=== PATIENT | female | born 1945 | race Caucasian/White ===

== ENCOUNTER 2018-01-28 01:12 | Inpatient (IN) | payer MEDICARE, OTHER, SELFPAY ==
[2018-01-28] VITALS (18 sets, daily range): BP systolic 113–158; BP diastolic 44–79; PULSE 14–91; RESP 18–95; TEMP 37.3–39.3; O2SAT 34–99; BMI 54.6; BMI 54.9
--- NOTE | 2018-01-28 02:18 | ED.VISSUMM ---
- ER Visit Summary Date of Service: 01/28/18 Chief Complaint: Fever and chills History of Present Illness: The patient is a 72 F 3 of ctw-dzjwqyd-jedbdikja diabetes. Patient states this afternoon meaning on Sunday afternoon she started having fever and chills. However she denies any cough or shortness of breath. She denies any chest or abdominal pain. She denies any dysuria. She denies any rashes. She denies any nausea, vomiting or diarrhea. Denies any headache. Physical Examination: Older female no acute distress. She does have a fever of 102.8. Pulse ox 95% on room air no signs of hypoxia. She is a good blood pressure 134/76. Clinically she does not look septic or toxic. HEENT exam unremarkable. Neck nontender no lymphadenopathy. Lungs clear to auscultation bilaterally. Heart regular rate and rhythm no murmur. Abdomen is obese but soft and nontender. No peritoneal signs. Normal bowel sounds. He is moving all 4 extremities. They are neurovascularly intact. They are both warm to the touch but no specific cellulitis. Neurologically she is awake and alert. Without focal motor deficits. Back exam nontender. Test Results: A count of 17,700. H&H 1135. No bands. Electrolytes unremarkable and a potassium of 3.1. Creatinine 1.2. Normal gap. UA normal. Chest x-ray shows no acute abnormality. Cardiomegaly. Read both by myself the radiologist. Urinalysis is normal without signs of infection. Lactic acid is elevated 3.4. Emergency Department Course and Treatment: Older female with a fever. Labs, chest x-ray and urinalysis will be obtained along with blood cultures and she will receive IV fluids and Tylenol. I will start the patient on broad-spectrum antibiotics and still be started on Zosyn in the ER. Treatment Plan: We will repeat exams patient is doing well. Blood pressures remained stable. Her fevers improved with the Tylenol. In light of her age, her diabetes a white count and the fever I do have concerns as an underlying bacterial infection. I did not have a specific source. She does have mild redness to her right lower landin it is not painful but she has neuropathy. Could this be an early developing cellulitis is a possibility. I do think she warrants admission for further evaluation workup. I very spoken to the hospitalist about this. Disposition: Admission Impression: Fever uncertain etiology Leukocytosis History of zhc-ajumhdv-qmlxzqyvq diabetes This note was generated with [employer] dictation software. It may contain incorrect words, spelling, and punctuation that were not noted in review of the chart prior to signing ED Disposition - Plan for ED Patient: Chief Complaint: Fever Referrals: Lalitha Baez MD [Primary Care Provider] -
--- NOTE | 2018-01-28 02:21 | ED.DCSUM_ITS ---
- ER Visit Summary Date of Service: 01/28/18 Chief Complaint: Fever and chills History of Present Illness: The patient is a 72 F 3 of vlg-slwwxgg-eaamkvplv diabetes. Patient states this afternoon meaning on Sunday afternoon she started having fever and chills. However she denies any cough or shortness of breath. She denies any chest or abdominal pain. She denies any dysuria. She denies any rashes. She denies any nausea, vomiting or diarrhea. Denies any headache. Physical Examination: Older female no acute distress. She does have a fever of 102.8. Pulse ox 95% on room air no signs of hypoxia. She is a good blood pressure 134/76. Clinically she does not look septic or toxic. HEENT exam unremarkable. Neck nontender no lymphadenopathy. Lungs clear to auscultation bilaterally. Heart regular rate and rhythm no murmur. Abdomen is obese but soft and nontender. No peritoneal signs. Normal bowel sounds. He is moving all 4 extremities. They are neurovascularly intact. They are both warm to the touch but no specific cellulitis. Neurologically she is awake and alert. Without focal motor deficits. Back exam nontender. Test Results: A count of 17,700. H&H 1135. No bands. Electrolytes unremarkable and a potassium of 3.1. Creatinine 1.2. Normal gap. UA normal. Chest x-ray shows no acute abnormality. Cardiomegaly. Read both by myself the radiologist. Urinalysis is normal without signs of infection. Lactic acid is elevated 3.4. Emergency Department Course and Treatment: Older female with a fever. Labs, chest x-ray and urinalysis will be obtained along with blood cultures and she will receive IV fluids and Tylenol. I will start the patient on broad-spectrum antibiotics and still be started on Zosyn in the ER. Treatment Plan: We will repeat exams patient is doing well. Blood pressures remained stable. Her fevers improved with the Tylenol. In light of her age, her diabetes a white count and the fever I do have concerns as an underlying bacterial infection. I did not have a specific source. She does have mild redness to her right lower landin it is not painful but she has neuropathy. Could this be an early developing cellulitis is a possibility. I do think she warrants admission for further evaluation workup. I very spoken to the hospitalist about this. Disposition: Admission Impression: Fever uncertain etiology Leukocytosis History of dny-dlwpozw-kibmauujt diabetes This note was generated with [employer] dictation software. It may contain incorrect words, spelling, and punctuation that were not noted in review of the chart prior to signing ED Disposition - Plan for ED Patient: Chief Complaint: Fever Referrals: Lalitha Baez MD [Primary Care Provider] -
[2018-01-28] MEDS: 0.9% Normal Saline 1,000 ML 1000 ML IV (02:29)
[2018-01-28] MEDS: Acetaminophen 500 MG Tablet 1000 MG PO (02:29)
--- NOTE | 2018-01-28 03:00 | RAD_ITS ---
STUDY: X-RAY CHEST REASON FOR EXAM: Female, 72 years old. Fever. TECHNIQUE: PA and lateral chest. COMPARISON: None. FINDINGS: The lungs are clear and expanded. There is no demonstrated pleural abnormality. Mild to moderate cardiomegaly. Normal mediastinum and harmony. Normal visualized pulmonary arteries. Normal visualized aortic arch and descending thoracic aorta. Mild degenerative changes of the thoracic spine. Normal visualized ribs, clavicles, and shoulders. There is no demonstrated abnormality of the visualized soft tissue structures of the upper abdomen. RAD/Chest PA and Lateral IMPRESSION: Cardiomegaly. Electronically Signed: Chevy Hernandez MD at 3:39 EDT , Service support ,
[2018-01-28 03:03] LABS: Absolute Neutrophil Count 15.8 X10^3/uL (2.0-7.7); Basophil# 0.03 X10^3/uL; Basophil% 0.2 % (0-1); Eosinophil# 0.01 X10^3/uL; Eosinophils% 0.1 % (0-5); Hematocrit 35.1 % (37-47); Hemoglobin 11.4 g/dl (12.0-15.0); Lymphocyte % 4.5 % (19-41); Mean Corp Hgb Conc 32.5 g/gl (32-36); Mean Corpuscular Volume 80.1 fL (81-99); Mean Platelet Vol. 10.5 fl (6.2-12.0); Monocyte# 0.94 X10^3/uL; Monocyte% 5.3 % (0-10); Neutrophil # 15.79 X10^3/uL (2.7-7.7); Neutrophil % 89.4 % (47-70); Platelet Count 230 K/mm3 (150-450); RBC Distribution Width CV 17.5 % (11.6-14.6); RBC Distribution Width SD 48.6 fl (35.1-43.9); Red Blood Count 4.38 M/mm3 (4.2-5.4); White Blood Count 17.7 K/mm3 (4.4-11.0)
[2018-01-28 03:04] LABS: POSITIVE COUNT NO; POSITIVE DIFFERENTIAL NO; POSITIVE MORPHOLOGY NO
[2018-01-28 03:09] LABS: Anion Gap 11 (5-15); BUN 25 mg/dL (7-18); Calcium,Total 8.4 mg/dL (8.5-10.1); Chloride 101 mmol/L (98-107); Creatinine, Serum 1.25 mg/dL (0.55-1.02); EST Glomerular Filtration Rate 45 mL/min (>60); Est Glom Filt Rate - Afr Amer 54 mL/min (>60); Estimated Creatinine Clearance 36.16 ml/min; Glucose 176 mg/dL (74-106); Potassium 3.1 mmol/L (3.5-5.1); Sodium Level 138 mmol/L (136-145)
[2018-01-28 03:23] LABS: Lactic Acid 3.4 mmol/L (0.4-2.0)
[2018-01-28 03:34] LABS: Bacteria 0 SEEN /hpf (None Seen); Mucous, Urine 0 SEEN /hpf (<or=2+); Squamous Epithelial Cells - UA 0 SEEN /hpf (5-10); White Blood Cells 0 SEEN /hpf (0-5)
[2018-01-28 03:38] LABS: Color, Urine Yellow (Yellow); Glucose, Dipstick Normal (Normal); Ketone-Dipstick Negative (Negative); Leukocyte Esterase-Dipstick Negative /ul (Negative); Nitrite-Dipstick Negative (Negative); Occult Blood-Urine 50 /ul (Negative); Protein-Dipstick 100 mg/dl (Negative); Urine Bilirubin Dipstick Negative (Negative); Urine Clarity Sl. Cloudy (Clear); Urine Urobilinogen Normal (Normal)
[2018-01-28 03:49] LABS: Amorphous Sediment 3+; Red Blood Cells-Urine 0-5 SEEN /hpf (0-5)
--- NOTE | 2018-01-28 03:52 | ED.RN ---
lab called with critical lab results. lactic acid 3.4. Dr. Comer made aware. no new orders at this time
--- NOTE | 2018-01-28 04:53 | PCM.HP.STD ---
Problem List (1) HTN (hypertension) Status: Chronic Qualifiers: Hypertension type: essential hypertension Qualified Code(s): I10 - Essential (primary) hypertension (2) HLD (hyperlipidemia) Status: Chronic Qualifiers: Hyperlipidemia type: unspecified Qualified Code(s): E78.5 - Hyperlipidemia, unspecified (3) Morbid obesity with BMI of 50.0-59.9, adult Status: Chronic (4) Diabetes mellitus, type II Status: Chronic Qualifiers: Diabetes mellitus superintendent terminal insulin use: without senior care use Diabetes mellitus complication status: with unspecified complications Qualified Code(s): E11.8 - Type 2 diabetes mellitus with unspecified complications (5) GERD (gastroesophageal reflux disease) Status: Chronic Qualifiers: Esophagitis presence: esophagitis presence not specified Qualified Code(s): K21.9 - Gastro-esophageal reflux disease without esophagitis (6) Anxiety and depression Status: Chronic (7) Severe sepsis Status: Acute History of Present Illness Date of Admission: 01/28/18 Chief Complaint: Malaise, Fatigue The patient is a 72 y/o F w/ PMHx: HTN, HLD, Morbid Obesity, Diabetes mellitus type II w/ Neuropathy, GERD, Anxiety and Depression who presents to the [facility] ED on 01/28/18 with history of fever, chills, mild loose stools, generalized fatigue x 24 hours although she noted ongoing malaise for the last several days. In the ED work-up included T 102.8, HR 89, BP 134/76, RR 24, 95% on RA, CBC w/ WBC 17.7, Hgb 11.4, Plts 230 with L shift, BMP w/ K 3.1, BUN/Cr 25/1.25, glucose 176, LA 3.4, UA not marked appearing, CXR no marked appearing. In the ED patient administered zosyn given unclear source. Requested respiratory viral panel be obtained in the ED. Past Medical History Past Medical History (Chronic Problems): Chronic Problems HTN (hypertension) (Chronic) HLD (hyperlipidemia) (Chronic) Morbid obesity with BMI of 50.0-59.9, adult (Chronic) Diabetes mellitus, type II (Chronic) GERD (gastroesophageal reflux disease) (Chronic) Anxiety and depression (Chronic) Allergies No Known Allergies Allergy (Verified 01/28/18 01:18) Home Medications: Ambulatory Orders Medication Instructions Recorded Amlodipine [Norvasc] 10 mg PO DAILY 01/28/18 Fluoxetine [Prozac] 40 mg PO DAILY 01/28/18 Furosemide [Lasix] 60 mg PO DAILY 01/28/18 Glyburide/Metformin HCl 1 tab PO BID 01/28/18 [Glucovance 5-500 mg Tablet] Hydrochlorothiazide [Hctz] 25 mg PO DAILY 01/28/18 Metoprolol Tartrate 50 mg PO BID 01/28/18 Omeprazole 20 mg PO BID 01/28/18 Potassium Chloride 10 meq PO BID 01/28/18 Simvastatin [Zocor] 10 mg PO QHS 01/28/18 Surgical History: - - Hemorrhoidectomy, hysterectomy, bilateral carpal tunnel release, abdominal surgery following possible liposuction/plastic surgery. Psychiatric History: Anxiety, Depression [employer] History: No pertinent [employer] history Lives: Spouse/ Significant Other Smoking Status: Never smoker Tobacco Use: Non-smoker Alcohol: None Drugs: None - *Family History Maternal History Items: - - Mother with a history of hypertension, heart disease, stroke at age 87. Paternal History Items: - - There with a history of chronic lung disease with heavy tobacco use history. Review of Systems Constitutional: Reports: Anorexia, Chills, Fever, Malaise, Weakness, Fatigue. Denies: Weight Change HEENT: Reports: Sore Throat. Denies: Head Aches, Sinus Congestion, Sinus Drainage Cardiovascular: Denies: Chest Pain, Palpitations Respiratory: Reports: Cough. Denies: Shortness of breath at rest, Sputum production Gastrointestinal: Reports: Nausea, Vomiting. Denies: Abdominal Pain Genitourinary: Denies: Dysuria Musculoskeletal: Denies: Joint Pain, Joint Tenderness Skin: Denies: Rash, Wounds Neurological: Denies: Numbness, Tingling, Focal weakness Psychiatric: Reports: Anxiety, Depression. Denies: Homicidal Ideations, Suicidal Ideations Hematologic/ Lymphatic: Denies: Easy Bruising, Easy Bleeding VTE Information - Inpt Only VTE Present on Admission: No VTE Mechan Device Prophylaxis: SCD's VTE Pharm Prophylaxis ordered?: Yes Patient Problems: Active and Suspected Problems Severe sepsis (Acute) Subjective: Seated upright in the ED bed, fatigued appearance. Objective: Physical Examination: General: awake, alert, oriented x 3 and cooperative, seated upright in the ED bed in no apparent distress, fatigued, ill appearing. Skin: normal color, turgor, no icterus, cyanosis. HEENT: AT/NC, EOMI, PERRLA, dry MM, no carotid bruits or JVD noted, no marked OP erythema/exudate. Lungs: Diminished BS BL bases, moderate effort, no rales, ronchi or wheezing. Heart: Regular rate and rhythm; no gallop, rub audible. Abdomen: soft, morbidly obese, NTTP, ND, normal BS, no HSM; however, habitus makes examination difficult. Extremities: no cyanosis, clubbing, BL LE ankle non-pitting. Neurological: patient awake, alert, oriented x 3; cognitive function intact; pupils equally reactive to light and accomodation; cranial nerves II-XII grossly normal, moving all 4 extremities, no focal deficits, strength severely globally decreased secondary to acute presentation. Psychiatric: affect appears fatigued, mildly irritable, no acute evidence of depressive or anxiety feelings. - Physical Exam Vital Signs Temp Pulse Resp BP Pulse Ox 102.8 F H 81 20 H 121/78 H 94 01/28/18 01:16 01/28/18 03:34 01/28/18 03:34 01/28/18 03:34 01/28/18 03:34 Oxygen Delivery Method Room Air Weight: 318 lb 2.032 oz Body Mass Index (BMI) 54.6 Laboratory Tests Past 24 Hrs 01/28/18 01/28/18 01/28/18 02:40 02:40 02:40 WBC 17.7 H RBC 4.38 Hgb 11.4 L Hct 35.1 L MCV 80.1 L MCH 26.0 L MCHC 32.5 RDW 17.5 H RDW Differential 48.6 H Plt Count 230 MPV 10.5 Immature Gran % (Auto) 0.500 Neut % (Auto) 89.4 H Lymph % (Auto) 4.5 L Alfalfa % (Auto) 5.3 Eos % (Auto) 0.1 Baso % (Auto) 0.2 Absolute Neuts (auto) 15.8 H Absolute Lymphs (auto) 0.80 L Total Counted Not Reportable Sodium 138 Potassium 3.1 L Chloride 101 Carbon Dioxide 26.0 Anion Gap 11 BUN 25 H Creatinine 1.25 H Estim Creat Clear Calc 36.16 Est GFR (MDRD) Af Amer 54 L Est GFR (MDRD) Non-Af 45 L BUN/Creatinine Ratio 20.0 Glucose 176 H Lactic Acid 3.4 H Calcium 8.4 L Urine Color Urine Clarity Urine pH Ur Specific [place] Urine Protein Urine Glucose (UA) Urine Ketones Urine Occult Blood Urine Nitrite Urine Bilirubin Urine Urobilinogen Ur Leukocyte Esterase Urine RBC Urine WBC Ur Squamous Epith Cells Amorphous Sediment Urine Bacteria Urine Mucus 01/28/18 03:30 WBC RBC Hgb Hct MCV MCH MCHC RDW RDW Differential Plt Count MPV Immature Gran % (Auto) Neut % (Auto) Lymph % (Auto) Alfalfa % (Auto) Eos % (Auto) Baso % (Auto) Absolute Neuts (auto) Absolute Lymphs (auto) Total Counted Sodium Potassium Chloride Carbon Dioxide Anion Gap BUN Creatinine Estim Creat Clear Calc Est GFR (MDRD) Af Amer Est GFR (MDRD) Non-Af BUN/Creatinine Ratio Glucose Lactic Acid Calcium Urine Color Yellow Urine Clarity Sl. Cloudy Urine pH 6.0 Ur Specific [place] 1.010 Urine Protein 100 H Urine Glucose (UA) Normal Urine Ketones Negative Urine Occult Blood 50 H Urine Nitrite Negative Urine Bilirubin Negative Urine Urobilinogen Normal Ur Leukocyte Esterase Negative Urine RBC 0-5 SEEN Urine WBC 0 SEEN Ur Squamous Epith Cells 0 SEEN Amorphous Sediment 3+ Urine Bacteria 0 SEEN Urine Mucus 0 SEEN Assessment/Plan Active and Suspected Problems Severe sepsis (Acute) The patient is a 72 y/o F w/ PMHx: HTN, HLD, Morbid Obesity, Diabetes mellitus type II w/ Neuropathy, GERD, Anxiety and Depression who presents to the [facility] ED on 01/28/18 with history of fever, chills, mild loose stools, generalized fatigue x 24 hours although she noted ongoing malaise for the last several days. (1) Acute Severe Sepsis, Unclear Source, ? Influenza with evidence of sepsis-induced organ dysfunction/tissue hypoperfusion as evidenced by leukocytosis, febrile, renal insufficiency, lactic acidosis. Will admit patient to the PCU, maintain on cardiac monitoring, continue IVF bolus per protocol, repeat LA level per facility protocol, maintain on BSA zosyn pending Cx, pending Bld Cx, obtain UCx, obtain sputum Cx, obtain urine antigents, obtain respiratory viral panel, obtain throat culture and repid strep. Given notable admission presentation and unclear source, will obtain ID evaluation. (2) Diabetes mellitus type II: Hold oral home regimen, ADA diet, accu checks w/ ISS. (3) Hypertension: Maintain on home Norvasc, Metoprolol regimen, hold diuretics given ongoing hydration needs, add back when appropriate PRN hydralazine. (4) Hyperlipidemia: Maintain on home statin regimen. (5) Morbid Obesity: Weight loss and lifestyle changes encouraged, nutrition consulted. (6) Anxiety and Depression: Maintain on home prozac regimen. (7) GERD: Famotidine. (8) ? CKD, Unclear stage: Admission BUN/Cr 25/1.25, likely component acute w/ dehydration, CrCl 36, as noted #1, hydrate, repeat BMP in AM. (9) DVT Prophylaxis: SCDs, heparin. Code Visit Inpatient E&M: 50959 Init Hosp L3
--- NOTE | 2018-01-28 04:59 | HP.PCM_ITS ---
Problem List (1) HTN (hypertension) Status: Chronic Qualifiers: Hypertension type: essential hypertension Qualified Code(s): I10 - Essential (primary) hypertension (2) HLD (hyperlipidemia) Status: Chronic Qualifiers: Hyperlipidemia type: unspecified Qualified Code(s): E78.5 - Hyperlipidemia , unspecified (3) Morbid obesity with BMI of 50.0-59.9, adult Status: Chronic (4) Diabetes mellitus, type II Status: Chronic Qualifiers: Diabetes mellitus exterminator helper insulin use: without exterminator helper use Diabetes mellitus complication status: with unspecified complications Qualified Code(s) : E11.8 - Type 2 diabetes mellitus with unspecified complications (5) GERD (gastroesophageal reflux disease) Status: Chronic Qualifiers: Esophagitis presence: esophagitis presence not specified Qualified Code(s) : K21.9 - Gastro-esophageal reflux disease without esophagitis (6) Anxiety and depression Status: Chronic (7) Severe sepsis Status: Acute History of Present Illness Date of Admission: 01/28/18 Chief Complaint: Malaise, Fatigue The patient is a 72 y/o F w/ PMHx: HTN, HLD, Morbid Obesity, Diabetes mellitus type II w/ Neuropathy, GERD, Anxiety and Depression who presents to the [facility] ED on 01/28/18 with history of fever, chills, mild loose stools, generalized fatigue x 24 hours although she noted ongoing malaise for the last several days. In the ED work-up included T 102.8, HR 89, BP 134/76, RR 24, 95% on RA, CBC w/ WBC 17.7, Hgb 11.4, Plts 230 with L shift, BMP w/ K 3.1, BUN/Cr 25/1.25, glucose 176, LA 3.4, UA not marked appearing, CXR no marked appearing. In the ED patient administered zosyn given unclear source. Requested respiratory viral panel be obtained in the ED. Past Medical History Past Medical History (Chronic Problems): Chronic Problems HTN (hypertension) (Chronic) HLD (hyperlipidemia) (Chronic) Morbid obesity with BMI of 50.0-59.9, adult (Chronic) Diabetes mellitus, type II (Chronic) GERD (gastroesophageal reflux disease) (Chronic) Anxiety and depression (Chronic) Allergies No Known Allergies Allergy (Verified 01/28/18 01:18) Home Medications: Ambulatory Orders Medication Instructions Recorded Amlodipine [Norvasc] 10 mg PO DAILY 01/28/18 Fluoxetine [Prozac] 40 mg PO DAILY 01/28/18 Furosemide [Lasix] 60 mg PO DAILY 01/28/18 Glyburide/Metformin HCl 1 tab PO BID 01/28/18 [Glucovance 5-500 mg Tablet] Hydrochlorothiazide [Hctz] 25 mg PO DAILY 01/28/18 Metoprolol Tartrate 50 mg PO BID 01/28/18 Omeprazole 20 mg PO BID 01/28/18 Potassium Chloride 10 meq PO BID 01/28/18 Simvastatin [Zocor] 10 mg PO QHS 01/28/18 Surgical History: - - Hemorrhoidectomy, hysterectomy, bilateral carpal tunnel release, abdominal surgery following possible liposuction/plastic surgery. 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 Paternal History Items: - - There with a history of chronic lung disease with heavy tobacco use history. Review of Systems Constitutional: Reports: Anorexia, Chills, Fever, Malaise, Weakness, Fatigue. Denies: Weight Change HEENT: Reports: Sore Throat. Denies: Head Aches, Sinus Congestion, Sinus Drainage Cardiovascular: Denies: Chest Pain, Palpitations Respiratory: Reports: Cough. Denies: Shortness of breath at rest, Sputum production Gastrointestinal: Reports: Nausea, Vomiting. Denies: Abdominal Pain Genitourinary: Denies: Dysuria Musculoskeletal: Denies: Joint Pain, Joint Tenderness Skin: Denies: Rash, Wounds Neurological: Denies: Numbness, Tingling, Focal weakness Psychiatric: Reports: Anxiety, Depression. Denies: Homicidal Ideations, Suicidal Ideations Hematologic/ Lymphatic: Denies: Easy Bruising, Easy Bleeding VTE Information - Inpt Only VTE Present on Admission: No VTE Mechan Device Prophylaxis: SCD's VTE Pharm Prophylaxis ordered?: Yes Patient Problems: Active and Suspected Problems Severe sepsis (Acute) Subjective: Seated upright in the ED bed, fatigued appearance. Objective: Physical Examination: General: awake, alert, oriented x 3 and cooperative, seated upright in the ED bed in no apparent distress, fatigued, ill appearing. Skin: normal color, turgor, no icterus, cyanosis. HEENT: AT/NC, EOMI, PERRLA, dry MM, no carotid bruits or JVD noted, no marked OP erythema/exudate. Lungs: Diminished BS BL bases, moderate effort, no rales, ronchi or wheezing. Heart: Regular rate and rhythm; no gallop, rub audible. Abdomen: soft, morbidly obese, NTTP, ND, normal BS, no HSM; however, habitus makes examination difficult. Extremities: no cyanosis, clubbing, BL LE ankle non-pitting. Neurological: patient awake, alert, oriented x 3; cognitive function intact; pupils equally reactive to light and accomodation; cranial nerves II-XII grossly normal, moving all 4 extremities, no focal deficits, strength severely globally decreased secondary to acute presentation. Psychiatric: affect appears fatigued, mildly irritable, no acute evidence of depressive or anxiety feelings. - Physical Exam Vital Signs Temp Pulse Resp BP Pulse Ox 102.8 F H 81 20 H 121/78 H 94 01/28/18 01:16 01/28/18 03:34 01/28/18 03:34 01/28/18 03:34 01/28/18 03:34 Oxygen Delivery Method Room Air Weight: 318 lb 2.032 oz Body Mass Index (BMI) 54.6 Laboratory Tests Past 24 Hrs 01/28/18 01/28/18 01/28/18 02:40 02:40 02:40 WBC 17.7 H RBC 4.38 Hgb 11.4 L Hct 35.1 L MCV 80.1 L MCH 26.0 L MCHC 32.5 RDW 17.5 H RDW Differential 48.6 H Plt Count 230 MPV 10.5 Immature Gran % (Auto) 0.500 Neut % (Auto) 89.4 H Lymph % (Auto) 4.5 L Snyder % (Auto) 5.3 Eos % (Auto) 0.1 Baso % (Auto) 0.2 Absolute Neuts (auto) 15.8 H Absolute Lymphs (auto) 0.80 L Total Counted Not Reportable Sodium 138 Potassium 3.1 L Chloride 101 Carbon Dioxide 26.0 Anion Gap 11 BUN 25 H Creatinine 1.25 H Estim Creat Clear Calc 36.16 Est GFR (MDRD) Af Amer 54 L Est GFR (MDRD) Non-Af 45 L BUN/Creatinine Ratio 20.0 Glucose 176 H Lactic Acid 3.4 H Calcium 8.4 L Urine Color Urine Clarity Urine pH Ur Specific [place] Urine Protein Urine Glucose (UA) Urine Ketones Urine Occult Blood Urine Nitrite Urine Bilirubin Urine Urobilinogen Ur Leukocyte Esterase Urine RBC Urine WBC Ur Squamous Epith Cells Amorphous Sediment Urine Bacteria Urine Mucus 01/28/18 03:30 WBC RBC Hgb Hct MCV MCH MCHC RDW RDW Differential Plt Count MPV Immature Gran % (Auto) Neut % (Auto) Lymph % (Auto) Snyder % (Auto) Eos % (Auto) Baso % (Auto) Absolute Neuts (auto) Absolute Lymphs (auto) Total Counted Sodium Potassium Chloride Carbon Dioxide Anion Gap BUN Creatinine Estim Creat Clear Calc Est GFR (MDRD) Af Amer Est GFR (MDRD) Non-Af BUN/Creatinine Ratio Glucose Lactic Acid Calcium Urine Color Yellow Urine Clarity Sl. Cloudy Urine pH 6.0 Ur Specific [place] 1.010 Urine Protein 100 H Urine Glucose (UA) Normal Urine Ketones Negative Urine Occult Blood 50 H Urine Nitrite Negative Urine Bilirubin Negative Urine Urobilinogen Normal Ur Leukocyte Esterase Negative Urine RBC 0-5 SEEN Urine WBC 0 SEEN Ur Squamous Epith Cells 0 SEEN Amorphous Sediment 3+ Urine Bacteria 0 SEEN Urine Mucus 0 SEEN Assessment/Plan Active and Suspected Problems Severe sepsis (Acute) The patient is a 72 y/o F w/ PMHx: HTN, HLD, Morbid Obesity, Diabetes mellitus type II w/ Neuropathy, GERD, Anxiety and Depression who presents to the [facility] ED on 01/28/18 with history of fever, chills, mild loose stools, generalized fatigue x 24 hours although she noted ongoing malaise for the last several days. (1) Acute Severe Sepsis, Unclear Source, ? Influenza with evidence of sepsis- induced organ dysfunction/tissue hypoperfusion as evidenced by leukocytosis, febrile, renal insufficiency, lactic acidosis. Will admit patient to the PCU, maintain on cardiac monitoring, continue IVF bolus per protocol, repeat LA level per facility protocol, maintain on BSA zosyn pending Cx, pending Bld Cx, obtain UCx, obtain sputum Cx, obtain urine antigents, obtain respiratory viral panel, obtain throat culture and repid strep. Given notable admission presentation and unclear source, will obtain ID evaluation. (2) Diabetes mellitus type II: Hold oral home regimen, ADA diet, accu checks w/ ISS. (3) Hypertension: Maintain on home Norvasc, Metoprolol regimen, hold diuretics given ongoing hydration needs, add back when appropriate PRN hydralazine. (4) Hyperlipidemia: Maintain on home statin regimen. (5) Morbid Obesity: Weight loss and lifestyle changes encouraged, nutrition consulted. (6) Anxiety and Depression: Maintain on home prozac regimen. (7) GERD: Famotidine. (8) ? CKD, Unclear stage: Admission BUN/Cr 25/1.25, likely component acute w/ dehydration, CrCl 36, as noted #1, hydrate, repeat BMP in AM. (9) DVT Prophylaxis: SCDs, heparin. Code Visit Inpatient E&M: 10160 Init Hosp L3
[2018-01-28 06:46] LABS: Reflex Lactate? Y
[2018-01-28] MEDS: 0.9% Normal Saline 1,000 ML 999 ML IV (09:13)
[2018-01-28 09:26] LABS: Magnesium 1.8 mg/dL (1.6-2.6)
[2018-01-28] MEDS: 0.9% Normal Saline 1,000 ML 150 ML IV ×2 (09:38→19:36)
[2018-01-28 10:30] LABS: Bedside Glucose 125 mg/dL (70-110)
--- NOTE | 2018-01-28 10:37 | PCM.HP.ID ---
Problem List (1) Severe sepsis Status: Acute Reason for Consult: severe sepsis Consulted by: Dr. Srivastava History of Present Illness: The patient is a 72 year old F with h/o T2DM, obesity who presented overnight with sudden onset fever, chills, generalized weakness. C/o intermittent sore throat for past few weeks. No recent abx. Some small amount of green sputum. No cough. SOB stable at baseline. Has chronic headaches and back pain. No congestion, myalgias, n/v/d, dysuria, abd pain. Recently visited by 13yo grandson who had an ear infection. Fell down next to bed and could not get up. EMS called, taken to ED, cxs drawn, started on zosyn. Still feels cold. Full ROS performed and neg except as noted above. - Medical History Past Medical History (Chronic Problems): Chronic Problems HTN (hypertension) (Chronic) HLD (hyperlipidemia) (Chronic) Morbid obesity with BMI of 50.0-59.9, adult (Chronic) Diabetes mellitus, type II (Chronic) GERD (gastroesophageal reflux disease) (Chronic) Anxiety and depression (Chronic) Allergies/Adverse Reactions: Allergies No Known Allergies Allergy (Verified 01/28/18 01:18) Home Medications: Ambulatory Orders Medication Instructions Recorded Amlodipine [Norvasc] 10 mg PO DAILY 01/28/18 Fluoxetine [Prozac] 40 mg PO DAILY 01/28/18 Furosemide [Lasix] 60 mg PO DAILY 01/28/18 Glyburide/Metformin HCl 1 tab PO BID 01/28/18 [Glucovance 5-500 mg Tablet] Hydrochlorothiazide [Hctz] 25 mg PO DAILY 01/28/18 Metoprolol Tartrate 50 mg PO BID 01/28/18 Omeprazole 20 mg PO BID 01/28/18 Potassium Chloride 10 meq PO BID 01/28/18 Simvastatin [Zocor] 10 mg PO QHS 01/28/18 - Social History Tobacco Use: non-smoker Vital Signs Temp Pulse Resp BP Pulse Ox 99.8 F H 74 28 H 115/45 L 34 01/28/18 05:16 01/28/18 07:27 01/28/18 07:27 01/28/18 07:27 01/28/18 07:27 Weight: 145.15 kg Body Mass Index (BMI) 54.9 Microbiology Past 72 Hours 01/28/18 09:00 Legionella Antigen - Final Urine, Clean Catch 01/28/18 09:00 Streptococcus pneumoniae Antigen (M - Final Urine, Clean Catch - Other Studies Radiology: [] reviewed Other Studies: [] Route of nutrition/ use of supplements: [] Nutritional Intake: [] IV Site: [] Bolden Catheter: [] - Physical Exam General: Alert, Oriented x3, No apparent distress HEENT: Atraumatic, PERRLA, EOMI Neck: Supple, No Nodes Lungs: Normal air movement, Wheezes - faint wheeze Cardiovascular: Irregular Rate Abdomen: Bowel Sounds Present, Soft, Non Tender, Non-Distended, Obese Extremities: No edema IV Site: Peripheral, without redness Musculoskeletal: No Tenderness to Palpation of Joints or Extremities Neurological: Cranial nerves II-XII grossly intact - Assessment/Plan Antibiotics: [] Assessment/Plan: [] Active and Suspected Problems Severe sepsis (Acute) - unclear source. Only focal complaint is several weeks of sore throat and some green sputum. Will order throat and sputum cx. Resp viral panel pending. Lungs and cxr relatively clear. No myalgias, no urinary symptoms, and belly is benign. Will start empiric tamiflu while pcr is pending. Narrow zosyn to ceftriaxone. Thank you, will follow.
[2018-01-28] MEDS: Metoprolol Tartrate 50 MG Tablet PO ×2 (11:03→21:33)
[2018-01-28] MEDS: Famotidine 20 MG Tablet PO (11:03)
[2018-01-28] MEDS: Heparin Injection 5,000 UNITS/ML Syringe 5000 UNITS SC ×2 (11:03→21:32)
[2018-01-28] MEDS: FLUoxetine 20 MG Capsule 40 MG PO (11:04)
[2018-01-28] MEDS: amLODIPine 10 MG Tablet PO (11:04)
[2018-01-28] MEDS: Oseltamivir Phosphate 30 MG Capsule PO ×2 (13:33→21:33)
--- NOTE | 2018-01-28 13:52 | CASEMGMT ---
See RN CM Assessment Link. Pt plans to return home. Discussed Home Health, she is not sure she will need. is home to assist and is able to help with ADL's and transportation. Vernell LOUIS RN ACM
[2018-01-28 17:20] LABS: Bedside Glucose 154 mg/dL (70-110)
--- NOTE | 2018-01-28 17:31 | PCM.HOSP.N ---
Hospitalist Note Patient was briefly seen and examined today, she has a reddened area over the lateral and frontal aspect of her right lower leg starting from just above the ankle and extending to just below the knee on that side. Patient has 2 eschars noted on that area of the leg which do not appear to have any drainage is associated with them, patient was vague on how long the eschars have been present. The right lower leg definitely feels more warm than the left lower leg. I gave a call to infectious diseases to discuss this with him and they will look at the area tomorrow, patient will remain on Rocephin for now and labs will be rechecked tomorrow.
[2018-01-28] MEDS: Acetaminophen 325 MG Tablet 650 MG PO (18:41)
[2018-01-28] MEDS: Atorvastatin Calcium 10 MG Tablet 5 MG PO (21:32)
[2018-01-28] MEDS: Temazepam 15 MG Capsule PO (21:44)
[2018-01-28 21:45] LABS: Bedside Glucose 139 mg/dL (70-110)
[2018-01-29] VITALS (26 sets, daily range): BP systolic 140–160; BP diastolic 56–110; PULSE 58–89; RESP 15–38; TEMP 36.9–38.4; O2SAT 91–99
[2018-01-29] MEDS: Acetaminophen 325 MG Tablet 650 MG PO ×2 (01:29→20:15)
[2018-01-29] MEDS: 0.9% NaCl Peripheral Flush Adult/Peds IV ×3 (01:44→20:15)
[2018-01-29] MEDS: 0.9% Normal Saline 1,000 ML 150 ML IV ×2 (03:39→10:05)
[2018-01-29 04:17] LABS: Anion Gap 9 (5-15); BUN 14 mg/dL (7-18); BUN/Creat Ratio 15.3 RATIO (10-20); Calcium,Total 7.7 mg/dL (8.5-10.1); Chloride 105 mmol/L (98-107); Creatinine, Serum 0.92 mg/dL (0.55-1.02); EST Glomerular Filtration Rate 64 mL/min (>60); Est Glom Filt Rate - Afr Amer 78 mL/min (>60); Estimated Creatinine Clearance 49.13 ml/min; Glucose 154 mg/dL (74-106); Potassium 2.8 mmol/L (3.5-5.1); Sodium Level 139 mmol/L (136-145)
[2018-01-29 04:30] LABS: Hematocrit 31.1 % (37-47); Mean Corp Hgb Conc 32.2 g/gl (32-36); Mean Corpuscular Hgb 25.8 pg (27.0-32.0); Mean Corpuscular Volume 80.2 fL (81-99); Mean Platelet Vol. 10.3 fl (6.2-12.0); Platelet Count 190 K/mm3 (150-450); RBC Distribution Width SD 51.3 fl (35.1-43.9); Red Blood Count 3.88 M/mm3 (4.2-5.4); White Blood Count 11.8 K/mm3 (4.4-11.0)
[2018-01-29 04:38] LABS: Scan Indicated on CBC? Y/N NO
[2018-01-29 06:51] LABS: Bedside Glucose 126 mg/dL (70-110)
--- NOTE | 2018-01-29 10:03 | PCM.PN.ID ---
Patient Problems: Active and Suspected Problems Severe sepsis (Acute) Subjective: Fever better, but more cough/wheezing. No n/v/d. RLE with mild soreness. - Physical Exam General: Alert, Cooperative Lungs: Diminished Cardiovascular: Regular rate, Regular Rhythm Abdomen: Soft, Non Tender, Non-Distended Extremities: Edema Skin: Rash Present - Mild erythema on R landin Vital Signs Temp Pulse Resp BP Pulse Ox 100.6 F H 86 22 H 154/110 H 93 01/29/18 08:14 01/29/18 08:14 01/29/18 08:14 01/29/18 08:14 01/29/18 08:14 Oxygen Delivery Method Room Air Weight: 145.15 kg Body Mass Index (BMI) 54.9 Intake and Output for Last 24 Hours 01/27/18 01/28/18 01/29/18 23:59 23:59 23:59 Intake Total 4607 / 4607 958.9 / 958.9 Balance 4607 / 4607 958.9 / 958.9 Microbiology Past 72 Hours 01/28/18 11:30 Group A Streptococcus Rapid Screen - Final Mucosa - Throat 01/28/18 10:54 Respiratory Panel (PCR) - Final Mucosa - Nasopharyngeal 01/28/18 09:00 Legionella Antigen - Final Urine, Clean Catch 01/28/18 09:00 Streptococcus pneumoniae Antigen (M - Final Urine, Clean Catch Laboratory Tests Past 24 Hrs 01/29/18 01/29/18 03:45 03:45 WBC 11.8 H RBC 3.88 L Hgb 10.0 L Hct 31.1 L MCV 80.2 L MCH 25.8 L MCHC 32.2 RDW 18.0 H RDW Differential 51.3 H Plt Count 190 MPV 10.3 Sodium 139 Potassium 2.8 L Chloride 105 Carbon Dioxide 25.0 Anion Gap 9 BUN 14 Creatinine 0.92 Estim Creat Clear Calc 49.13 Est GFR (MDRD) Af Amer 78 Est GFR (MDRD) Non-Af 64 BUN/Creatinine Ratio 15.3 Glucose 154 H Calcium 7.7 L POC Glucose 01/29/18 01/28/18 01/28/18 06:45 21:30 17:13 POC Glucose 126 H 139 H 154 H 01/28/18 10:26 POC Glucose 125 H Medical Necessity - Tobacco Use Smoking Status: Never smoker Tobacco Use: Non-smoker Route of nutrition/ use of supplements: [] Nutritional Intake: [] IV Site: [] Bolden Catheter: [] - Assessment/Plan Antibiotics: [] Assessment/Plan: [] Active and Suspected Problems Severe sepsis (Acute) - Respiratory system and RLE cellulitis likely contributing. Cxs neg so far. Resp viral panel neg so will stop tamiflu. Fever and wbc improving on ceftriaxone, will continue. will follow.
[2018-01-29] MEDS: Heparin Injection 5,000 UNITS/ML Syringe 5000 UNITS SC ×2 (10:07→21:53)
[2018-01-29] MEDS: Metoprolol Tartrate 50 MG Tablet PO ×2 (10:07→21:53)
[2018-01-29] MEDS: Famotidine 20 MG Tablet PO (10:07)
[2018-01-29] MEDS: amLODIPine 10 MG Tablet PO (10:07)
[2018-01-29] MEDS: FLUoxetine 20 MG Capsule 40 MG PO (10:08)
[2018-01-29 11:36] LABS: Bedside Glucose 147 mg/dL (70-110)
--- NOTE | 2018-01-29 11:45 | NURSING ---
resuming care of patient at 1145 received report from lisha hernandez
[2018-01-29] MEDS: Furosemide 40 MG/4 ML Vial IV (15:50)
[2018-01-29] MEDS: Albuterol 2.5 MG/3 ML VIAL.NEB. INHALATION ×3 (16:24→23:15)
[2018-01-29 16:45] LABS: Bedside Glucose 178 mg/dL (70-110)
--- NOTE | 2018-01-29 16:53 | NURSING ---
report called to Arcelia PASCUAL RN
--- NOTE | 2018-01-29 17:32 | PN_ITS ---
Patient Problems: Active and Suspected Problems Severe sepsis (Acute) Subjective: Patient was seen and examined today, she has had some episodes of wheezing today , her IV fluids have been running at a rate of 150 and she had not been maintained on her Lasix since admission, I feel the patient may have some slight fluid overload and I have reinstituted her Lasix today and stopped her IV fluids. Patient's urinary output will be tracked with a Bolden catheter in until her breathing is more stable. Patient's white blood cell count is decreased from yesterday, infectious diseases has maintained the patient on Rocephin. - Physical Exam General: Alert, Oriented x3, Cooperative, No apparent distress, Well developed, Well nourished HEENT: Atraumatic, PERRLA, EOMI, Normocephalic Oral: Moist Mucosa Neck: Supple, No JVD, No Nuchal Rigidity, Trachea Midline, Thyroid Normal Size and Texture Lungs: Clear to auscultation, Normal air movement, No rhonchi, No wheeze, No rales Cardiovascular: Regular rate, Regular Rhythm, Normal S1, Normal S2, No murmurs, No Ectopic Activity, PMI Normal, No rub noted, No Gallop Abdomen: Bowel Sounds Present, Soft, Non Tender, Non-Distended, Obese, No hernias noted Extremities: No clubbing, No cyanosis, Capillary Refill Less than 3 Seconds, Edema - Generalized edema is noted over the lower legs bilaterally worse on the right Skin: No breakdown, Rash Present - There is redness noted over the patient's right lower leg, - - increased warmth noted over the patient's right lower leg Musculoskeletal: No Tenderness to Palpation of Joints or Extremities Neurological: Cranial nerves II-XII grossly intact, Neuro grossly intact, Sensory exam intact to light touch and pain, Coordination normal Psych/Mental Status: Normal Affect, Appropriate, Alert and oriented to time, place, person, mood and affect Vital Signs Temp Pulse Resp BP Pulse Ox 98.5 F 78 34 H 151/56 H 95 01/29/18 14:00 01/29/18 16:25 01/29/18 16:25 01/29/18 14:00 01/29/18 14:00 Oxygen Delivery Method Room Air Weight: 145.15 kg Body Mass Index (BMI) 54.9 Intake and Output for Last 24 Hours 01/27/18 01/28/18 01/29/18 23:59 23:59 23:59 Intake Total 4607 / 4607 2865.9 / 2865.9 Output Total 1300 / 1300 Balance 4607 / 4607 1565.9 / 1565.9 Microbiology Past 72 Hours 01/29/18 10:05 Gram Stain - Final Sputum, Expectorated/Coughed 01/28/18 11:30 Group A Streptococcus Rapid Screen - Final Mucosa - Throat 01/28/18 10:54 Respiratory Panel (PCR) - Final Mucosa - Nasopharyngeal 01/28/18 09:00 Legionella Antigen - Final Urine, Clean Catch 01/28/18 09:00 Streptococcus pneumoniae Antigen (M - Final Urine, Clean Catch Laboratory Tests Past 24 Hrs 01/29/18 01/29/18 03:45 03:45 WBC 11.8 H RBC 3.88 L Hgb 10.0 L Hct 31.1 L MCV 80.2 L MCH 25.8 L MCHC 32.2 RDW 18.0 H RDW Differential 51.3 H Plt Count 190 MPV 10.3 Sodium 139 Potassium 2.8 L Chloride 105 Carbon Dioxide 25.0 Anion Gap 9 BUN 14 Creatinine 0.92 Estim Creat Clear Calc 49.13 Est GFR (MDRD) Af Amer 78 Est GFR (MDRD) Non-Af 64 BUN/Creatinine Ratio 15.3 Glucose 154 H Calcium 7.7 L POC Glucose 01/29/18 01/29/18 01/29/18 16:43 11:30 06:45 POC Glucose 178 H 147 H 126 H 01/28/18 21:30 POC Glucose 139 H Medical Necessity - Tobacco Use Smoking Status: Never smoker Tobacco Use: Non-smoker Assessment/Plan Active and Suspected Problems Severe sepsis (Acute) #1 severe sepsis-etiology unclear at this time, possibly secondary to cellulitis of the right lower leg, continue current antibiotic coverage per infectious diseases #2 fluid overload-patient will be placed back on her Lasix, I will give her dose of IV Lasix, urine output will be monitored by Bolden #3 hypertension-continue present medication #4 hyperlipidemia #5 obstructive sleep apnea-continue CPAP #6 morbid obesity #7 hypokalemia-patient was given potassium supplementation today, BMP will be rechecked tomorrow Code Visit Inpatient E&M: 02768 Subs Hosp L2
[2018-01-29] MEDS: Furosemide 40 MG Tablet PO (18:08)
[2018-01-29] MEDS: Atorvastatin Calcium 10 MG Tablet 5 MG PO (21:53)
[2018-01-29 22:00] LABS: Bedside Glucose 184 mg/dL (70-110)
[2018-01-29] MEDS: Temazepam 15 MG Capsule PO (22:01)
[2018-01-30] VITALS (22 sets, daily range): BP systolic 119–141; BP diastolic 60–67; PULSE 60–86; RESP 14–42; TEMP 36.7–37.2; O2SAT 90–100
[2018-01-30] MEDS: Acetaminophen 325 MG Tablet 650 MG PO (05:15)
[2018-01-30 06:30] LABS: Absolute Lymphocyte Count 1.47 X10^3/ul (0.83-4.51); Absolute Neutrophil Count 8.8 X10^3/uL (2.0-7.7); Basophil# 0.01 X10^3/uL; Basophil% 0.1 % (0-1); Eosinophil# 0.07 X10^3/uL; Eosinophils% 0.7 % (0-5); Hematocrit 28.9 % (37-47); Lymphocyte # 1.47 X10^3/ul (4.0); Lymphocyte % 13.7 % (19-41); Mean Corp Hgb Conc 31.1 g/gl (32-36); Mean Corpuscular Hgb 25.2 pg (27.0-32.0); Mean Platelet Vol. 10.5 fl (6.2-12.0); Monocyte# 0.41 X10^3/uL; Monocyte% 3.8 % (0-10); Neutrophil # 8.77 X10^3/uL (2.7-7.7); Neutrophil % 81.5 % (47-70); Platelet Count 182 K/mm3 (150-450); RBC Distribution Width CV 18.1 % (11.6-14.6); RBC Distribution Width SD 51.4 fl (35.1-43.9); Red Blood Count 3.57 M/mm3 (4.2-5.4); White Blood Count 10.8 K/mm3 (4.4-11.0)
[2018-01-30 06:38] LABS: POSITIVE COUNT NO; POSITIVE DIFFERENTIAL NO; POSITIVE MORPHOLOGY NO
[2018-01-30 06:55] LABS: Anion Gap 8 (5-15); BUN 12 mg/dL (7-18); BUN/Creat Ratio 14.7 RATIO (10-20); Calcium,Total 7.9 mg/dL (8.5-10.1); Chloride 105 mmol/L (98-107); Creatinine, Serum 0.81 mg/dL (0.55-1.02); EST Glomerular Filtration Rate 74 mL/min (>60); Est Glom Filt Rate - Afr Amer 89 mL/min (>60); Estimated Creatinine Clearance 55.81 ml/min; Glucose 138 mg/dL (74-106); Potassium 3.4 mmol/L (3.5-5.1); Sodium Level 138 mmol/L (136-145)
[2018-01-30 07:05] LABS: Bedside Glucose 148 mg/dL (70-110)
[2018-01-30] MEDS: Heparin Injection 5,000 UNITS/ML Syringe 5000 UNITS SC (09:26)
[2018-01-30] MEDS: Famotidine 20 MG Tablet PO (09:27)
[2018-01-30] MEDS: amLODIPine 10 MG Tablet PO (09:27)
[2018-01-30] MEDS: Metoprolol Tartrate 50 MG Tablet PO ×2 (09:27→21:52)
[2018-01-30] MEDS: Furosemide 40 MG Tablet PO (09:27)
[2018-01-30] MEDS: FLUoxetine 20 MG Capsule 40 MG PO (09:28)
--- NOTE | 2018-01-30 10:39 | PN.ID_ITS ---
Patient Problems: Active and Suspected Problems Severe sepsis (Acute) Subjective: Feeling a little better. Leg pain in gone. Had spread up to thigh yesterday. Breathing better, no fever. - Physical Exam General: Alert, Cooperative Lungs: Diminished Cardiovascular: Regular rate, Regular Rhythm Abdomen: Soft, Non Tender, Non-Distended Extremities: Edema Skin: Rash Present - RLE redness, fading. Present up to medial thigh. Vital Signs Temp Pulse Resp BP Pulse Ox 98.3 F 73 18 130/61 H 93 01/30/18 09:21 01/30/18 09:27 01/30/18 09:21 01/30/18 09:21 01/30/18 09:21 Oxygen Delivery Method Bi-pap Weight: 145.15 kg Body Mass Index (BMI) 54.9 Intake and Output for Last 24 Hours 01/28/18 01/29/18 01/30/18 23:59 23:59 23:59 Intake Total 4607 / 4607 3105.9 / 3105.9 120 / 120 Output Total 2150 / 2150 250 / 250 Balance 4607 / 4607 955.9 / 955.9 -130 / -130 Microbiology Past 72 Hours 01/29/18 10:05 Gram Stain - Final Sputum, Expectorated/Coughed Respiratory Culture - Preliminary Appears to be normal respiratory kirill. Further studies to follow. 01/28/18 09:00 Urine Culture - Final Urine, Clean Catch Mixed Gram Positive Organisms 01/28/18 11:30 Group A Streptococcus Rapid Screen - Final Mucosa - Throat 01/28/18 10:54 Respiratory Panel (PCR) - Final Mucosa - Nasopharyngeal 01/28/18 09:00 Legionella Antigen - Final Urine, Clean Catch 01/28/18 09:00 Streptococcus pneumoniae Antigen (M - Final Urine, Clean Catch Laboratory Tests Past 24 Hrs 01/30/18 01/30/18 05:45 05:45 WBC 10.8 RBC 3.57 L Hgb 9.0 L Hct 28.9 L MCV 81.0 MCH 25.2 L MCHC 31.1 L RDW 18.1 H RDW Differential 51.4 H Plt Count 182 MPV 10.5 Immature Gran % (Auto) 0.200 Neut % (Auto) 81.5 H Lymph % (Auto) 13.7 L [place] % (Auto) 3.8 Eos % (Auto) 0.7 Baso % (Auto) 0.1 Absolute Neuts (auto) 8.8 H Absolute Lymphs (auto) 1.47 Total Counted Not Reportable Sodium 138 Potassium 3.4 L Chloride 105 Carbon Dioxide 25.0 Anion Gap 8 BUN 12 Creatinine 0.81 Estim Creat Clear Calc 55.81 Est GFR (MDRD) Af Amer 89 Est GFR (MDRD) Non-Af 74 BUN/Creatinine Ratio 14.7 Glucose 138 H Calcium 7.9 L POC Glucose 01/30/18 01/29/18 01/29/18 06:57 21:47 16:43 POC Glucose 148 H 184 H 178 H 01/29/18 11:30 POC Glucose 147 H Medical Necessity - Tobacco Use Smoking Status: Never smoker Tobacco Use: Non-smoker Route of nutrition/ use of supplements: [] Nutritional Intake: [] IV Site: [] Bolden Catheter: [] - Assessment/Plan Antibiotics: [] Assessment/Plan: [] Active and Suspected Problems Severe sepsis (Acute) - Likely due to RLE cellulitis. Cxs neg so far. Resp viral panel neg. Fever and leukocytosis resolved on ceftriaxone, will continue. Redness in larger area, but overall fading. Plan for discharge will be po abx, likely keflex or omnicef. will follow. D/w Dr. Browning.
[2018-01-30 11:56] LABS: Bedside Glucose 155 mg/dL (70-110)
--- NOTE | 2018-01-30 12:25 | RAD_ITS ---
STUDY: X-RAY CHEST REASON FOR EXAM: Female, 72 years old. Shortness of breath. Severe sepsis. TECHNIQUE: Single AP portable view of the chest. COMPARISON: Comparison is made with prior study dated January 28, 2018. FINDINGS: EKG electrodes are seen. There now is evidence of gastric congestion and airspace disease in the right perihilar region suggestive of a CHF. Follow-up is recommended. There is no demonstrated pleural abnormality. There is moderate cardiac enlargement. Normal mediastinum and harmony. Normal visualized pulmonary arteries. There is atherosclerotic calcification of the aortic arch with tortuosity. There are degenerative changes of the visualized thoracic spine. Normal visualized ribs, clavicles, and shoulders. There is no demonstrated abnormality of the visualized soft tissue structures of the upper abdomen. RAD/Chest 1 View (Portable) IMPRESSION: Findings suggestive of a CHF with possible right perihilar infiltrate. Follow-up is recommended. Electronically Signed: Weston Alicea MD at 13:51 EDT Tel [phone], Service support ,
[2018-01-30] MEDS: Albuterol 2.5 MG/3 ML VIAL.NEB. INHALATION (12:52)
[2018-01-30 12:55] LABS: BNP,B-Type NATRIURETIC PEPTIDE 304.6 pg/mL (0-100)
--- NOTE | 2018-01-30 13:07 | NURSING ---
Pt sitting up for CXR and became very SOB, Respiratory at bedside switched over to BIPAP @ 50% per respiratory. sats mid 90's currently, pt stabilized, resting, Xray at bedside. Dr. Rose notified by Maryuri charge nurse.
--- NOTE | 2018-01-30 13:31 | ECHOCS_ITS ---
Reason For Study: CHF Procedure This was a 2D Doppler, Color Flow transthoracic echocardiogram. The exam was of poor technical quality due to body habitus. Contrast injection was performed. Exam performed portable in patient room. Left Ventricle Normal size and thickness. The estimated ejection fraction is 65 %. Stage 2 diastolic dysfunction. No regional wall motion abnormalities noted. Right Ventricle Normal size and thickness. Normal systolic function. Atria Normal left atrium. Normal right atrium. Normal atrial septum. Mitral Valve The mitral valve is structurally normal. No prolapse or stenosis seen. Trivial mitral valve insufficiency. Tricuspid Valve Normal tricuspid valve. Unable to estimate RV systolic pressure/pulmonary artery pressure due to technically difficult study. Aortic Valve Normal aortic valve. Trisinus/trileaflet aortic valve. Pulmonic Valve Normal pulmonic valve. Great Vessels Normal aortic root. Normal arch. Normal inferior vena cava. No collapse of the inferior vena cava. Pericardium/Pleural Epicardial fat. Medication Diluted definity 5ml given slow IV push to enhance endocardial definition. MMode/2D Measurements & Calculations RVDd: 4.6 cm Ao root diam: 3.8 cm LAV(MOD-bp): 84.1 ml LA dimension: 3.5 cm LAV(MOD-bp) Indexed: 35.2 ml/m2 LAV(MOD-sp2): 93.6 ml LAV(MOD-sp4): 79.6 ml LVAd ap4: 33.3 cm2 SV(MOD-sp4): 78.8 ml SV(sp4-el): 82.4 ml EDV(MOD-sp4): 113.9 ml EDV(sp4-el): 118.9 ml LVAs ap4: 16.3 cm2 ESV(MOD-sp4): 35.1 ml ESV(sp4-el): 36.5 ml EF(MOD-sp4): 69.2 % EF(sp4-el): 69.3 % LA A4 area: 25.3 cm2 RA A4 area: 22.5 cm2 Doppler Measurements & Calculations MV E max domenic: 127.7 cm/sec Ao V2 max: 158.9 cm/sec LV V1 max: 126.4 cm/sec MV A max domenic: 62.0 cm/sec Ao max P.1 mmHg LV V1 max P.4 mmHg MV E/A: 2.1 Interpretation Summary The estimated ejection fraction is 65 %. Stage 2 diastolic dysfunction. Trivial mitral valve insufficiency. Unable to estimate RV systolic pressure/pulmonary artery pressure due to technically difficult study. There is no comparison study available. Ordering Physician: Gonzalo Browning Referring Physician: RAGINI SOLANO Performed By: Jen Mckeon, OMID, RVT
[2018-01-30] MEDS: Furosemide 40 MG/4 ML Vial IV ×2 (14:04→21:53)
--- NOTE | 2018-01-30 15:51 | PCM.PROGNOTE ---
Patient Problems: Active and Suspected Problems Severe sepsis (Acute) Subjective: Patient was seen and examined today, this afternoon she had an episode of severe wheezing and respiratory distress. Patient had been placed on BiPAP, at that time I get a chest x-ray which showed evidence of CHF, I ordered an echocardiogram and placed the patient on IV Lasix. Patient was then evaluated approximately 2 hours later, she appeared more comfortable. Patient's chest x-ray will be repeated tomorrow, I talked briefly with infectious diseases about her care and they recommended that when she is discharged he will need to be placed on Omnicef. - Physical Exam General: Alert, Oriented x3, Cooperative, No apparent distress, Well developed, Well nourished HEENT: Atraumatic, PERRLA, EOMI, Normocephalic Oral: Moist Mucosa Neck: Supple, No JVD, No Nuchal Rigidity, Trachea Midline, Thyroid Normal Size and Texture Lungs: Clear to auscultation, No rhonchi, No wheeze, No rales, Diminished Cardiovascular: Regular rate, Regular Rhythm, Normal S1, Normal S2, No murmurs, No Ectopic Activity, PMI Normal, No rub noted, No Gallop Abdomen: Bowel Sounds Present, Soft, Non Tender, Non-Distended, No hernias noted Extremities: No clubbing, No cyanosis, Capillary Refill Less than 3 Seconds, Edema - Generalized edema is noted of both lower legs more so on the right Skin: No breakdown, Rash Present - There is a reddened area over the patient's right lower leg that is warm to the touch Neurological: Cranial nerves II-XII grossly intact, Neuro grossly intact, Sensory exam intact to light touch and pain, Coordination normal Psych/Mental Status: Normal Affect, Appropriate, Alert and oriented to time, place, person, mood and affect Vital Signs Temp Pulse Resp BP Pulse Ox 98.3 F 77 35 H 130/61 H 90 01/30/18 09:21 01/30/18 15:04 01/30/18 10:33 01/30/18 09:21 01/30/18 10:33 Oxygen Delivery Method Bi-pap Weight: 145.15 kg Body Mass Index (BMI) 54.9 Intake and Output for Last 24 Hours 01/28/18 01/29/18 01/30/18 23:59 23:59 23:59 Intake Total 4607 / 4607 3105.9 / 3105.9 400 / 400 Output Total 2150 / 2150 550 / 550 Balance 4607 / 4607 955.9 / 955.9 -150 / -150 Microbiology Past 72 Hours 01/28/18 11:30 Throat Culture - Final Mucosa - Throat 01/29/18 10:05 Gram Stain - Final Sputum, Expectorated/Coughed Respiratory Culture - Preliminary Appears to be normal respiratory kirill. Further studies to follow. 01/28/18 09:00 Urine Culture - Final Urine, Clean Catch Mixed Gram Positive Organisms 01/28/18 11:30 Group A Streptococcus Rapid Screen - Final Mucosa - Throat 01/28/18 10:54 Respiratory Panel (PCR) - Final Mucosa - Nasopharyngeal 01/28/18 09:00 Legionella Antigen - Final Urine, Clean Catch 01/28/18 09:00 Streptococcus pneumoniae Antigen (M - Final Urine, Clean Catch Laboratory Tests Past 24 Hrs 01/30/18 01/30/18 01/30/18 05:45 05:45 05:45 WBC 10.8 RBC 3.57 L Hgb 9.0 L Hct 28.9 L MCV 81.0 MCH 25.2 L MCHC 31.1 L RDW 18.1 H RDW Differential 51.4 H Plt Count 182 MPV 10.5 Immature Gran % (Auto) 0.200 Neut % (Auto) 81.5 H Lymph % (Auto) 13.7 L [place] % (Auto) 3.8 Eos % (Auto) 0.7 Baso % (Auto) 0.1 Absolute Neuts (auto) 8.8 H Absolute Lymphs (auto) 1.47 Total Counted Not Reportable Sodium 138 Potassium 3.4 L Chloride 105 Carbon Dioxide 25.0 Anion Gap 8 BUN 12 Creatinine 0.81 Estim Creat Clear Calc 55.81 Est GFR (MDRD) Af Amer 89 Est GFR (MDRD) Non-Af 74 BUN/Creatinine Ratio 14.7 Glucose 138 H Calcium 7.9 L B-Natriuretic Peptide 304.6 H POC Glucose 01/30/18 01/30/18 01/29/18 11:48 06:57 21:47 POC Glucose 155 H 148 H 184 H 01/29/18 16:43 POC Glucose 178 H Medical Necessity - Tobacco Use Smoking Status: Never smoker Tobacco Use: Non-smoker Assessment/Plan Active and Suspected Problems Severe sepsis (Acute) #1 severe sepsis-etiology unclear at this time, possibly secondary to cellulitis of the right lower leg, continue current antibiotic coverage per infectious diseases #2 Congestive heart failure-type unknown, await echocardiogram report, maintain patient on IV Lasix, recheck chest x-ray tomorrow #3 acute hypoxic respiratory failure-secondary to acute congestive heart failure, oxygen will be weaned if possible #4 hypertension-continue present medication #5 hyperlipidemia #6 obstructive sleep apnea-continue CPAP #7 morbid obesity #8 hypokalemia-patient was given potassium supplementation today, BMP will be rechecked tomorrow Code Visit Inpatient E&M: [id number] [facility] Hosp L3
[2018-01-30 17:26] LABS: Bedside Glucose 160 mg/dL (70-110)
[2018-01-30] MEDS: HYDROcodone Bitartrate/Apap 5/325 Tablet PO (20:27)
[2018-01-30] MEDS: Atorvastatin Calcium 10 MG Tablet 5 MG PO (21:52)
[2018-01-30] MEDS: Temazepam 15 MG Capsule PO (21:53)
[2018-01-30] MEDS: 0.9% NaCl Peripheral Flush Adult/Peds IV (21:57)
[2018-01-30 23:51] LABS: Bedside Glucose 181 mg/dL (70-110)
[2018-01-31] VITALS (17 sets, daily range): BP systolic 133–155; BP diastolic 65–82; PULSE 56–83; RESP 16–25; TEMP 36.2–36.9; O2SAT 40–97
[2018-01-31] MEDS: Furosemide 40 MG/4 ML Vial IV ×3 (05:27→21:34)
[2018-01-31] MEDS: 0.9% NaCl Peripheral Flush Adult/Peds IV ×3 (05:27→21:34)
[2018-01-31 06:51] LABS: Bedside Glucose 134 mg/dL (70-110)
--- NOTE | 2018-01-31 07:59 | NURSING ---
Addendum entered by Amira Jones 01/31/18 09:51: pt blood glucose 134 Original Note: pt blood glucose 107
[2018-01-31] MEDS: Metoprolol Tartrate 50 MG Tablet PO ×2 (09:45→21:33)
[2018-01-31] MEDS: amLODIPine 10 MG Tablet PO (09:46)
[2018-01-31] MEDS: Famotidine 20 MG Tablet PO (09:46)
[2018-01-31] MEDS: FLUoxetine 20 MG Capsule 40 MG PO (09:46)
--- NOTE | 2018-01-31 10:13 | CASEMGMT ---
Physician told SW patient is going to need placement. SW met with patient and she was in agreement that she needs to go somewhere at d/c. She did not know where as she is not familiar with this area. SW told her about [facility]. She was open to going there. SW told her SW will call and see if they would have a bed for patient. NIKOLSA spoke with Ira and she would be able to take patient. SW will let patient know this information. Plan: [facility] when ready. Radha MITCHELL MSW
--- NOTE | 2018-01-31 10:43 | RAD_ITS ---
STUDY: X-RAY CHEST REASON FOR EXAM: Female, 72 years old. Dyspnea. TECHNIQUE: Single AP portable upright view of the chest. COMPARISON: Portable AP upright chest x-ray January 30, 2018. FINDINGS: Ill-defined left base density is mildly improved, while the patchy right perihilar right lung infiltrates are unchanged. Again, differential includes CHF with asymmetric pulmonary edema versus infection. There is no demonstrated pleural abnormality. There is mild cardiac enlargement. Normal mediastinum. Normal visualized aortic arch and descending thoracic aorta. There are stable degenerative changes of the visualized thoracic spine. Normal visualized ribs, clavicles, and shoulders. There is no demonstrated abnormality of the visualized soft tissue structures of the upper abdomen. RAD/Chest 1 View (Portable) IMPRESSION: 1. Mild improvement left base infiltrates, while right perihilar patchy infiltrates unchanged. Differential includes asymmetric pulmonary edema or infection. 2. Stable mild cardiac enlargement. Electronically Signed: Alex Álvarez MD at 13:09 EDT , Service support ,
--- NOTE | 2018-01-31 10:54 | PCM.PN.ID ---
Patient Problems: Active and Suspected Problems Severe sepsis (Acute) Subjective: Feeling much better. No fever, breathing easier, leg pain is gone. - Physical Exam General: Alert, Cooperative Lungs: Normal air movement, Diminished Cardiovascular: Regular rate, Regular Rhythm Abdomen: Soft, Non Tender, Non-Distended Skin: Rash Present - fading on RLE Vital Signs Temp Pulse Resp BP Pulse Ox 97.1 F L 72 21 H 133/71 H 93 01/31/18 03:31 01/31/18 09:45 01/31/18 07:55 01/31/18 03:31 01/31/18 07:55 Oxygen Flow Rate (L/min) 6 Oxygen Delivery Method Bi-pap Weight: 145.15 kg Body Mass Index (BMI) 54.9 Intake and Output for Last 24 Hours 01/29/18 01/30/18 01/31/18 23:59 23:59 23:59 Intake Total 3105.9 / 3105.9 960 / 960 Output Total 2150 / 2150 2350 / 2350 450 / 450 Balance 955.9 / 955.9 -1390 / -1390 -450 / -450 Microbiology Past 72 Hours 01/29/18 10:05 Gram Stain - Final Sputum, Expectorated/Coughed Respiratory Culture - Final 01/28/18 11:30 Throat Culture - Final Mucosa - Throat 01/28/18 09:00 Urine Culture - Final Urine, Clean Catch Mixed Gram Positive Organisms 01/28/18 11:30 Group A Streptococcus Rapid Screen - Final Mucosa - Throat 01/28/18 10:54 Respiratory Panel (PCR) - Final Mucosa - Nasopharyngeal 01/28/18 09:00 Legionella Antigen - Final Urine, Clean Catch 01/28/18 09:00 Streptococcus pneumoniae Antigen (M - Final Urine, Clean Catch Laboratory Tests Past 24 Hrs 01/30/18 05:45 B-Natriuretic Peptide 304.6 H POC Glucose 01/31/18 01/30/18 01/30/18 06:37 21:44 17:04 POC Glucose 134 H 181 H 160 H 01/30/18 11:48 POC Glucose 155 H Medical Necessity - Tobacco Use Smoking Status: Never smoker Tobacco Use: Non-smoker Route of nutrition/ use of supplements: [] Nutritional Intake: [] IV Site: [] Bolden Catheter: [] - Assessment/Plan Antibiotics: [] Assessment/Plan: [] Active and Suspected Problems Severe sepsis (Acute) - Likely due to RLE cellulitis. Cxs neg so far. Resp viral panel neg. Fever and leukocytosis resolved on ceftriaxone, will continue. Redness overall fading. Plan for discharge will be po abx, likely omnicef to cover leg and also possible CAP. will follow.
[2018-01-31 11:26] LABS: Bedside Glucose 126 mg/dL (70-110)
[2018-01-31 17:06] LABS: Bedside Glucose 144 mg/dL (70-110)
--- NOTE | 2018-01-31 18:00 | PCM.PROGNOTE ---
Patient Problems: Active and Suspected Problems Severe sepsis (Acute) Acute respiratory failure with hypoxia (Acute) Subjective: Vision seen and examined today, she is breathing better, echocardiogram showed a normal EF without any valvular problems. Pulmonary artery pressure was not able to be estimated. Chest x-ray today continues to show pulmonary congestion. - Physical Exam General: Alert, Oriented x3, Cooperative, No apparent distress, Well developed, Well nourished HEENT: Atraumatic, PERRLA, EOMI, Normocephalic Oral: Moist Mucosa Neck: Supple, No JVD, Trachea Midline, Thyroid Normal Size and Texture Lungs: No rhonchi, Diminished, Wheezes - Expiratory wheezes are noted bilaterally Cardiovascular: Regular rate, Regular Rhythm, Normal S1, Normal S2, No murmurs, No Ectopic Activity, PMI Normal, No rub noted, No Gallop Abdomen: Bowel Sounds Present, Soft, Non Tender, Non-Distended, No hernias noted Extremities: No clubbing, No cyanosis, Capillary Refill Less than 3 Seconds, Edema - Generalized edema is noted over both lower legs worse on the right Skin: No breakdown, Rash Present - There is a reddened area that continues to be present over the right lower leg Neurological: Cranial nerves II-XII grossly intact, Neuro grossly intact, Sensory exam intact to light touch and pain, Coordination normal Psych/Mental Status: Normal Affect, Appropriate, Alert and oriented to time, place, person, mood and affect Vital Signs Temp Pulse Resp BP Pulse Ox 98.3 F 76 16 133/82 H 96 01/31/18 15:30 01/31/18 15:30 01/31/18 15:30 01/31/18 15:30 01/31/18 15:30 Oxygen Flow Rate (L/min) 5 Oxygen Delivery Method Nasal Cannula Weight: 145.15 kg Body Mass Index (BMI) 54.9 Intake and Output for Last 24 Hours 01/29/18 01/30/18 01/31/18 23:59 23:59 23:59 Intake Total 3105.9 / 3105.9 960 / 960 660 / 660 Output Total 2150 / 2150 2350 / 2350 1800 / 1800 Balance 955.9 / 955.9 -1390 / -1390 -1140 / -1140 Microbiology Past 72 Hours 01/29/18 10:05 Gram Stain - Final Sputum, Expectorated/Coughed Respiratory Culture - Final 01/28/18 11:30 Throat Culture - Final Mucosa - Throat 01/28/18 09:00 Urine Culture - Final Urine, Clean Catch Mixed Gram Positive Organisms 01/28/18 11:30 Group A Streptococcus Rapid Screen - Final Mucosa - Throat 01/28/18 10:54 Respiratory Panel (PCR) - Final Mucosa - Nasopharyngeal POC Glucose 01/31/18 01/31/18 01/31/18 16:57 11:15 06:37 POC Glucose 144 H 126 H 134 H 01/30/18 21:44 POC Glucose 181 H Medical Necessity - Tobacco Use Smoking Status: Never smoker Tobacco Use: Non-smoker Assessment/Plan Active and Suspected Problems Severe sepsis (Acute) Acute respiratory failure with hypoxia (Acute) #1 severe sepsis-etiology unclear at this time, possibly secondary to cellulitis of the right lower leg, continue current antibiotic coverage per infectious diseases #2 Congestive heart failure-diastolic in nature, continue IV Lasix, repeat chest x-ray in the a.m. #3 acute hypoxic respiratory failure-secondary to acute congestive heart failure, oxygen will be weaned if possible #4 hypertension-continue present medication #5 hyperlipidemia #6 obstructive sleep apnea-continue CPAP #7 morbid obesity #8 hypokalemia-patient was given potassium supplementation today, BMP will be rechecked tomorrow Code Visit Inpatient E&M: [id number] [facility] Hosp L2
[2018-01-31] MEDS: HYDROcodone Bitartrate/Apap 5/325 Tablet PO (21:33)
[2018-01-31] MEDS: Temazepam 15 MG Capsule PO (21:34)
[2018-01-31] MEDS: Atorvastatin Calcium 10 MG Tablet 5 MG PO (21:34)
[2018-01-31 22:45] LABS: Bedside Glucose 168 mg/dL (70-110)
[2018-02-01] VITALS (17 sets, daily range): BP systolic 119–136; BP diastolic 61–69; PULSE 54–94; RESP 16–24; TEMP 36.4–37.1; O2SAT 91–98
--- NOTE | 2018-02-01 05:55 | RAD_ITS ---
STUDY: X-RAY CHEST REASON FOR EXAM: Female, 72 years old. Dyspnea TECHNIQUE: Single AP portable view of the chest. COMPARISON: January 31, 2018 FINDINGS: Ill-defined airspace opacities are again noted in the right upper lobe, right lower lobe and left lower lobe are stable. There is no demonstrated pleural abnormality. Normal size heart. Normal mediastinum and harmony. Normal visualized pulmonary arteries. Normal visualized aortic arch and descending thoracic aorta. There are diffuse degenerative changes of the visualized thoracic spine. There is degenerative osteoarthritis of the bilateral shoulders. There is no demonstrated abnormality of the visualized soft tissue structures of the upper abdomen. RAD/Chest 1 View (Portable) IMPRESSION: Bilateral pneumonia has been no significant change since the previous study. Electronically Signed: Urbano Broderick MD at 9:04 EDT Tel , Service support ,
[2018-02-01 06:30] LABS: Anion Gap 6 (5-15); BUN 14 mg/dL (7-18); BUN/Creat Ratio 17.4 RATIO (10-20); Calcium,Total 8.1 mg/dL (8.5-10.1); Chloride 103 mmol/L (98-107); EST Glomerular Filtration Rate 75 mL/min (>60); Est Glom Filt Rate - Afr Amer 90 mL/min (>60); Glucose 121 mg/dL (74-106); Potassium 3.6 mmol/L (3.5-5.1); Sodium Level 140 mmol/L (136-145)
[2018-02-01 06:32] LABS: Absolute Lymphocyte Count 2.42 X10^3/ul (0.83-4.51); Absolute Neutrophil Count 4.9 X10^3/uL (2.0-7.7); Basophil# 0.03 X10^3/uL; Basophil% 0.4 % (0-1); Eosinophil# 0.28 X10^3/uL; Eosinophils% 3.3 % (0-5); Hematocrit 30.9 % (37-47); Hemoglobin 9.6 g/dl (12.0-15.0); Lymphocyte # 2.42 X10^3/ul (4.0); Lymphocyte % 28.9 % (19-41); Mean Corp Hgb Conc 31.1 g/gl (32-36); Mean Corpuscular Hgb 25.3 pg (27.0-32.0); Mean Corpuscular Volume 81.5 fL (81-99); Mean Platelet Vol. 10.2 fl (6.2-12.0); Monocyte# 0.51 X10^3/uL; Monocyte% 6.1 % (0-10); Neutrophil # 4.92 X10^3/uL (2.7-7.7); Neutrophil % 58.7 % (47-70); Platelet Count 250 K/mm3 (150-450); RBC Distribution Width SD 51.9 fl (35.1-43.9); Red Blood Count 3.79 M/mm3 (4.2-5.4); White Blood Count 8.4 K/mm3 (4.4-11.0)
[2018-02-01 06:35] LABS: POSITIVE COUNT YES; POSITIVE DIFFERENTIAL NO; POSITIVE MORPHOLOGY YES
[2018-02-01] MEDS: 0.9% NaCl Peripheral Flush Adult/Peds IV ×4 (07:00→21:06)
[2018-02-01] MEDS: Furosemide 40 MG/4 ML Vial IV ×3 (07:00→21:07)
[2018-02-01 07:10] LABS: Bedside Glucose 130 mg/dL (70-110)
--- NOTE | 2018-02-01 08:38 | CON.PCM_ITS ---
Problem List (1) Acute respiratory failure with hypoxia Status: Acute (2) HTN (hypertension) Status: Chronic Qualifiers: Hypertension type: essential hypertension Qualified Code(s): I10 - Essential (primary) hypertension (3) HLD (hyperlipidemia) Status: Chronic Qualifiers: Hyperlipidemia type: unspecified Qualified Code(s): E78.5 - Hyperlipidemia , unspecified (4) Morbid obesity with BMI of 50.0-59.9, adult Status: Chronic (5) Diabetes mellitus, type II Status: Chronic Qualifiers: Diabetes mellitus alf insulin use: without intermediate frame tender use Diabetes mellitus complication status: with unspecified complications Qualified Code(s) : E11.8 - Type 2 diabetes mellitus with unspecified complications (6) GERD (gastroesophageal reflux disease) Status: Chronic Qualifiers: Esophagitis presence: esophagitis presence not specified Qualified Code(s) : K21.9 - Gastro-esophageal reflux disease without esophagitis (7) Anxiety and depression Status: Chronic (8) Severe sepsis Status: Acute Reason for Consult Date of Consultation: 02/01/18 Reason for Consultation: respiratory failure History of Present Illness: The patient is a 72 year old F with a past medical history as below, presented to the ED on 01/28/18 with complaints of sudden onset of fever and chills on Sunday, general malaise, and loose stools. Patient reportedly attempted to get out of bed and slid to the floor without injury, was unable to get up. She complained of mild redness to her right lower extremity, no pain or increased warmth. Patient also reported sore throat for the past couple of weeks. She was exposed to her grandson who has an ear infection, otherwise no other sick contacts. No recent antibiotics or steroids. Patient had leukocytosis, fever 102.8?F, tachycardia and diagnosed with severe sepsis with unclear source and admitted to the progressive care unit for further evaluation and management. Denied any cough, shortness of breath, chest tightness, hemoptysis, or urinary symptoms. She has required BiPAP throughout most of her stay, has been alternating with 5-6 L/NC of oxygen supplementation. Initial chest x-ray demonstrated cardiomegaly, no acute findings. The patient was started on broad-spectrum antibiotics and IV fluids. Patient developed significant wheezing and respiratory distress on 01/30, chest x-ray was obtained that showed probable CHF. Patient was started on IV Lasix. And echocardiogram was obtained and demonstrated an estimated EF of 65%, stage II diastolic dysfunction, trivial MVI, RVSP not estimated. Infectious disease is following, antibiotics changed from Zosyn to ceftriaxone with noted improvement in overall condition. A repeat chest x-ray was obtained on 01/31 and showed mild improvement in the left base infiltrates, unchanged right perihilar patchy infiltrates, and stable mild cardiac enlargement. At the time of consultation, patient complains of dyspnea on exertion with minimal exertion. She denies any cough or sputum production. She is currently saturating 93% on 6 L of oxygen supplementation. She is tolerating BiPAP with an FiO2 of 45%. Patient reports no previous oxygen requirements prior to this hospitalization. She does have a history of obstructive sleep apnea and has been compliant with her CPAP at home. She was following with Dr. Austin in [place] and her last sleep study was approximately 4 years ago. She denies any significant daytime sleepiness, nocturia, or insomnia. Patient was diagnosed with asthma over 20 years ago and followed with Dr. Cr in [place] but has not seen in several years. She denies any issues with her asthma over the past several years and has not used her inhaler in a long time. Patient has PRN albuterol MDI at home. 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 She lives at home with her spouse, they are both non-smokers. Patient reports significant smoking exposure growing up, her father smoked 3 PPD, also in their home. She denies a history of asbestos or TB exposure. Past Medical History Past Medical History (Chronic Problems): Chronic Problems HTN (hypertension) (Chronic) HLD (hyperlipidemia) (Chronic) Morbid obesity with BMI of 50.0-59.9, adult (Chronic) Diabetes mellitus, type II (Chronic) GERD (gastroesophageal reflux disease) (Chronic) Anxiety and depression (Chronic) Allergies No Known Allergies Allergy (Verified 01/28/18 01:18) Home Medications: Ambulatory Orders Medication Instructions Recorded Amlodipine [Norvasc] 10 mg PO DAILY 01/28/18 Fish Oil/Dha/Epa [Fish Oil 1,200 1 each PO 01/28/18 mg Fish Oil] Fluoxetine [Prozac] 40 mg PO DAILY 01/28/18 Furosemide [Lasix] 60 mg PO DAILY 01/28/18 Glyburide/Metformin HCl 1 tab PO BID 01/28/18 [Glucovance 5-500 mg Tablet] Hydrochlorothiazide [Hctz] 25 mg PO DAILY 01/28/18 Metoprolol Tartrate 50 mg PO BID 01/28/18 Omeprazole 20 mg PO BID 01/28/18 Potassium Chloride 10 meq PO BID 01/28/18 Simvastatin [Zocor] 10 mg PO QHS 01/28/18 Surgical History: - - Hemorrhoidectomy, hysterectomy, bilateral carpal tunnel release, abdominal surgery following possible liposuction/plastic surgery. 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 Paternal History Items: - - There with a history of chronic lung disease with heavy tobacco use history. Review of Systems Constitutional: Reports: Chills - Resolved, Fever - resolved, Malaise, Fatigue. Denies: Anorexia, Night Sweats, Weakness, Weight Change Eyes: Denies: Vision Change HEENT: Reports: Sore Throat. Denies: Difficulty Hearing, Difficulty Swallowing , Dysphasia, Nasal bleeding, Nasal Congestion, Post Nasal Drip, Sinus Congestion , Sinus Drainage Cardiovascular: Reports: Edema, Orthopnea. Denies: Chest Pain, Chest Tightness , Light Headedness, Palpitations, Paroxysmal Noc. Dyspnea, Syncope Respiratory: Reports: Shortness of breath upon exertion, Wheezing. Denies: Cough, Hemoptysis, Sputum production Gastrointestinal: Denies: Abdominal Pain, Constipation, Dyspepsia, Hematemesis, Hematochezia, Nausea, Melena, Vomiting Genitourinary: Reports: - - current flowers catheter. Denies: Dysuria, Frequency , Hematuria, Hesitancy, Incontinence, Nocturia, Retention Musculoskeletal: Reports: Back Pain - chronic, Leg Pain - RLE, improved Skin: Reports: - - erythema RLE Neurological: Reports: Numbness - chronic LE neuropathy. Denies: Balance problems, Change in Speech, Confusion, Focal weakness, Tremor, Seizures Psychiatric: Reports: Anxiety, Depression. Denies: Suicidal Ideations Endocrine: Denies: Change in Body Habitus, Polydipsia, Polyuria Hematologic/ Lymphatic: Denies: Adenopathy, Anemia, Easy Bruising, Easy Bleeding , Hx of blood clot Patient Problems: Active and Suspected Problems Severe sepsis (Acute) Acute respiratory failure with hypoxia (Acute) Subjective: The patient was seen and examined. She is an obese woman lying in bed, in no acute distress. She is currently saturating 93-94% on 6 L of oxygen. No conversational dyspnea. Assisted her in sitting up at the bedside and she became very short of breath with minimal audible wheezing. Objective: Clinical Impression(s) from Imaging Studies Chest X-Ray 01/28/18 03:00 IMPRESSION: Cardiomegaly. Electronically Signed: Chevy Hernandez MD at 3:39 EDT , Service support , Chest X-Ray 01/30/18 12:25 IMPRESSION: Findings suggestive of a CHF with possible right perihilar infiltrate. Follow-up is recommended. Electronically Signed: Weston Alicea MD at 13:51 EDT Tel [phone], Service support , Chest X-Ray 01/31/18 10:43 IMPRESSION: 1. Mild improvement left base infiltrates, while right perihilar patchy infiltrates unchanged. Differential includes asymmetric pulmonary edema or infection. 2. Stable mild cardiac enlargement. Electronically Signed: Alex Álvarez MD at 13:09 EDT , Service support , Chest X-Ray 02/01/18 05:55 IMPRESSION: Bilateral pneumonia has been no significant change since the previous study. Electronically Signed: Urbano Broderick MD at 9:04 EDT Tel , Service support , - Physical Exam General: Alert, Oriented x3, Cooperative, No apparent distress, Well developed, Well nourished, - - obese HEENT: Atraumatic, Normocephalic Oral: Moist Mucosa, No Gingival or Mucosal Lesions/ Ulcerations Neck: Supple, No Nodes, Trachea Midline Cardiovascular: Regular rate, Regular Rhythm, Normal S1, Normal S2, No murmurs, No rub noted, No Gallop Abdomen: Bowel Sounds Present, Soft, Non Tender, Non-Distended, Passing Flatus, Obese Extremities: No clubbing, No cyanosis, No Calf Tenderness, Edema Skin: - - RLE erythema, warm to touch. Musculoskeletal: Tenderness - RLE to touch Lymphatic: No Cervical, Supraclavicular, or Inguinal Adenopathy Neurological: Cranial nerves II-XII grossly intact, Neuro grossly intact, Motor Exam 5/5 strength throughout Psych/Mental Status: Alert and oriented to time, place, person, mood and affect Vital Signs Temp Pulse Resp BP Pulse Ox 97.5 F L 94 16 123/69 H 93 02/01/18 03:09 02/01/18 07:15 02/01/18 07:15 02/01/18 03:09 02/01/18 07:18 Oxygen Flow Rate (L/min) 6 Oxygen Delivery Method Nasal Cannula Weight: 320 lb Body Mass Index (BMI) 54.9 Intake and Output for Last 24 Hours 01/30/18 01/31/18 02/01/18 23:59 23:59 23:59 Intake Total 960 / 960 660 / 660 500 / 500 Output Total 2350 / 2350 1800 / 1800 2500 / 2500 Balance -1390 / -1390 -1140 / -1140 -2000 / -1999 Microbiology Past 72 Hours 01/29/18 10:05 Gram Stain - Final Sputum, Expectorated/Coughed Respiratory Culture - Final 01/28/18 11:30 Throat Culture - Final Mucosa - Throat 01/28/18 09:00 Urine Culture - Final Urine, Clean Catch Mixed Gram Positive Organisms 01/28/18 11:30 Group A Streptococcus Rapid Screen - Final Mucosa - Throat Laboratory Tests Past 24 Hrs 02/01/18 02/01/18 05:25 05:25 WBC 8.4 RBC 3.79 L Hgb 9.6 L Hct 30.9 L MCV 81.5 MCH 25.3 L MCHC 31.1 L RDW 18.0 H RDW Differential 51.9 H Plt Count 250 MPV 10.2 Immature Gran % (Auto) 2.600 H Neut % (Auto) 58.7 Lymph % (Auto) 28.9 [place] % (Auto) 6.1 Eos % (Auto) 3.3 Baso % (Auto) 0.4 Absolute Neuts (auto) 4.9 Absolute Lymphs (auto) 2.42 Total Counted Not Reportable Diff Path Review May foll Sodium 140 Potassium 3.6 Chloride 103 Carbon Dioxide 31.0 Anion Gap 6 BUN 14 Creatinine 0.80 Estim Creat Clear Calc 56.50 Est GFR (MDRD) Af Amer 90 Est GFR (MDRD) Non-Af 75 BUN/Creatinine Ratio 17.4 Glucose 121 H Calcium 8.1 L POC Glucose 02/01/18 01/31/18 01/31/18 07:04 21:27 16:57 POC Glucose 130 H 168 H 144 H 01/31/18 11:15 POC Glucose 126 H Assessment/Plan Active and Suspected Problems Severe sepsis (Acute) Acute respiratory failure with hypoxia (Acute) RECOMMENDATIONS 1. Wean oxygen supplementation to keep saturations greater than 89% 2. Encourage incentive spirometer 3. Increase activity as tolerated, continue PT/OT 4. Continue aerosols 5. Continue BiPAP at night and with naps, also use as rescue 6. Continue antibiotics per ID recommendations 7. Continue diuresis with IV Lasix 8. Ambulatory pulse ox prior to discharge 9. Please schedule appointment in the pulmonary clinic in 2 weeks after discharge with [employer], at which time testing can be ordered IMPRESSIONS 1. Acute hypoxic respiratory failure secondary to acute diastolic CHF Likely multifactorial but suspect related to acute congestive heart failure. Her activity tolerance has been poor lately. Still requiring 5-6L of oxygen. Using incentive spirometer. Likely also has hypoventilation syndrome secondary to morbid obesity. Echocardiogram with stage II diastolic dysfunction with preserved EF of 65%, RVSP not estimated. Chest x-ray showing infiltrates, CHF versus infectious process. Infectious workup has been negative including blood cultures, urine strep/Legionella, respiratory and throat cultures, and respiratory panel. Leukocytosis and fevers have resolved. Patient initially + 5.5 L, currently +1 L after diuresis. Would continue aggressive diuresis and monitor kidney function. Encourage incentive spirometer and mobilize patient. Wean oxygen supplementation to keep saturations greater than 89%. BiPAP rescue PRN throughout the day. 2. Severe sepsis Etiology unclear, suspect secondary to cellulitis of the right lower leg. Patient has been seen by ID and is improving after transition from Zosyn to ceftriaxone. She has been afebrile for over 24 hours. Plans for Omnicef at discharge. 3. History of reported asthma/KUMAR Patient reports she has had pulmonary function tests, however this is been greater than 15 years ago in [place]. She has not followed up with her final expense agent in several years secondary to no breathing issues. She has not used her inhaler in several years. Has albuterol inhaler for as needed use. Patient does have history of significant secondhand smoke exposure. Patient also with self-reported KUMAR, uses CPAP and reports compliance. No issues with her machine. Would benefit from repeat pulmonary function testing for clarification and quantification of her lung disease. 4. GERD/anxiety and depression/type 2 diabetes/morbid obesity/hypertension/ hyperlipidemia Complicates care, management, recovery, and prognosis. Likely okay to continue home medications. Reports her GERD is under control. Plans for TCU upon discharge. Thank you for the opportunity to participate in this patient's care, please do not hesitate to contact us with any further questions or concerns. This note was generated with [email or web address] dictation software. It may contain incorrect words, spelling, and punctuation that were not noted in checking the note before signing.
[2018-02-01] MEDS: Famotidine 20 MG Tablet PO (09:27)
[2018-02-01] MEDS: FLUoxetine 20 MG Capsule 40 MG PO (09:27)
[2018-02-01] MEDS: Metoprolol Tartrate 50 MG Tablet PO ×2 (09:27→21:06)
[2018-02-01] MEDS: amLODIPine 10 MG Tablet PO (09:28)
[2018-02-01 11:41] LABS: Bedside Glucose 172 mg/dL (70-110)
--- NOTE | 2018-02-01 14:22 | CASEMGMT ---
Patient is not going to be d/c to TCU today. SW let Yumiko in TCU know this information. Green sheet on chart. Plan: [facility] TCU when ready Radha MALAVE
[2018-02-01] MEDS: HYDROcodone Bitartrate/Apap 5/325 Tablet PO (15:12)
[2018-02-01 17:25] LABS: Bedside Glucose 130 mg/dL (70-110)
--- NOTE | 2018-02-01 17:56 | PN_ITS ---
Patient Problems: Active and Suspected Problems Severe sepsis (Acute) Acute respiratory failure with hypoxia (Acute) Subjective: Patient seen and examined today, she is still requiring 6 L of O2 via nasal cannula. Patient's chest x-ray continues to show bilateral infiltrates, I had pulmonary medicine see the patient today and they feel that the patient still has diastolic CHF. They recommended continuing the IV diuresis. Patient has a bad ready in TCU but she is not stable to be transferred over there today. - Physical Exam General: Alert, Oriented x3, Cooperative, No apparent distress, Well developed, Well nourished HEENT: Atraumatic, PERRLA, EOMI, Normocephalic Oral: Moist Mucosa Neck: Supple, No JVD, Negative Carotid Bruits, No Nuchal Rigidity, Trachea Midline, Thyroid Normal Size and Texture Lungs: No rhonchi, Diminished, Wheezes - Scattered expiratory wheezes bilaterally Cardiovascular: Regular rate, Regular Rhythm, Normal S1, Normal S2, No murmurs, No Ectopic Activity, PMI Normal, No rub noted, No Gallop Abdomen: Bowel Sounds Present, Soft, Non Tender, Non-Distended, No hernias noted Extremities: No clubbing, No cyanosis, Capillary Refill Less than 3 Seconds, Edema - Generalized edema is noted over both lower legs worse on the right Skin: No breakdown, Rash Present - Redness persists over the patient's right lower leg Musculoskeletal: No Tenderness to Palpation of Joints or Extremities Neurological: Cranial nerves II-XII grossly intact, Neuro grossly intact, Sensory exam intact to light touch and pain, Coordination normal Psych/Mental Status: Normal Affect, Appropriate, Alert and oriented to time, place, person, mood and affect Vital Signs Temp Pulse Resp BP Pulse Ox 98.7 F 65 16 119/65 94 02/01/18 15:05 02/01/18 15:05 02/01/18 15:05 02/01/18 15:05 02/01/18 15:05 Oxygen Flow Rate (L/min) 6 Oxygen Delivery Method Nasal Cannula Weight: 145.15 kg Body Mass Index (BMI) 54.9 Intake and Output for Last 24 Hours 01/30/18 01/31/18 02/01/18 23:59 23:59 23:59 Intake Total 960 / 960 660 / 660 1160 / 1160 Output Total 2350 / 2350 1800 / 1800 4725 / 4725 Balance -1390 / -1390 -1140 / -1140 -3565 / -3565 Microbiology Past 72 Hours 01/29/18 10:05 Gram Stain - Final Sputum, Expectorated/Coughed Respiratory Culture - Final 01/28/18 11:30 Throat Culture - Final Mucosa - Throat 01/28/18 09:00 Urine Culture - Final Urine, Clean Catch Mixed Gram Positive Organisms Laboratory Tests Past 24 Hrs 02/01/18 02/01/18 05:25 05:25 WBC 8.4 RBC 3.79 L Hgb 9.6 L Hct 30.9 L MCV 81.5 MCH 25.3 L MCHC 31.1 L RDW 18.0 H RDW Differential 51.9 H Plt Count 250 MPV 10.2 Immature Gran % (Auto) 2.600 H Neut % (Auto) 58.7 Lymph % (Auto) 28.9 [place] % (Auto) 6.1 Eos % (Auto) 3.3 Baso % (Auto) 0.4 Absolute Neuts (auto) 4.9 Absolute Lymphs (auto) 2.42 Total Counted Not Reportable Diff Path Review May foll Sodium 140 Potassium 3.6 Chloride 103 Carbon Dioxide 31.0 Anion Gap 6 BUN 14 Creatinine 0.80 Estim Creat Clear Calc 56.50 Est GFR (MDRD) Af Amer 90 Est GFR (MDRD) Non-Af 75 BUN/Creatinine Ratio 17.4 Glucose 121 H Calcium 8.1 L POC Glucose 02/01/18 02/01/18 02/01/18 17:18 11:27 07:04 POC Glucose 130 H 172 H 130 H 01/31/18 21:27 POC Glucose 168 H Medical Necessity - Tobacco Use Smoking Status: Never smoker Tobacco Use: Non-smoker Assessment/Plan Active and Suspected Problems Severe sepsis (Acute) Acute respiratory failure with hypoxia (Acute) #1 severe sepsis-etiology unclear at this time, possibly secondary to cellulitis of the right lower leg, continue current antibiotic coverage per infectious diseases #2 Congestive heart failure-diastolic in nature, continue IV Lasix, repeat chest x-ray in the a.m., patient is not stable to go to TCU at this time #3 acute hypoxic respiratory failure-secondary to acute congestive heart failure , oxygen will be weaned if possible, pulmonary medicine is participating in her care #4 hypertension-continue present medication #5 hyperlipidemia #6 obstructive sleep apnea-continue CPAP #7 morbid obesity Repeat BMP in the morning Code Visit Inpatient E&M: [id number] Subs Hosp L2
[2018-02-01] MEDS: Atorvastatin Calcium 10 MG Tablet 5 MG PO (21:07)
[2018-02-01 21:30] LABS: Bedside Glucose 189 mg/dL (70-110)
[2018-02-01] MEDS: Temazepam 15 MG Capsule PO (22:09)
[2018-02-02] VITALS (17 sets, daily range): BP systolic 126–148; BP diastolic 59–72; PULSE 52–74; RESP 16–26; TEMP 36.4–37.4; O2SAT 94–100
--- NOTE | 2018-02-02 05:55 | RAD_ITS ---
STUDY: X-RAY CHEST REASON FOR EXAM: Female, 72 years old. Shortness of breath TECHNIQUE: Single AP portable view of the chest. COMPARISON: February 01, 2017 chest x-ray FINDINGS: There is a patchy right upper lobe and right middle lobe infiltrate. There is minimal linear density left lung base. There is no demonstrated pleural abnormality. There is moderate cardiac enlargement. Normal mediastinum and harmony. Normal visualized pulmonary arteries. Normal visualized aortic arch and descending thoracic aorta. There are diffuse degenerative changes of the visualized thoracic spine. Normal visualized ribs, clavicles, and shoulders. There is no demonstrated abnormality of the visualized soft tissue structures of the upper abdomen. RAD/Chest 1 View (Portable) IMPRESSION: Multifocal pneumonia relatively stable. Underexpansion of the lungs. Moderate cardiomegaly. Electronically Signed: Beatris Colon MD at 8:50 EDT Tel , Service support ,
[2018-02-02] MEDS: 0.9% NaCl Peripheral Flush Adult/Peds IV ×2 (06:15→21:44)
[2018-02-02] MEDS: Furosemide 40 MG/4 ML Vial IV ×3 (06:15→21:35)
[2018-02-02 06:57] LABS: Anion Gap 7 (5-15); BUN 14 mg/dL (7-18); BUN/Creat Ratio 18.3 RATIO (10-20); Calcium,Total 8.1 mg/dL (8.5-10.1); Chloride 103 mmol/L (98-107); Creatinine, Serum 0.76 mg/dL (0.55-1.02); EST Glomerular Filtration Rate 79 mL/min (>60); Est Glom Filt Rate - Afr Amer 96 mL/min (>60); Glucose 130 mg/dL (74-106); Potassium 4.1 mmol/L (3.5-5.1); Sodium Level 140 mmol/L (136-145)
[2018-02-02 07:00] LABS: Bedside Glucose 141 mg/dL (70-110)
--- NOTE | 2018-02-02 08:25 | PCM.PROGNOTE ---
Patient Problems: Active and Suspected Problems Severe sepsis (Acute) Acute respiratory failure with hypoxia (Acute) Subjective: Patient did well overnight. Patient did tolerate BiPAP therapy without complications. Patient is unable to report any subjective change in overall condition. Patient denies any leg pain. Nursing and respiratory therapy have no concerns. Objective: Chest x-ray was personally reviewed and shows improvement in bilateral infiltrates - Physical Exam General: Alert, Oriented x3, Cooperative, No apparent distress, - - Morbidly obese. Speaking in full sentences. HEENT: Atraumatic, PERRLA, EOMI, Normocephalic, - - No scleral icterus or injection noted. Oral: Moist Mucosa, No Gingival or Mucosal Lesions/ Ulcerations, - - No sores noted over BiPAP interface site Neck: Supple, No Nodes, Trachea Midline, JVD, Right Lungs: No rhonchi, No wheeze, Diminished, Rales, - - Symmetric expansion Cardiovascular: Normal S1, Normal S2, Bradycardic, Murmur - 6 systolic ejection murmur at the right sternal border, No rub noted, No Gallop Abdomen: Bowel Sounds Present, Soft, Non Tender, Non-Distended, Obese Extremities: No clubbing, No cyanosis, Capillary Refill Less than 3 Seconds, Edema Skin: Rash Present - Right lower extremity erythema and warmth continue to improve Musculoskeletal: No Tenderness to Palpation of Joints or Extremities Lymphatic: No Cervical, Supraclavicular, or Inguinal Adenopathy Neurological: Cranial nerves II-XII grossly intact, Neuro grossly intact, - - Decreased fine touch sensation of the lower extremities Psych/Mental Status: Alert and oriented to time, place, person, mood and affect Vital Signs Temp Pulse Resp BP Pulse Ox 36.4 C L 52 L 19 H 128/65 H 100 02/02/18 03:03 02/02/18 07:17 02/02/18 06:30 02/02/18 03:03 02/02/18 06:30 Oxygen Flow Rate (L/min) 6 Oxygen Delivery Method CPAP Weight: 145.15 kg Body Mass Index (BMI) 54.9 Intake and Output for Last 24 Hours 01/31/18 02/01/18 02/02/18 23:59 23:59 23:59 Intake Total 660 / 660 1160 / 1160 240 / 240 Output Total 1800 / 1800 4725 / 4725 1300 / 1300 Balance -1140 / -1140 -3565 / -3565 -1060 / -1060 Microbiology Past 72 Hours 01/29/18 10:05 Gram Stain - Final Sputum, Expectorated/Coughed Respiratory Culture - Final 01/28/18 11:30 Throat Culture - Final Mucosa - Throat 01/28/18 09:00 Urine Culture - Final Urine, Clean Catch Mixed Gram Positive Organisms Laboratory Tests Past 24 Hrs 02/02/18 05:15 Sodium 140 Potassium 4.1 Chloride 103 Carbon Dioxide 30.0 Anion Gap 7 BUN 14 Creatinine 0.76 Estim Creat Clear Calc 45.20 Est GFR (MDRD) Af Amer 96 Est GFR (MDRD) Non-Af 79 BUN/Creatinine Ratio 18.3 Glucose 130 H Calcium 8.1 L POC Glucose 02/02/18 02/01/18 02/01/18 06:45 21:05 17:18 POC Glucose 141 H 189 H 130 H 02/01/18 11:27 POC Glucose 172 H Clinical Impression(s) from Imaging Studies Chest X-Ray 02/01/18 05:55 IMPRESSION: Bilateral pneumonia has been no significant change since the previous study. Electronically Signed: Urbano Broderick MD at 9:04 EDT Tel , Service support , Medical Necessity - Tobacco Use Smoking Status: Never smoker Tobacco Use: Non-smoker Assessment/Plan Active and Suspected Problems Severe sepsis (Acute) Acute respiratory failure with hypoxia (Acute) RECOMMENDATIONS 1. Wean oxygen supplementation to keep saturations greater than 89% 2. Encourage incentive spirometer, activity as tolerated, PT/OT 3. Continue BiPAP at night and with naps, also use as rescue 4. Continue antibiotics per ID recommendations 5. Continue diuresis with IV Lasix at current dosing 6. Ambulatory pulse ox prior to discharge 7. Please schedule appointment in the pulmonary clinic in 2 weeks after discharge with FISH HATCHERY MANAGER, at which time testing can be ordered IMPRESSIONS 1. Acute hypoxic respiratory failure secondary to acute diastolic CHF Chest x-ray appears to be significantly improved compared to previous and patient is diuresing very well. No change in creatinine to suggest decreased perfusion. Would continue with aggressive diuresis as patient tolerates. Clinical suspicion for 10-20 L of excessive fluid leading to hypoxemia and infiltrates. Wean oxygen as tolerated. Increase activity. No antibiotics are likely indicated from a pulmonary perspective. Low clinical suspicion for pneumonia 2. Severe sepsis Right lower extremity is much improved compared to presentation. Patient is being followed by infectious disease. No fevers been noted overnight. Patient did receive substantial volume resuscitation initially secondary to severe sepsis 3. History of reported asthma/KUMAR Patient with a 40 pound plus weight gain since last titration study. Patient likely would benefit from a repeat titration study for optimization of obstructive sleep apnea. Patient also requires outpatient pulmonary function test for quantification and clarification of lung function. 4. GERD/anxiety and depression/type 2 diabetes/morbid obesity/hypertension/hyperlipidemia Complicates care, management, recovery, and prognosis. Likely okay to continue home medications. Reports her GERD is under control. Plans for TCU upon discharge. Thank you for the opportunity to participate in this patient's care, please do not hesitate to contact us with any further questions or concerns. This note was generated with [employer] dictation software. It may contain incorrect words, spelling, and punctuation that were not noted in checking the note before signing. Code Visit Inpatient E&M: 41389 Subs Hosp L3
--- NOTE | 2018-02-02 08:36 | PN_ITS ---
Patient Problems: Active and Suspected Problems Severe sepsis (Acute) Acute respiratory failure with hypoxia (Acute) Subjective: Patient did well overnight. Patient did tolerate BiPAP therapy without complications. Patient is unable to report any subjective change in overall condition. Patient denies any leg pain. Nursing and respiratory therapy have no concerns. Objective: Chest x-ray was personally reviewed and shows improvement in bilateral infiltrates - Physical Exam General: Alert, Oriented x3, Cooperative, No apparent distress, - - Morbidly obese. Speaking in full sentences. HEENT: Atraumatic, PERRLA, EOMI, Normocephalic, - - No scleral icterus or injection noted. Oral: Moist Mucosa, No Gingival or Mucosal Lesions/ Ulcerations, - - No sores noted over BiPAP interface site Neck: Supple, No Nodes, Trachea Midline, JVD, Right Lungs: No rhonchi, No wheeze, Diminished, Rales, - - Symmetric expansion Cardiovascular: Normal S1, Normal S2, Bradycardic, Murmur - 6 systolic ejection murmur at the right sternal border, No rub noted, No Gallop Abdomen: Bowel Sounds Present, Soft, Non Tender, Non-Distended, Obese Extremities: No clubbing, No cyanosis, Capillary Refill Less than 3 Seconds, Edema Skin: Rash Present - Right lower extremity erythema and warmth continue to improve Musculoskeletal: No Tenderness to Palpation of Joints or Extremities Lymphatic: No Cervical, Supraclavicular, or Inguinal Adenopathy Neurological: Cranial nerves II-XII grossly intact, Neuro grossly intact, - - Decreased fine touch sensation of the lower extremities Psych/Mental Status: Alert and oriented to time, place, person, mood and affect Vital Signs Temp Pulse Resp BP Pulse Ox 36.4 C L 52 L 19 H 128/65 H 100 02/02/18 03:03 02/02/18 07:17 02/02/18 06:30 02/02/18 03:03 02/02/18 06:30 Oxygen Flow Rate (L/min) 6 Oxygen Delivery Method CPAP Weight: 145.15 kg Body Mass Index (BMI) 54.9 Intake and Output for Last 24 Hours 01/31/18 02/01/18 02/02/18 23:59 23:59 23:59 Intake Total 660 / 660 1160 / 1160 240 / 240 Output Total 1800 / 1800 4725 / 4725 1300 / 1300 Balance -1140 / -1140 -3565 / -3565 -1060 / -1060 Microbiology Past 72 Hours 01/29/18 10:05 Gram Stain - Final Sputum, Expectorated/Coughed Respiratory Culture - Final 01/28/18 11:30 Throat Culture - Final Mucosa - Throat 01/28/18 09:00 Urine Culture - Final Urine, Clean Catch Mixed Gram Positive Organisms Laboratory Tests Past 24 Hrs 02/02/18 05:15 Sodium 140 Potassium 4.1 Chloride 103 Carbon Dioxide 30.0 Anion Gap 7 BUN 14 Creatinine 0.76 Estim Creat Clear Calc 45.20 Est GFR (MDRD) Af Amer 96 Est GFR (MDRD) Non-Af 79 BUN/Creatinine Ratio 18.3 Glucose 130 H Calcium 8.1 L POC Glucose 02/02/18 02/01/18 02/01/18 06:45 21:05 17:18 POC Glucose 141 H 189 H 130 H 02/01/18 11:27 POC Glucose 172 H Clinical Impression(s) from Imaging Studies Chest X-Ray 02/01/18 05:55 IMPRESSION: Bilateral pneumonia has been no significant change since the previous study. Electronically Signed: Urbano Broderick MD at 9:04 EDT Tel , Service support , Medical Necessity - Tobacco Use Smoking Status: Never smoker Tobacco Use: Non-smoker Assessment/Plan Active and Suspected Problems Severe sepsis (Acute) Acute respiratory failure with hypoxia (Acute) RECOMMENDATIONS 1. Wean oxygen supplementation to keep saturations greater than 89% 2. Encourage incentive spirometer, activity as tolerated, PT/OT 3. Continue BiPAP at night and with naps, also use as rescue 4. Continue antibiotics per ID recommendations 5. Continue diuresis with IV Lasix at current dosing 6. Ambulatory pulse ox prior to discharge 7. Please schedule appointment in the pulmonary clinic in 2 weeks after discharge with HYDROELECTRIC MECHANIC, at which time testing can be ordered IMPRESSIONS 1. Acute hypoxic respiratory failure secondary to acute diastolic CHF Chest x-ray appears to be significantly improved compared to previous and patient is diuresing very well. No change in creatinine to suggest decreased perfusion. Would continue with aggressive diuresis as patient tolerates. Clinical suspicion for 10-20 L of excessive fluid leading to hypoxemia and infiltrates. Wean oxygen as tolerated. Increase activity. No antibiotics are likely indicated from a pulmonary perspective. Low clinical suspicion for pneumonia 2. Severe sepsis Right lower extremity is much improved compared to presentation. Patient is being followed by infectious disease. No fevers been noted overnight. Patient did receive substantial volume resuscitation initially secondary to severe sepsis 3. History of reported asthma/KUMAR Patient with a 40 pound plus weight gain since last titration study. Patient likely would benefit from a repeat titration study for optimization of obstructive sleep apnea. Patient also requires outpatient pulmonary function test for quantification and clarification of lung function. 4. GERD/anxiety and depression/type 2 diabetes/morbid obesity/hypertension/ hyperlipidemia Complicates care, management, recovery, and prognosis. Likely okay to continue home medications. Reports her GERD is under control. Plans for TCU upon discharge. Thank you for the opportunity to participate in this patient's care, please do not hesitate to contact us with any further questions or concerns. This note was generated with [employer] dictation software. It may contain incorrect words, spelling, and punctuation that were not noted in checking the note before signing. Code Visit Inpatient E&M: 91868 Subs Hosp L3
[2018-02-02] MEDS: Metoprolol Tartrate 50 MG Tablet PO ×2 (10:34→21:36)
[2018-02-02] MEDS: FLUoxetine 20 MG Capsule 40 MG PO (10:35)
[2018-02-02] MEDS: amLODIPine 10 MG Tablet PO (10:35)
[2018-02-02] MEDS: Famotidine 20 MG Tablet PO (10:35)
[2018-02-02 11:41] LABS: Bedside Glucose 177 mg/dL (70-110)
--- NOTE | 2018-02-02 12:56 | PN_ITS ---
<Rudolph Reynolds - Last Filed: 02/02/18 12:42> Patient Problems: Active and Suspected Problems Severe sepsis (Acute) Acute respiratory failure with hypoxia (Acute) Subjective: Pt is resting comfortably in bed NAD. She is tolerating flowers cath, but does not use this chronically. She reports prior to admission she was emptying her bladder well without difficulty, urgency, hesitancy, or dysuria. She feels her breathing has improved. She does not use O2 at home. Her erythema of her right leg has also significantly improved retracting away from the demarcations. No fever or chils. No cough. - Physical Exam General: Alert, Oriented x3, Cooperative HEENT: Atraumatic, PERRLA, EOMI, Normocephalic Neck: Supple, No JVD, Negative Carotid Bruits Lungs: Clear to auscultation, Normal air movement Cardiovascular: Regular rate, No murmurs Abdomen: Bowel Sounds Present, Soft, Non Tender, Obese Extremities: Capillary Refill Less than 3 Seconds, Edema - BL LE edema 2+ Skin: Excoriated, - - erythema receding well away from demarcations Musculoskeletal: No Tenderness to Palpation of Joints or Extremities Neurological: Cranial nerves II-XII grossly intact Psych/Mental Status: Normal Affect, Appropriate, Alert and oriented to time, place, person, mood and affect Vital Signs Temp Pulse Resp BP Pulse Ox 98.4 F 65 18 126/59 H 98 02/02/18 08:32 02/02/18 11:41 02/02/18 08:32 02/02/18 10:34 02/02/18 08:32 Oxygen Flow Rate (L/min) 6 Oxygen Delivery Method Bi-pap Weight: 145.15 kg Body Mass Index (BMI) 54.9 Intake and Output for Last 24 Hours 01/31/18 02/01/18 02/02/18 23:59 23:59 23:59 Intake Total 660 / 660 1160 / 1160 510 / 510 Output Total 1800 / 1800 4725 / 4725 2200 / 2200 Balance -1140 / -1140 -3565 / -3565 -1690 / -1690 Microbiology Past 72 Hours 01/29/18 10:05 Gram Stain - Final Sputum, Expectorated/Coughed Respiratory Culture - Final 01/28/18 11:30 Throat Culture - Final Mucosa - Throat Laboratory Tests Past 24 Hrs 02/02/18 05:15 Sodium 140 Potassium 4.1 Chloride 103 Carbon Dioxide 30.0 Anion Gap 7 BUN 14 Creatinine 0.76 Estim Creat Clear Calc 45.20 Est GFR (MDRD) Af Amer 96 Est GFR (MDRD) Non-Af 79 BUN/Creatinine Ratio 18.3 Glucose 130 H Calcium 8.1 L POC Glucose 02/02/18 02/02/18 02/01/18 11:34 06:45 21:05 POC Glucose 177 H 141 H 189 H 02/01/18 17:18 POC Glucose 130 H Medical Necessity - Tobacco Use Smoking Status: Never smoker Tobacco Use: Non-smoker Assessment/Plan Active and Suspected Problems Severe sepsis (Acute) Acute respiratory failure with hypoxia (Acute) 1. Severe sepsis suspected 2/2 cellulitis RLE. improving well. Continue Rocephin per ID. Transition to Cefdinir at DC. 2. Acute diastolic CHF - continue lasix. Out about 6 L so far. Renal function stable. Continue cath for good I/O's for now. Fluid restrict, VICKY wrap, sodium restrict. Pull prior to DC. Repeat CXR shows multifocal pna and under expansion of lungs with cardiomegaly - suspect CHF. Pulm does not feel this is Pna. Can start low dose VICKY inhibitor at DC. -Echo with EF of 65%, Stage 2 diastolic dysfxn, could not estimate RVSP/PASP. 3. Acute hypoxic respiratory failure 2/2 above. Pulm following. Continue IS, wean o2 as tolerated, albuterol, lasix. 4. HTN - stable 5. HLD - statin 6. KUMAR/OHS - Bipap here, has CPAP at home. Also complicated by opiate and benzo use. 7. T2DM with Morbid obesity - sliding scale insulin, orals held, diet control 8. Anx/Dep - home meds. DVT ppx: heparin DC planning : TCU when stable - continue IV diuresis and attempt to Wean O2. This patient was seen by Rudolph Reynolds PA-C under the supervision of Doctor Hoffmann. <Siobhan Hoffmann - Last Filed: 02/02/18 13:01> - Physical Exam Vital Signs Temp Pulse Resp BP Pulse Ox 98.4 F 65 18 126/59 H 98 02/02/18 08:32 02/02/18 11:41 02/02/18 08:32 02/02/18 10:34 02/02/18 08:32 Oxygen Flow Rate (L/min) 6 Oxygen Delivery Method Bi-pap Weight: 145.15 kg Body Mass Index (BMI) 54.9 Intake and Output for Last 24 Hours 01/31/18 02/01/18 02/02/18 23:59 23:59 23:59 Intake Total 660 / 660 1160 / 1160 510 / 510 Output Total 1800 / 1800 4725 / 4725 2200 / 2200 Balance -1140 / -1140 -3565 / -3565 -1690 / -1690 Microbiology Past 72 Hours 01/29/18 10:05 Gram Stain - Final Sputum, Expectorated/Coughed Respiratory Culture - Final 01/28/18 11:30 Throat Culture - Final Mucosa - Throat Laboratory Tests Past 24 Hrs 02/02/18 05:15 Sodium 140 Potassium 4.1 Chloride 103 Carbon Dioxide 30.0 Anion Gap 7 BUN 14 Creatinine 0.76 Estim Creat Clear Calc 45.20 Est GFR (MDRD) Af Amer 96 Est GFR (MDRD) Non-Af 79 BUN/Creatinine Ratio 18.3 Glucose 130 H Calcium 8.1 L POC Glucose 02/02/18 02/02/18 02/01/18 11:34 06:45 21:05 POC Glucose 177 H 141 H 189 H 02/01/18 17:18 POC Glucose 130 H Assessment/Plan Patient was seen and examined independently in assistant property manager, Rudolph. She is on 6 L of oxygen. Admits to feeling much better than when she did but denies any fever or chills. Had questions with regards to fluid restriction. Denies any chest pain or dizziness or palpitations. Pain and erythema of the right lower extremity/cellulitis is improved. I agree with a interval history and physical exam as above as well as the assessment and plan, medication reviewed, will continue with ceftriaxone for cellulitis, this for acute diastolic CHF, strict I's and O's, fluid restrictions , reevaluate in the a.m. Code Visit Inpatient E&M: 98637 Subs Hosp L2
[2018-02-02 17:45] LABS: Bedside Glucose 128 mg/dL (70-110)
[2018-02-02] MEDS: Atorvastatin Calcium 10 MG Tablet 5 MG PO (21:35)
[2018-02-02] MEDS: Acetaminophen 325 MG Tablet 650 MG PO (21:55)
[2018-02-02] MEDS: Temazepam 15 MG Capsule PO (21:56)
[2018-02-02 22:41] LABS: Bedside Glucose 154 mg/dL (70-110)
[2018-02-03] VITALS (19 sets, daily range): BP systolic 123–146; BP diastolic 65–75; PULSE 50–78; RESP 16–24; TEMP 36.2–37.3; O2SAT 94–100
[2018-02-03] MEDS: Furosemide 40 MG/4 ML Vial IV ×3 (05:54→21:57)
[2018-02-03] MEDS: 0.9% NaCl Peripheral Flush Adult/Peds IV ×2 (05:55→22:09)
[2018-02-03 06:56] LABS: Anion Gap 7 (5-15); BUN 16 mg/dL (7-18); BUN/Creat Ratio 18.2 RATIO (10-20); Calcium,Total 8.4 mg/dL (8.5-10.1); Chloride 102 mmol/L (98-107); Creatinine, Serum 0.88 mg/dL (0.55-1.02); EST Glomerular Filtration Rate 67 mL/min (>60); Est Glom Filt Rate - Afr Amer 81 mL/min (>60); Estimated Creatinine Clearance 51.37 ml/min; Glucose 126 mg/dL (74-106); Potassium 3.5 mmol/L (3.5-5.1); Sodium Level 141 mmol/L (136-145)
[2018-02-03 07:11] LABS: Bedside Glucose 133 mg/dL (70-110)
--- NOTE | 2018-02-03 08:02 | PCM.PROGNOTE ---
Patient Problems: Active and Suspected Problems Severe sepsis (Acute) Acute respiratory failure with hypoxia (Acute) Subjective: Patient did well overnight. No acute issues were reported. Patient reports mild subjective improvement in overall condition. Patient denies any leg pain at this time. Patient denies any nausea or vomiting. Patient was compliant with overnight positive pressure and was able to lie flat. - Physical Exam General: Alert, Oriented x3, Cooperative, No apparent distress, - - Morbidly obese HEENT: Atraumatic, PERRLA, EOMI, Normocephalic, - - No scleral icterus or injection noted. Oral: Moist Mucosa, No Gingival or Mucosal Lesions/ Ulcerations Neck: Supple, No Nodes, Trachea Midline Lungs: No rhonchi, No wheeze, Diminished, Rales, - - Symmetric expansion. Percussion difficult secondary to body habitus Cardiovascular: Normal S1, Normal S2, No murmurs, Bradycardic, No rub noted, No Gallop Abdomen: Bowel Sounds Present, Soft, Non Tender, Non-Distended, Obese Extremities: No clubbing, No cyanosis, Capillary Refill Less than 3 Seconds, Edema Skin: Rash Present - Continues to improve. Musculoskeletal: No Tenderness to Palpation of Joints or Extremities Lymphatic: No Cervical, Supraclavicular, or Inguinal Adenopathy Neurological: Cranial nerves II-XII grossly intact, Neuro grossly intact, - - Fine touch sensation is decreased in the lower extremities Psych/Mental Status: Alert and oriented to time, place, person, mood and affect Vital Signs Temp Pulse Resp BP Pulse Ox 36.8 C 58 L 21 H 123/67 H 97 02/03/18 06:55 02/03/18 06:55 02/03/18 06:55 02/03/18 06:55 02/03/18 06:55 Oxygen Flow Rate (L/min) 3 Oxygen Delivery Method Bi-pap Weight: 145.15 kg Body Mass Index (BMI) 54.9 Intake and Output for Last 24 Hours 02/01/18 02/02/18 02/03/18 23:59 23:59 23:59 Intake Total 1160 / 1160 1350 / 1350 0 / 0 Output Total 4725 / 4725 4550 / 4550 250 / 250 Balance -3565 / -3565 -3200 / -3200 -250 / -250 Microbiology Past 72 Hours 03/20/18 10:05 Gram Stain - Final Sputum, Expectorated/Coughed Respiratory Culture - Final Laboratory Tests Past 24 Hrs 02/03/18 05:10 Sodium 141 Potassium 3.5 Chloride 102 Carbon Dioxide 32.0 Anion Gap 7 BUN 16 Creatinine 0.88 Estim Creat Clear Calc 51.37 Est GFR (MDRD) Af Amer 81 Est GFR (MDRD) Non-Af 67 BUN/Creatinine Ratio 18.2 Glucose 126 H Calcium 8.4 L POC Glucose 02/03/18 02/02/18 02/02/18 06:59 21:40 17:09 POC Glucose 133 H 154 H 128 H 02/02/18 11:34 POC Glucose 177 H Clinical Impression(s) from Imaging Studies Chest X-Ray 02/02/18 05:55 IMPRESSION: Multifocal pneumonia relatively stable. Underexpansion of the lungs. Moderate cardiomegaly. Electronically Signed: Beatris Colon MD at 8:50 EDT Tel , Service support , Medical Necessity - Tobacco Use Smoking Status: Never smoker Tobacco Use: Non-smoker Assessment/Plan Active and Suspected Problems Severe sepsis (Acute) Acute respiratory failure with hypoxia (Acute) RECOMMENDATIONS 1. Wean oxygen supplementation to keep saturations greater than 89% 2. Encourage incentive spirometer, activity as tolerated, PT/OT 3. Continue BiPAP at night and with naps, also use as rescue 4. Continue antibiotics per ID recommendations 5. Continue diuresis with IV Lasix at current dosing 6. Ambulatory pulse ox prior to discharge 7. Please schedule appointment in the pulmonary clinic in 2 weeks after discharge with PERFORMANCE IMPROVEMENT SPECIALIST, at which time testing can be ordered IMPRESSIONS 1. Acute hypoxic respiratory failure secondary to acute diastolic CHF Chest x-ray appears to be significantly improved compared to previous and patient is diuresing very well. No change in creatinine to suggest decreased perfusion. Would continue with aggressive diuresis as patient tolerates. Clinical suspicion for additional 10-20 L of excessive fluid leading to hypoxemia and infiltrates. Wean oxygen as tolerated. Increase activity. No antibiotics are likely indicated from a pulmonary perspective, but are indicated by cellulitis and ID is following. Low clinical suspicion for pneumonia 2. Severe sepsis Right lower extremity is much improved compared to presentation. Patient is being followed by infectious disease. No fevers been noted overnight. Patient did receive substantial volume resuscitation initially secondary to severe sepsis 3. History of reported asthma/KUMAR Patient with a 40 pound plus weight gain since last titration study. Patient likely would benefit from a repeat titration study for optimization of obstructive sleep apnea. Patient also requires outpatient pulmonary function test for quantification and clarification of lung function. 4. GERD/anxiety and depression/type 2 diabetes/morbid obesity/hypertension/hyperlipidemia Complicates care, management, recovery, and prognosis. Likely okay to continue home medications. Reports her GERD is under control. Plans for TCU upon discharge. Thank you for the opportunity to participate in this patient's care, please do not hesitate to contact us with any further questions or concerns. This note was generated with [employer] dictation software. It may contain incorrect words, spelling, and punctuation that were not noted in checking the note before signing. Code Visit Inpatient E&M: 09716 Subs Hosp L3
--- NOTE | 2018-02-03 08:11 | PN_ITS ---
Patient Problems: Active and Suspected Problems Severe sepsis (Acute) Acute respiratory failure with hypoxia (Acute) Subjective: Patient did well overnight. No acute issues were reported. Patient reports mild subjective improvement in overall condition. Patient denies any leg pain at this time. Patient denies any nausea or vomiting. Patient was compliant with overnight positive pressure and was able to lie flat. - Physical Exam General: Alert, Oriented x3, Cooperative, No apparent distress, - - Morbidly obese HEENT: Atraumatic, PERRLA, EOMI, Normocephalic, - - No scleral icterus or injection noted. Oral: Moist Mucosa, No Gingival or Mucosal Lesions/ Ulcerations Neck: Supple, No Nodes, Trachea Midline Lungs: No rhonchi, No wheeze, Diminished, Rales, - - Symmetric expansion. Percussion difficult secondary to body habitus Cardiovascular: Normal S1, Normal S2, No murmurs, Bradycardic, No rub noted, No Gallop Abdomen: Bowel Sounds Present, Soft, Non Tender, Non-Distended, Obese Extremities: No clubbing, No cyanosis, Capillary Refill Less than 3 Seconds, Edema Skin: Rash Present - Continues to improve. Musculoskeletal: No Tenderness to Palpation of Joints or Extremities Lymphatic: No Cervical, Supraclavicular, or Inguinal Adenopathy Neurological: Cranial nerves II-XII grossly intact, Neuro grossly intact, - - Fine touch sensation is decreased in the lower extremities Psych/Mental Status: Alert and oriented to time, place, person, mood and affect Vital Signs Temp Pulse Resp BP Pulse Ox 36.8 C 58 L 21 H 123/67 H 97 02/03/18 06:55 02/03/18 06:55 02/03/18 06:55 02/03/18 06:55 02/03/18 06:55 Oxygen Flow Rate (L/min) 3 Oxygen Delivery Method Bi-pap Weight: 145.15 kg Body Mass Index (BMI) 54.9 Intake and Output for Last 24 Hours 02/01/18 02/02/18 02/03/18 23:59 23:59 23:59 Intake Total 1160 / 1160 1350 / 1350 0 / 0 Output Total 4725 / 4725 4550 / 4550 250 / 250 Balance -3565 / -3565 -3200 / -3200 -250 / -250 Microbiology Past 72 Hours 03/20/18 10:05 Gram Stain - Final Sputum, Expectorated/Coughed Respiratory Culture - Final Laboratory Tests Past 24 Hrs 02/03/18 05:10 Sodium 141 Potassium 3.5 Chloride 102 Carbon Dioxide 32.0 Anion Gap 7 BUN 16 Creatinine 0.88 Estim Creat Clear Calc 51.37 Est GFR (MDRD) Af Amer 81 Est GFR (MDRD) Non-Af 67 BUN/Creatinine Ratio 18.2 Glucose 126 H Calcium 8.4 L POC Glucose 02/03/18 02/02/18 02/02/18 06:59 21:40 17:09 POC Glucose 133 H 154 H 128 H 02/02/18 11:34 POC Glucose 177 H Clinical Impression(s) from Imaging Studies Chest X-Ray 02/02/18 05:55 IMPRESSION: Multifocal pneumonia relatively stable. Underexpansion of the lungs. Moderate cardiomegaly. Electronically Signed: Beatris Colon MD at 8:50 EDT Tel , Service support , Medical Necessity - Tobacco Use Smoking Status: Never smoker Tobacco Use: Non-smoker Assessment/Plan Active and Suspected Problems Severe sepsis (Acute) Acute respiratory failure with hypoxia (Acute) RECOMMENDATIONS 1. Wean oxygen supplementation to keep saturations greater than 89% 2. Encourage incentive spirometer, activity as tolerated, PT/OT 3. Continue BiPAP at night and with naps, also use as rescue 4. Continue antibiotics per ID recommendations 5. Continue diuresis with IV Lasix at current dosing 6. Ambulatory pulse ox prior to discharge 7. Please schedule appointment in the pulmonary clinic in 2 weeks after discharge with GLOVE WRAPPER, at which time testing can be ordered IMPRESSIONS 1. Acute hypoxic respiratory failure secondary to acute diastolic CHF Chest x-ray appears to be significantly improved compared to previous and patient is diuresing very well. No change in creatinine to suggest decreased perfusion. Would continue with aggressive diuresis as patient tolerates. Clinical suspicion for additional 10-20 L of excessive fluid leading to hypoxemia and infiltrates. Wean oxygen as tolerated. Increase activity. No antibiotics are likely indicated from a pulmonary perspective, but are indicated by cellulitis and ID is following. Low clinical suspicion for pneumonia 2. Severe sepsis Right lower extremity is much improved compared to presentation. Patient is being followed by infectious disease. No fevers been noted overnight. Patient did receive substantial volume resuscitation initially secondary to severe sepsis 3. History of reported asthma/KUMAR Patient with a 40 pound plus weight gain since last titration study. Patient likely would benefit from a repeat titration study for optimization of obstructive sleep apnea. Patient also requires outpatient pulmonary function test for quantification and clarification of lung function. 4. GERD/anxiety and depression/type 2 diabetes/morbid obesity/hypertension/ hyperlipidemia Complicates care, management, recovery, and prognosis. Likely okay to continue home medications. Reports her GERD is under control. Plans for TCU upon discharge. Thank you for the opportunity to participate in this patient's care, please do not hesitate to contact us with any further questions or concerns. This note was generated with [employer] dictation software. It may contain incorrect words, spelling, and punctuation that were not noted in checking the note before signing. Code Visit Inpatient E&M: 07694 Subs Hosp L3
[2018-02-03] MEDS: Famotidine 20 MG Tablet PO (10:16)
[2018-02-03] MEDS: amLODIPine 10 MG Tablet PO (10:16)
[2018-02-03] MEDS: Metoprolol Tartrate 50 MG Tablet PO ×2 (10:16→21:57)
[2018-02-03] MEDS: FLUoxetine 20 MG Capsule 40 MG PO (10:16)
[2018-02-03 11:56] LABS: Bedside Glucose 225 mg/dL (70-110)
--- NOTE | 2018-02-03 13:52 | PN_ITS ---
<Rudolph Reynolds - Last Filed: 02/03/18 13:48> Patient Problems: Active and Suspected Problems Severe sepsis (Acute) Acute respiratory failure with hypoxia (Acute) Subjective: Breathing improved and O2 weaned to 3 liters. Swelling improving. Pt continues to diurese and empty bladder well. She states she thinks she had some hemoptysis yesterday, however no production at all today so far. No fevers or chills. - Physical Exam General: Alert, Oriented x3, Cooperative HEENT: Atraumatic, PERRLA, EOMI, Normocephalic Neck: Supple, No JVD, Negative Carotid Bruits Lungs: Clear to auscultation, Diminished Cardiovascular: Regular rate, No murmurs Abdomen: Bowel Sounds Present, Soft, Non Tender Extremities: No edema, Capillary Refill Less than 3 Seconds, Edema - edema now non pitting. Skin: No rashes, No breakdown Musculoskeletal: No Tenderness to Palpation of Joints or Extremities Neurological: Cranial nerves II-XII grossly intact Psych/Mental Status: Normal Affect, Appropriate, Alert and oriented to time, place, person, mood and affect Vital Signs Temp Pulse Resp BP Pulse Ox 98.7 F 72 16 137/65 H 99 02/03/18 10:24 02/03/18 10:59 02/03/18 10:24 02/03/18 10:24 02/03/18 13:00 Oxygen Flow Rate (L/min) 2 Oxygen Delivery Method Nasal Cannula Weight: 145.15 kg Body Mass Index (BMI) 54.9 Intake and Output for Last 24 Hours 02/01/18 02/02/18 02/03/18 23:59 23:59 23:59 Intake Total 1160 / 1160 1350 / 1350 370 / 370 Output Total 4725 / 4725 4550 / 4550 1750 / 1750 Balance -3565 / -3565 -3200 / -3200 -1380 / -1380 Microbiology Past 72 Hours 01/29/18 10:05 Gram Stain - Final Sputum, Expectorated/Coughed Respiratory Culture - Final Laboratory Tests Past 24 Hrs 02/03/18 05:10 Sodium 141 Potassium 3.5 Chloride 102 Carbon Dioxide 32.0 Anion Gap 7 BUN 16 Creatinine 0.88 Estim Creat Clear Calc 51.37 Est GFR (MDRD) Af Amer 81 Est GFR (MDRD) Non-Af 67 BUN/Creatinine Ratio 18.2 Glucose 126 H Calcium 8.4 L POC Glucose 02/03/18 02/03/18 02/02/18 11:38 06:59 21:40 POC Glucose 225 H 133 H 154 H 02/02/18 17:09 POC Glucose 128 H Medical Necessity - Tobacco Use Smoking Status: Never smoker Tobacco Use: Non-smoker Assessment/Plan Active and Suspected Problems Severe sepsis (Acute) Acute respiratory failure with hypoxia (Acute) 1. Severe sepsis suspected 2/2 cellulitis RLE. improving well. Continue Rocephin per ID. Transition to Cefdinir at DC. 2. Acute diastolic CHF - continue lasix. heavy diuresis so far and renal function stable. Continue cath for good I/O's for now. Fluid restrict, VICKY wrap , sodium restrict. Pull flowers prior to DC. Repeat CXR shows multifocal pna and under expansion of lungs with cardiomegaly - suspect CHF. Pulm does not feel this is Pna. Can start low dose VICKY inhibitor at DC. -Echo with EF of 65%, Stage 2 diastolic dysfxn, could not estimate RVSP/PASP. -continue IV diuresis per pulm 3. Acute hypoxic respiratory failure 2/2 above. Pulm following. Continue IS, wean o2 as tolerated, albuterol, lasix. 4. HTN - stable 5. HLD - statin 6. KUMAR/OHS - Bipap here, has CPAP at home. Also complicated by opiate and benzo use. 7. T2DM with Morbid obesity - sliding scale insulin, orals held, diet control 8. Anx/Dep - home meds. DVT ppx: heparin DC planning : TCU when stable - possibly tomorrow. continue IV diuresis and attempt to Wean O2 further. This patient was seen by Rudolph Reynolds PA-C under the supervision of Doctor Shun. <Siobhan Hoffmann - Last Filed: 02/03/18 16:13> - Physical Exam Vital Signs Temp Pulse Resp BP Pulse Ox 98.7 F 67 16 137/65 H 99 02/03/18 10:24 02/03/18 14:56 02/03/18 10:24 02/03/18 10:24 02/03/18 13:00 Oxygen Flow Rate (L/min) 2 Oxygen Delivery Method Nasal Cannula Weight: 145.15 kg Body Mass Index (BMI) 54.9 Intake and Output for Last 24 Hours 02/01/18 02/02/18 02/03/18 23:59 23:59 23:59 Intake Total 1160 / 1160 1350 / 1350 370 / 370 Output Total 4725 / 4725 4550 / 4550 1750 / 1750 Balance -3565 / -3565 -3200 / -3200 -1380 / -1380 Laboratory Tests Past 24 Hrs 02/03/18 05:10 Sodium 141 Potassium 3.5 Chloride 102 Carbon Dioxide 32.0 Anion Gap 7 BUN 16 Creatinine 0.88 Estim Creat Clear Calc 51.37 Est GFR (MDRD) Af Amer 81 Est GFR (MDRD) Non-Af 67 BUN/Creatinine Ratio 18.2 Glucose 126 H Calcium 8.4 L POC Glucose 02/03/18 02/03/18 02/02/18 11:38 06:59 21:40 POC Glucose 225 H 133 H 154 H 02/02/18 17:09 POC Glucose 128 H Assessment/Plan Assessment/Plan Patient was seen and examined independently of physician architectural administrative assistant, Rudolph Reynolds. I agree with his interval history and physical exam as above as well as the assessment and plan, medication reviewed, She is improved and now on 3 L of oxygen. Admits to feeling much better. Denies any chest pain or dizziness or palpitations. Pain and erythema of the right lower extremity/cellulitis is improved. Been diuresing a lot, -8 L over the last 3 days. Remains is on Lasix 40 mg IV q. 8 and ceftriaxone. We will continue on strict I's and O's, possible discharge tomorrow. Code Visit Inpatient E&M: 92451 Subs Hosp L2
[2018-02-03 16:35] LABS: Bedside Glucose 137 mg/dL (70-110)
[2018-02-03] MEDS: Atorvastatin Calcium 10 MG Tablet 5 MG PO (22:01)
[2018-02-03] MEDS: Temazepam 15 MG Capsule PO (22:09)
--- NOTE | 2018-02-03 22:22 | SLEEP ---
pt's brought in home CPAP unit. It was set up with 2 lpm O2 Bleed in.
[2018-02-03 22:30] LABS: Bedside Glucose 153 mg/dL (70-110)
[2018-02-04] VITALS (9 sets, daily range): BP systolic 128–141; BP diastolic 57–78; PULSE 57–84; RESP 16–24; TEMP 36.7–36.9; O2SAT 94–97
[2018-02-04 05:55] LABS: Anion Gap 8 (5-15); BUN 18 mg/dL (7-18); BUN/Creat Ratio 21.3 RATIO (10-20); Calcium,Total 8.5 mg/dL (8.5-10.1); Chloride 101 mmol/L (98-107); Creatinine, Serum 0.85 mg/dL (0.55-1.02); EST Glomerular Filtration Rate 70 mL/min (>60); Est Glom Filt Rate - Afr Amer 85 mL/min (>60); Estimated Creatinine Clearance 53.18 ml/min; Glucose 141 mg/dL (74-106); Potassium 3.3 mmol/L (3.5-5.1); Sodium Level 140 mmol/L (136-145)
[2018-02-04] MEDS: Furosemide 40 MG/4 ML Vial IV ×2 (06:00→14:00)
[2018-02-04] MEDS: 0.9% NaCl Peripheral Flush Adult/Peds IV ×2 (06:02→09:16)
[2018-02-04 07:00] LABS: Bedside Glucose 145 mg/dL (70-110)
[2018-02-04] MEDS: Metoprolol Tartrate 50 MG Tablet PO (09:18)
[2018-02-04] MEDS: amLODIPine 10 MG Tablet PO (09:21)
[2018-02-04] MEDS: Famotidine 20 MG Tablet PO (09:22)
[2018-02-04] MEDS: FLUoxetine 20 MG Capsule 40 MG PO (09:22)
--- NOTE | 2018-02-04 11:16 | PCM.TXEXTCAR ---
- Diet 01/28/18 09:11 Diet: Cardiac: Calorie-Controlled Food consistency:: Regular Liquid Consistency:: Regular/Thin Is pt able to select menu?: Yes Diet Comments: sodium restriction to 2 grams per day and fluid restrict to 1500 cc per day How many daily calories?: 1800 calorie - Routine Orders/Code Status Suppository Type: Dulcolax 10mg Suppository Frequency: Daily PRN O2 Frequency: PRN Keep PO Greater than or Equal to (%): 90 Routine Lab Work: CBC, BMP Code Status: Full Code - Wound(s) Rt leg Wound Type: Scab Right Ankle Wound Type: Blister - Therapies Physical Therapy: Eval and Treat Occupational Therapy: Eval and Treat - Problem/Diagnosis (1) Acute respiratory failure with hypoxia Status: Acute Current Visit: Yes (2) Severe sepsis Status: Acute Current Visit: Yes (3) Cellulitis Status: Acute Current Visit: Yes (4) CHF (congestive heart failure) Status: Acute Current Visit: Yes (5) KUMAR (obstructive sleep apnea) Status: Chronic Current Visit: Yes (6) HTN (hypertension) Status: Chronic Current Visit: Yes (7) HLD (hyperlipidemia) Status: Chronic Current Visit: Yes (8) Morbid obesity with BMI of 50.0-59.9, adult Status: Chronic Current Visit: Yes (9) Diabetes mellitus, type II Status: Chronic Current Visit: Yes (10) GERD (gastroesophageal reflux disease) Status: Chronic Current Visit: Yes (11) Anxiety and depression Status: Chronic Current Visit: Yes - Allergies/Procedures Done in Hospital Allergies/Adverse Reactions: Allergies No Known Allergies Allergy (Verified 01/28/18 01:18) Procedures: 2-D Echocardiogram - Type of Care/Length of Stay Estimated LOS: Convalescent Care Less Than 30 days Type of Care Needed: Skilled Rehab Potential: Fair Prognosis: Fair - Additional Orders/Day of Discharge Additional Orders: daily weights Day of Discharge: 02/04/18 - Dietary and Speech Recommendations Dietitian Recommendations/Changes: Suggest continue Cardiac, 1800 Calorie Controlled - Follow Up Care Primary Care Physician: Lalitha Baez MD [Primary Care Provider] - Please follow up with your Primary Care Physician in: 2 weeks Please Follow Up With: Santy Solorio MD When: 2 weeks
--- NOTE | 2018-02-04 11:27 | PCM.PROGNOTE ---
Patient Problems: Active and Suspected Problems Severe sepsis (Acute) Acute respiratory failure with hypoxia (Acute) CHF (congestive heart failure) (Acute) Cellulitis (Acute) Subjective: Patient was seen and examined. She is sitting up in the chair in no acute distress. Maintaining appropriate saturations on room air. Wearing her Pap therapy at night. Participating in physical therapy, using a walker and ambulating in halls. Minimal shortness of breath on exertion. Denies any cough. Cumulative fluid balance -5512. Daily weights not recorded. Potassium slightly low today, replaced orally. - Physical Exam General: Alert, Oriented x3, Cooperative, No apparent distress, Well developed, Well nourished, - - No conversational dyspnea HEENT: Atraumatic, Normocephalic Oral: Moist Mucosa, No Gingival or Mucosal Lesions/ Ulcerations Neck: Supple, No Nodes, Trachea Midline Lungs: Diminished, - - End expiratory wheeze, otherwise clear Cardiovascular: Regular rate, Regular Rhythm, Normal S1, Normal S2, No murmurs, No rub noted, No Gallop Abdomen: Bowel Sounds Present, Soft, Non Tender, Non-Distended, Obese Extremities: No clubbing, No cyanosis, Capillary Refill Less than 3 Seconds, Edema - improved Skin: Rash Present - RLE, improved-outlined Musculoskeletal: - Lymphatic: No Cervical, Supraclavicular, or Inguinal Adenopathy Neurological: Neuro grossly intact, - - peripheral neuropathy Psych/Mental Status: Alert and oriented to time, place, person, mood and affect Vital Signs Temp Pulse Resp BP Pulse Ox 98.4 F 65 16 141/66 H 94 02/04/18 09:40 02/04/18 11:19 02/04/18 09:40 02/04/18 09:40 02/04/18 09:40 Oxygen Flow Rate (L/min) 2 Oxygen Delivery Method Room Air Weight: 320 lb Body Mass Index (BMI) 54.9 Intake and Output for Last 24 Hours 02/02/18 02/03/18 02/04/18 23:59 23:59 23:59 Intake Total 1350 / 1350 1999 Output Total 4550 / 4550 3525 / 3525 275 / 275 Balance -3200 / -3200 -1525 / -1525 -255 / -255 Laboratory Tests Past 24 Hrs 02/04/18 05:22 Sodium 140 Potassium 3.3 L Chloride 101 Carbon Dioxide 31.0 Anion Gap 8 BUN 18 Creatinine 0.85 Estim Creat Clear Calc 53.18 Est GFR (MDRD) Af Amer 85 Est GFR (MDRD) Non-Af 70 BUN/Creatinine Ratio 21.3 H Glucose 141 H Calcium 8.5 POC Glucose 02/04/18 02/03/18 02/03/18 06:47 21:55 16:27 POC Glucose 145 H 153 H 137 H 02/03/18 11:38 POC Glucose 225 H Medical Necessity - Tobacco Use Smoking Status: Never smoker Tobacco Use: Non-smoker Assessment/Plan Active and Suspected Problems Severe sepsis (Acute) Acute respiratory failure with hypoxia (Acute) CHF (congestive heart failure) (Acute) Cellulitis (Acute) RECOMMENDATIONS 1. Wean oxygen supplementation to keep saturations greater than 89% 2. Encourage incentive spirometer, activity as tolerated, PT/OT 3. Continue BiPAP at night and with naps, also use as rescue 4. Continue antibiotics per ID recommendations 5. De-escalate Lasix to oral today 6. Ambulatory pulse ox prior to discharge 7. Please schedule appointment in the pulmonary clinic in 2 weeks after discharge with EVENT MARKETING ASSISTANT, at which time testing can be ordered 8. Okay to discharge from pulmonary perspective IMPRESSIONS 1. Acute hypoxic respiratory failure secondary to acute diastolic CHF Chest x-ray appears to be significantly improved compared to previous and patient is diuresing very well. No change in creatinine to suggest decreased perfusion. Would continue with aggressive diuresis as patient tolerates. Clinical suspicion for additional 10-20 L of excessive fluid leading to hypoxemia and infiltrates. Wean oxygen as tolerated. Increase activity. No antibiotics are likely indicated from a pulmonary perspective, but are indicated by cellulitis and ID is following. Low clinical suspicion for pneumonia. Patient should have a walking oximetry prior to discharge. She can follow-up in the pulmonary clinic in 2 weeks. 2. Severe sepsis Right lower extremity is much improved compared to presentation. Patient is being followed by infectious disease. No fevers been noted overnight. Patient did receive substantial volume resuscitation initially secondary to severe sepsis. 3. History of reported asthma/KUMAR Patient with a 40 pound plus weight gain since last titration study. Patient likely would benefit from a repeat titration study for optimization of obstructive sleep apnea. Patient also requires outpatient pulmonary function test for quantification and clarification of lung function. 4. GERD/anxiety and depression/type 2 diabetes/morbid obesity/hypertension/hyperlipidemia Complicates care, management, recovery, and prognosis. Likely okay to continue home medications. Reports her GERD is under control. Plans for TCU today. Thank you for the opportunity to participate in this patient's care, please do not hesitate to contact us with any further questions or concerns. This note was generated with [employer] dictation software. It may contain incorrect words, spelling, and punctuation that were not noted in checking the note before signing.
[2018-02-04 11:56] LABS: Bedside Glucose 193 mg/dL (70-110)
[2018-02-04 13:41] LABS: Pathologist Review Reviewed
--- NOTE | 2018-02-04 14:00 | CASEMGMT ---
Patient is ready for d/c to [facility] TCU today. SW spoke with Yesenia who is covering TCU today and they are ready for patient. Plan: [facility] TCU under skilled level of care. Radha MALAVE
--- NOTE | 2018-02-04 14:07 | PCM.DC.SUM ---
Discharge Date and Diagnosis - Problem List Patient Problems: Active and Suspected Problems Severe sepsis (Acute) Acute respiratory failure with hypoxia (Acute) CHF (congestive heart failure) (Acute) Cellulitis (Acute) Date of Admission: 01/28/18 Date of Discharge: 02/04/18 - Primary Discharge Diagnosis Active and Suspected Problems Severe sepsis (Acute) 2/2 Acute RLE cellulitis Acute respiratory failure with hypoxia (Acute) 2/2 Acute diastolic CHF exacerbation KUMAR/OHS HTN HLD T2DM Morbid obesity Anxiety/Depression - Secondary Discharge Diagnosis Chronic Problems HTN (hypertension) (Chronic) HLD (hyperlipidemia) (Chronic) Morbid obesity with BMI of 50.0-59.9, adult (Chronic) Diabetes mellitus, type II (Chronic) GERD (gastroesophageal reflux disease) (Chronic) Anxiety and depression (Chronic) KUMAR (obstructive sleep apnea) (Chronic) Hospital Course and Treatment Imaging Results: RAD/Chest PA and Lateral IMPRESSION: Cardiomegaly. RAD/Chest 1 View (Portable) IMPRESSION: Findings suggestive of a CHF with possible right perihilar infiltrate. Follow-up is recommended. Echo: Interpretation Summary The estimated ejection fraction is 65 %. Stage 2 diastolic dysfunction. Trivial mitral valve insufficiency. Unable to estimate RV systolic pressure/pulmonary artery pressure due to technically difficult study. There is no comparison study available. RAD/Chest 1 View (Portable) IMPRESSION: 1. Mild improvement left base infiltrates, while right perihilar patchy infiltrates unchanged. Differential includes asymmetric pulmonary edema or infection. 2. Stable mild cardiac enlargement. RAD/Chest 1 View (Portable) IMPRESSION: Bilateral pneumonia has been no significant change since the previous study. RAD/Chest 1 View (Portable) IMPRESSION: Multifocal pneumonia relatively stable. Underexpansion of the lungs. Moderate cardiomegaly. Consults: MOLINA Keller, Pulgarcia Operations: None Procedures: 2-D Echocardiogram Summary of Care Provided: Physical exam on day of discharge: General: Resting comfortably NAD Psych: A/Ox3 normal affect HEENT: PEARRLA AT NC Neck: Supple NT CV: RRR no m/t/r/g/h Resp: CTA Abd: [id number] Soft NT no guarding or rigidity Ext: DP2+= no edema, RLE cellulitis receding well from demarcations. Skin: W/D normal turgor Lymph/Heme: No active bleeding or adenopathy Neuro: CN2-12 intact Hospital course: The patient is a 72 year old F with a hx of morbid obesity, KUMAR, HTN, HLD, DMt2, GERD, Anxiety and depression who presented to the ER with increased fatigue and was found to have renal insufficiency, elevated lactate, increased WBC, and a fever. Initially CXR had only cardiomegaly She was admitted to the PCU for acute severe sepsis of unclear source and given zosyn and blood cultures obtained. ID was consulted. She was given about 5.5 liters of fluids. She was found to have RLE cellulitis felt to be the source of infection which was treated successfully with rocephin. She developed respiratory failure and was felt to have acute CHF. Pulmonology was consuled. Repeat CXRs showed infiltrates felt to be from CHF. Echo showed preserved EF at 65% with stage 2 diastolic dysfunction. She was treated with aggressive IV lasix. She diuresed heavily and was able to be weaned off O2. She was compliant with overnight bipap. She was very weak and debilitaed and required further skilled therapy. She was approved for SNF at [facility]. She will need her BMP closely monitored for renal function and potassium with higher dose lasix therapy. She will need to continue CPAP. She has 2 more days of omnicef to complete ten total days of abx therapy. She will need to follow up with pulmonology and her PCP. She is discharged to SNF in stable condition. This patient was seen by Rudolph Reynolds PA-C under the supervision of Doctor Browning. [] Discharge Diet: Low fat/ Low Cholesterol, 1800 Calorie Control Diet, 2000 mg Sodium Diet Discharge Activity: Return to Normal Activity Home Medications: Medications to take at Discharge Amlodipine [Norvasc] 10 mg PO DAILY 01/28/18 Fish Oil/Dha/Epa [Fish Oil 1,200 mg Fish Oil] 1 each PO 01/28/18 Fluoxetine [Prozac] 40 mg PO DAILY 01/28/18 Glyburide/Metformin HCl [Glucovance 5-500 mg Tablet] 1 tab PO BID 01/28/18 Metoprolol Tartrate 50 mg PO BID 01/28/18 Simvastatin [Zocor] 10 mg PO QHS 01/28/18 Acetaminophen [Tylenol Tablet] 650 mg PO Q6H PRN PRN tablet 02/04/18 Atorvastatin Calcium [Lipitor] 5 mg PO QHS tablet 02/04/18 Cefdinir [Omnicef [equiv]] 300 mg PO Q12H #4 capsule 02/04/18 Famotidine [Pepcid] 20 mg PO DAILY tablet 02/04/18 Furosemide [Lasix] 40 mg PO Q8H #90 tablet 02/04/18 Lisinopril [Zestril] 2.5 mg PO DAILY #30 tablet 02/04/18 Potassium Chloride [K-Dur] 20 meq PO BID tablet 02/04/18 Following Prescrptions Were Given to Patient: Cefdinir [Omnicef [equiv]] 300 mg PO Q12H #4 capsule Furosemide [Lasix] 40 mg PO Q8H #90 tablet Lisinopril [Zestril] 2.5 mg PO DAILY #30 tablet Primary Care Physician: Lalitha Baez MD [Primary Care Provider] - Please follow up with your Primary Care Physician in: 2 weeks Please Follow Up With: Santy Solorio MD When: 2 weeks Disposition: [facility] facility Minutes spent on discharge:: 40 Patient Condition:: Stable Medical Necessity - Tobacco Use Smoking Status: Never smoker Tobacco Use: Non-smoker Meaningful Use Info Meaningful Use Diagnoses (Choose all that apply): CHF - CHF VICKY/ARB ordered at discharge?: Yes Documented LVEF (%): 65
--- NOTE | 2018-02-04 14:17 | DS.PCM_ITS ---
Discharge Date and Diagnosis - Problem List Patient Problems: Active and Suspected Problems Severe sepsis (Acute) Acute respiratory failure with hypoxia (Acute) CHF (congestive heart failure) (Acute) Cellulitis (Acute) Date of Admission: 01/28/18 Date of Discharge: 02/04/18 - Primary Discharge Diagnosis Active and Suspected Problems Severe sepsis (Acute) 2/2 Acute RLE cellulitis Acute respiratory failure with hypoxia (Acute) 2/2 Acute diastolic CHF exacerbation KUMAR/OHS HTN HLD T2DM Morbid obesity Anxiety/Depression - Secondary Discharge Diagnosis Chronic Problems HTN (hypertension) (Chronic) HLD (hyperlipidemia) (Chronic) Morbid obesity with BMI of 50.0-59.9, adult (Chronic) Diabetes mellitus, type II (Chronic) GERD (gastroesophageal reflux disease) (Chronic) Anxiety and depression (Chronic) KUMAR (obstructive sleep apnea) (Chronic) Hospital Course and Treatment Imaging Results: RAD/Chest PA and Lateral IMPRESSION: Cardiomegaly. RAD/Chest 1 View (Portable) IMPRESSION: Findings suggestive of a CHF with possible right perihilar infiltrate. Follow-up is recommended. Echo: Interpretation Summary The estimated ejection fraction is 65 %. Stage 2 diastolic dysfunction. Trivial mitral valve insufficiency. Unable to estimate RV systolic pressure/pulmonary artery pressure due to technically difficult study. There is no comparison study available. RAD/Chest 1 View (Portable) IMPRESSION: 1. Mild improvement left base infiltrates, while right perihilar patchy infiltrates unchanged. Differential includes asymmetric pulmonary edema or infection. 2. Stable mild cardiac enlargement. RAD/Chest 1 View (Portable) IMPRESSION: Bilateral pneumonia has been no significant change since the previous study. RAD/Chest 1 View (Portable) IMPRESSION: Multifocal pneumonia relatively stable. Underexpansion of the lungs. Moderate cardiomegaly. Consults: MOLINA Keller, Pulgarcia Operations: None Procedures: 2-D Echocardiogram Summary of Care Provided: Physical exam on day of discharge: General: Resting comfortably NAD Psych: A/Ox3 normal affect HEENT: PEARRLA AT NC Neck: Supple NT CV: RRR no m/t/r/g/h Resp: CTA Abd: [id number] Soft NT no guarding or rigidity Ext: DP2+= no edema, RLE cellulitis receding well from demarcations. Skin: W/D normal turgor Lymph/Heme: No active bleeding or adenopathy Neuro: CN2-12 intact Hospital course: The patient is a 72 year old F with a hx of morbid obesity, KUMAR, HTN, HLD, DMt2 , GERD, Anxiety and depression who presented to the ER with increased fatigue and was found to have renal insufficiency, elevated lactate, increased WBC, and a fever. Initially CXR had only cardiomegaly She was admitted to the PCU for acute severe sepsis of unclear source and given zosyn and blood cultures obtained. ID was consulted. She was given about 5.5 liters of fluids. She was found to have RLE cellulitis felt to be the source of infection which was treated successfully with rocephin. She developed respiratory failure and was felt to have acute CHF. Pulmonology was consuled. Repeat CXRs showed infiltrates felt to be from CHF. Echo showed preserved EF at 65% with stage 2 diastolic dysfunction. She was treated with aggressive IV lasix. She diuresed heavily and was able to be weaned off O2. She was compliant with overnight bipap. She was very weak and debilitaed and required further skilled therapy. She was approved for SNF at [facility]. She will need her BMP closely monitored for renal function and potassium with higher dose lasix therapy. She will need to continue CPAP. She has 2 more days of omnicef to complete ten total days of abx therapy. She will need to follow up with pulmonology and her PCP. She is discharged to SNF in stable condition. This patient was seen by Rudolph Reynolds PA-C under the supervision of Doctor Browning. [] Discharge Diet: Low fat/ Low Cholesterol, 1800 Calorie Control Diet, 2000 mg Sodium Diet Discharge Activity: Return to Normal Activity Home Medications: Medications to take at Discharge Amlodipine [Norvasc] 10 mg PO DAILY 01/28/18 Fish Oil/Dha/Epa [Fish Oil 1,200 mg Fish Oil] 1 each PO 01/28/18 Fluoxetine [Prozac] 40 mg PO DAILY 01/28/18 Glyburide/Metformin HCl [Glucovance 5-500 mg Tablet] 1 tab PO BID 01/28/18 Metoprolol Tartrate 50 mg PO BID 01/28/18 Simvastatin [Zocor] 10 mg PO QHS 01/28/18 Acetaminophen [Tylenol Tablet] 650 mg PO Q6H PRN PRN tablet 02/04/18 Atorvastatin Calcium [Lipitor] 5 mg PO QHS tablet 02/04/18 Cefdinir [Omnicef [equiv]] 300 mg PO Q12H #4 capsule 02/04/18 Famotidine [Pepcid] 20 mg PO DAILY tablet 02/04/18 Furosemide [Lasix] 40 mg PO Q8H #90 tablet 02/04/18 Lisinopril [Zestril] 2.5 mg PO DAILY #30 tablet 02/04/18 Potassium Chloride [K-Dur] 20 meq PO BID tablet 02/04/18 Following Prescrptions Were Given to Patient: Cefdinir [Omnicef [equiv]] 300 mg PO Q12H #4 capsule Furosemide [Lasix] 40 mg PO Q8H #90 tablet Lisinopril [Zestril] 2.5 mg PO DAILY #30 tablet Primary Care Physician: Lalitha Baez MD [Primary Care Provider] - Please follow up with your Primary Care Physician in: 2 weeks Please Follow Up With: Santy Solorio MD When: 2 weeks Disposition: [facility] facility Minutes spent on discharge:: 40 Patient Condition:: Stable Medical Necessity - Tobacco Use Smoking Status: Never smoker Tobacco Use: Non-smoker Meaningful Use Info Meaningful Use Diagnoses (Choose all that apply): CHF - CHF VICKY/ARB ordered at discharge?: Yes Documented LVEF (%): 65
--- NOTE | 2018-02-04 15:33 | PCM.PN.ID ---
Patient Problems: Active and Suspected Problems Severe sepsis (Acute) Acute respiratory failure with hypoxia (Acute) CHF (congestive heart failure) (Acute) Cellulitis (Acute) Subjective: Feeling better, leg less red, breathing well, able to get up and walk. - Physical Exam General: Alert, Cooperative Lungs: Clear to auscultation, Normal air movement Cardiovascular: Regular rate, Regular Rhythm Abdomen: Soft, Non Tender, Non-Distended Extremities: Edema Skin: Rash Present - fading on R landin Vital Signs Temp Pulse Resp BP Pulse Ox 98.4 F 66 16 141/66 H 97 02/04/18 09:40 02/04/18 15:05 02/04/18 09:40 02/04/18 09:40 02/04/18 11:50 Oxygen Flow Rate (L/min) 2 Oxygen Delivery Method Room Air Weight: 145.15 kg Body Mass Index (BMI) 54.9 Intake and Output for Last 24 Hours 02/02/18 02/03/18 02/04/18 23:59 23:59 23:59 Intake Total 1350 / 1350 1999 / 1999 820 / 820 Output Total 4550 / 4550 3525 / 3525 1275 / 1275 Balance -3200 / -3200 -1525 / -1525 -455 / -455 Laboratory Tests Past 24 Hrs 02/01/18 02/04/18 05:25 05:22 Diff Path Review Reviewed Sodium 140 Potassium 3.3 L Chloride 101 Carbon Dioxide 31.0 Anion Gap 8 BUN 18 Creatinine 0.85 Estim Creat Clear Calc 53.18 Est GFR (MDRD) Af Amer 85 Est GFR (MDRD) Non-Af 70 BUN/Creatinine Ratio 21.3 H Glucose 141 H Calcium 8.5 POC Glucose 02/04/18 02/04/18 02/03/18 11:13 06:47 21:55 POC Glucose 193 H 145 H 153 H 02/03/18 16:27 POC Glucose 137 H Medical Necessity - Tobacco Use Smoking Status: Never smoker Tobacco Use: Non-smoker Route of nutrition/ use of supplements: [] Nutritional Intake: [] IV Site: [] Bolden Catheter: [] - Assessment/Plan Antibiotics: [] Assessment/Plan: [] Active and Suspected Problems Severe sepsis (Acute) - Likely due to RLE cellulitis. Cxs neg so far. Resp viral panel neg. Fever and leukocytosis resolved. Leg much less red. Plan on two more days of cefdinir. will sign off, d/w primary team.
--- NOTE | 2018-02-04 15:43 | NURSING ---
report given to nurse Salazar in TCU
== END 2018-02-04 15:49 | disposition skilled nursing facility (03) | DRG 871 ==
LOC: ED 02:53 → ICU 05:48 → PCU 01-30 08:50
PROVIDERS: Internal Medicine; Internal Medicine Critical Care Medicine; Physician Assistant; Admitting Provider Family Medicine; Emergency Provider Emergency Medicine; Family Provider Internal Medicine; PCP Internal Medicine; Visit Provider Internal Medicine
DX: A41.9 Sepsis, unspecified organism (principal); J96.01 Acute respiratory failure with hypoxia; I50.33 Acute on chronic diastolic (congestive) heart failure; L03.115 Cellulitis of right lower limb; E66.2 Morbid (severe) obesity with alveolar hypoventilation; Z68.43 Body mass index [BMI] 50.0-59.9, adult; E11.9 Type 2 diabetes mellitus without complications; R65.20 Severe sepsis without septic shock; I11.0 Hypertensive heart disease with heart failure; E78.5 Hyperlipidemia, unspecified; K21.9 Gastro-esophageal reflux disease without esophagitis; F41.9 Anxiety disorder, unspecified; F32.9 Major depressive disorder, single episode, unspecified; Z79.84 Long term (current) use of oral hypoglycemic drugs; Z79.899 Other long term (current) drug therapy; E87.6 Hypokalemia; Z77.22 Contact with and (suspected) exposure to environmental tobacco smoke (acute) (chronic)
CPT/HCPCS: 36415; 71045; 71046; 80048; 81001; 82962; 83605; 83735; 83880; 85025; 85027; 87040; 87070; 87086; 87088; 87205; 87449; 87633; 87880; 93306; 94640; 94660; 94762; 97110; 97116; 97162; 97165; 97530; 97535; 97802; 99285; J7030; J7040; P9612; Q9957; A4216; C8929; J0696; J1940

== ENCOUNTER 2018-02-04 15:55 | Inpatient (IN) | payer MEDICARE, OTHER, SELFPAY ==
[2018-02-04 15:59] VITALS: BP 165/75; PULSE 67; RESP 18; TEMP 36.7; O2SAT 96
--- NOTE | 2018-02-04 16:00 | NURSING ---
pt arrived via bed at 1552 from [facility]
[2018-02-04 16:32] VITALS: BMI 52.4
[2018-02-04 16:35] VITALS: BMI 52.4
[2018-02-04 16:56] LABS: Bedside Glucose 149 mg/dL (70-110)
[2018-02-04 17:54] VITALS: PULSE 67
[2018-02-04] MEDS: Metoprolol Tartrate 50 MG Tablet PO (17:54)
[2018-02-04] MEDS: Cefdinir 300 MG Capsule PO (17:54)
[2018-02-04] MEDS: Acetaminophen 325 MG Tablet 650 MG PO (17:58)
--- NOTE | 2018-02-04 20:04 | PCM.HP.STD ---
Problem List (1) Sepsis Status: Acute (2) Cellulitis of right lower extremity Status: Acute (3) Heart failure with preserved ejection fraction Status: Acute (4) Diabetes mellitus Status: Chronic (5) Morbid obesity Status: Chronic (6) Depression Status: Chronic (7) Anxiety Status: Chronic (8) Hypokalemia Status: Chronic (9) HTN (hypertension) Status: Chronic Qualifiers: (10) HLD (hyperlipidemia) Status: Chronic Qualifiers: (11) GERD (gastroesophageal reflux disease) Status: Chronic Qualifiers: History of Present Illness Date of Admission: 02/04/18 Chief Complaint: Here for rehabilitation, strengthening, prior to discharge home with spouse. The patient is a 72 year old Female with below past medical history presented to [facility] Emergency Department 01/28/2018 with fever, chills. Fever, chills x 1 day. Fever 102.8. WBC 17.7, Hemoglobin 11, Hematocrit 35, K 3.1, Creatinine 1.2, UA normal, Chest X-ray negative, Lactic acid 3.4. Blood cultures sent. IV Fluids, IV Zosyn given. 01/28/2018 Admit to Hospital. IV fluids for sepsis. IV Zosyn for sepsis. Pancultured, respiratory panel. 01/28/2018 Dr. Keller recommended Tamiflu, narrow Zosyn to Ceftriaxone. 01/29/2018 ? Right lower extremity cellulitis. Lasix IV for fluid overload. 01/30/2018 Chest X-ray showed congestive heart failure possible right perihilar infiltrate. 01/30/2018 Echo EF 65% Stage 2 diastolic dysfunction. 01/31/2018 Chest X-ray mild improvement left base infiltrate, right perihilar infiltrate unchanged. 01/31/2018 Right lower extremity cellulitis, Ceftriaxone to Omnicef. Will need rehab. 02/01/2018 Chest X-ray bilateral pneumonia. 02/01/2018 Pulmonary consulted recommended weaning oxygen, incentive spirometry, BiPAP at night, IV Lasix diuresis. 02/02/2018 Chest X-ray multifocal pneumonia, stable moderate cardiomegaly. Infiltrates thought to be from heart failure. IV Lasix diuresis with improvement. 02/04/2018 Admit to TCU for rehabilitation, strengthening, prior to discharge home with spouse. Past Medical History Past Medical History (Chronic Problems): Chronic Problems HTN (hypertension) (Chronic) HLD (hyperlipidemia) (Chronic) Morbid obesity with BMI of 50.0-59.9, adult (Chronic) Diabetes mellitus, type II (Chronic) GERD (gastroesophageal reflux disease) (Chronic) Anxiety and depression (Chronic) KUMAR (obstructive sleep apnea) (Chronic) Diabetes mellitus (Chronic) Morbid obesity (Chronic) Depression (Chronic) Anxiety (Chronic) Hypokalemia (Chronic) Allergies No Known Allergies Allergy (Verified 01/28/18 01:18) Home Medications: Ambulatory Orders Medication Instructions Recorded Amlodipine [Norvasc] 10 mg PO DAILY 01/28/18 Fish Oil/Dha/Epa [Fish Oil 1,200 1 each PO DAILY 01/28/18 mg Fish Oil] Fluoxetine [Prozac] 40 mg PO DAILY 01/28/18 Glyburide/Metformin HCl 1 tab PO BID 01/28/18 [Glucovance 5-500 mg Tablet] Metoprolol Tartrate 50 mg PO BID 01/28/18 Simvastatin [Zocor] 10 mg PO QHS 01/28/18 Acetaminophen [Tylenol Tablet] 650 mg PO Q6H PRN PRN tablet 02/04/18 Cefdinir [Omnicef [equiv]] 300 mg PO Q12H 02/04/18 Famotidine [Pepcid] 20 mg PO DAILY 02/04/18 Furosemide [Lasix] 40 mg PO Q8H 02/04/18 Lisinopril [Zestril] 2.5 mg PO DAILY 02/04/18 Potassium Chloride [K-Dur] 20 meq PO BID 02/04/18 Surgical History: hysterectomy, - - Hemorrhoidectomy, bilateral carpal tunnel release, abdominal surgery following possible liposuction/plastic surgery. Psychiatric History: Anxiety, Depression RN TRANSITIONAL CARE History: No pertinent RN TRANSITIONAL CARE history Lives: Spouse/ Significant Other Smoking Status: Never smoker Tobacco Use: Non-smoker Alcohol: None Drugs: None - *Family History Maternal History Items: - - Mother with a history of hypertension, heart disease, stroke at age 87. Paternal History Items: - - There with a history of chronic lung disease with heavy tobacco use history. Review of Systems Constitutional: Reports: Weakness, Fatigue. Denies: Chills, Fever, Weight Change HEENT: Denies: Head Aches, Sinus Congestion, Sinus Drainage Cardiovascular: Denies: Chest Pain, Palpitations Respiratory: Denies: Cough, Shortness of breath at rest, Sputum production Gastrointestinal: Denies: Abdominal Pain, Nausea, Vomiting Genitourinary: Denies: Dysuria Musculoskeletal: Denies: Joint Pain, Joint Tenderness Skin: Denies: Rash, Wounds Neurological: Denies: Numbness, Tingling, Focal weakness Psychiatric: Denies: Anxiety, Depression, Homicidal Ideations, Suicidal Ideations Hematologic/ Lymphatic: Denies: Easy Bruising, Easy Bleeding VTE Information - Inpt Only VTE Present on Admission: No VTE Mechan Device Prophylaxis: Knee High RAHAT Hose VTE Pharm Prophylaxis ordered?: Yes Patient Problems: Active and Suspected Problems Sepsis (Acute) Cellulitis of right lower extremity (Acute) Heart failure with preserved ejection fraction (Acute) - Physical Exam General: Alert, Oriented x3, Cooperative HEENT: Atraumatic, PERRLA, EOMI, Normocephalic Neck: Supple, No JVD, Negative Carotid Bruits Lungs: Clear to auscultation, Normal air movement Cardiovascular: Regular rate, No murmurs Abdomen: Bowel Sounds Present, Soft, Non Tender Extremities: Capillary Refill Less than 3 Seconds, Edema - 2+ pitting edema right lower extremity, - - erythema right lower extremity. Skin: Ulcer/ Wound - Superficial right lateral lower extremity wound from venous stasis. Musculoskeletal: No Tenderness to Palpation of Joints or Extremities Neurological: Cranial nerves II-XII grossly intact Psych/Mental Status: Normal Affect, Appropriate Vital Signs Temp Pulse Resp BP Pulse Ox 98.1 F 67 18 165/75 H 96 02/04/18 15:59 02/04/18 17:54 02/04/18 15:59 02/04/18 15:59 02/04/18 15:59 Oxygen Delivery Method Room Air Weight: 138.55 kg Body Mass Index (BMI) 52.4 Intake and Output for Last 24 Hours 02/02/18 02/03/18 02/04/18 23:59 23:59 23:59 Intake Total 120 / 120 Balance 120 / 120 POC Glucose 02/04/18 16:44 POC Glucose 149 H Assessment/Plan Active and Suspected Problems Sepsis (Acute) Cellulitis of right lower extremity (Acute) Heart failure with preserved ejection fraction (Acute) 72 year old female with below past medical history hospitalized for sepsis secondary to right lower extremity cellulitis complicated by heart failure with preserved ejection fraction requiring aggressive diuresis, admitted to TCU for rehabilitation, strengthening, prior to discharge home with spouse. Debility - PT/OT. Pain - Tylenol 1000MG Q8H PRN mild pain. Bowel - Miralax 17GM daily, Senna/colace 1 tablet BID, Dulcolax 10MG NE daily PRN. Pneumonia vaccination - Administer Prevnar 13 and/or Pneumovax 23 as necessary. DVT prophylaxis - Lovenox 40MG SC daily. Hypertension - Metoprolol 50MG BID, Lisinopril 2.5MG daily, Amlodipine 10MG daily. Hyperlipidemia - Atorvastatin 5MG QHS, Consider high intensity statin if tolerable. Right lower extremity cellulitis - Cefdinir 300MG BID thru 02/06/2018. Dr. Keller. GERD - Famotidine 20MG daily. Depression - Fluoxetine 40MG daily. Heart Failure with preserved ejection - Metoprolol 50MG BID, Lisinopril 2.5MG daily, Lasix 40MG BID. Diabetes Mellitus II - Metformin 500MG BID, Glyburide 5MG BID, Lisinopril 2.5MG daily, follow blood sugars. Hypokalemia - K-Dur 20MEQ BID.
--- NOTE | 2018-02-04 20:14 | HP.PCM_ITS ---
Problem List (1) Sepsis Status: Acute (2) Cellulitis of right lower extremity Status: Acute (3) Heart failure with preserved ejection fraction Status: Acute (4) Diabetes mellitus Status: Chronic (5) Morbid obesity Status: Chronic (6) Depression Status: Chronic (7) Anxiety Status: Chronic (8) Hypokalemia Status: Chronic (9) HTN (hypertension) Status: Chronic Qualifiers: (10) HLD (hyperlipidemia) Status: Chronic Qualifiers: (11) GERD (gastroesophageal reflux disease) Status: Chronic Qualifiers: History of Present Illness Date of Admission: 02/04/18 Chief Complaint: Here for rehabilitation, strengthening, prior to discharge home with spouse. The patient is a 72 year old Female with below past medical history presented to [facility] Emergency Department 01/28/2018 with fever, chills. Fever, chills x 1 day. Fever 102.8. WBC 17.7, Hemoglobin 11, Hematocrit 35, K 3.1, Creatinine 1.2, UA normal, Chest X-ray negative, Lactic acid 3.4. Blood cultures sent. IV Fluids, IV Zosyn given. 01/28/2018 Admit to Hospital. IV fluids for sepsis. IV Zosyn for sepsis. Pancultured, respiratory panel. 01/28/2018 Dr. Keller recommended Tamiflu, narrow Zosyn to Ceftriaxone. 01/29/2018 ? Right lower extremity cellulitis. Lasix IV for fluid overload. 01/30/2018 Chest X-ray showed congestive heart failure possible right perihilar infiltrate. 01/30/2018 Echo EF 65% Stage 2 diastolic dysfunction. 01/31/2018 Chest X-ray mild improvement left base infiltrate, right perihilar infiltrate unchanged. 01/31/2018 Right lower extremity cellulitis, Ceftriaxone to Omnicef. Will need rehab. 02/01/2018 Chest X-ray bilateral pneumonia. 02/01/2018 Pulmonary consulted recommended weaning oxygen, incentive spirometry, BiPAP at night, IV Lasix diuresis. 02/02/2018 Chest X-ray multifocal pneumonia, stable moderate cardiomegaly. Infiltrates thought to be from heart failure. IV Lasix diuresis with improvement. 02/04/2018 Admit to TCU for rehabilitation, strengthening, prior to discharge home with spouse. Past Medical History Past Medical History (Chronic Problems): Chronic Problems HTN (hypertension) (Chronic) HLD (hyperlipidemia) (Chronic) Morbid obesity with BMI of 50.0-59.9, adult (Chronic) Diabetes mellitus, type II (Chronic) GERD (gastroesophageal reflux disease) (Chronic) Anxiety and depression (Chronic) KUMAR (obstructive sleep apnea) (Chronic) Diabetes mellitus (Chronic) Morbid obesity (Chronic) Depression (Chronic) Anxiety (Chronic) Hypokalemia (Chronic) Allergies No Known Allergies Allergy (Verified 01/28/18 01:18) Home Medications: Ambulatory Orders Medication Instructions Recorded Amlodipine [Norvasc] 10 mg PO DAILY 01/28/18 Fish Oil/Dha/Epa [Fish Oil 1,200 1 each PO DAILY 01/28/18 mg Fish Oil] Fluoxetine [Prozac] 40 mg PO DAILY 01/28/18 Glyburide/Metformin HCl 1 tab PO BID 01/28/18 [Glucovance 5-500 mg Tablet] Metoprolol Tartrate 50 mg PO BID 01/28/18 Simvastatin [Zocor] 10 mg PO QHS 01/28/18 Acetaminophen [Tylenol Tablet] 650 mg PO Q6H PRN PRN tablet 02/04/18 Cefdinir [Omnicef [equiv]] 300 mg PO Q12H 02/04/18 Famotidine [Pepcid] 20 mg PO DAILY 02/04/18 Furosemide [Lasix] 40 mg PO Q8H 02/04/18 Lisinopril [Zestril] 2.5 mg PO DAILY 02/04/18 Potassium Chloride [K-Dur] 20 meq PO BID 02/04/18 Surgical History: hysterectomy, - - Hemorrhoidectomy, bilateral carpal tunnel release, abdominal surgery following possible liposuction/plastic surgery. 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 Paternal History Items: - - There with a history of chronic lung disease with heavy tobacco use history. Review of Systems Constitutional: Reports: Weakness, Fatigue. Denies: Chills, Fever, Weight Change HEENT: Denies: Head Aches, Sinus Congestion, Sinus Drainage Cardiovascular: Denies: Chest Pain, Palpitations Respiratory: Denies: Cough, Shortness of breath at rest, Sputum production Gastrointestinal: Denies: Abdominal Pain, Nausea, Vomiting Genitourinary: Denies: Dysuria Musculoskeletal: Denies: Joint Pain, Joint Tenderness Skin: Denies: Rash, Wounds Neurological: Denies: Numbness, Tingling, Focal weakness Psychiatric: Denies: Anxiety, Depression, Homicidal Ideations, Suicidal Ideations Hematologic/ Lymphatic: Denies: Easy Bruising, Easy Bleeding VTE Information - Inpt Only VTE Present on Admission: No VTE Mechan Device Prophylaxis: Knee High RAHAT Hose VTE Pharm Prophylaxis ordered?: Yes Patient Problems: Active and Suspected Problems Sepsis (Acute) Cellulitis of right lower extremity (Acute) Heart failure with preserved ejection fraction (Acute) - Physical Exam General: Alert, Oriented x3, Cooperative HEENT: Atraumatic, PERRLA, EOMI, Normocephalic Neck: Supple, No JVD, Negative Carotid Bruits Lungs: Clear to auscultation, Normal air movement Cardiovascular: Regular rate, No murmurs Abdomen: Bowel Sounds Present, Soft, Non Tender Extremities: Capillary Refill Less than 3 Seconds, Edema - 2+ pitting edema right lower extremity, - - erythema right lower extremity. Skin: Ulcer/ Wound - Superficial right lateral lower extremity wound from venous stasis. Musculoskeletal: No Tenderness to Palpation of Joints or Extremities Neurological: Cranial nerves II-XII grossly intact Psych/Mental Status: Normal Affect, Appropriate Vital Signs Temp Pulse Resp BP Pulse Ox 98.1 F 67 18 165/75 H 96 02/04/18 15:59 02/04/18 17:54 02/04/18 15:59 02/04/18 15:59 02/04/18 15:59 Oxygen Delivery Method Room Air Weight: 138.55 kg Body Mass Index (BMI) 52.4 Intake and Output for Last 24 Hours 02/02/18 02/03/18 02/04/18 23:59 23:59 23:59 Intake Total 120 / 120 Balance 120 / 120 POC Glucose 02/04/18 16:44 POC Glucose 149 H Assessment/Plan Active and Suspected Problems Sepsis (Acute) Cellulitis of right lower extremity (Acute) Heart failure with preserved ejection fraction (Acute) 72 year old female with below past medical history hospitalized for sepsis secondary to right lower extremity cellulitis complicated by heart failure with preserved ejection fraction requiring aggressive diuresis, admitted to TCU for rehabilitation, strengthening, prior to discharge home with spouse. * Debility - PT/OT. * Pain - Tylenol 1000MG Q8H PRN mild pain. * Bowel - Miralax 17GM daily, Senna/colace 1 tablet BID, Dulcolax 10MG KS daily PRN. * Pneumonia vaccination - Administer Prevnar 13 and/or Pneumovax 23 as necessary. * DVT prophylaxis - Lovenox 40MG SC daily. * Hypertension - Metoprolol 50MG BID, Lisinopril 2.5MG daily, Amlodipine 10MG daily. * Hyperlipidemia - Atorvastatin 5MG QHS, Consider high intensity statin if tolerable. * Right lower extremity cellulitis - Cefdinir 300MG BID thru 02/06/2018. Dr. Keller. * GERD - Famotidine 20MG daily. * Depression - Fluoxetine 40MG daily. * Heart Failure with preserved ejection - Metoprolol 50MG BID, Lisinopril 2.5MG daily, Lasix 40MG BID. * Diabetes Mellitus II - Metformin 500MG BID, Glyburide 5MG BID, Lisinopril 2.5MG daily, follow blood sugars. * Hypokalemia - K-Dur 20MEQ BID.
[2018-02-04] MEDS: Atorvastatin Calcium 10 MG Tablet 5 MG PO (20:20)
[2018-02-04] MEDS: Furosemide 40 MG Tablet PO (20:20)
[2018-02-04 21:01] LABS: Bedside Glucose 148 mg/dL (70-110)
[2018-02-04] MEDS: Temazepam 15 MG Capsule PO (21:56)
[2018-02-05 06:02] VITALS: BP 127/60; PULSE 62
[2018-02-05] MEDS: Metoprolol Tartrate 50 MG Tablet PO ×2 (06:02→17:31)
[2018-02-05] MEDS: Cefdinir 300 MG Capsule PO ×2 (06:03→17:30)
[2018-02-05] MEDS: FLUoxetine 20 MG Capsule 40 MG PO (06:03)
[2018-02-05] MEDS: amLODIPine 10 MG Tablet PO (06:03)
[2018-02-05] MEDS: Enoxaparin 40 MG/0.4 ML Syringe SC (06:03)
[2018-02-05] MEDS: Senna/Docusate Sodium 1 Tablet PO (06:03)
[2018-02-05] MEDS: Famotidine 20 MG Tablet PO (06:03)
[2018-02-05] MEDS: Lisinopril 2.5 MG Tablet PO (06:03)
[2018-02-05] MEDS: Furosemide 40 MG Tablet PO ×2 (06:03→13:33)
--- NOTE | 2018-02-05 06:11 | NURSING ---
Pt SPO2 at 94% during the night on bipap without O2 bleed.
[2018-02-05 06:15] LABS: Anion Gap 7 (5-15); BUN 20 mg/dL (7-18); BUN/Creat Ratio 22.1 RATIO (10-20); Calcium,Total 8.5 mg/dL (8.5-10.1); Chloride 103 mmol/L (98-107); EST Glomerular Filtration Rate 65 mL/min (>60); Est Glom Filt Rate - Afr Amer 79 mL/min (>60); Estimated Creatinine Clearance 50.23 ml/min; Glucose 111 mg/dL (74-106); Potassium 4.2 mmol/L (3.5-5.1); Sodium Level 142 mmol/L (136-145)
[2018-02-05 06:31] LABS: Hematocrit 31.9 % (37-47); Mean Corp Hgb Conc 31.3 g/gl (32-36); Mean Corpuscular Hgb 25.6 pg (27.0-32.0); Mean Corpuscular Volume 81.6 fL (81-99); Platelet Count 277 K/mm3 (150-450); RBC Distribution Width CV 17.7 % (11.6-14.6); RBC Distribution Width SD 51.4 fl (35.1-43.9); Red Blood Count 3.91 M/mm3 (4.2-5.4); White Blood Count 7.7 K/mm3 (4.4-11.0)
[2018-02-05 06:33] LABS: Differential Indicated MANUAL DIFF; POSITIVE COUNT YES; POSITIVE DIFFERENTIAL NO; POSITIVE MORPHOLOGY YES
[2018-02-05 06:46] LABS: Bedside Glucose 123 mg/dL (70-110)
[2018-02-05 06:49] LABS: Eosinophil 4 % (0-5); Lymphocyte 22 % (19-41); Metamyelocyte 2 % (0-1); Monocyte 6 % (0-10); Neutrophil-Band 4 % (0-5); Neutrophil-Segmented 62 % (47-70); Total Cells Counted 100 (MANUAL DIFF)
[2018-02-05 06:50] LABS: Anisocytosis 1+; Hypochromasia 1+; Microcytosis 1+; Platelet Estimate ADEQUATE (ADEQ); Polychromasia 1+
[2018-02-05 06:52] LABS: Absolute Lymphocyte Count 1.69 X10^3/ul (0.83-4.51); Absolute Neutrophil Count 5.2 X10^3/uL (2.0-7.7)
[2018-02-05 08:08] VITALS: O2SAT 95
[2018-02-05] MEDS: Tuberculin,Purif.prot.deriv. 50 TU/ML Vial 5 ML ID (10:56)
[2018-02-05 11:21] LABS: Bedside Glucose 143 mg/dL (70-110)
--- NOTE | 2018-02-05 12:57 | PCM.PN.RX ---
<Tyrone De Luna D - Last Filed: 02/05/18 12:57> Progress Note - Pharmacy Subjective: TCU Admission Objective: Allergies No Known Allergies Allergy (Verified 01/28/18 01:18) Home Medications Medication Instructions Recorded Amlodipine [Norvasc] 10 mg PO DAILY 01/28/18 Fish Oil/Dha/Epa [Fish Oil 1,200 1 each PO DAILY 01/28/18 mg Fish Oil] Fluoxetine [Prozac] 40 mg PO DAILY 01/28/18 Glyburide/Metformin HCl 1 tab PO BID 01/28/18 [Glucovance 5-500 mg Tablet] Metoprolol Tartrate 50 mg PO BID 01/28/18 Simvastatin [Zocor] 10 mg PO QHS 01/28/18 Acetaminophen [Tylenol Tablet] 650 mg PO Q6H PRN PRN tablet 02/04/18 Cefdinir [Omnicef [equiv]] 300 mg PO Q12H 02/04/18 Famotidine [Pepcid] 20 mg PO DAILY 02/04/18 Furosemide [Lasix] 40 mg PO Q8H 02/04/18 Lisinopril [Zestril] 2.5 mg PO DAILY 02/04/18 Potassium Chloride [K-Dur] 20 meq PO BID 02/04/18 Current Medications Generic Name Dose Route Start Last Admin Trade Name Freq PRN Reason Stop Dose Admin Acetaminophen 1,000 mg 02/04/18 20:25 Tylenol PO Q8H PRN MILD PAIN (1-3/10) Amlodipine Besylate 10 mg 02/05/18 06:00 02/05/18 06:03 Norvasc PO 10 mg DAILY THA Administration Atorvastatin Calcium 5 mg 02/04/18 22:00 02/04/18 20:20 Lipitor PO 5 mg QHS THA Administration Bisacodyl 10 mg 02/04/18 16:15 Dulcolax RECTAL DAILY PRN Constipation Cefdinir 300 mg 02/04/18 18:00 02/05/18 06:03 Omnicef [Equiv] PO 02/06/18 06:01 300 mg BID THA Administration Emollient Ointment 1 applic 02/05/18 22:00 Eucerin Intensive Repair TOPICAL 0600,2200 [facility] Protocol Enoxaparin Sodium 40 mg 02/05/18 06:00 02/05/18 06:03 Lovenox SC 40 mg DAILY@0600 THA Administration Famotidine 20 mg 02/05/18 06:00 02/05/18 06:03 Pepcid PO 20 mg DAILY THA Administration Fluoxetine HCl 40 mg 02/05/18 06:00 02/05/18 06:03 Prozac PO 40 mg DAILY THA Administration Furosemide 40 mg 02/04/18 22:00 02/05/18 06:03 Lasix PO 40 mg 0600,1400,2200 THA Administration Glyburide 5 mg 02/04/18 17:30 02/05/18 07:50 Micronase PO 5 mg BIDCM THA Administration Lisinopril 2.5 mg 02/05/18 06:00 02/05/18 06:03 Zestril PO 2.5 mg DAILY THA Administration Metformin HCl 500 mg 02/04/18 17:30 02/05/18 07:50 Glucophage PO 500 mg BIDCM [facility] Administration Metoprolol Tartrate 50 mg 02/04/18 18:00 02/05/18 06:02 Lopressor (Beta Paige) PO 50 mg BID [facility] Administration Nystatin 1 applic 02/05/18 22:00 Mycostatin Powder TOPICAL 0600,2200 [facility] Protocol Polyethylene Glycol 17 gm 02/05/18 06:00 02/05/18 06:03 Miralax PO Not Given DAILY [facility] Potassium Chloride 20 meq 02/04/18 18:00 02/05/18 06:03 K-Dur PO 20 meq BID [facility] Administration Senna/Docusate Sodium 1 tablet 02/05/18 06:00 02/05/18 06:03 Senokot-S, Jillian-Colace PO 1 tablet BID [facility] Administration Temazepam 15 mg 02/04/18 21:32 02/04/18 21:56 Restoril PO 15 mg QHS PRN Administration SLEEP Tuberculin PPD 5 tu 02/12/18 10:00 Tubersol, Aplisol, Ppd ID 02/12/18 10:01 X1 ONE Problem List Sepsis (Acute) Cellulitis of right lower extremity (Acute) Heart failure with preserved ejection fraction (Acute) Diabetes mellitus (Chronic) Morbid obesity (Chronic) Depression (Chronic) Anxiety (Chronic) Hypokalemia (Chronic) Vital Signs Temp Pulse Resp BP Pulse Ox 98.1 F 62 18 127/60 H 95 02/04/18 15:59 02/05/18 06:02 02/04/18 15:59 02/05/18 06:02 02/05/18 08:08 Oxygen Delivery Method Room Air Weight: 138.7 kg Body Mass Index (BMI) 52.4 Sodium 142 mmol/L (136-145) 02/05/18 05:15 Potassium 4.2 mmol/L (3.5-5.1) 02/05/18 05:15 Chloride 103 mmol/L (98-107) 02/05/18 05:15 Carbon Dioxide 32.0 mmol/L (21.0-32.0) 02/05/18 05:15 Anion Gap 7 (5-15) 02/05/18 05:15 BUN 20 mg/dL (7-18) H 02/05/18 05:15 Creatinine 0.90 mg/dL (0.55-1.02) 02/05/18 05:15 Est GFR (MDRD) Af Amer 79 mL/min (>60) 02/05/18 05:15 Est GFR (MDRD) Non-Af 65 mL/min (>60) 02/05/18 05:15 BUN/Creatinine Ratio 22.1 RATIO (10-20) H 02/05/18 05:15 Glucose 111 mg/dL (74-106) H 02/05/18 05:15 Assessment/Plan: 1) Pain APAP for mild pain. Continue to monitor prn medication use, daily pain scores. 2) HTN/CHF Amlodipine, lisinopril, metoprolol, furosemide/KCl. Avg BP/HR wnl, K wnl, BUN/SCr at baseline. Continue to monitor BP/HR, renal function, electrolytes. 3) DM2 Glyburide, metformin. Avg BGT < 180 mg/dL. Continue to monitor BGT, s/s hyper/hypoglycemia. 4) HLD Atorvastatin at HS. No lipids in EMR, no hepatic enzymes. Continue to monitor lipids, enzymes. 5) ID Cefdinir for cellulitis until 02/06. WBC wnl, afebrile. Continue to monitor s/s infection. 6) Insomnia Temazepam at HS as needed. Continue to monitor prn medication use, for insomnia. 7) Derm Nystatin, emollient topically. Continue to monitor clinically. 8) GI Famotidine daily. Continue to monitor s/s GI distress. 9) DVT PPx Enoxaparin daily. Continue to monitor s/s bleeding/clot. Psychotropic Medications: 10) Depression Fluoxetine daily. Continue to monitor s/s depression. Unnecessary Medications: None Bowel Regimen: 11) Senna/s, PEG, prn bisacodyl. Continue to monitor prn medication use, for constipation/diarrhea. Date of Note:: 02/05/18 - Provider Comments Provider responsibility: Provider responsible to enter orders to implement recommendations <Jim Hester Chi - Last Filed: 02/05/18 17:30> Progress Note - Pharmacy Subjective: [] Objective: Allergies No Known Allergies Allergy (Verified 01/28/18 01:18) Home Medications Medication Instructions Recorded Amlodipine [Norvasc] 10 mg PO DAILY 01/28/18 Fish Oil/Dha/Epa [Fish Oil 1,200 1 each PO DAILY 01/28/18 mg Fish Oil] Fluoxetine [Prozac] 40 mg PO DAILY 01/28/18 Glyburide/Metformin HCl 1 tab PO BID 01/28/18 [Glucovance 5-500 mg Tablet] Metoprolol Tartrate 50 mg PO BID 01/28/18 Simvastatin [Zocor] 10 mg PO QHS 01/28/18 Acetaminophen [Tylenol Tablet] 650 mg PO Q6H PRN PRN tablet 02/04/18 Cefdinir [Omnicef [equiv]] 300 mg PO Q12H 02/04/18 Famotidine [Pepcid] 20 mg PO DAILY 02/04/18 Furosemide [Lasix] 40 mg PO Q8H 02/04/18 Lisinopril [Zestril] 2.5 mg PO DAILY 02/04/18 Potassium Chloride [K-Dur] 20 meq PO BID 02/04/18 Current Medications Generic Name Dose Route Start Last Admin Trade Name Freq PRN Reason Stop Dose Admin Acetaminophen 1,000 mg 02/04/18 20:25 Tylenol PO Q8H PRN MILD PAIN (1-3/10) Amlodipine Besylate 10 mg 02/05/18 06:00 02/05/18 06:03 Norvasc PO 10 mg DAILY THA Administration Atorvastatin Calcium 5 mg 02/04/18 22:00 02/04/18 20:20 Lipitor PO 5 mg QHS THA Administration Bisacodyl 10 mg 02/04/18 16:15 Dulcolax RECTAL DAILY PRN Constipation Cefdinir 300 mg 02/04/18 18:00 02/05/18 06:03 Omnicef [Equiv] PO 02/06/18 06:01 300 mg BID THA Administration Emollient Ointment 1 applic 02/05/18 22:00 Eucerin Intensive Repair TOPICAL 0600,2200 [facility] Protocol Enoxaparin Sodium 40 mg 02/05/18 06:00 02/05/18 06:03 Lovenox SC 40 mg DAILY@0600 THA Administration Famotidine 20 mg 02/05/18 06:00 02/05/18 06:03 Pepcid PO 20 mg DAILY THA Administration Fluoxetine HCl 40 mg 02/05/18 06:00 02/05/18 06:03 Prozac PO 40 mg DAILY THA Administration Furosemide 40 mg 02/04/18 22:00 02/05/18 13:33 Lasix PO 40 mg 0600,1400,2200 THA Administration Glyburide 5 mg 02/04/18 17:30 02/05/18 07:50 Micronase PO 5 mg BIDCM [facility] Administration Lisinopril 2.5 mg 02/05/18 06:00 02/05/18 06:03 Zestril PO 2.5 mg DAILY [facility] Administration Metformin HCl 500 mg 02/04/18 17:30 02/05/18 07:50 Glucophage PO 500 mg BIDCM [facility] Administration Metoprolol Tartrate 50 mg 02/04/18 18:00 02/05/18 06:02 Lopressor (Beta Paige) PO 50 mg BID THA Administration Nystatin 1 applic 02/05/18 22:00 Mycostatin Powder TOPICAL 0600,2200 [facility] Protocol Polyethylene Glycol 17 gm 02/05/18 13:20 Miralax PO DAILY PRN Constipation Potassium Chloride 20 meq 02/04/18 18:00 02/05/18 06:03 K-Dur PO 20 meq BID [facility] Administration Senna/Docusate Sodium 1 tablet 02/05/18 18:00 Senokot-S, Jillian-Colace PO BID PRN Constipation Temazepam 15 mg 02/04/18 21:32 02/04/18 21:56 Restoril PO 15 mg QHS PRN Administration SLEEP Tuberculin PPD 5 tu 02/12/18 10:00 Tubersol, Aplisol, Ppd ID 02/12/18 10:01 X1 ONE Problem List Sepsis (Acute) Cellulitis of right lower extremity (Acute) Heart failure with preserved ejection fraction (Acute) Diabetes mellitus (Chronic) Morbid obesity (Chronic) Depression (Chronic) Anxiety (Chronic) Hypokalemia (Chronic) Vital Signs Temp Pulse Resp BP Pulse Ox 97.6 F L 69 20 H 123/88 H 96 02/05/18 15:49 02/05/18 15:49 02/05/18 15:49 02/05/18 15:49 02/05/18 15:49 Oxygen Delivery Method Room Air Weight: 138.7 kg Body Mass Index (BMI) 52.4 Sodium 142 mmol/L (136-145) 02/05/18 05:15 Potassium 4.2 mmol/L (3.5-5.1) 02/05/18 05:15 Chloride 103 mmol/L (98-107) 02/05/18 05:15 Carbon Dioxide 32.0 mmol/L (21.0-32.0) 02/05/18 05:15 Anion Gap 7 (5-15) 02/05/18 05:15 BUN 20 mg/dL (7-18) H 02/05/18 05:15 Creatinine 0.90 mg/dL (0.55-1.02) 02/05/18 05:15 Est GFR (MDRD) Af Amer 79 mL/min (>60) 02/05/18 05:15 Est GFR (MDRD) Non-Af 65 mL/min (>60) 02/05/18 05:15 BUN/Creatinine Ratio 22.1 RATIO (10-20) H 02/05/18 05:15 Glucose 111 mg/dL (74-106) H 02/05/18 05:15 Assessment/Plan: Psychotropic Medications: Unnecessary Medications: Bowel Regimen: - Provider Comments Provider responsibility: Provider responsible to enter orders to implement recommendations Provider Comments to Recommendations by Pharmacy: Agree
--- NOTE | 2018-02-05 13:07 | PHA.CONS_ITS ---
<Tyrone De Luna D - Last Filed: 02/05/18 12:57> Progress Note - Pharmacy Subjective: TCU Admission Objective: Allergies No Known Allergies Allergy (Verified 01/28/18 01:18) Home Medications Medication Instructions Recorded Amlodipine [Norvasc] 10 mg PO DAILY 01/28/18 Fish Oil/Dha/Epa [Fish Oil 1,200 1 each PO DAILY 01/28/18 mg Fish Oil] Fluoxetine [Prozac] 40 mg PO DAILY 01/28/18 Glyburide/Metformin HCl 1 tab PO BID 01/28/18 [Glucovance 5-500 mg Tablet] Metoprolol Tartrate 50 mg PO BID 01/28/18 Simvastatin [Zocor] 10 mg PO QHS 01/28/18 Acetaminophen [Tylenol Tablet] 650 mg PO Q6H PRN PRN tablet 02/04/18 Cefdinir [Omnicef [equiv]] 300 mg PO Q12H 02/04/18 Famotidine [Pepcid] 20 mg PO DAILY 02/04/18 Furosemide [Lasix] 40 mg PO Q8H 02/04/18 Lisinopril [Zestril] 2.5 mg PO DAILY 02/04/18 Potassium Chloride [K-Dur] 20 meq PO BID 02/04/18 Current Medications Generic Name Dose Route Start Last Admin Trade Name Freq PRN Reason Stop Dose Admin Acetaminophen 1,000 mg 02/04/18 20:25 Tylenol PO Q8H PRN MILD PAIN (1-3/10) Amlodipine Besylate 10 mg 02/05/18 06:00 02/05/18 06:03 Norvasc PO 10 mg DAILY THA Administration Atorvastatin Calcium 5 mg 02/04/18 22:00 02/04/18 20:20 Lipitor PO 5 mg QHS THA Administration Bisacodyl 10 mg 02/04/18 16:15 Dulcolax RECTAL DAILY PRN Constipation Cefdinir 300 mg 02/04/18 18:00 02/05/18 06:03 Omnicef [Equiv] PO 02/06/18 06:01 300 mg BID THA Administration Emollient Ointment 1 applic 02/05/18 22:00 Eucerin Intensive Repair TOPICAL 0600,2200 [facility] Protocol Enoxaparin Sodium 40 mg 02/05/18 06:00 02/05/18 06:03 Lovenox SC 40 mg DAILY@0600 THA Administration Famotidine 20 mg 02/05/18 06:00 02/05/18 06:03 Pepcid PO 20 mg DAILY THA Administration Fluoxetine HCl 40 mg 02/05/18 06:00 02/05/18 06:03 Prozac PO 40 mg DAILY THA Administration Furosemide 40 mg 02/04/18 22:00 02/05/18 06:03 Lasix PO 40 mg 0600,1400,2200 THA Administration Glyburide 5 mg 02/04/18 17:30 02/05/18 07:50 Micronase PO 5 mg BIDCM THA Administration Lisinopril 2.5 mg 02/05/18 06:00 02/05/18 06:03 Zestril PO 2.5 mg DAILY THA Administration Metformin HCl 500 mg 02/04/18 17:30 02/05/18 07:50 Glucophage PO 500 mg BIDCM [facility] Administration Metoprolol Tartrate 50 mg 02/04/18 18:00 02/05/18 06:02 Lopressor (Beta Paige) PO 50 mg BID [facility] Administration Nystatin 1 applic 02/05/18 22:00 Mycostatin Powder TOPICAL 0600,2200 [facility] Protocol Polyethylene Glycol 17 gm 02/05/18 06:00 02/05/18 06:03 Miralax PO Not Given DAILY [facility] Potassium Chloride 20 meq 02/04/18 18:00 02/05/18 06:03 K-Dur PO 20 meq BID [facility] Administration Senna/Docusate Sodium 1 tablet 02/05/18 06:00 02/05/18 06:03 Senokot-S, Jillian-Colace PO 1 tablet BID [facility] Administration Temazepam 15 mg 02/04/18 21:32 02/04/18 21:56 Restoril PO 15 mg QHS PRN Administration SLEEP Tuberculin PPD 5 tu 02/12/18 10:00 Tubersol, Aplisol, Ppd ID 02/12/18 10:01 X1 ONE Problem List Sepsis (Acute) Cellulitis of right lower extremity (Acute) Heart failure with preserved ejection fraction (Acute) Diabetes mellitus (Chronic) Morbid obesity (Chronic) Depression (Chronic) Anxiety (Chronic) Hypokalemia (Chronic) Vital Signs Temp Pulse Resp BP Pulse Ox 98.1 F 62 18 127/60 H 95 02/04/18 15:59 02/05/18 06:02 02/04/18 15:59 02/05/18 06:02 02/05/18 08:08 Oxygen Delivery Method Room Air Weight: 138.7 kg Body Mass Index (BMI) 52.4 Sodium 142 mmol/L (136-145) 02/05/18 05:15 Potassium 4.2 mmol/L (3.5-5.1) 02/05/18 05:15 Chloride 103 mmol/L (98-107) 02/05/18 05:15 Carbon Dioxide 32.0 mmol/L (21.0-32.0) 02/05/18 05:15 Anion Gap 7 (5-15) 02/05/18 05:15 BUN 20 mg/dL (7-18) H 02/05/18 05:15 Creatinine 0.90 mg/dL (0.55-1.02) 02/05/18 05:15 Est GFR (MDRD) Af Amer 79 mL/min (>60) 02/05/18 05:15 Est GFR (MDRD) Non-Af 65 mL/min (>60) 02/05/18 05:15 BUN/Creatinine Ratio 22.1 RATIO (10-20) H 02/05/18 05:15 Glucose 111 mg/dL (74-106) H 02/05/18 05:15 Assessment/Plan: 1) Pain APAP for mild pain. Continue to monitor prn medication use, daily pain scores. 2) HTN/CHF Amlodipine, lisinopril, metoprolol, furosemide/KCl. Avg BP/HR wnl, K wnl, BUN /SCr at baseline. Continue to monitor BP/HR, renal function, electrolytes. 3) DM2 Glyburide, metformin. Avg BGT < 180 mg/dL. Continue to monitor BGT, s/s hyper /hypoglycemia. 4) HLD Atorvastatin at HS. No lipids in EMR, no hepatic enzymes. Continue to monitor lipids, enzymes. 5) ID Cefdinir for cellulitis until 02/06. WBC wnl, afebrile. Continue to monitor s/ s infection. 6) Insomnia Temazepam at HS as needed. Continue to monitor prn medication use, for insomnia. 7) Derm Nystatin, emollient topically. Continue to monitor clinically. 8) GI Famotidine daily. Continue to monitor s/s GI distress. 9) DVT PPx Enoxaparin daily. Continue to monitor s/s bleeding/clot. Psychotropic Medications: 10) Depression Fluoxetine daily. Continue to monitor s/s depression. Unnecessary Medications: None Bowel Regimen: 11) Senna/s, PEG, prn bisacodyl. Continue to monitor prn medication use, for constipation/diarrhea. Date of Note:: 02/05/18 - Provider Comments Provider responsibility: Provider responsible to enter orders to implement recommendations <Jim Hester Chi - Last Filed: 02/05/18 17:30> Progress Note - Pharmacy Subjective: [] Objective: Allergies No Known Allergies Allergy (Verified 01/28/18 01:18) Home Medications Medication Instructions Recorded Amlodipine [Norvasc] 10 mg PO DAILY 01/28/18 Fish Oil/Dha/Epa [Fish Oil 1,200 1 each PO DAILY 01/28/18 mg Fish Oil] Fluoxetine [Prozac] 40 mg PO DAILY 01/28/18 Glyburide/Metformin HCl 1 tab PO BID 01/28/18 [Glucovance 5-500 mg Tablet] Metoprolol Tartrate 50 mg PO BID 01/28/18 Simvastatin [Zocor] 10 mg PO QHS 01/28/18 Acetaminophen [Tylenol Tablet] 650 mg PO Q6H PRN PRN tablet 02/04/18 Cefdinir [Omnicef [equiv]] 300 mg PO Q12H 02/04/18 Famotidine [Pepcid] 20 mg PO DAILY 02/04/18 Furosemide [Lasix] 40 mg PO Q8H 02/04/18 Lisinopril [Zestril] 2.5 mg PO DAILY 02/04/18 Potassium Chloride [K-Dur] 20 meq PO BID 02/04/18 Current Medications Generic Name Dose Route Start Last Admin Trade Name Freq PRN Reason Stop Dose Admin Acetaminophen 1,000 mg 02/04/18 20:25 Tylenol PO Q8H PRN MILD PAIN (1-3/10) Amlodipine Besylate 10 mg 02/05/18 06:00 02/05/18 06:03 Norvasc PO 10 mg DAILY THA Administration Atorvastatin Calcium 5 mg 02/04/18 22:00 02/04/18 20:20 Lipitor PO 5 mg QHS THA Administration Bisacodyl 10 mg 02/04/18 16:15 Dulcolax RECTAL DAILY PRN Constipation Cefdinir 300 mg 02/04/18 18:00 02/05/18 06:03 Omnicef [Equiv] PO 02/06/18 06:01 300 mg BID THA Administration Emollient Ointment 1 applic 02/05/18 22:00 Eucerin Intensive Repair TOPICAL 0600,2200 [facility] Protocol Enoxaparin Sodium 40 mg 02/05/18 06:00 02/05/18 06:03 Lovenox SC 40 mg DAILY@0600 THA Administration Famotidine 20 mg 02/05/18 06:00 02/05/18 06:03 Pepcid PO 20 mg DAILY THA Administration Fluoxetine HCl 40 mg 02/05/18 06:00 02/05/18 06:03 Prozac PO 40 mg DAILY THA Administration Furosemide 40 mg 02/04/18 22:00 02/05/18 13:33 Lasix PO 40 mg 0600,1400,2200 THA Administration Glyburide 5 mg 02/04/18 17:30 02/05/18 07:50 Micronase PO 5 mg BIDCM [facility] Administration Lisinopril 2.5 mg 02/05/18 06:00 02/05/18 06:03 Zestril PO 2.5 mg DAILY [facility] Administration Metformin HCl 500 mg 02/04/18 17:30 02/05/18 07:50 Glucophage PO 500 mg BIDCM [facility] Administration Metoprolol Tartrate 50 mg 02/04/18 18:00 02/05/18 06:02 Lopressor (Beta Paige) PO 50 mg BID THA Administration Nystatin 1 applic 02/05/18 22:00 Mycostatin Powder TOPICAL 0600,2200 [facility] Protocol Polyethylene Glycol 17 gm 02/05/18 13:20 Miralax PO DAILY PRN Constipation Potassium Chloride 20 meq 02/04/18 18:00 02/05/18 06:03 K-Dur PO 20 meq BID [facility] Administration Senna/Docusate Sodium 1 tablet 02/05/18 18:00 Senokot-S, Jillian-Colace PO BID PRN Constipation Temazepam 15 mg 02/04/18 21:32 02/04/18 21:56 Restoril PO 15 mg QHS PRN Administration SLEEP Tuberculin PPD 5 tu 02/12/18 10:00 Tubersol, Aplisol, Ppd ID 02/12/18 10:01 X1 ONE Problem List Sepsis (Acute) Cellulitis of right lower extremity (Acute) Heart failure with preserved ejection fraction (Acute) Diabetes mellitus (Chronic) Morbid obesity (Chronic) Depression (Chronic) Anxiety (Chronic) Hypokalemia (Chronic) Vital Signs Temp Pulse Resp BP Pulse Ox 97.6 F L 69 20 H 123/88 H 96 02/05/18 15:49 02/05/18 15:49 02/05/18 15:49 02/05/18 15:49 02/05/18 15:49 Oxygen Delivery Method Room Air Weight: 138.7 kg Body Mass Index (BMI) 52.4 Sodium 142 mmol/L (136-145) 02/05/18 05:15 Potassium 4.2 mmol/L (3.5-5.1) 02/05/18 05:15 Chloride 103 mmol/L (98-107) 02/05/18 05:15 Carbon Dioxide 32.0 mmol/L (21.0-32.0) 02/05/18 05:15 Anion Gap 7 (5-15) 02/05/18 05:15 BUN 20 mg/dL (7-18) H 02/05/18 05:15 Creatinine 0.90 mg/dL (0.55-1.02) 02/05/18 05:15 Est GFR (MDRD) Af Amer 79 mL/min (>60) 02/05/18 05:15 Est GFR (MDRD) Non-Af 65 mL/min (>60) 02/05/18 05:15 BUN/Creatinine Ratio 22.1 RATIO (10-20) H 02/05/18 05:15 Glucose 111 mg/dL (74-106) H 02/05/18 05:15 Assessment/Plan: Psychotropic Medications: Unnecessary Medications: Bowel Regimen: - Provider Comments Provider responsibility: Provider responsible to enter orders to implement recommendations Provider Comments to Recommendations by Pharmacy: Agree
--- NOTE | 2018-02-05 14:02 | NURSING ---
PT C/O LOOSE STOOLS, UPSET THAT STOOL SOFTENERS WERE GIVEN EARLY AM. CHANGED THEM TO PRN FROM SCHEDULED. PT ALSO REQUESTING THAT LASIX TIMES BE CHANGED, WILL UPDATE DR NEAL.
[2018-02-05 14:25] LABS: Pathologist Review Reviewed
[2018-02-05 15:49] VITALS: BP 123/88; PULSE 69; RESP 20; TEMP 36.4; O2SAT 96
[2018-02-05 17:00] LABS: Bedside Glucose 113 mg/dL (70-110)
--- NOTE | 2018-02-05 17:30 | NURSING ---
PT C/O LASIX TIMES, CHANGED TO BID. PT UPDATED.
[2018-02-05 17:31] VITALS: BP 123/88; PULSE 69
--- NOTE | 2018-02-05 18:58 | PCA ---
Nurse infomred me that pt requested a shower tonight instead of in AM with Therapy for ADLS. went into ask pt if she was interested in her shower at 18:45 pt stated I am not taking a shower tonight i'm to tired. I will take one with therapy in the morning but i would like it to be around 7:30-8am. or i will just take it in the evening after dinner. told pt i would inform nurse, RN was informed of change of plans with pt care.
[2018-02-05] MEDS: Nystatin Powder 15gm Bottle 1 APPLIC TOPICAL (20:10)
[2018-02-05] MEDS: Atorvastatin Calcium 10 MG Tablet 5 MG PO (20:10)
[2018-02-05 21:21] LABS: Bedside Glucose 161 mg/dL (70-110)
[2018-02-05] MEDS: Temazepam 15 MG Capsule PO (21:29)
[2018-02-06] MEDS: Cefdinir 300 MG Capsule PO (05:09)
[2018-02-06] MEDS: Furosemide 20 MG Tablet 60 MG PO ×2 (05:09→14:11)
[2018-02-06] MEDS: FLUoxetine 20 MG Capsule 40 MG PO (05:09)
[2018-02-06] MEDS: Nystatin Powder 15gm Bottle 1 APPLIC TOPICAL ×2 (05:10→21:32)
[2018-02-06] MEDS: Lisinopril 2.5 MG Tablet PO (05:10)
[2018-02-06] MEDS: amLODIPine 10 MG Tablet PO (05:10)
[2018-02-06] MEDS: Famotidine 20 MG Tablet PO (05:10)
[2018-02-06 05:11] VITALS: BP 149/65; PULSE 66
[2018-02-06] MEDS: Enoxaparin 40 MG/0.4 ML Syringe SC (05:11)
[2018-02-06] MEDS: Metoprolol Tartrate 50 MG Tablet PO ×2 (05:11→17:22)
[2018-02-06 06:50] VITALS: O2SAT 97
[2018-02-06 06:51] LABS: Bedside Glucose 125 mg/dL (70-110)
[2018-02-06 09:04] VITALS: RESP 16
[2018-02-06 11:51] LABS: Bedside Glucose 145 mg/dL (70-110)
[2018-02-06 15:18] VITALS: BP 119/58; PULSE 66; RESP 18; TEMP 36.3; O2SAT 96
[2018-02-06 17:06] LABS: Bedside Glucose 91 mg/dL (70-110)
--- NOTE | 2018-02-06 17:11 | CHAPLAIN ---
Type of Pastoral Visit _x__ Initial Visit ___ Follow-up Visit ___ On-call Visit ___ General Patient Visit ___ Spiritual Assessment ___ Family Conference ___ Bereavement ___ Rapid Response ___ Code Blue ___ Other (describe below) Pastoral Care Referral From _x__ Patient ___ Family ___ Nurse ___ Physician ___ Apprentice Architect ___ Nursing Clinical Director ___ Other (describe below) Sacrament/Intervention _x__ Active listening ___ Anointing ___ Jainism ___ Bereavement ___ Communion __x_ Maureen exploration ___ _x__ Life review _x__ Prayer ___ Reconciliation ___ Sacrament of Sick _x__ Supportive presence ___ Wedding ___ Other (describe below) Pastoral Comments patient talked almost non stop during visit; pt spoke of many trials and difficulties in life; pt had a way of answering any question with a very long explanation; pt spoke often of the great stress she is under due to these life circumstances; pt was very open for prayer and having someone to talk to about her concerns
[2018-02-06 17:22] VITALS: BP 119/58; PULSE 66
[2018-02-06] MEDS: Hydrocortisone 2.5% Crm 1 APPLIC TOPICAL (17:25)
[2018-02-06] MEDS: Acetaminophen 500 MG Tablet 1000 MG PO (17:27)
[2018-02-06 20:51] LABS: Bedside Glucose 130 mg/dL (70-110)
[2018-02-06] MEDS: Atorvastatin Calcium 10 MG Tablet 5 MG PO (21:32)
[2018-02-06] MEDS: Menthol/Lanolin/Calamine/Znox 113 GM Tube 1 APPLIC TOPICAL (21:32)
[2018-02-06] MEDS: Temazepam 15 MG Capsule PO (21:32)
[2018-02-07] MEDS: Hydrocortisone 2.5% Crm 1 APPLIC TOPICAL ×2 (06:27→17:28)
[2018-02-07 06:29] VITALS: BP 123/69; PULSE 61
[2018-02-07] MEDS: Enoxaparin 40 MG/0.4 ML Syringe SC (06:29)
[2018-02-07] MEDS: Famotidine 20 MG Tablet PO (06:29)
[2018-02-07] MEDS: amLODIPine 10 MG Tablet PO (06:29)
[2018-02-07] MEDS: Metoprolol Tartrate 50 MG Tablet PO ×2 (06:29→17:27)
[2018-02-07] MEDS: Furosemide 20 MG Tablet 60 MG PO ×2 (06:29→14:21)
[2018-02-07] MEDS: FLUoxetine 20 MG Capsule 40 MG PO (06:29)
[2018-02-07] MEDS: Nystatin Powder 15gm Bottle 1 APPLIC TOPICAL ×2 (06:29→20:28)
[2018-02-07] MEDS: Lisinopril 2.5 MG Tablet PO (06:29)
[2018-02-07] MEDS: Menthol/Lanolin/Calamine/Znox 113 GM Tube 1 APPLIC TOPICAL ×2 (06:30→20:32)
[2018-02-07 07:01] LABS: Bedside Glucose 114 mg/dL (70-110)
[2018-02-07 11:31] LABS: Bedside Glucose 115 mg/dL (70-110)
[2018-02-07] MEDS: Acetaminophen 500 MG Tablet 1000 MG PO (14:24)
[2018-02-07 16:00] VITALS: BP 143/66; PULSE 72; RESP 20; TEMP 36.3; O2SAT 98
--- NOTE | 2018-02-07 16:17 | CASEMGMT ---
Brief interview for mental status (BIMS) and resident mood interview (PHQ-9) completed on this day. BIMS score 1515. PHQ-9 score 02/05
[2018-02-07 17:01] LABS: Bedside Glucose 173 mg/dL (70-110)
[2018-02-07 17:27] VITALS: BP 143/66; PULSE 72
[2018-02-07] MEDS: Atorvastatin Calcium 10 MG Tablet 5 MG PO (20:26)
[2018-02-07 21:01] LABS: Bedside Glucose 125 mg/dL (70-110)
[2018-02-07] MEDS: Temazepam 15 MG Capsule PO (22:34)
[2018-02-08] MEDS: Lisinopril 2.5 MG Tablet PO (06:36)
[2018-02-08] MEDS: FLUoxetine 20 MG Capsule 40 MG PO (06:36)
[2018-02-08 06:37] VITALS: BP 133/63; PULSE 62
[2018-02-08] MEDS: Furosemide 20 MG Tablet 60 MG PO ×2 (06:37→14:28)
[2018-02-08] MEDS: Enoxaparin 40 MG/0.4 ML Syringe SC (06:37)
[2018-02-08] MEDS: Metoprolol Tartrate 50 MG Tablet PO ×2 (06:37→17:39)
[2018-02-08] MEDS: amLODIPine 10 MG Tablet PO (06:37)
[2018-02-08] MEDS: Famotidine 20 MG Tablet PO (06:37)
[2018-02-08] MEDS: Hydrocortisone 2.5% Crm 1 APPLIC TOPICAL ×2 (06:42→18:05)
[2018-02-08] MEDS: Menthol/Lanolin/Calamine/Znox 113 GM Tube 1 APPLIC TOPICAL ×2 (06:43→20:03)
[2018-02-08] MEDS: Nystatin Powder 15gm Bottle 1 APPLIC TOPICAL ×2 (06:43→20:03)
[2018-02-08 06:51] LABS: Bedside Glucose 101 mg/dL (70-110)
--- NOTE | 2018-02-08 08:46 | NURSING ---
Addendum entered by Tina Shepard 02/08/18 14:07: Dr Hester aware of KUB results. N.O. mag citrate. Original Note: Pt c/o diarrhea, requesting Imodium. Dr Hester aware. KUB ordered
--- NOTE | 2018-02-08 09:00 | RAD_ITS ---
STUDY: X-RAY - ABDOMEN/PELVIS REASON FOR EXAM: Female, 72 years old. Diarrhea x1 week. TECHNIQUE: 3 total views obtained, 2 AP supine views of the abdomen pelvis plus AP upright view abdomen and upper pelvis were obtained. COMPARISON: No prior abdominal images available. Correlation chest 02/02/2018. FINDINGS: Air and fecal material outlines visualized portions of the colon. Right upper quadrant mildly dilated small bowel loop is seen with air-fluid level measuring approximately 4.65 cm transverse inferior medial to the cholecystectomy clips. Relative paucity of intestinal bowel gas noted throughout all 4 quadrants of the abdomen visualized. No abnormal abdomen calcification seen, abdomen is partially obscured by bowel contents. There is no definite finding of a large free intraperitoneal air collection identified although the diaphragm is not completely visualized. Normal visualized soft tissue structures. Moderate degenerative lower thoracic and lower lumbosacral spine with L4-L5 posterior fixation with intrapedicle screws and rods bilaterally plus likely titanium cage right of midline noted. No osseous lytic/blastic lesion identified. Left lower pelvis shows rounded smooth margin likely phleboliths. RAD/Abd Inc Decub and/or Erect IMPRESSION: Mildly dilated small bowel loop, likely duodenum noted wale hepatis near cholecystectomy clips with air-fluid level, may represent mild ileus or enteritis. Clinical correlation recommended. If clinically indicated, left lateral decubitus view may be more helpful. Electronically Signed: Femi Cai, at 10:02 EDT Tel , Service support ,
[2018-02-08 11:31] LABS: Bedside Glucose 132 mg/dL (70-110)
[2018-02-08 12:06] VITALS: BP 154/75; PULSE 70; RESP 16; TEMP 36.9; O2SAT 95
[2018-02-08] MEDS: Magnesium Citrate 300 ML PO (14:32)
[2018-02-08 15:06] VITALS: BP 158/68; PULSE 68; RESP 24; TEMP 36; O2SAT 97
[2018-02-08 16:51] LABS: Bedside Glucose 140 mg/dL (70-110)
[2018-02-08 17:39] VITALS: PULSE 68
[2018-02-08] MEDS: Atorvastatin Calcium 10 MG Tablet 5 MG PO (20:01)
[2018-02-08 21:06] LABS: Bedside Glucose 187 mg/dL (70-110)
[2018-02-09 06:41] LABS: Bedside Glucose 125 mg/dL (70-110)
[2018-02-09 06:42] VITALS: BP 127/67; PULSE 68
[2018-02-09] MEDS: FLUoxetine 20 MG Capsule 40 MG PO (06:42)
[2018-02-09] MEDS: amLODIPine 10 MG Tablet PO (06:42)
[2018-02-09] MEDS: Famotidine 20 MG Tablet PO (06:42)
[2018-02-09] MEDS: Lisinopril 2.5 MG Tablet PO (06:42)
[2018-02-09] MEDS: Metoprolol Tartrate 50 MG Tablet PO ×2 (06:42→17:40)
[2018-02-09] MEDS: Enoxaparin 40 MG/0.4 ML Syringe SC (06:43)
[2018-02-09] MEDS: Furosemide 20 MG Tablet 60 MG PO ×2 (06:43→12:54)
[2018-02-09] MEDS: Nystatin Powder 15gm Bottle 1 APPLIC TOPICAL ×2 (06:46→20:01)
[2018-02-09] MEDS: Hydrocortisone 2.5% Crm 1 APPLIC TOPICAL ×2 (06:46→12:53)
[2018-02-09] MEDS: Menthol/Lanolin/Calamine/Znox 113 GM Tube 1 APPLIC TOPICAL ×2 (06:47→20:02)
[2018-02-09 06:48] VITALS: O2SAT 97
[2018-02-09 10:00] VITALS: PULSE 68; RESP 16; O2SAT 95
[2018-02-09 11:20] LABS: Bedside Glucose 95 mg/dL (70-110)
[2018-02-09 14:59] VITALS: BP 137/65; PULSE 67; RESP 18; TEMP 36.9; O2SAT 97
[2018-02-09 16:51] LABS: Bedside Glucose 125 mg/dL (70-110)
[2018-02-09 17:40] VITALS: BP 137/65; PULSE 67
[2018-02-09] MEDS: Atorvastatin Calcium 10 MG Tablet 5 MG PO (20:00)
[2018-02-09 21:06] LABS: Bedside Glucose 90 mg/dL (70-110)
[2018-02-09] MEDS: Temazepam 15 MG Capsule PO (21:10)
[2018-02-10 06:45] VITALS: O2SAT 94
[2018-02-10 07:05] LABS: Bedside Glucose 116 mg/dL (70-110)
[2018-02-10] MEDS: FLUoxetine 20 MG Capsule 40 MG PO (08:11)
[2018-02-10] MEDS: Lisinopril 2.5 MG Tablet PO (08:11)
[2018-02-10 08:12] VITALS: PULSE 78
[2018-02-10] MEDS: Famotidine 20 MG Tablet PO (08:12)
[2018-02-10] MEDS: amLODIPine 10 MG Tablet PO (08:12)
[2018-02-10] MEDS: Metoprolol Tartrate 50 MG Tablet PO ×2 (08:12→17:09)
[2018-02-10] MEDS: Enoxaparin 40 MG/0.4 ML Syringe SC (08:12)
[2018-02-10] MEDS: Furosemide 20 MG Tablet 60 MG PO ×2 (08:13→13:30)
[2018-02-10] MEDS: Menthol/Lanolin/Calamine/Znox 113 GM Tube 1 APPLIC TOPICAL ×2 (09:17→20:07)
[2018-02-10] MEDS: Hydrocortisone 2.5% Crm 1 APPLIC TOPICAL (09:26)
[2018-02-10 09:34] VITALS: PULSE 78; RESP 18
[2018-02-10 11:16] LABS: Bedside Glucose 127 mg/dL (70-110)
[2018-02-10 15:24] VITALS: BP 140/74; PULSE 66; RESP 18; TEMP 36.4; O2SAT 96
[2018-02-10 17:01] LABS: Bedside Glucose 126 mg/dL (70-110)
[2018-02-10 17:09] VITALS: PULSE 66
--- NOTE | 2018-02-10 17:14 | NURSING ---
pt requesting not to be awoken for meds so early. Changed meds to administer at 0800.
[2018-02-10] MEDS: Atorvastatin Calcium 10 MG Tablet 5 MG PO (20:07)
[2018-02-10] MEDS: Temazepam 15 MG Capsule PO (20:10)
[2018-02-10 20:55] LABS: Bedside Glucose 147 mg/dL (70-110)
[2018-02-11 06:40] LABS: Bedside Glucose 115 mg/dL (70-110)
[2018-02-11] MEDS: Furosemide 20 MG Tablet 60 MG PO ×2 (08:03→13:50)
[2018-02-11 08:04] VITALS: PULSE 72
[2018-02-11] MEDS: Enoxaparin 40 MG/0.4 ML Syringe SC (08:04)
[2018-02-11] MEDS: Metoprolol Tartrate 50 MG Tablet PO ×2 (08:04→16:29)
[2018-02-11] MEDS: amLODIPine 10 MG Tablet PO (08:05)
[2018-02-11] MEDS: FLUoxetine 20 MG Capsule 40 MG PO (08:05)
[2018-02-11] MEDS: Famotidine 20 MG Tablet PO (08:05)
[2018-02-11] MEDS: Lisinopril 2.5 MG Tablet PO (08:05)
[2018-02-11] MEDS: Menthol/Lanolin/Calamine/Znox 113 GM Tube 1 APPLIC TOPICAL ×2 (08:07→21:22)
[2018-02-11] MEDS: Hydrocortisone 2.5% Crm 1 APPLIC TOPICAL ×2 (08:08→21:23)
[2018-02-11 11:11] LABS: Bedside Glucose 115 mg/dL (70-110)
[2018-02-11 15:28] VITALS: BP 142/72; PULSE 79; RESP 18; TEMP 36.7; O2SAT 96
[2018-02-11 16:29] VITALS: BP 142/72; PULSE 79
[2018-02-11 16:51] LABS: Bedside Glucose 124 mg/dL (70-110)
[2018-02-11 21:00] LABS: Bedside Glucose 158 mg/dL (70-110)
[2018-02-11] MEDS: Atorvastatin Calcium 10 MG Tablet 5 MG PO (21:23)
[2018-02-11] MEDS: Acetaminophen 500 MG Tablet 1000 MG PO (21:29)
[2018-02-11] MEDS: Temazepam 15 MG Capsule PO (21:30)
[2018-02-12 05:56] LABS: Absolute Lymphocyte Count 2.63 X10^3/ul (0.83-4.51); Absolute Neutrophil Count 2.7 X10^3/uL (2.0-7.7); Basophil# 0.03 X10^3/uL; Basophil% 0.5 % (0-1); Eosinophil# 0.24 X10^3/uL; Eosinophils% 3.8 % (0-5); Hematocrit 34.6 % (37-47); Lymphocyte # 2.63 X10^3/ul (4.0); Mean Corp Hgb Conc 31.8 g/gl (32-36); Mean Corpuscular Volume 81.8 fL (81-99); Mean Platelet Vol. 9.7 fl (6.2-12.0); Monocyte# 0.68 X10^3/uL; Monocyte% 10.9 % (0-10); Neutrophil # 2.66 X10^3/uL (2.7-7.7); Neutrophil % 42.5 % (47-70); Platelet Count 266 K/mm3 (150-450); RBC Distribution Width CV 18.4 % (11.6-14.6); Red Blood Count 4.23 M/mm3 (4.2-5.4); White Blood Count 6.3 K/mm3 (4.4-11.0)
[2018-02-12 06:00] LABS: BUN 22 mg/dL (7-18); Creatinine, Serum 1.08 mg/dL (0.55-1.02); Estimated Creatinine Clearance 41.26 ml/min; Glucose 118 mg/dL (74-106)
[2018-02-12 06:01] LABS: Anion Gap 8 (5-15); BUN/Creat Ratio 20.4 RATIO (10-20); Calcium,Total 8.9 mg/dL (8.5-10.1); Chloride 101 mmol/L (98-107); EST Glomerular Filtration Rate 53 mL/min (>60); Est Glom Filt Rate - Afr Amer 64 mL/min (>60); Potassium 4.2 mmol/L (3.5-5.1); Sodium Level 138 mmol/L (136-145)
[2018-02-12 06:09] LABS: POSITIVE COUNT NO; POSITIVE DIFFERENTIAL NO; POSITIVE MORPHOLOGY NO
[2018-02-12 06:35] LABS: Bedside Glucose 127 mg/dL (70-110)
[2018-02-12] MEDS: Furosemide 20 MG Tablet 60 MG PO ×2 (08:37→13:49)
[2018-02-12] MEDS: Lisinopril 2.5 MG Tablet PO (08:41)
[2018-02-12 08:42] VITALS: BP 120/63; PULSE 72
[2018-02-12] MEDS: FLUoxetine 20 MG Capsule 40 MG PO (08:42)
[2018-02-12] MEDS: amLODIPine 10 MG Tablet PO (08:42)
[2018-02-12] MEDS: Metoprolol Tartrate 50 MG Tablet PO ×2 (08:42→16:54)
[2018-02-12] MEDS: Famotidine 20 MG Tablet PO (08:42)
[2018-02-12] MEDS: Enoxaparin 40 MG/0.4 ML Syringe SC (08:44)
[2018-02-12] MEDS: Menthol/Lanolin/Calamine/Znox 113 GM Tube 1 APPLIC TOPICAL ×2 (08:48→22:30)
[2018-02-12] MEDS: Tuberculin,Purif.prot.deriv. 50 TU/ML Vial 5 ML ID (10:46)
[2018-02-12 11:21] LABS: Bedside Glucose 127 mg/dL (70-110)
--- NOTE | 2018-02-12 11:22 | CASEMGMT ---
Social Work Spoke with resident in room. This outreach and education social worker communicating to resident that discharge date has been set for 02/15/18. Resident is agreeable to discharge date and plans to discharge home with spouse. No further therapy recommendation at this time. Resident reporting to have all needed durable medical equipment already set up within the home. Resident spouse to provide transportation home for resident. Support given. Proposed discharge date: 02/15/18 PLAN: Discharge home with spouse. Teresa SHELLEY, PHYSICIAN GYNECOLOGIST
[2018-02-12 15:52] VITALS: BP 121/58; PULSE 71; RESP 18; TEMP 36.9; O2SAT 97
[2018-02-12 16:45] LABS: Bedside Glucose 149 mg/dL (70-110)
[2018-02-12 16:54] VITALS: PULSE 71
[2018-02-12 21:00] LABS: Bedside Glucose 158 mg/dL (70-110)
--- NOTE | 2018-02-12 21:18 | DCINST_ITS ---
- Discharge Diagnoses Current Active Problems: Current Active and Chronic Problems Sepsis (Acute) Cellulitis of right lower extremity (Acute) Heart failure with preserved ejection fraction (Acute) Diabetes mellitus (Chronic) Morbid obesity (Chronic) Depression (Chronic) Anxiety (Chronic) Hypokalemia (Chronic) You will use the following diet at home:: No restrictions, Regular Your food should be the consistency of: Regular Your liquids should be the consistency of: Regular/Thin Discharge Activity: Return to Normal Activity, May Shower, Use Walker May resume sexual activity in: No Restrictions Weight Bearing Status: Weight bearing as tolerated Call your doctor if you observe: Fever of 101 or Higher, Inability to urinate, Inability to have a bowel movement, Shortness of breath, Chest pain, Uncontrolled pain Allergies/Adverse Reactions: Allergies No Known Allergies Allergy (Verified 01/28/18 01:18) Medications to take at Discharge Amlodipine [Norvasc] 10 mg PO DAILY 01/28/18 Fluoxetine [Prozac] 40 mg PO DAILY 01/28/18 Glyburide/Metformin HCl [Glucovance 5-500 mg Tablet] 1 tab PO BID 01/28/18 Metoprolol Tartrate 50 mg PO BID 01/28/18 Simvastatin [Zocor] 10 mg PO QHS 01/28/18 Potassium Chloride [K-Dur] 20 meq PO BID 02/04/18 Acetaminophen [Tylenol] 1,000 mg PO Q8H PRN tablet 02/12/18 Famotidine [Pepcid] 20 mg PO DAILY #30 tab 02/12/18 Furosemide [Lasix] 60 mg PO BID@0730,1400 #90 tab 02/12/18 Hydrocortisone 2.5% Crm [Hytone] 1 applic TOPICAL 0800,2200 #1 tube 02/12/18 Lisinopril [Zestril] 2.5 mg PO DAILY #30 tab 02/12/18 Menthol/Lanolin/Calamine/Znox [Calmoseptine Ointment] 1 applic TOPICAL BID@0800, 2200 tube 02/12/18 Temazepam [Restoril] 15 mg PO QHS PRN #30 capsule 02/12/18 The following prescriptions were given: Famotidine [Pepcid] 20 mg PO DAILY #30 tab Furosemide [Lasix] 60 mg PO BID@0730,1400 #90 tab Hydrocortisone 2.5% Crm [Hytone] 1 applic TOPICAL 0800,2200 #1 tube Lisinopril [Zestril] 2.5 mg PO DAILY #30 tab Temazepam [Restoril] 15 mg PO QHS PRN #30 capsule PRN Reason: SLEEP Primary Care Physician: Lalitha Baez MD [Primary Care Provider] - Please follow up with your Primary Care Physician in: 1 week. Proposed Discharge Date: 02/15/18
--- NOTE | 2018-02-12 21:21 | DS.PCM_ITS ---
Discharge Date and Diagnosis - Problem List Patient Problems: Active and Suspected Problems Sepsis (Acute) Cellulitis of right lower extremity (Acute) Heart failure with preserved ejection fraction (Acute) Date of Admission: 02/04/18 Date of Discharge: 02/15/18 - Primary Discharge Diagnosis Active and Suspected Problems Sepsis (Acute) Cellulitis of right lower extremity (Acute) Heart failure with preserved ejection fraction (Acute) - Secondary Discharge Diagnosis Chronic Problems HTN (hypertension) (Chronic) HLD (hyperlipidemia) (Chronic) Morbid obesity with BMI of 50.0-59.9, adult (Chronic) Diabetes mellitus, type II (Chronic) GERD (gastroesophageal reflux disease) (Chronic) Anxiety and depression (Chronic) KUMAR (obstructive sleep apnea) (Chronic) Diabetes mellitus (Chronic) Morbid obesity (Chronic) Depression (Chronic) Anxiety (Chronic) Hypokalemia (Chronic) Hospital Course and Treatment Imaging Results: 02/04/18 16:12 Diet: Cardiac: Calorie-Controlled Food consistency:: Regular Liquid Consistency:: Regular/Thin Dietary Modifications:: Fluid Restricted Diet Is pt able to select menu?: Yes Diet Comments: 2 gm sodium per day, fluid restrition 1500cc day How many daily calories?: 1800 calorie Clinical Impression(s) from Imaging Studies Abdomen X-Ray 02/08/18 09:00 IMPRESSION: Mildly dilated small bowel loop, likely duodenum noted wale hepatis near cholecystectomy clips with air-fluid level, may represent mild ileus or enteritis. Clinical correlation recommended. If clinically indicated, left lateral decubitus view may be more helpful. Electronically Signed: Femi Trell, at 10:02 EDT Tel , Service support , Labs (Last 48 Hours) 02/11/18 02/11/18 02/11/18 06:18 11:04 16:44 WBC RBC Hgb Hct MCV MCH MCHC RDW RDW Differential Plt Count MPV Immature Gran % (Auto) Neut % (Auto) Lymph % (Auto) Mineral % (Auto) Eos % (Auto) Baso % (Auto) Absolute Neuts (auto) Absolute Lymphs (auto) Total Counted Sodium Potassium Chloride Carbon Dioxide Anion Gap BUN Creatinine Estim Creat Clear Calc Est GFR (MDRD) Af Amer Est GFR (MDRD) Non-Af BUN/Creatinine Ratio Glucose Calcium POC Glucose 115 H 115 H 124 H 02/11/18 02/12/18 02/12/18 20:58 05:25 05:25 WBC 6.3 RBC 4.23 Hgb 11.0 L Hct 34.6 L MCV 81.8 MCH 26.0 L MCHC 31.8 L RDW 18.4 H RDW Differential 53.0 H Plt Count 266 MPV 9.7 Immature Gran % (Auto) 0.300 Neut % (Auto) 42.5 L Lymph % (Auto) 42.0 H Mineral % (Auto) 10.9 H Eos % (Auto) 3.8 Baso % (Auto) 0.5 Absolute Neuts (auto) 2.7 Absolute Lymphs (auto) 2.63 Total Counted Not Reportable Sodium 138 Potassium 4.2 Chloride 101 Carbon Dioxide 29.0 Anion Gap 8 BUN 22 H Creatinine 1.08 H Estim Creat Clear Calc 41.26 Est GFR (MDRD) Af Amer 64 Est GFR (MDRD) Non-Af 53 L BUN/Creatinine Ratio 20.4 H Glucose 118 H Calcium 8.9 POC Glucose 158 H 02/12/18 02/12/18 02/12/18 06:28 11:09 16:40 WBC RBC Hgb Hct MCV MCH MCHC RDW RDW Differential Plt Count MPV Immature Gran % (Auto) Neut % (Auto) Lymph % (Auto) Mineral % (Auto) Eos % (Auto) Baso % (Auto) Absolute Neuts (auto) Absolute Lymphs (auto) Total Counted Sodium Potassium Chloride Carbon Dioxide Anion Gap BUN Creatinine Estim Creat Clear Calc Est GFR (MDRD) Af Amer Est GFR (MDRD) Non-Af BUN/Creatinine Ratio Glucose Calcium POC Glucose 127 H 127 H 149 H 02/12/18 20:46 WBC RBC Hgb Hct MCV MCH MCHC RDW RDW Differential Plt Count MPV Immature Gran % (Auto) Neut % (Auto) Lymph % (Auto) Mineral % (Auto) Eos % (Auto) Baso % (Auto) Absolute Neuts (auto) Absolute Lymphs (auto) Total Counted Sodium Potassium Chloride Carbon Dioxide Anion Gap BUN Creatinine Estim Creat Clear Calc Est GFR (MDRD) Af Amer Est GFR (MDRD) Non-Af BUN/Creatinine Ratio Glucose Calcium POC Glucose 158 H Operations: None Procedures: None Summary of Care Provided: The patient is a 73 year old Female with below past medical history hospitalized for sepsis secondary to right lower extremity cellulitis complicated by heart failure with preserved ejection fraction requiring aggressive diuresis, admitted to TCU for rehabilitation, strengthening, prior to discharge home with spouse. [] Discharge home with spouse. Discharge Diet: No Restrictions Discharge Activity: Return to Normal Activity, May Shower, Use Walker May resume sexual activity in: No Restrictions Weight Bearing Status: Weight bearing as tolerated Call your doctor if you observe: Fever of 101 or Higher, Inability to urinate, Inability to have a bowel movement, Shortness of breath, Chest pain, Uncontrolled pain Home Medications: Medications to take at Discharge Amlodipine [Norvasc] 10 mg PO DAILY 01/28/18 Fluoxetine [Prozac] 40 mg PO DAILY 01/28/18 Glyburide/Metformin HCl [Glucovance 5-500 mg Tablet] 1 tab PO BID 01/28/18 Metoprolol Tartrate 50 mg PO BID 01/28/18 Simvastatin [Zocor] 10 mg PO QHS 01/28/18 Potassium Chloride [K-Dur] 20 meq PO BID 02/04/18 Acetaminophen [Tylenol] 1,000 mg PO Q8H PRN tablet 02/12/18 Famotidine [Pepcid] 20 mg PO DAILY #30 tab 02/12/18 Furosemide [Lasix] 60 mg PO BID@0730,1400 #90 tab 02/12/18 Hydrocortisone 2.5% Crm [Hytone] 1 applic TOPICAL 0800,2200 #1 tube 02/12/18 Lisinopril [Zestril] 2.5 mg PO DAILY #30 tab 02/12/18 Menthol/Lanolin/Calamine/Znox [Calmoseptine Ointment] 1 applic TOPICAL BID@0800, 2200 tube 02/12/18 Temazepam [Restoril] 15 mg PO QHS PRN #30 capsule 02/12/18 Following Prescrptions Were Given to Patient: Famotidine [Pepcid] 20 mg PO DAILY #30 tab Furosemide [Lasix] 60 mg PO BID@0730,1400 #90 tab Hydrocortisone 2.5% Crm [Hytone] 1 applic TOPICAL 0800,2200 #1 tube Lisinopril [Zestril] 2.5 mg PO DAILY #30 tab Temazepam [Restoril] 15 mg PO QHS PRN #30 capsule PRN Reason: SLEEP Primary Care Physician: Lalitha Baez MD [Primary Care Provider] - Please follow up with your Primary Care Physician in: 1 week. Disposition: Home Minutes spent on discharge:: 30 Patient Condition:: Stable Medical Necessity - Tobacco Use Smoking Status: Never smoker Tobacco Use: Non-smoker Meaningful Use Info Meaningful Use Diagnoses (Choose all that apply): CHF - CHF VICKY/ARB ordered at discharge?: Yes Documented LVEF (%): 65
[2018-02-12] MEDS: Temazepam 15 MG Capsule PO (22:33)
[2018-02-12] MEDS: Atorvastatin Calcium 10 MG Tablet 5 MG PO (22:33)
[2018-02-13 06:46] LABS: Bedside Glucose 137 mg/dL (70-110)
[2018-02-13] MEDS: Lisinopril 2.5 MG Tablet PO (08:26)
[2018-02-13] MEDS: FLUoxetine 20 MG Capsule 40 MG PO (08:26)
[2018-02-13 08:27] VITALS: PULSE 78
[2018-02-13] MEDS: Famotidine 20 MG Tablet PO (08:27)
[2018-02-13] MEDS: amLODIPine 10 MG Tablet PO (08:27)
[2018-02-13] MEDS: Metoprolol Tartrate 50 MG Tablet PO ×2 (08:27→17:51)
[2018-02-13] MEDS: Enoxaparin 40 MG/0.4 ML Syringe SC (08:27)
[2018-02-13] MEDS: Furosemide 20 MG Tablet 60 MG PO ×2 (08:27→14:29)
[2018-02-13] MEDS: Menthol/Lanolin/Calamine/Znox 113 GM Tube 1 APPLIC TOPICAL ×2 (08:28→21:11)
[2018-02-13 11:46] LABS: Bedside Glucose 132 mg/dL (70-110)
--- NOTE | 2018-02-13 13:43 | CASEMGMT ---
Plan of care meeting held. Resident present as well as resident spouse. Resident with a discharge date of 02/15/18 and plans to discharge home with spouse. No further therapy is being recommended at this time. Resident spouse plans to provide transportation home for resident at time of discharge. Resident plans to continue with further care and treatment on the Transitional Care Unit until time of discharge. Support given. Proposed discharge date: 02/15/18 PLAN: Discharge home with spouse. Teresa SHELLEY, MEDICAL ASSISTANT PRN
--- NOTE | 2018-02-13 14:26 | PCM.PN.ID ---
Patient Problems: Active and Suspected Problems Sepsis (Acute) Cellulitis of right lower extremity (Acute) Heart failure with preserved ejection fraction (Acute) Subjective: RLE overall feeling better with less redness, swelling, and pain compared to recent hospital admission. No fever, no n/v/d. Concern for new blister formation over lateral R foot. No drainage. - Physical Exam General: Alert, Cooperative, No apparent distress Lungs: Clear to auscultation, Normal air movement Cardiovascular: Regular rate, Regular Rhythm Abdomen: Soft, Non Tender, Non-Distended, Obese Extremities: Edema - BLE Skin: Ulcer/ Wound - dry scabbed wounds on lower R leg, no drainage, some surrounding redness, non-tender Vital Signs Temp Pulse Resp BP Pulse Ox 98.5 F 78 18 121/58 H 97 02/12/18 15:52 02/13/18 08:27 02/12/18 15:52 02/12/18 15:52 02/12/18 15:52 Oxygen Flow Rate (L/min) 3 Oxygen Delivery Method CPAP Weight: 136.305 kg Body Mass Index (BMI) 52.4 Intake and Output for Last 24 Hours 02/11/18 02/12/18 02/13/18 23:59 23:59 23:59 Intake Total 730 / 730 840 / 840 720 / 720 Output Total 300 / 300 900 / 900 Balance 730 / 730 540 / 540 -180 / -180 POC Glucose 02/13/18 02/13/18 02/12/18 11:37 06:37 20:46 POC Glucose 132 H 137 H 158 H 02/12/18 16:40 POC Glucose 149 H Medical Necessity - Tobacco Use Smoking Status: Never smoker Tobacco Use: Non-smoker Route of nutrition/ use of supplements: [] Nutritional Intake: [] IV Site: [] Bolden Catheter: [] - Assessment/Plan Antibiotics: [] Assessment/Plan: [] Active and Suspected Problems Sepsis (Acute) Cellulitis of right lower extremity (Acute) Heart failure with preserved ejection fraction (Acute) Recent RLE cellulitis - overall much improved. Some new dry blister formation, but no signs of active infection. Recommend ongoing wound care at discharge with home going instructions and supplies for dressing changes. No need for abx at this time. Thank you, will follow as needed.
[2018-02-13] MEDS: Hydrocortisone 2.5% Crm 1 APPLIC TOPICAL ×2 (14:30→21:12)
--- NOTE | 2018-02-13 15:07 | NURSING ---
Drsg change with at pt side. Nurse educated spouse and pt on how to complete changes. Spouse informed this nurse he feels comfortable with drsg change. Spouse applied norah wraps with nurse supervision. Will continue to educate pt and spouse.
[2018-02-13 16:00] VITALS: BP 133/61; PULSE 66; RESP 20; TEMP 36.2; O2SAT 95
[2018-02-13 16:50] LABS: Bedside Glucose 105 mg/dL (70-110)
[2018-02-13 17:51] VITALS: PULSE 66
[2018-02-13 21:06] LABS: Bedside Glucose 139 mg/dL (70-110)
[2018-02-13] MEDS: Atorvastatin Calcium 10 MG Tablet 5 MG PO (21:12)
[2018-02-13] MEDS: Temazepam 15 MG Capsule PO (21:13)
[2018-02-14 06:46] LABS: Bedside Glucose 124 mg/dL (70-110)
[2018-02-14 08:19] VITALS: PULSE 82
[2018-02-14] MEDS: Metoprolol Tartrate 50 MG Tablet PO ×2 (08:19→17:20)
[2018-02-14] MEDS: Enoxaparin 40 MG/0.4 ML Syringe SC (08:19)
[2018-02-14] MEDS: Lisinopril 2.5 MG Tablet PO (08:19)
[2018-02-14] MEDS: FLUoxetine 20 MG Capsule 40 MG PO (08:19)
[2018-02-14] MEDS: amLODIPine 10 MG Tablet PO (08:20)
[2018-02-14] MEDS: Famotidine 20 MG Tablet PO (08:20)
[2018-02-14] MEDS: Furosemide 20 MG Tablet 60 MG PO ×2 (08:20→13:11)
[2018-02-14] MEDS: Hydrocortisone 2.5% Crm 1 APPLIC TOPICAL (10:01)
[2018-02-14] MEDS: Menthol/Lanolin/Calamine/Znox 113 GM Tube 1 APPLIC TOPICAL ×2 (10:02→22:09)
--- NOTE | 2018-02-14 11:18 | MDS.RN ---
Information for the mds was obtained from review of the clinical record, interview of resident, staff, and direct observation of resident's care.
[2018-02-14 11:30] LABS: Bedside Glucose 108 mg/dL (70-110)
[2018-02-14 13:58] VITALS: BP 133/56; PULSE 70; RESP 20; TEMP 36; O2SAT 97
[2018-02-14 17:06] LABS: Bedside Glucose 118 mg/dL (70-110)
[2018-02-14 17:20] VITALS: PULSE 68
[2018-02-14 21:00] LABS: Bedside Glucose 155 mg/dL (70-110)
[2018-02-14] MEDS: Atorvastatin Calcium 10 MG Tablet 5 MG PO (22:10)
[2018-02-14] MEDS: Temazepam 15 MG Capsule PO (22:16)
[2018-02-15 06:45] LABS: Bedside Glucose 142 mg/dL (70-110)
[2018-02-15] MEDS: Furosemide 20 MG Tablet 60 MG PO (08:35)
[2018-02-15 08:36] VITALS: PULSE 80
[2018-02-15] MEDS: Metoprolol Tartrate 50 MG Tablet PO (08:36)
[2018-02-15] MEDS: Enoxaparin 40 MG/0.4 ML Syringe SC (08:37)
[2018-02-15] MEDS: amLODIPine 10 MG Tablet PO (08:37)
[2018-02-15] MEDS: Famotidine 20 MG Tablet PO (08:37)
[2018-02-15] MEDS: FLUoxetine 20 MG Capsule 40 MG PO (08:38)
[2018-02-15] MEDS: Lisinopril 2.5 MG Tablet PO (08:38)
[2018-02-15] MEDS: Hydrocortisone 2.5% Crm 1 APPLIC TOPICAL (08:38)
[2018-02-15] MEDS: Menthol/Lanolin/Calamine/Znox 113 GM Tube 1 APPLIC TOPICAL (08:39)
[2018-02-15 10:51] VITALS: BP 118/56; PULSE 66; RESP 16; TEMP 36.7; O2SAT 96
[2018-02-15 11:46] LABS: Bedside Glucose 86 mg/dL (70-110)
--- NOTE | 2018-02-15 12:27 | PCA ---
pt refused lunch because she is being discharged and said that her was taking her out to eat after discharge
== END 2018-02-15 13:28 | disposition home or self-care (01) | DRG 947 ==
PROVIDERS: Admitting Provider Family Medicine Geriatric Medicine; Family Provider Internal Medicine; PCP Internal Medicine; Visit Provider Family Medicine Geriatric Medicine
DX: R53.81 Other malaise (principal); I50.31 Acute diastolic (congestive) heart failure; L03.115 Cellulitis of right lower limb; E66.01 Morbid (severe) obesity due to excess calories; Z68.43 Body mass index [BMI] 50.0-59.9, adult; E11.9 Type 2 diabetes mellitus without complications; G47.33 Obstructive sleep apnea (adult) (pediatric); I11.0 Hypertensive heart disease with heart failure; E87.6 Hypokalemia; E78.5 Hyperlipidemia, unspecified; F32.9 Major depressive disorder, single episode, unspecified; F41.9 Anxiety disorder, unspecified; K21.9 Gastro-esophageal reflux disease without esophagitis; Z71.3 Dietary counseling and surveillance; Z79.899 Other long term (current) drug therapy; Z79.84 Long term (current) use of oral hypoglycemic drugs; Z23 Encounter for immunization; G47.00 Insomnia, unspecified
CPT/HCPCS: 36415; 74019; 80048; 82962; 85025; 90732; 97110; 97116; 97162; 97166; 97530; 97535; 97802

== ENCOUNTER → 2018-03-13 14:56 | Outpatient (CLI) | payer MEDICARE, OTHER, SELFPAY ==
[2018-03-13 15:47] LABS: Absolute Lymphocyte Count 2.81 X10^3/ul (0.83-4.51); Absolute Neutrophil Count 5.4 X10^3/uL (2.0-7.7); Basophil# 0.02 X10^3/uL; Basophil% 0.2 % (0-1); Eosinophils% 2.2 % (0-5); Hematocrit 38.4 % (37-47); Lymphocyte # 2.81 X10^3/ul (4.0); Lymphocyte % 31.2 % (19-41); Mean Corp Hgb Conc 31.3 g/gl (32-36); Mean Corpuscular Hgb 25.6 pg (27.0-32.0); Mean Corpuscular Volume 81.9 fL (81-99); Mean Platelet Vol. 9.5 fl (6.2-12.0); Monocyte# 0.55 X10^3/uL; Monocyte% 6.1 % (0-10); Neutrophil # 5.42 X10^3/uL (2.7-7.7); Neutrophil % 60.1 % (47-70); Platelet Count 289 K/mm3 (150-450); RBC Distribution Width CV 18.5 % (11.6-14.6); RBC Distribution Width SD 55.2 fl (35.1-43.9); Red Blood Count 4.69 M/mm3 (4.2-5.4)
[2018-03-13 15:50] LABS: POSITIVE COUNT NO; POSITIVE DIFFERENTIAL NO; POSITIVE MORPHOLOGY NO
[2018-03-13 16:30] LABS: ALB/GLOB Ratio 0.7 RATIO (0.9-2.4); AST(SGOT) 32 U/L (15-37); Alanine Aminotransfer ALT/SGPT 33 U/L (13-56); Albumin, Serum 3.6 g/dL (3.2-5.0); Alkaline Phosphatase 78 U/L (45-117); Anion Gap 9 (5-15); BUN 21 mg/dL (7-18); BUN/Creat Ratio 18.3 RATIO (10-20); Calcium,Total 9.4 mg/dL (8.5-10.1); Chloride 103 mmol/L (98-107); Creatinine, Serum 1.15 mg/dL (0.55-1.02); EST Glomerular Filtration Rate 49 mL/min (>60); Est Glom Filt Rate - Afr Amer 60 mL/min (>60); Globulin 4.9 g/dL (2.2-4.2); Glucose 80 mg/dL (74-106); Potassium 4.1 mmol/L (3.5-5.1); Protein, Total 8.5 g/dL (6.4-8.2); Sodium Level 139 mmol/L (136-145); Thyroid Stim Hormone (TSH) 1.28 uIU/mL (0.358-3.74)
[2018-03-13 17:44] LABS: Vitamin D,25 Hydroxy 41.3 ng/mL (29.95-100.01)
[2018-03-15 12:05] LABS: Hep C Antibodies <0.1 s/co ratio (0.0-0.9)
== END ==
PROVIDERS: Visit Provider Family Medicine Geriatric Medicine
DX: E55.9 Vitamin D deficiency, unspecified (principal); I10 Essential (primary) hypertension; Z13.89 Encounter for screening for other disorder
CPT/HCPCS: 36415; 80053; 82306; 84443; 85025; 86803

== ENCOUNTER → 2018-03-19 10:59 | Outpatient (CLI) | payer MEDICARE, OTHER, SELFPAY ==
[2018-03-19 11:00] VITALS: PULSE 75; PULSE 76; PULSE 77; PULSE 78; O2SAT 94; O2SAT 96; O2SAT 98
--- NOTE | 2018-03-21 08:23 | WT_ITS ---
PSN 6 Minute Walk Test - 6 Minute Walk Test 6 Minute Walk Test: 6 Minute Walk Test PSN:6-Minute Walk Test Start: 03/19/18 11: 24 Freq: Status: Active Protocol: [id number] Document 03/19/18 11:00 HG (Rec: 03/19/18 11:26 HG [id number]) 6 Minute Walk Test Date Performed 03/19/18 Time Performed 11:00 Height 5 ft 4 in Weight: 304 lb Weight in Pounds 304.[address]: Teodora Gloria Assistive device used: Walker Pre-test Oxygen Delivery Method Room Air Pulse Ox (%) 98 Pulse Rate (60-100 beats/min) 75 Number of Rests Taken 1 Reported Symptoms Increased Work of Breathing 1st minute Oxygen Delivery Method Room Air Pulse Ox (%) 98 Pulse Rate (60-100 beats/min) 75 Number of Rests Taken 1 Reported Symptoms Increased Work of Breathing 2nd minute Oxygen Delivery Method Room Air Pulse Ox (%) 98 Pulse Rate (60-100 beats/min) 76 Number of Rests Taken 1 Reported Symptoms Increased Work of Breathing 3rd minute Oxygen Delivery Method Room Air Pulse Ox (%) 96 Pulse Rate (60-100 beats/min) 76 Number of Rests Taken 1 Reported Symptoms Increased Work of Breathing 4th minute Oxygen Delivery Method Room Air Pulse Ox (%) 94 Pulse Rate (60-100 beats/min) 77 Number of Rests Taken 1 Reported Symptoms Increased Work of Breathing 5th minute Oxygen Delivery Method Room Air Pulse Ox (%) 96 Pulse Rate (60-100 beats/min) 78 6th minute Oxygen Delivery Method Room Air Pulse Ox (%) 98 Pulse Rate (60-100 beats/min) 78 Post-test Oxygen Delivery Method Room Air Pulse Ox (%) 96 Pulse Rate (60-100 beats/min) 76 Dyspnea Dominique Scale (0-10) 4 Exertion Dominique Scale (6-20) 14 Full Laps Walked 7 Partial Lap, Number of Tiles Walked 0 Total Distance Walked (ft) 413 - Interpretation Interpretation: The patient ambulated 413 feet over the course of 6 minutes beginning on room air with use of a walker. Pretesting oxygen saturation was noted to be 98% on room air. With ambulation, the cynthia oxygen saturation was 94%. There was evidence of both impaired walk distance and significant exertional oxygen desaturation. - Recommendations Recommendations: There is no indication for the use of supplemental oxygen at this time. However , close interval follow-up is recommended, given the degree of oxygen desaturation noted on exertion with this study.
== END ==
PROVIDERS: Family Provider Internal Medicine; PCP Internal Medicine; Visit Provider Nurse Practitioner Acute Care
DX: R06.09 Other forms of dyspnea (principal)
CPT/HCPCS: 94618

== ENCOUNTER → 2018-04-01 23:41 | Outpatient (CLI) | payer MEDICARE, OTHER, SELFPAY | PROVIDERS: Family Provider Family Medicine Geriatric Medicine; PCP Family Medicine Geriatric Medicine; Visit Provider Nurse Practitioner Acute Care | DX: G47.33 Obstructive sleep apnea (adult) (pediatric) (principal) | CPT/HCPCS: 95811 ==

== ENCOUNTER → 2018-04-04 09:55 | Outpatient (CLI) | payer MEDICARE, OTHER, SELFPAY ==
--- NOTE | 2018-04-04 11:11 | BD_ITS ---
STUDY: DUAL ENERGY X-RAY ABSORPTIOMETRY / DXA REASON FOR EXAM: Female, 73 years old. The patient is postmenopausal. Loss of height. TECHNIQUE: Bone Mineral Density (BMD) measurements of lumbar spine and bilateral hips were obtained. COMPARISON: None. FINDINGS: Lumbar Spine (L1-L4): g/cm2 (1.288) / T-score (1.0) / Z-score (2.7) Findings are suggestive of normal bone density with a low fracture risk. Left Femur Total: g/cm2 (1.003) / T-score (0.0) / Z-score (1.5) Left Femoral Neck: g/cm2 (0.888) / T-score (-1.1) / Z-score (0.7) Right Femur Total: g/cm2 (0.988) / T-score (-0.2) / Z-score (1.4) Right Femoral Neck: g/cm2 (1.037) / T-score (0.0) / Z-score (1.7) BD/Dexa Bone Density Study IMPRESSION: The patient is considered osteopenic as outlined below according to World Jhon[employer] Organization (WHO) criteria with a low fracture risk. Reference Information: The T-score is the number of standard deviations above or below the standard which is normal for young adults at their peak bone mineral density. The World Health Organization (WHO) interprets the T-scores as follows: Above -1 Normal bone density Between -1 and -2.5 Osteopenia Equal to / or below -2.5 Osteoporosis As a practical clinical guideline, osteopenia may be graded as follows: Mild -1 through -1.5 Moderate -1.6 through -2.0 Severe -2.1 through -2.4 The Z-score is the number of standard deviations above or below age-matched controls. A Z-score of less than -1.5 would be considered abnormal. References: 1. NIH Osteoporosis and Related Bone Diseases http://www.osteo.org 2. International Society for Clinical Densitometry http://www.iscd.org 3. National Osteoporosis Foundation http://www.nof.org Electronically Signed: Weston Alicea MD at 12:38 EDT Tel [phone], Service support ,
--- NOTE | 2018-04-04 12:22 | PFT ---
INTRODUCTION: The patient is a 73-year-old female who presents for pulmonary function testing secondary to a diagnosis of dyspnea on exertion. Respiratory therapy reports good patient effort. Bronchodilators were used during testing. INTERPRETATION: Forced expiration spirometry demonstrates no evidence of a large airways obstructive ventilatory defect. There was no significant response to aerosolized bronchodilators, based upon strict ATS criteria. Spirograms are of good quality and plateau normally. Body plethysmography was performed and reveals lung volumes to be within normal limits. Diffusing capacity by single breath CO is moderately reduced at 60% of predicted. IMPRESSION: These pulmonary function studies demonstrate the presence of an isolated moderate reduction in diffusing capacity, which could be related to an underlying pulmonary vascular disorder such as pulmonary hypertension. Clinical correlation is recommended. There are no previous pulmonary function studies available for comparison.
== END ==
PROVIDERS: Family Provider Family Medicine Geriatric Medicine; PCP Family Medicine Geriatric Medicine; Visit Provider Nurse Practitioner Acute Care
DX: R06.09 Other forms of dyspnea (principal); Z78.0 Asymptomatic menopausal state
CPT/HCPCS: 77080; 94060; 94726; 94729

== ENCOUNTER → 2018-05-08 12:33 | Outpatient (CLI) | payer MEDICARE, OTHER, SELFPAY ==
--- NOTE | 2018-05-08 12:34 | CDU_ITS ---
Reason For Study: DIZZINESS Rt. Velocities/BP Lt. Velocities/BP Prox CCA 72.1/12.9 cm/sec. Prox CCA 76.2/17.6 cm/sec. Mid CCA 56.3/11.7 cm/sec. Mid CCA 89.7/19.9 cm/sec. Dist CCA 66.3/13.5 cm/sec. Dist CCA 72.1/18.8 cm/sec. Prox ICA 44.0/13.0 cm/sec. Prox ICA 73.3/15.8 cm/sec. Mid ICA 81.6/23.7 cm/sec. Mid ICA 62.1/18.6 cm/sec. Dist ICA 104.0/32.4 cm/sec. Dist ICA 58.8/19.0 cm/sec. Rt. ICA/CCA = 1.9. Lt. ICA/CCA = .82. Prox ECA 48.1/5.5 cm/sec. Prox ECA 64.5/11.1 cm/sec. Rt. Vert. 39.9/14.1 cm/sec. Lt. Vert. 35.4/7.1 cm/sec. Right Extracranial There is intimal thickening but no significant atherosclerotic plaque noted in the right common carotid artery. There is heterogeneous, irregular atherosclerotic plaque noted in the right internal carotid artery. The right internal carotid artery is very tortuous. There is heterogeneous, irregular atherosclerotic plaque noted in the right external carotid artery. Antegrade flow is noted in the right vertebral artery. Left Extracranial There is intimal thickening but no significant atherosclerotic plaque noted in the left common carotid artery. There is heterogeneous, irregular atherosclerotic plaque noted in the left internal carotid artery. The left internal carotid artery is very tortuous. There is heterogeneous, irregular atherosclerotic plaque noted in the left external carotid artery. Antegrade flow is noted in the left vertebral artery. Procedure Carotid Duplex [id number]. Technically difficult due to depth of vessels. Exam performed in department. Interpretation Summary Minimal irregular plague at the proximal right internal carotid with <50% stenosis Minimal irregular plague at the proximal left internal carotid with <50% stenosis. Normal flow bilateral external carotids Patent and antegrade vertebrals bilaterally. Ordering Physician: Barak Gonzales Referring Physician: Jim Hester Chi Performed By: Fanny Goode RVT
--- NOTE | 2018-05-08 12:34 | STEWCON_ITS ---
Reason For Study: CHF, Dyspnea Stress Results Protocol: Dobutamine Stress Echo Maximum Predicted HR: 149 bpm Target HR: 127 bpm% Maximum Pre dicted HR: 50 % Heart Stage Duration Rate BPCom ment (mm:ss) (bpm) Baseline 47 154/7 7No Chest Pain; Definity 6 ML Diluted Given DSE 10 MCG 4:10 44 171/64No Chest Pain DSE 20 MCG 3:00 45 181/70No Chest Pain DSE 30 MCG 3:00 61 212/88No Chest Pain; Atropine 0.5 MG IVP DSE 40 MCG 7:39 75 150/56No Chest Pain; Atropine 0.5 MG IVP No Chest Pain; Unable to Obtain Target Heart Rate-Will Order Recovery 68 112/5 1Nuclear Chemical Stress Test Stress Duration: 17:49 mm:ss Maximum Stress HR: 75 bpmMET S: 1 Baseline Echocardiogram Findings The estimated ejection fraction is 65 %. Stress Echo Wall motion Data Resting WMIntermediate WMStress WM Resting Wall Motion Wall Motion Stress No regional wall motion No regional wall motion abnormalities noted. abnormalities noted. EKG Data Normal intervals are noted. The patient was titrated from 10 mcg to a maximum of 40 mcg of dobutamine during the stress. The maximum heart rate attained was 90 beats per minute. This was 60% of maximum predicted heart rate. During dobutamine infusion, there were no ST or T wave changes noted to suggest ischemia. No clinical angina was noted. Interpretation Summary The estimated ejection fraction is 65 %. Normal, submaximal dobutamine echocardiogram. Negative for ischemia by EKG and echocardiographic criteria. No anginal symptoms noted. PVCs noted in the bigeminal ventricular pattern during infusion. Hypertensive blood pressure response to dobutamine. Decreased sensitivity due to failure to reach target heart rate despite maximal dose of dobutamine, and maximal dose of atropine. Final LVEF is 70%. No complications. Recommend clinical correlation or alternative mode of testing if coronary ischemia is suspected. Ordering Physician: Barak Gonzales Referring Physician: Barak Gonzales Performed By: Alex Aguilar RCS
== END ==
PROVIDERS: Family Provider Family Medicine Geriatric Medicine; PCP Family Medicine Geriatric Medicine; Visit Provider Internal Medicine Cardiovascular Disease
DX: I50.32 Chronic diastolic (congestive) heart failure (principal); E78.5 Hyperlipidemia, unspecified; R06.09 Other forms of dyspnea; R42 Dizziness and giddiness
CPT/HCPCS: 93017; 93350; 93880; J7030; Q9957; A4216; C8928; J2785

== ENCOUNTER → 2018-05-20 06:06 | Outpatient (CLI) | payer MEDICARE, OTHER, SELFPAY ==
--- NOTE | 2018-05-20 10:42 | STRESSREP ---
Stress Test Report Pharmacologic myocardial perfusion stress test. 73-year-old lady with a history of shortness of breath. Medications: Prozac metoprolol Zestril Multivite atorvastatin furosemide. Stress protocol: Resting EKG demonstrates sinus bradycardia with a rate of 53 beats minute normal intervals and noted resting blood pressure is 170/90 mmHg. 0.4 mg of regadenoson was infused per usual protocol followed by rapid intravenous saline flush injection. Continuous EKG monitoring was performed. The patient maintained sinus rhythm throughout the recording the maximum heart rate was 68 bpm which was 45% maximum predicted heart rate the maximum workload was 1 metabolic equivalent. At rest there were nonspecific ST-T wave changes noted at peak infusion nonspecific ST-T wave changes were noted. Myocardial perfusion protocol. 14.7 mCi of technetium 99m sestamibi was injected at rest. 0.4 mg regadenoson was infused per usual protocol peak infusion 44.9 mCi of technetium 99m sestamibi was injected stress images were obtained stress and rest images were reconstructed and compared in the short axis vertical long and horizontal long axis. Gated images were also obtained Perfusion SPECT analysis: Review of the stress images demonstrate mildly reduced perfusion in the anterior wall on the stress and rest images to a similar extent. The above is likely secondary to anterior breast wall attenuation. The rest of the ramírez appear to be well perfused. No areas of reversibility are noted suggest ischemia and no previous infarct is noted. Gated SPECT analysis: The gated ejection fraction is 60% with no wall motion abnormalities. Conclusion: Normal pharmacologic myocardial perfusion stress test. Preserved ejection fraction.
== END ==
PROVIDERS: Family Provider Family Medicine Geriatric Medicine; PCP Family Medicine Geriatric Medicine; Visit Provider Internal Medicine Cardiovascular Disease
DX: I11.0 Hypertensive heart disease with heart failure (principal); I50.32 Chronic diastolic (congestive) heart failure; E78.5 Hyperlipidemia, unspecified; E66.01 Morbid (severe) obesity due to excess calories; Z68.43 Body mass index [BMI] 50.0-59.9, adult; E11.9 Type 2 diabetes mellitus without complications; K21.9 Gastro-esophageal reflux disease without esophagitis; R06.09 Other forms of dyspnea
CPT/HCPCS: 78452; 93017; A9500; A4216; J2785

== ENCOUNTER → 2018-05-25 07:14 | Outpatient (CLI) | payer MEDICARE, OTHER, SELFPAY ==
--- NOTE | 2018-05-25 07:17 | CT_ITS ---
STUDY: CT LUMBAR SPINE WITHOUT CONTRAST REASON FOR EXAM: Female, 73 years old. Pain previous fusion RADIATION DOSAGE (If Supplied By Facility): CTDIvol = ( 58.78 ) mGy, DLP = ( 1800.30 ) mGycm TECHNIQUE: The patient was scanned in a multi detector CT scanner. High resolution transaxial imaging was performed. Images were obtained from T12 to sacrum. Sagittal and coronal images were reconstructed. Individualized dose optimization techniques were used for this CT. COMPARISON: None FINDINGS: Normal lumbar lordosis. There is no substantial scoliosis. There is a spinal fusion at L4-L5 with a disc spacer. There is slight loss of height at T12 which is not appear to be acute. There are large bridging osteophytes in the lower thoracic spine from the level of T10-T12. L1-2: There is a minimal broad disc bulge facet arthropathy with minimal neural foramina narrowing or significant central stenosis. L2-3: There is a broad disc bulge [id number] neural foramina narrowing facet arthropathy mild central stenosis. L3-4: There is a broad disc bulge with moderate to severe neural foramina narrowing without central stenosis. There is artifact at this level. L4-5: There is a visualized disc spacer to the right of the disc space. There is substantial artifact at this level. There is a suggestion of moderate right neural foraminal narrowing which may be related to a portion of the visualized disc material. L5-S1: Normal endplates. Normal disc height and morphology. Normal bilateral facet joints. Normal central canal and bilateral lateral recesses. Normal bilateral intervertebral neural foramina. There is visualized atherosclerotic disease of the aorta. CT/Spine Lumbar without Contrast IMPRESSION: Aortic disc disease as detailed above There is a disc spacer at the level of L4-L5 with questionable material extending into the right side neural foramen or canal. This is allowing for substantial artifact in this study. Electronically Signed: Beatris Colon MD at 12:56 EDT Tel , Service support ,
== END ==
PROVIDERS: Family Provider Family Medicine Geriatric Medicine; PCP Family Medicine Geriatric Medicine; Visit Provider Orthopaedic Surgery
DX: M48.062 Spinal stenosis, lumbar region with neurogenic claudication (principal)
CPT/HCPCS: 72131

== ENCOUNTER → 2018-06-19 15:55 | Outpatient (CLI) | payer MEDICARE, OTHER, SELFPAY ==
[2018-06-19 17:42] LABS: ALB/GLOB Ratio 0.8 RATIO (0.9-2.4); AST(SGOT) 28 U/L (15-37); Alanine Aminotransfer ALT/SGPT 35 U/L (13-56); Albumin, Serum 3.4 g/dL (3.2-5.0); Alkaline Phosphatase 79 U/L (45-117); Anion Gap 10 (5-15); BUN 17 mg/dL (7-18); Calcium,Total 8.9 mg/dL (8.5-10.1); Chloride 103 mmol/L (98-107); EST Glomerular Filtration Rate 58 mL/min (>60); Est Glom Filt Rate - Afr Amer 70 mL/min (>60); Globulin 4.3 g/dL (2.2-4.2); Glucose 125 mg/dL (74-106); Potassium 4.5 mmol/L (3.5-5.1); Protein, Total 7.7 g/dL (6.4-8.2); Sodium Level 140 mmol/L (136-145); Thyroid Stim Hormone (TSH) 1.13 uIU/mL (0.358-3.74); Vitamin D,25 Hydroxy 38.4 ng/mL (29.95-100.01)
[2018-06-19 17:44] LABS: Absolute Lymphocyte Count 2.19 X10^3/ul (0.83-4.51); Absolute Neutrophil Count 4.5 X10^3/uL (2.0-7.7); Basophil# 0.01 X10^3/uL; Basophil% 0.1 % (0-1); Eosinophil# 0.15 X10^3/uL; Hematocrit 39.2 % (37-47); Hemoglobin 12.5 g/dl (12.0-15.0); Lymphocyte # 2.19 X10^3/ul (4.0); Lymphocyte % 29.5 % (19-41); Mean Corp Hgb Conc 31.9 g/gl (32-36); Mean Corpuscular Hgb 26.3 pg (27.0-32.0); Mean Corpuscular Volume 82.4 fL (81-99); Mean Platelet Vol. 10.2 fl (6.2-12.0); Monocyte# 0.57 X10^3/uL; Monocyte% 7.7 % (0-10); Neutrophil # 4.47 X10^3/uL (2.7-7.7); Neutrophil % 60.3 % (47-70); Platelet Count 226 K/mm3 (150-450); RBC Distribution Width SD 50.3 fl (35.1-43.9); Red Blood Count 4.76 M/mm3 (4.2-5.4); White Blood Count 7.4 K/mm3 (4.4-11.0)
[2018-06-19 17:49] LABS: POSITIVE COUNT NO; POSITIVE DIFFERENTIAL NO; POSITIVE MORPHOLOGY NO
== END ==
PROVIDERS: Family Provider Family Medicine Geriatric Medicine; PCP Internal Medicine; Visit Provider Family Medicine Geriatric Medicine
DX: E11.9 Type 2 diabetes mellitus without complications (principal); E55.9 Vitamin D deficiency, unspecified; I10 Essential (primary) hypertension
CPT/HCPCS: 36415; 80053; 82306; 84443; 85025

== ENCOUNTER → 2018-07-16 16:28 | Outpatient (CLI) | payer MEDICARE, OTHER, SELFPAY | PROVIDERS: Family Provider Family Medicine Geriatric Medicine; PCP Family Medicine Geriatric Medicine; Visit Provider Nurse Practitioner Family | DX: M54.6 Pain in thoracic spine (principal) | CPT/HCPCS: 72070 ==

== ENCOUNTER 2018-07-29 12:08 | Day surgery (SDC) | payer MEDICARE, OTHER, SELFPAY ==
[2018-07-29] VITALS (7 sets, daily range): BP systolic 119–125; BP diastolic 57–87; PULSE 63–78; RESP 16–18; TEMP 36.6–36.8; O2SAT 92–98; BMI 51.5
[2018-07-29 12:31] LABS: Bedside Glucose 181 mg/dL (70-110)
--- NOTE | 2018-07-29 13:05 | RAD_ITS ---
PROCEDURE: Caudal block. DATE OF EXAMINATION: July 29, 2018. INDICATION: Female, 73 years old. Chronic low back pain. FLUOROSCOPY TIME (if supplied): (0:07) minutes/seconds. 2 coned down views were obtained intraoperatively. Intraoperative imaging provided for caudal block. The spinal needle is seen along the midportion of the sacrum. RAD/Fluor Guidance for Spine Inj IMPRESSION: Intraoperative imaging provided for caudal block. The spinal needle is seen along the midportion of the sacrum. Electronically Signed: Weston Alicea MD at 10:28 EDT Tel [phone], Service support ,
[2018-07-29] MEDS: MethylPREDNISolone Acetate 80 MG/ML Vial (13:09)
[2018-07-29] MEDS: Bupivacaine 0.5% PF 10 ML VIAL (13:09)
--- NOTE | 2018-07-29 15:12 | PCM.OPRPT ---
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 (2) Lumbosacral radiculopathy Status: Chronic Report of Operation Date of Procedure: 07/29/18 Pre-Operative Diagnosis: Lumbosacral radiculopathy, lumbosacral degenerative disc disease, lumbosacral spinal stenosis Post-Operative Diagnosis: Lumbosacral radiculopathy, lumbosacral degenerative disc disease, lumbosacral spinal stenosis Surgery/Procedure Performed:: Diagnostic/therapeutic caudal epidural steroid injection Description of Surgical Findings:: PROCEDURE: Diagnostic/therapeutic caudal epidural steroid injection PREOPERATIVE DIAGNOSIS: Lumbosacral radiculopathy, lumbosacral degenerative disc disease, lumbosacral spinal stenosis POSTOPERATIVE DIAGNOSIS: Lumbosacral radiculopathy, lumbosacral degenerative disc disease, lumbosacral spinal stenosis ANESTHESIA: MAC COMPLICATIONS: None BLOOD LOSS: Minimal PROCEDURE IN DETAIL: History and physical today was reviewed. Risks and benefits of the procedure were explained. The patient understood, agreed to our procedure, and informed consent was obtained. IV inserted per routine protocol. The patient was taken to the operating room, placed in a prone position with a pillow positioned underneath the abdomen. The lower back and tailbone area was prepped and draped in a sterile fashion using iodine ?3 under fluoroscopy guidance on the lateral view the caudal space was identified the skin and subcutaneous tissue and size approximately 3 cc of 1% lidocaine using a 25-gauge regular needle under direct visualization fluoroscopy using the lateral approach using a 22-gauge 3-1/2 inch spinal needle the needle was advanced via the skin through the sacral hiatus, tip of the needle passed through the sacrococcygeal ligament advanced approximately S4 area after negative aspiration for blood or CSF a total of 3 cc of contrast were injected to confirm correct placement of the needle as well as cephalad spread the spread was followed to approximately L5 area after confirmation AP as well as lateral view repeated negative aspiration a total of 15 cc of preservative-free 0.125% Marcaine with 80 mg of the portal was injected easily. The needles were then removed intact. The patient experienced no signs or symptoms intrathecal, intravascular injection. The patient experienced no paraesthesia. The procedure was completed without any apparent difficult, any complication. The patient appeared to tolerate well. ASSESSMENT AND PLAN: This is a 73-year-old female with lumbosacral radiculopathy, lumbosacral degenerative disc disease, lumbosacral spinal stenosis status post diagnostic/therapeutic caudal epidural steroid injection. The patient will continue her current medications. The patient will follow in approximately 2 weeks for possible repeat of the procedure if indicated.
--- NOTE | 2018-07-29 15:15 | OP.PCM_ITS ---
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 (2) Lumbosacral radiculopathy Status: Chronic Report of Operation Date of Procedure: 07/29/18 Pre-Operative Diagnosis: Lumbosacral radiculopathy, lumbosacral degenerative disc disease, lumbosacral spinal stenosis Post-Operative Diagnosis: Lumbosacral radiculopathy, lumbosacral degenerative disc disease, lumbosacral spinal stenosis Surgery/Procedure Performed:: Diagnostic/therapeutic caudal epidural steroid injection Description of Surgical Findings:: PROCEDURE: Diagnostic/therapeutic caudal epidural steroid injection PREOPERATIVE DIAGNOSIS: Lumbosacral radiculopathy, lumbosacral degenerative disc disease, lumbosacral spinal stenosis POSTOPERATIVE DIAGNOSIS: Lumbosacral radiculopathy, lumbosacral degenerative disc disease, lumbosacral spinal stenosis ANESTHESIA: MAC COMPLICATIONS: None BLOOD LOSS: Minimal PROCEDURE IN DETAIL: History and physical today was reviewed. Risks and benefits of the procedure were explained. The patient understood, agreed to our procedure, and informed consent was obtained. IV inserted per routine protocol. The patient was taken to the operating room, placed in a prone position with a pillow positioned underneath the abdomen. The lower back and tailbone area was prepped and draped in a sterile fashion using iodine ?3 under fluoroscopy guidance on the lateral view the caudal space was identified the skin and subcutaneous tissue and size approximately 3 cc of 1 % lidocaine using a 25-gauge regular needle under direct visualization fluoroscopy using the lateral approach using a 22-gauge 3-1/2 inch spinal needle the needle was advanced via the skin through the sacral hiatus, tip of the needle passed through the sacrococcygeal ligament advanced approximately S4 area after negative aspiration for blood or CSF a total of 3 cc of contrast were injected to confirm correct placement of the needle as well as cephalad spread the spread was followed to approximately L5 area after confirmation AP as well as lateral view repeated negative aspiration a total of 15 cc of preservative-free 0.125% Marcaine with 80 mg of the portal was injected easily. The needles were then removed intact. The patient experienced no signs or symptoms intrathecal, intravascular injection. The patient experienced no paraesthesia. The procedure was completed without any apparent difficult, any complication. The patient appeared to tolerate well. ASSESSMENT AND PLAN: This is a 73-year-old female with lumbosacral radiculopathy, lumbosacral degenerative disc disease, lumbosacral spinal stenosis status post diagnostic/ therapeutic caudal epidural steroid injection. The patient will continue her current medications. The patient will follow in approximately 2 weeks for possible repeat of the procedure if indicated.
== END 2018-07-29 14:27 | disposition home or self-care (01) ==
LOC: SDC 12:08 → AC 12:10
PROVIDERS: Family Provider Family Medicine Geriatric Medicine; PCP Family Medicine Geriatric Medicine; Visit Provider Anesthesiology Pain Medicine
PROC: 3E0S3BZ Introduction of Anesthetic Agent into Epidural Space, Percutaneous Approach (ICD-10-PCS; CPT 62282; principal; 2018-07-29 13:00)
DX: M47.27 Other spondylosis with radiculopathy, lumbosacral region (principal); M51.37 Other intervertebral disc degeneration, lumbosacral region; M48.07 Spinal stenosis, lumbosacral region; M46.96 Unspecified inflammatory spondylopathy, lumbar region; K21.9 Gastro-esophageal reflux disease without esophagitis; E11.9 Type 2 diabetes mellitus without complications; M19.90 Unspecified osteoarthritis, unspecified site; F32.9 Major depressive disorder, single episode, unspecified; I10 Essential (primary) hypertension; G47.33 Obstructive sleep apnea (adult) (pediatric); E78.00 Pure hypercholesterolemia, unspecified; K44.9 Diaphragmatic hernia without obstruction or gangrene; F41.9 Anxiety disorder, unspecified; F43.10 Post-traumatic stress disorder, unspecified; Z78.0 Asymptomatic menopausal state; Z90.49 Acquired absence of other specified parts of digestive tract; Z98.1 Arthrodesis status; Z79.82 Long term (current) use of aspirin; Z79.84 Long term (current) use of oral hypoglycemic drugs; Z79.891 Long term (current) use of opiate analgesic; Z79.899 Other long term (current) drug therapy
CPT/HCPCS: 01992; 62323; 64483; 77003; 82962; J7120; J3490

== ENCOUNTER → 2018-09-18 15:16 | Outpatient (CLI) | payer MEDICARE, OTHER, SELFPAY ==
[2018-09-18 16:16] LABS: Absolute Lymphocyte Count 2.11 X10^3/ul (0.83-4.51); Absolute Neutrophil Count 4.3 X10^3/uL (2.0-7.7); Basophil# 0.02 X10^3/uL; Basophil% 0.3 % (0-1); Eosinophil# 0.15 X10^3/uL; Eosinophils% 2.1 % (0-5); Hemoglobin 12.9 g/dl (12.0-15.0); Lymphocyte # 2.11 X10^3/ul (4.0); Lymphocyte % 29.3 % (19-41); Mean Corp Hgb Conc 32.3 g/gl (32-36); Mean Corpuscular Volume 83.7 fL (81-99); Mean Platelet Vol. 10.3 fl (6.2-12.0); Monocyte# 0.61 X10^3/uL; Monocyte% 8.5 % (0-10); Neutrophil # 4.27 X10^3/uL (2.7-7.7); Neutrophil % 59.4 % (47-70); Platelet Count 248 K/mm3 (150-450); RBC Distribution Width CV 16.7 % (11.6-14.6); RBC Distribution Width SD 50.8 fl (35.1-43.9); Red Blood Count 4.78 M/mm3 (4.2-5.4); White Blood Count 7.2 K/mm3 (4.4-11.0)
[2018-09-18 16:21] LABS: POSITIVE COUNT NO; POSITIVE DIFFERENTIAL NO; POSITIVE MORPHOLOGY NO
[2018-09-18 16:55] LABS: ALB/GLOB Ratio 0.8 RATIO (0.9-2.4); AST(SGOT) 22 U/L (15-37); Alanine Aminotransfer ALT/SGPT 41 U/L (13-56); Albumin, Serum 3.5 g/dL (3.2-5.0); Alkaline Phosphatase 87 U/L (45-117); Anion Gap 11 (5-15); BUN 22 mg/dL (7-18); BUN/Creat Ratio 21.8 RATIO (10-20); Calcium,Total 9.1 mg/dL (8.5-10.1); Chloride 103 mmol/L (98-107); Creatinine, Serum 1.01 mg/dL (0.55-1.02); EST Glomerular Filtration Rate 57 mL/min (>60); Est Glom Filt Rate - Afr Amer 69 mL/min (>60); Globulin 4.4 g/dL (2.2-4.2); Glucose 161 mg/dL (74-106); Potassium 4.4 mmol/L (3.5-5.1); Protein, Total 7.9 g/dL (6.4-8.2); Sodium Level 139 mmol/L (136-145); Thyroid Stim Hormone (TSH) 1.28 uIU/mL (0.358-3.74)
== END ==
PROVIDERS: Family Provider Family Medicine Geriatric Medicine; PCP Family Medicine Geriatric Medicine; Visit Provider Family Medicine Geriatric Medicine
DX: E11.9 Type 2 diabetes mellitus without complications (principal); E55.9 Vitamin D deficiency, unspecified; I10 Essential (primary) hypertension
CPT/HCPCS: 36415; 80053; 82306; 84443; 85025

== ENCOUNTER → 2018-12-16 12:52 | Outpatient (CLI) | payer MEDICARE, SELFPAY ==
[2018-12-05 13:34] VITALS: BMI 52.5
[2018-12-16 14:13] LABS: AST(SGOT) 40 U/L (15-37); Alanine Aminotransfer ALT/SGPT 44 U/L (13-56); Albumin, Serum 3.6 g/dL (3.2-5.0); Alkaline Phosphatase 85 U/L (45-117); Bilirubin, Direct 0.12 mg/dL (0.00-0.30); Cholesterol 130 mg/dL (200); Globulin 4.3 g/dL (2.2-4.2); High Density Lipoprotein 46 mg/dL; Protein, Total 7.9 g/dL (6.4-8.2); Triglycerides 201 mg/dL; Very Low Density Lipoprotein 40 mg/dL (5-40)
== END ==
PROVIDERS: Family Provider Family Medicine Geriatric Medicine; PCP Family Medicine Geriatric Medicine; Referring Provider Internal Medicine Cardiovascular Disease; Visit Provider Internal Medicine Cardiovascular Disease
DX: I50.32 Chronic diastolic (congestive) heart failure (principal); E78.5 Hyperlipidemia, unspecified
CPT/HCPCS: 36415; 80061; 80076

== ENCOUNTER → 2018-12-17 15:28 | Outpatient (CLI) | payer MEDICARE, SELFPAY ==
[2018-12-05 13:34] VITALS: BMI 52.5
[2018-12-17 15:55] LABS: Absolute Neutrophil Count 3.7 X10^3/uL (2.0-7.7); Basophil# 0.02 X10^3/uL; Basophil% 0.3 % (0-1); Eosinophil# 0.21 X10^3/uL; Eosinophils% 3.3 % (0-5); Hematocrit 39.9 % (37-47); Hemoglobin 12.4 g/dl (12.0-15.0); Lymphocyte % 31.1 % (19-41); Mean Corp Hgb Conc 31.1 g/gl (32-36); Mean Corpuscular Hgb 26.9 pg (27.0-32.0); Mean Corpuscular Volume 86.6 fL (81-99); Mean Platelet Vol. 10.1 fl (6.2-12.0); Monocyte# 0.45 X10^3/uL; Neutrophil # 3.74 X10^3/uL (2.7-7.7); Platelet Count 203 K/mm3 (150-450); RBC Distribution Width CV 15.4 % (11.6-14.6); RBC Distribution Width SD 48.2 fl (35.1-43.9); Red Blood Count 4.61 M/mm3 (4.2-5.4); White Blood Count 6.4 K/mm3 (4.4-11.0)
[2018-12-17 16:13] LABS: POSITIVE COUNT NO; POSITIVE DIFFERENTIAL NO; POSITIVE MORPHOLOGY NO
[2018-12-17 16:28] LABS: AST(SGOT) 38 U/L (15-37); Alanine Aminotransfer ALT/SGPT 44 U/L (13-56); Albumin, Serum 3.5 g/dL (3.2-5.0); Alkaline Phosphatase 78 U/L (45-117); Anion Gap 7 (5-15); BUN 17 mg/dL (7-18); Calcium,Total 8.6 mg/dL (8.5-10.1); Chloride 104 mmol/L (98-107); EST Glomerular Filtration Rate 66 mL/min (>60); Est Glom Filt Rate - Afr Amer 80 mL/min (>60); Globulin 3.5 g/dL (2.2-4.2); Glucose 174 mg/dL (74-106); Potassium 4.9 mmol/L (3.5-5.1); Sodium Level 139 mmol/L (136-145); Thyroid Stim Hormone (TSH) 1.07 uIU/mL (0.358-3.74)
== END ==
PROVIDERS: Family Provider Family Medicine Geriatric Medicine; PCP Family Medicine Geriatric Medicine; Visit Provider Family Medicine Geriatric Medicine
DX: E11.9 Type 2 diabetes mellitus without complications (principal); E55.9 Vitamin D deficiency, unspecified; I10 Essential (primary) hypertension
CPT/HCPCS: 36415; 80053; 82306; 84443; 85025

== ENCOUNTER → 2019-04-02 14:18 | Outpatient (CLI) | payer MEDICARE, OTHER, SELFPAY ==
[2018-12-05 13:34] VITALS: BMI 52.5
--- NOTE | 2019-04-02 15:25 | RAD_ITS ---
STUDY: X-RAY - RIGHT KNEE REASON FOR EXAM: Female, 74 years old. Pain TECHNIQUE: 5 view(s) of the knee. COMPARISON: None. FINDINGS: There are no fractures or dislocations and no knee joint effusion. The quadriceps and patellar tendons are normal. A small bony enthesophyte from the superior margin of the patella is noted. There is a mild narrowing of the medial compartment of the knee joint.. RAD/Knee 4 or More Views IMPRESSION: No fractures. Mild osteoarthritis of the knee. No knee joint Electronically Signed: Qasim Perdomo MD at 7:31 EDT Tel , Service support ,
[2019-04-02 15:51] LABS: Absolute Lymphocyte Count 1.55 X10^3/ul (0.83-4.51); Absolute Neutrophil Count 3.6 X10^3/uL (2.0-7.7); Basophil# 0.01 X10^3/uL; Basophil% 0.2 % (0-1); Eosinophil# 0.17 X10^3/uL; Hematocrit 38.3 % (37-47); Lymphocyte # 1.55 X10^3/ul (4.0); Lymphocyte % 27.5 % (19-41); Mean Corp Hgb Conc 31.3 g/gl (32-36); Mean Corpuscular Hgb 26.3 pg (27.0-32.0); Mean Corpuscular Volume 83.8 fL (81-99); Mean Platelet Vol. 10.1 fl (6.2-12.0); Monocyte# 0.32 X10^3/uL; Monocyte% 5.7 % (0-10); Neutrophil # 3.55 X10^3/uL (2.7-7.7); Neutrophil % 63.1 % (47-70); Platelet Count 220 K/mm3 (150-450); RBC Distribution Width CV 16.4 % (11.6-14.6); Red Blood Count 4.57 M/mm3 (4.2-5.4); White Blood Count 5.6 K/mm3 (4.4-11.0)
[2019-04-02 16:02] LABS: POSITIVE COUNT NO; POSITIVE DIFFERENTIAL NO; POSITIVE MORPHOLOGY NO
[2019-04-02 16:07] LABS: Vitamin D,25 Hydroxy 44.8 ng/mL (29.95-100.01)
[2019-04-02 16:21] LABS: ALB/GLOB Ratio 0.8 RATIO (0.9-2.4); AST(SGOT) 18 U/L (15-37); Alanine Aminotransfer ALT/SGPT 34 U/L (13-56); Albumin, Serum 3.3 g/dL (3.2-5.0); Alkaline Phosphatase 87 U/L (45-117); Anion Gap 9 (5-15); BUN 18 mg/dL (7-18); BUN/Creat Ratio 18.3 RATIO (10-20); Chloride 106 mmol/L (98-107); Creatinine, Serum 0.98 mg/dL (0.55-1.02); EST Glomerular Filtration Rate 59 mL/min (>60); Est Glom Filt Rate - Afr Amer 72 mL/min (>60); Globulin 4.3 g/dL (2.2-4.2); Glucose 188 mg/dL (74-106); Potassium 4.5 mmol/L (3.5-5.1); Protein, Total 7.6 g/dL (6.4-8.2); Sodium Level 139 mmol/L (136-145); Thyroid Stim Hormone (TSH) 1.09 uIU/mL (0.358-3.74)
== END ==
LOC: POLAB3 14:19 → RAD 15:21
PROVIDERS: Family Provider Family Medicine Geriatric Medicine; PCP Family Medicine Geriatric Medicine; Referring Provider Family Medicine Geriatric Medicine; Visit Provider Family Medicine Geriatric Medicine
DX: M25.561 Pain in right knee (principal); E11.9 Type 2 diabetes mellitus without complications; E55.9 Vitamin D deficiency, unspecified; I10 Essential (primary) hypertension
CPT/HCPCS: 36415; 73564; 80053; 82306; 84443; 85025

== ENCOUNTER → 2019-04-24 12:38 | Outpatient (CLI) | payer MEDICARE, OTHER, SELFPAY ==
[2019-04-14 13:12] VITALS: BMI 52.5
--- NOTE | 2019-04-24 12:40 | MRI_ITS ---
HISTORY:pt c/o knee pain and swelling area below knee area marked with bead. no known injury MRI EXAMINATION OF THERight KNEE COMPARISON: Radio graphs obtained of the right knee obtained April 02, 2019 TECHNIQUE: Coronal proton density, fat-suppressed T2 and thin coronal T2 images of the ACL, sagittal proton density and fat-suppressed T2 and axial fat-suppressed T2 # of images including paperwork:[id number] FINDINGS: Bones: There is no evidence of an acute fracture. There is medial greater than lateral joint space narrowing with marginal osteophytes. There is also patellofemoral joint space narrowing with small osteophytes Ligaments and tendons: The anterior and posterior cruciate ligaments are intact The medial collateral ligament, lateral collateral ligament, biceps femoris tendon, iliotibial band, and popliteus tendon are intact Extensor mechanism: The quadriceps tendon and the patellar tendon are intact. There is minimal abnormal signal within the distal patellar tendon which can be seen with tendinopathy. No surrounding edema. The medial and lateral retinaculum are intact. There is a suprapatellar plica noted Knee joint: Small joint effusion. No significant popliteal cyst Medial compartment: There is blunting of the free edge of the middle one third of the medial meniscus seen on coronal image 15 series 7. The articular cartilage is thinned at the weightbearing portion of the femur but no full-thickness losses noted Lateral compartment: No evidence of a meniscal tear. The articular cartilage is intact Patellofemoral articulation: The articular cartilage of the patella and the trochlear are intact. MRI/Lower Ext Joint Only (Routine) IMPRESSION: Mild osteo-arthritic changes as discussed Blunting of 3 of the middle one third of the medial meniscus Question minimal tendinopathy involving the distal patellar tendon Small joint effusion. No evidence of a popliteal cyst There is minimal subcutaneous edema overlying the patella in the region of the marker but no additional gross abnormalities are noted in the region at 1908 Reported and signed by: Beatris Meza DO Electronically Signed: Beatris Meza DO at 19:07 EDT Tel , Service support ,
== END ==
PROVIDERS: Family Provider Family Medicine Geriatric Medicine; PCP Family Medicine Geriatric Medicine; Referring Provider Orthopaedic Surgery; Visit Provider Orthopaedic Surgery
DX: M17.11 Unilateral primary osteoarthritis, right knee (principal); M70.51 Other bursitis of knee, right knee
CPT/HCPCS: 73721

== ENCOUNTER 2019-06-18 18:00 | Outpatient (RCR) | payer MEDICARE, OTHER, SELFPAY ==
[2019-05-02 13:23] VITALS: BMI 52.5
== END 2019-06-18 19:00 | disposition home or self-care (01) ==
LOC: PT 18:00
PROVIDERS: Family Provider Family Medicine Geriatric Medicine; PCP Family Medicine Geriatric Medicine; Referring Provider Physician Assistant; Visit Provider Physician Assistant
DX: M70.51 Other bursitis of knee, right knee (principal)

== ENCOUNTER 2019-07-02 07:03 | Day surgery (SDC) | payer MEDICARE, OTHER, SELFPAY ==
[2019-06-30 13:28] VITALS: BMI 55.7
--- NOTE | 2019-06-30 14:00 | RAD_ITS ---
STUDY: X-RAY CHEST REASON FOR EXAM: Female, 74 years old. Shortness of breath TECHNIQUE: PA and lateral views of the chest. COMPARISON: 02/02/2018 FINDINGS: The lungs are clear and expanded. There is no demonstrated pleural abnormality. There is mild cardiac enlargement. Normal mediastinum and harmony. Normal visualized pulmonary arteries. Normal visualized aortic arch and descending thoracic aorta. Normal visualized thoracic spine. Normal visualized ribs, clavicles, and shoulders. There is no demonstrated abnormality of the visualized soft tissue structures of the upper abdomen. RAD/Chest PA and Lateral IMPRESSION: Mild cardiomegaly. No evidence of acute intrathoracic process. No evidence of pneumonia or CHF. Electronically Signed: Iglesia Vasquez MD at 15:41 EDT Tel [phone], Service support ,
[2019-06-30 15:50] LABS: Absolute Lymphocyte Count 1.91 X10^3/uL (0.83-4.51); Absolute Neutrophil Count 5.1 X10^3/uL (2.0-7.7); Basophil# 0.04 X10^3/uL; Basophil% 0.5 % (0-1); Eosinophil# 0.24 X10^3/uL; Eosinophils% 3.1 % (0-5); Hematocrit 39.7 % (37-47); Hemoglobin 12.2 g/dL (12.0-15.0); Lymphocyte # 1.91 X10^3/ul (4.0); Lymphocyte % 24.4 % (19-41); Mean Corp Hgb Conc 30.7 g/dL (32-36); Mean Corpuscular Hgb 26.2 pg (27.0-32.0); Mean Corpuscular Volume 85.4 fL (81-99); Mean Platelet Vol. 9.8 fl (6.2-12.0); Monocyte# 0.47 X10^3/uL; NRBC Flagged by Analyzer 0 % (0-5); Neutrophil # 5.12 X10^3/uL (2.7-7.7); Neutrophil % 65.5 % (47-70); Platelet Count 245 K/mm3 (150-450); RBC Distribution Width CV 15.9 % (11.6-14.6); RBC Distribution Width SD 49.3 fl (35.1-43.9); Red Blood Count 4.65 M/mm3 (4.2-5.4); White Blood Count 7.8 K/mm3 (4.4-11.0)
[2019-06-30 16:13] LABS: Prothrombin Time (Protime)PT. 13.3 SECONDS (11.7-14.9)
[2019-06-30 16:25] LABS: Anion Gap 6 (5-15); BUN 18 mg/dL (7-18); Calcium,Total 8.8 mg/dL (8.5-10.1); Chloride 107 mmol/L (98-107); Creatinine, Serum 1.06 mg/dL (0.55-1.02); EST Glomerular Filtration Rate 54 mL/min (>60); Est Glom Filt Rate - Afr Amer 66 mL/min (>60); Glucose 166 mg/dL (74-106); Potassium 4.2 mmol/L (3.5-5.1); Sodium Level 141 mmol/L (136-145)
[2019-07-02] VITALS (20 sets, daily range): BP systolic 97–173; BP diastolic 51–110; PULSE 55–71; RESP 12–21; TEMP 36.9; O2SAT 95–98; BMI 53.9; BMI 55.5; BMI 53.8
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
[2019-07-02 09:31] LABS: ACT Activated Clotting Time 158 sec (74-137)
[2019-07-02] MEDS: 0.9% Normal Saline 1,000 ML 150 ML IV (09:45)
--- NOTE | 2019-07-02 09:53 | CL.I_ITS ---
Patient Name: VERONICA CRAIG Study Date: 07/02/2019 Performing: Barak Gonzales MD Ht: 64 inches 163 cm : 1945 Wt: 319.7 lbs 144.83 kg Age: 74 Gender: female BSA: 2.39 PROCEDURE(S) PERFORMED UE99-LWI/COR/LV GY98-DCO, CORONARY OR GRAFT, INITIAL VESSEL GB62-IMS, CORONARY OR GRAFT, EACH ADD'L VESSEL EX11-LZS W OR WO PTCA, SINGLE CORONARY ARTERY CLINICAL PROFILE AND CO-MORBIDITIES Indications: Suspected CAD, Other, New Onset Angina <= 2 months Heart Failure: None Stress/Imaging Date: 05/08/2018 CAD Presentations: Other: Dyspnea on exertion Comorbidities/Risk Factors: Hypertension Dyslipidemia Diabetes Mellitus: Diabetes Therapy: Oral CONCLUSIONS Perserved Left Ventricular systolic function with normal EDP Single vessel CAD of the PDA Non obstructive coronary arteries Successful PTCA/DAVID mid PDA with a 2.25 x 16 Promus Synergy, post dilated with a 2.25 x 12 NC balloon ; 75%-->0%, no dissection. Post FFR=0.96. RECOMMENDATIONS Staged for FFR Referred for immediate PCI Management as per referring Capacity Planning Manager Highly recommend quitting all tobacco products Follow up with primary vice president medical affairs Risk factor modification ASA Indefinitley Plavix for at least 12 months Routine post interventional care Refer for Outpatient Cardiac Rehab Manual sheath removal per protocol Follow up with Dr. Gonzales Successful Mynx Control of RFA. DESCRIPTION OF PROCEDURE The patient arrived to the procedure lab. The risks and benefits of the procedure as well as a full d escription of our services here and lack of surgical backup were fully explained to the patient and/o r their significant other prior to the catheterization. The Timeout was completed, verifying the christiane ect patient and procedure. The patient's procedural site was prepped and draped in the usual fashion. Local anesthetic was given subcutaneously to right groin region with Lidocaine 2%. Using a modified Seldinger technique, arterial access was obtained via the right femoral artery, a 4Fr sheath was inse rted. Left Coronary Artery selective angiography was performed in multiple views using a 4 Fr. JL5 c atheter. Right Coronary Artery selective angiography was then performed in multiple views using a 4 F r. 3DRC catheter. Left Ventriculography was performed in NEWELL projection using a 4 Fr. Pigtail cathete r. LV to AO pullback pressures were then recordedThe images were reviewed and options discussed. A decision was then made to proceed with an Intervention, IVUS or other adjunct procedure. Arterial sheath was exchanged for a 6 Fr Sheath. 3.75 Guide catheter was inserted and engaged int o the LCA. The FFR/iFR wire was inserted. Adenosine was then given per protocol. Angiogram performed. FFR Ratio Baseline: .97 Adenosine was then given per protocol. Pressures and FFR/iFR were then recor ded. FFR Ratio post Adenosine: 0.89 FFR Ratio Baseline: 1.0 Adenosine was then given per protocol. Pr essures and FFR/iFR were then recorded. FFR Ratio post Adenosine: 0.92 The FFR/iFR wire was then don felicia. HS 2 Guide catheter was inserted and engaged into the RCA. The FFR/iFR wire was inserted. FFR Ra tre Baseline: 1.04 Adenosine was then given per protocol. FFR Ratio post Adenosine: 0.86 The FFR/iFR wire was left in place as guide wire. 2 x 12 Emerge Balloon catheter was inserted. Balloon catheter w as advanced across lesion in the posterior descending, mid. Angiogram performed pre balloon dilatatio n. PTCA balloon inflated at 8 atms for 12 secs. PTCA balloon inflated at 8 atms for 10 secs. PTCA balloon inflated at 8 atms for 10 secs. Angiogram performed post balloon dilatation. 2.25 x 16 Synergy Drug Eluting stent was inserted. Drug Eluting stent was advanced across the lesion in th e posterior descending, mid. Angiogram performed pre stent deployment. Angiogram performed post stent deployment. 2.25 x 12 NC Emerge Balloon catheter was inserted post stent. Adenosine was then given p er protocol. Pressures and FFR/iFR were then recorded. FFR Ratio Baseline: 1.01 FFR Ratio post Adenos ine: 0.91 The FFR/iFR wire was then removed. Contrast was injected through the sheath and the Right I liac and Femoral artery were assessed for possible closure device. The arterial sheath was pulled an d a Mynx closure device was deployed for hemostasis CORONARY ANGIOGRAPHY DOMINANCE: Right Dominant LEFT HEART ASSESSMENT Left Ventricular Ejection Fraction: by LV Gram 75 % Normal Left Ventricular systolic function Normal LV wall motion LEFT MAIN: Non-obstructive LEFT ANTERIOR DESCENDING ARTERY: PROX LAD: 55 % Stenosis, Mild calcification CIRCUMFLEX ARTERY: Angiographically normal RIGHT CORONARY ARTERY: PROX RCA: Mild luminal irregularities less than 30% RT PDA: Ostial - 50. % Stenosis, Mid - 75 % Stenosis INTERVENTION INFORMATION LESION SITE: LAD (Proximal) Lesion Devices: IGT Devices ( Formerly Harvey) Coronary FFR Wire Medtronic 6 Fr HSII 100cm Guide Catheter LESION SITE: Rt PDA (Mid) Lesion Complexity: Non-High/Non-C, lesion at bifurcation: No, lesion length: 16 mm, culprit lesion: Y es Pre Stenosis: 75 % Pre intervention GERBER flow: 3 PROCEDURE: Drug Eluting Stent with pre and post dilatation Post Stenosis: 0 % Post intervention GERBER flow: 3 Lesion Devices: IGT Devices ( Formerly Harvey) Coronary FFR Wire Medtronic 6 Fr EBU3.75 100cm Guide Catheter Eron Sci EMERGE MR 2.00x12 BALLOON Eron Sci Synergy MR DAVID 2.25x16 Eron Sci NC EMERGE MR 2.25x12 BALLOON COMPLICATIONS No Complications PROCEDURE MEDICATIONS Versed 1 mg IV Oxygen: 2 L/min via nasal cannula Adenosine drip for FFR 32.8 ml IV 07/02/2019 08:45:18 Adenosine drip for FFR 32.8 ml IV 07/02/2019 08:45:18 Adenosine drip for FFR 32.8 ml IV 07/02/2019 08:51:10 Adenosine drip for FFR 32.8 ml IV @ 07/02/2019 09:03:46 Heparin 6000 unit(s) IV 07/02/2019 08:40:15 Nitro 200 mcg IC 07/02/2019 08:31:10 Nitro 200 mcg IC 07/02/2019 08:31:10 Nitro 200 mcg IC 07/02/2019 08:34:20 Nitro 300 mcg IC 07/02/2019 08:56:18 Nitro 200 mcg IC 07/02/2019 09:04:26 Nitro 200 mcg IC 07/02/2019 09:10:21 IV Bolus: .9 NaCl 500 ml total 07/02/2019 09:09:41 SUMMARY OF HEMODYNAMIC DATA Time AIR REST ECG 07:41:32 AO 126/66 (89) SA 08:27:28 LV 138/-19, 6 08:37:15 LV 136/-17, 6 08:37:21 LVp 137/-22, 3 08:37:26 AOp 127/61 (87) 08:37:31 RM AIR REST 09:39:10 Signed By Barak Gonzales MD On 07/22/2019 12:36:18 PM Barak Gonzales MD
[2019-07-02 11:30] LABS: Bedside Glucose 134 mg/dL (70-110)
[2019-07-02] MEDS: diazePAM 5 MG Tablet PO (13:33)
[2019-07-02] MEDS: Morphine 2 MG/ML Syringe IV (13:33)
--- NOTE | 2019-07-02 14:28 | CRPHASE1 ---
Patient Communication PHII Cardiac Rehab Discussed with Patient:: Yes Guide to Cardiac Rehab Given to Patient:: Yes Cardiac Rehab Facility Choice List Given to Patient:: Yes - chooses [facility] Choice Program [facility] CR PHII:: Communication Given to CR, Refer to [facility] Choice Program Other:: Communication Given to CR, With permission faxed order and referral information Credit Risk Analyst:: Barak Gonzales Refer Phase II Cardiac Rehab:: Yes Sessions:: 36 sessions - 3 days/wk, 12 weeks Risk Factors/Lifestyle Hx Hypertension: Yes Hx Diabetes Mellitus Type 2: Yes Hx Dyslipidemia: Yes Hx Obesity: Yes Height: 1.64 m Weight:: 144.696 kg BMI: 53.8 Family History: Family History (Last Reviewed 06/30/19 @ 08:35 by Andree Edmondson) Father Myocardial infarction Mother CVA (cerebral vascular accident) Hypertension Issues Affecting Care:: None Knowledge of Condition:: Yes Hospital Course Cardiac Cath Date:: 07/02/19 Medical/Surgical History Diabetes:: Yes Hypertension:: Yes Dyslipidemia:: Yes Cardiac Rehabilitation Info Cardiac Rehabilitation Program Information: Cardiac Rehabilitation is important for patients like you who are recovering from a heart problem. Cardiac rehabilitation programs are recognized as integral to the continued care of the patient with coronary heart disease. The cardiac rehabilitation program is designed to optimize a patient's physical, psychological, and social functioning. Health health care law specialist work in cardiac rehabilitation programs and assist you with getting the treatments you need to get stronger and healthier - like exercise, healthy eating habits, and medications. Cardiac rehabilitation has been show to help people with heart problems live longer and have better life enjoyment than people who do not go to cardiac rehabilitation. Please contact the Cardiac Rehabilitation Program at [facility] at in two weeks if you have not heard from them.
--- NOTE | 2019-07-02 14:30 | CRPH1.INSTRU ---
General Education CAD and cardiac anatomy and function:: Patient communicates acknowledgment Explanation of diagnoses and procedures:: Patient communicates acknowledgment Sign/Symptoms of [place]:: Patient communicates acknowledgment Antiplatelet therapy: Patient communicates acknowledgment Proper use of NTG-SL: Not instructed Emergency procedures and activation of EMS: Patient communicates acknowledgment Compliance of all prescribed medications: Patient communicates acknowledgment Smoking Nicotine/Smoking Response Code:: Patient communicates acknowledgment Dyslipidemia Recommendations Include:: Lipid profile provided, Lipid profile not available, Reviewed NCEP/ATP guidelines, Therapeutic Lifestyle Change dietary guidelines Dyslipidemia Response Code:: Patient communicates acknowledgment Overweight/Obesity Patient Overweight/Obesity Risk Factors Are:: Obesity - > or = 30 Recommendations Include:: Weight loss of 5-10%, Reduced calorie diet, Exercise 5-7 times/week Overweight/Obesity:: Patient communicates acknowledgment Hypertension Recommendations Include:: Maintain BP <130/85, BP <130/80 if diabetic, DASH dietary guidelines, Decrease/maintain normal body weight, Moderation of ETOH Hypertension:: Patient communicates acknowledgment Heart Disease Recommendations Include:: Educated family members of their risk, Educated family members of importance of prevention of heart disease Diabetes Recommendations Include:: Maintain fasting blood sugars 70-110 md/dL, Maintain HgbA1c of 6% or less, Monitor blood sugar as prescribed, Diabetic dietary guidelines, Decrease/maintain body weight Diabetes:: Patient communicates acknowledgment Metabolic Syndrome Metabolic Syndrome Response Code:: Patient communicates acknowledgment Sedentary Patient Sedentary Risk Factors Are:: Lack of regular exercise Recommendations Include:: Aerobic exercise 5-7 times/week for 20-30 minutes continuously, Benefits of regular exercise, Discussed home walking program, Monitored Outpatient Cardiac Rehab Sedentary Response Code:: Patient communicates acknowledgment Stress Stress Response Code:: Patient communicates acknowledgment
[2019-07-02] MEDS: Furosemide 40 MG Tablet PO ×2 (15:11→18:56)
[2019-07-02] MEDS: Metoprolol Tartrate 25 MG Tablet 12.5 MG PO ×2 (15:11→21:31)
--- NOTE | 2019-07-02 16:19 | PCM.DC.CCA ---
Discharge Diet: Low fat/ Low Cholesterol Discharge Activity: Return to Normal Activity May shower in (days): 1 Lifting Restrictions: 10 pounds and also avoid any pushing or pulling for 3 days after your test. Call your doctor if your incision/area has: Continuous Slow Oozing, Sudden Increased Bleeding, Increased Pain/ Swelling, Increased Redness, Foul Smelling Discharge, Swelling at the incision site Call your doctor if you observe: Fever of 101 or Higher, Shortness of breath, Chest pain Remove Dressing in (days):: 1 Cleanse incision/area with: Soap & Water Additional Dressing/Incision Instructions:: Keep the dressing (bandage) on until the next morning. You may then shower, but do not take a tub bath for 5 days after your test. It is normal to have some tenderness and discomfort at the puncture site. Sometimes bruising also occurs. However, if pain, numbness, or coldness occurs below the puncture site (in your leg, toes, arms or fingers) call your doctor at once. You may have a small, marble sized knot at the puncture site. This is normal. Do not rub it. It will go away in 4-6 weeks. Bleeding can occur from the area where the puncture was done. Blood may spurt or drip from the site. If blood spurts, apply pressure right away to stop bleeding and call 911. Although rare, bleeding into the tissue (hematoma) can also occur. If this happens, a large, firm area goose egg under the skin will appear. If any of these occur, lie down as flat as you can and have someone apply firm pressure to the cath site with a gauze pad or a clean washcloth for 10-15 minutes. Call 911 or go to the Emergency Department. Additional Instructions: You will need to stay on your Plavix for at least one year prior to stopping this. You were started on metoprolol this is a beta anurag. You will take one half pill (12.5 mg ) twice a day At your next OV we will talk about cardiac rehab. Allergies/Adverse Reactions: Allergies No Known Allergies Allergy (Verified 06/30/19 08:35) Medications to take at Discharge Fluoxetine [Prozac] 40 mg PO DAILY 01/28/18 Potassium Chloride [K-Dur] 20 meq PO BID 02/04/18 Acetaminophen [Tylenol] 1,000 mg PO Q8H PRN tab 02/12/18 Lisinopril [Zestril] 2.5 mg PO DAILY #30 tab 02/12/18 aspirin 81 mg tablet,delayed release 81 mg PO QDAY 03/08/18 calcium carbonate 600 mg (1,500 mg)-vitamin D3 400 unit tablet 1 tab PO BID 03/08/18 cholecalciferol (vitamin D3) 2,000 unit capsule 2,000 unit PO QDAY 03/08/18 cyanocobalamin (vit B-12) 1,000 mcg tablet 1,000 mcg PO QDAY 03/08/18 lorazepam 0.5 mg tablet 0.5 mg PO QD-BID PRN 03/08/18 metformin 500 mg tablet 500 mg PO BID 03/08/18 multivit with emjzziyt-hmtm-RG-lutein 8 mg iron-400 mcg-300 mcg tablet 1 tab PO QDAY tab 03/08/18 atorvastatin 40 mg tablet 40 mg PO QDAY 03/19/18 furosemide 20 mg tablet 40 mg PO BID tab 03/19/18 Melatonin 10 mg PO QHS 07/26/18 traZODone [Desyrel] 100 mg PO QHS 07/26/18 albuterol sulfate HFA 90 mcg/actuation aerosol inhaler 2 puff INHALATION Q6H PRN #18 g 11/14/18 nitroglycerin 0.4 mg sublingual tablet 0.4 mg SUBLINGUAL Q5-15M PRN #25 tab 12/05/18 omeprazole 40 mg capsule,delayed release 40 mg PO DAILY 12/05/18 clopidogrel 75 mg tablet 75 mg PO .COMPLEX #30 tab 06/30/19 Metoprolol Tartrate [Lopressor (beta anurag)] 12.5 mg PO BID #30 tablet 07/03/19 The following prescriptions were given: Metoprolol Tartrate [Lopressor (beta anurag)] 12.5 mg PO BID #30 tablet Primary Care Physician: Jim Hester Chi, MD [Primary Care Provider] - Test Results: Test results from this visit will be discussed in further detail at your follow-up appointment, if applicable. Please Follow Up With: Flor Baez PA When: 07/18 at 3 pm Cardiac Rehabilitation Info Cardiac Rehabilitation Program Information: Cardiac Rehabilitation is important for patients like you who are recovering from a heart problem. Cardiac rehabilitation programs are recognized as integral to the continued care of the patient with coronary heart disease. The cardiac rehabilitation program is designed to optimize a patient's physical, psychological, and social functioning. Health child care supervisor work in cardiac rehabilitation programs and assist you with getting the treatments you need to get stronger and healthier - like exercise, healthy eating habits, and medications. Cardiac rehabilitation has been show to help people with heart problems live longer and have better life enjoyment than people who do not go to cardiac rehabilitation. Please contact the Cardiac Rehabilitation Program at [facility] at in two weeks if you have not heard from them.
[2019-07-02] MEDS: Calcium Carb/Vitamin D 1 TABLET Tablet PO (18:56)
[2019-07-02] MEDS: LORazepam 0.5 MG Tablet PO (19:25)
--- NOTE | 2019-07-02 20:48 | NURSING ---
Respiratory is up here setting up the patients home CPAP unit.
[2019-07-02] MEDS: traZODone 100 MG Tablet PO (21:31)
[2019-07-02] MEDS: MELATONIN 10 MG TABLET PO (21:31)
[2019-07-02] MEDS: Atorvastatin Calcium 40 MG Tablet PO (21:31)
[2019-07-03] VITALS (14 sets, daily range): BP systolic 115–160; BP diastolic 44–78; PULSE 48–69; RESP 12–20; TEMP 36.6–36.7; O2SAT 95–96
[2019-07-03 03:54] LABS: Hematocrit 34.9 % (37-47); Mean Corp Hgb Conc 31.5 g/dL (32-36); Mean Corpuscular Hgb 26.9 pg (27.0-32.0); Mean Corpuscular Volume 85.3 fL (81-99); Mean Platelet Vol. 9.6 fl (6.2-12.0); Platelet Count 185 K/mm3 (150-450); RBC Distribution Width CV 15.6 % (11.6-14.6); RBC Distribution Width SD 48.6 fl (35.1-43.9); Red Blood Count 4.09 M/mm3 (4.2-5.4); White Blood Count 6.8 K/mm3 (4.4-11.0)
[2019-07-03 04:26] LABS: ALB/GLOB Ratio 0.7 RATIO (0.9-2.4); AST(SGOT) 17 U/L (15-37); Alanine Aminotransfer ALT/SGPT 25 U/L (13-56); Albumin, Serum 2.8 g/dL (3.2-5.0); Alkaline Phosphatase 74 U/L (45-117); Anion Gap 9 (5-15); BUN 18 mg/dL (7-18); Calcium,Total 8.5 mg/dL (8.5-10.1); Chloride 106 mmol/L (98-107); Cholesterol 103 mg/dL (200); Creatinine, Serum 1.06 mg/dL (0.55-1.02); EST Glomerular Filtration Rate 54 mL/min (>60); Est Glom Filt Rate - Afr Amer 66 mL/min (>60); Estimated Creatinine Clearance 41.43 ml/min; Globulin 3.8 g/dL (2.2-4.2); Glucose 158 mg/dL (74-106); High Density Lipoprotein 42 mg/dL; Protein, Total 6.6 g/dL (6.4-8.2); Sodium Level 142 mmol/L (136-145); Triglycerides 173 mg/dL; Very Low Density Lipoprotein 35 mg/dL (5-40)
[2019-07-03] MEDS: Multivitamins,Ther W-Minerals Tablet 1 TABLET PO (09:25)
[2019-07-03] MEDS: Aspirin E.C. 81 MG Tablet PO (09:25)
[2019-07-03] MEDS: Calcium Carb/Vitamin D 1 TABLET Tablet PO (09:26)
[2019-07-03] MEDS: Furosemide 40 MG Tablet PO (09:26)
[2019-07-03] MEDS: Cyanocobalamin 500 MCG Tablet 1000 MCG PO (09:26)
[2019-07-03] MEDS: Clopidogrel Bisulfate 75 MG Tablet PO (09:27)
[2019-07-03] MEDS: Pantoprazole Sodium 40 MG Tablet PO (09:27)
[2019-07-03] MEDS: Metoprolol Tartrate 25 MG Tablet 12.5 MG PO (09:27)
[2019-07-03] MEDS: FLUoxetine 20 MG Capsule 40 MG PO (09:28)
[2019-07-03] MEDS: Lisinopril 2.5 MG Tablet PO (09:28)
--- NOTE | 2019-07-03 09:28 | PN.CARD_ITS ---
Subjectve: Patient doing very well overnight, in fact feels much better. Her chest heaviness has completely resolved. Telemetry negative. Right groin is clean /dry/intact, no thrills, bruits or hematoma. Hemoglobin and creatinine are within nominal limits. Objective: Vital Signs Temp Pulse Resp BP Pulse Ox 98.0 F 59 L 16 141/64 H 96 07/03/19 08:00 07/03/19 08:00 07/03/19 08:00 07/03/19 08:00 07/03/19 08:00 Oxygen Delivery Method Room Air Weight: 320 lb 1.779 oz Body Mass Index (BMI) 55.5 Intake and Output for Last 24 Hours 07/01/19 07/02/19 07/03/19 23:59 23:59 23:59 Intake Total 1640 / 1640 150 / 150 Balance 1640 / 1640 150 / 150 General: Awake, Alert, Oriented x 3 HEENT: PERRL, EOMI, Sclera Non Icteric Neck: Supple, Good ROM, No Lymph Node Enlargement Lungs: Clear to auscultation Cardiovascular: Regular Rhythm, Normal S1, Normal S2, No Murmurs, No Rubs, No Gallops Vascular: No Carotid Bruits, Normal Femoral Pulses, Normal Radial Pulses, Normal Dorsalis Pedal Pulse, Normal Posterior Tibial Pulses Abdomen: Bowel Sounds Present, Soft, Non Tender, No HSM, No Organomegaly Extremities: No Cyanosis, No Clubbing, No edema Neurological: No Focal Motor or Sensory Deficit 07/03/19 03:50: WBC 6.8, RBC 4.09 L, Hgb 11.0 L, Hct 34.9 L, MCV 85.3, MCH 26.9 L, MCHC 31.5 L, Plt Count 185, MPV 9.6 07/03/19 03:50: Sodium 142, Potassium 4.0, Chloride 106, Carbon Dioxide 27.0, Anion Gap 9, BUN 18, Creatinine 1.06 H, Est GFR (MDRD) Af Amer 66, Est GFR (MDRD) Non-Af 54 L, BUN/Creatinine Ratio 17.0, Glucose 158 H, Calcium 8.5, Total Bilirubin 0.30, Triglycerides 173, Cholesterol 103, LDL Cholesterol 26, VLDL Cholesterol 35, HDL Cholesterol 42 Rhythm: EKG: ECHO: Stress Test: Cardiac Cath: PCI: CT Surgery: Holter monitor: EPS: PPM: CXR: Chest CT Scan: Medical Necessity - Tobacco Use Smoking Status: Never smoker Assessment/Plan 1. Coronary artery disease: The patient underwent 2 separate FFR runs of her LAD stenosis, both of which were negative. Her FFR of her PDA however was abnormal and she received a single drug-eluting stent with an excellent result. The patient feels much better today. She will continue baby aspirin, Plavix, and be discharged home today. She will follow-up with me going forward. She will be enrolled in cardiac rehab. If the patient has recurrent exertional symptoms while she is in cardiac rehab, and have a low threshold for elective repair of her LAD stenosis at the bifurcation of her diagonal branch. 2. Hyperlipidemia: Continue lipid-lowering therapy. 3. Patient may be discharged home. Code Visit Inpatient E&M: 87504 Subs Hosp L2
--- NOTE | 2019-07-03 09:40 | PCM.PN.BLA ---
Progress Note Metoprolol will be discontinued d/t her asthma
== END 2019-07-03 10:30 | disposition home or self-care (01) ==
LOC: CLSP 07:12 → ICU 09:47
PROVIDERS: Family Provider Family Medicine Geriatric Medicine; PCP Family Medicine Geriatric Medicine; Referring Provider Internal Medicine Cardiovascular Disease; Visit Provider Internal Medicine Cardiovascular Disease
DX: I25.10 Atherosclerotic heart disease of native coronary artery without angina pectoris (principal); E78.5 Hyperlipidemia, unspecified; G47.33 Obstructive sleep apnea (adult) (pediatric); R06.09 Other forms of dyspnea; I11.0 Hypertensive heart disease with heart failure; I50.32 Chronic diastolic (congestive) heart failure; E11.9 Type 2 diabetes mellitus without complications; K21.9 Gastro-esophageal reflux disease without esophagitis; J45.909 Unspecified asthma, uncomplicated; E66.01 Morbid (severe) obesity due to excess calories; Z68.43 Body mass index [BMI] 50.0-59.9, adult; Z79.82 Long term (current) use of aspirin; Z79.02 Long term (current) use of antithrombotics/antiplatelets; Z79.84 Long term (current) use of oral hypoglycemic drugs; Z79.899 Other long term (current) drug therapy
CPT/HCPCS: 36415; 71046; 80048; 80053; 80061; 82962; 85025; 85027; 85347; 85610; 92928; 93005; 93458; 93571; 99152; 99153; C1760; J0153; J7030; J7040; Q9967; C1725; C1769; C1874; C1887; C1894; C9600

== ENCOUNTER → 2019-07-15 11:59 | Outpatient (CLI) | payer MEDICARE, OTHER, SELFPAY ==
[2019-07-02 10:00] VITALS: BMI 55.5
[2019-07-02 14:29] VITALS: BMI 53.8
--- NOTE | 2019-07-15 12:07 | CR.HP_ITS ---
CR - History & Physical - General Arrival date:: 07/15/19 Arrival time:: 12:08 Date of Referral:: 07/03/19 Date of CR Evaluation:: 07/15/19 Referring Physician: DR. VALERIE ALVA Primary Diagnosis: PCI W/CORONARY STENT PLACEMENT - History of Present Cardiac Event Onset Date: Enter Onset Date of cardiac illnesses in Comment field below PTCA or coronary stenting:: Yes - 07/02/2019 Interventions with present event:: HEART CATH - Medications Home Medications: Ambulatory Orders Medication Instructions Recorded Fluoxetine [Prozac] 40 mg PO DAILY 01/28/18 Potassium Chloride [K-Dur] 20 meq PO BID 02/04/18 Acetaminophen [Tylenol] 1,000 mg PO Q8H PRN tab 02/12/18 Lisinopril [Zestril] 2.5 mg PO DAILY #30 tab 02/12/18 aspirin 81 mg tablet,delayed 81 mg PO QDAY 03/08/18 release calcium carbonate 600 mg (1,500 1 tab PO BID 03/08/18 mg)-vitamin D3 400 unit tablet cholecalciferol (vitamin D3) 2,000 2,000 unit PO QDAY 03/08/18 unit capsule cyanocobalamin (vit B-12) 1,000 1,000 mcg PO QDAY 03/08/18 mcg tablet lorazepam 0.5 mg tablet 0.5 mg PO QD-BID PRN 03/08/18 metformin 500 mg tablet 500 mg PO BID 03/08/18 multivit with 1 tab PO QDAY tab 03/08/18 jcwenyxj-bcbz-CL-lutein 8 mg iron-400 mcg-300 mcg tablet atorvastatin 40 mg tablet 40 mg PO QDAY 03/19/18 furosemide 20 mg tablet 40 mg PO BID tab 03/19/18 Melatonin 10 mg PO QHS 07/26/18 traZODone [Desyrel] 100 mg PO QHS 07/26/18 albuterol sulfate HFA 90 2 puff INHALATION Q6H PRN #18 g 11/14/18 mcg/actuation aerosol inhaler nitroglycerin 0.4 mg sublingual 0.4 mg SUBLINGUAL Q5-15M PRN #25 12/05/18 tablet tab omeprazole 40 mg capsule,delayed 40 mg PO DAILY 12/05/18 release clopidogrel 75 mg tablet 75 mg PO .COMPLEX #30 tab 06/30/19 - Allergies Allergies/Adverse Reactions: Allergies No Known Allergies Allergy (Verified 06/30/19 08:35) - Sleep Disorder Evaluation Hx of Sleep Apnea: Yes Do you snore loudly (louder than talking or can be heard through closed doors)?: Yes - KUMAR; HAS HOME BiPAP SYTEM Do you often feel tired/ fatigued/ sleepy during daytime?: Yes Has anyone observed you stop breathing during sleep?: Yes History of Hypertension (for STOP score): Yes STOP Results: Positive Advanced Directives - Advanced Directives Power of Director Digital Communications: Yes - IS POA FOR HEALTHCARE Living Will: Yes Advance Directives on File: Yes Past Medical History - Past Medical Illness Medical History: Past Medical History (Last Reviewed 06/30/19 @ 08:35 by Andree Edmondson) Arteriosclerotic heart disease (ASHD) (Chronic) I25.10 07/02/19:Successful PTCA/DAVID mid PDA with a 2.25 x 16 Promus Synergy, post dilated with a 2.25 x 12 NC balloon; 75%-->0%, no dissection. Chronic diastolic (congestive) heart failure (Chronic) I50.32 MARIANO (dyspnea on exertion) (Acute) R06.09 HTN (hypertension) (Chronic) I10 HLD (hyperlipidemia) (Chronic) E78.5 Morbid obesity with BMI of 50.0-59.9, adult (Chronic) E66.01, Z68.43 Diabetes mellitus, type II (Chronic) E11.9 GERD (gastroesophageal reflux disease) (Chronic) K21.9 Anxiety and depression (Chronic) F41.9, F32.9 KUMAR (obstructive sleep apnea) (Chronic) G47.33 currently on CPAP 17 cmH20 Cellulitis of right lower extremity L03.115 Traumatic brain injury S06.9X9A Cellulitis of right lower extremity (Resolved) L03.115 H/O one miscarriage Z87.59 1976 H/O: hysterectomy Z90.710 all but 1 ovary, 1977 - Past Surgical History Surgical History: Past Surgical History (Last Updated 07/03/19 @ 15:51 by Andree Edmondson) Stented coronary artery (Chronic) Onset Date: 07/02/19 Z95.5 07/02/19: Successful PTCA/DAVID mid PDA with a 2.25 x 16 Promus Synergy, post dilated with a 2.25 x 12 NC balloon; 75%-->0%, no dissection. Post FFR=0.96. Breast reduction with liposuction and ABD wrap 1989 Complete hemorrhoidectomy 1973 External hemorrhoids removed 1969 & 1970 H/O colonoscopy Z98.890 10/2017 H/O spinal fusion Z98.1 L4&5 Dr. Pena [facility] 04/2016 History of bilateral carpal tunnel release Z98.890 and left tennis elbow, 1984 Hx of cholecystectomy Z90.49 1989 S/P nerve repair Z98.890 Left hand Upper GI scope 10/2017 removal of bilateral toenails Dr. Humberto Quintanilla 12/2016 Surgical History: hysterectomy, - - Hemorrhoidectomy, bilateral carpal tunnel release, abdominal surgery following possible liposuction/plastic surgery. - Family History Summary Family History: Family History (Last Reviewed 06/30/19 @ 08:35 by Andree Edmondson) Father Myocardial infarction Mother CVA (cerebral vascular accident) Hypertension Social History - Smoking History Smoking Status: Never smoker Hx Tobacco Use: No Hx Smoking Exposure: No - Alcohol Use Alcohol Usage: No - Substance Abuse Hx Substance Use: No - Occupation Occupation (List type of work in comments):: Retired - Hobbies, Recreation, Social Activities Hobbies: Other - PREVIOUS ORTIZ, CATERING, SOCIAL PLANNING, TOOK NASTY FALL W/BRAIN TRAUMA PUT A HALT TO EVERYTHING. Recreational Activities: I am able to engage in most, but not all activities - INDEPENDENT, DOES COOKING THOUGH, DUE TO BRAIN INJURY WEIGHT, LEGS HARD TO STAND LONG PERIODS,SO HE COOKS. I STILL DO THE PREP. Social Environment - Status Marital Status: - Current Living Arrangements Living Environment:: Spouse - Children Do any of your children live nearby?: Yes - Safety Do you feel safe in your surroundings?: Yes - Assistance Do you need any assistance at home?: NONE Review of Systems - Review of Systems Hints: Right click = Denies ([place]). Left click = Reports ([place]) Review of Present Symptoms: Reports: Shortness of Breath with Exertion. Denies: Shortness of Breath at Rest - Pain Is Patient Pain Free?: Yes Pain Location: neck, back, upper extremity, lower extremity - DUE TO TRAUMATIC INJURY 18 YEARS AGO,LOSS OF MOBILITY AND BRAIN INJURY WHOLE ENTIRE BODY ACHES, HAVE LOST ALL MOBILITY, STAMINA, AND ENDURANCE. Pain Level: 5/10 Risk Factor Assessment - Chief Complaint Chief Complaint: PATIENT IS A 74 YR OLD FEMALE WHO PRESENTS TO CR FOR EVALUATION FOLLOWING RECENT PCI W/CORONARY STENT. SHE HAS ONE OTHER OCCLUSION BUT NOT DIA RE ENOUGH TO STENT AT THIS TIME. HSE HAS A PREVIOUS H/O DM TYPE II, SEVERE OBESITY, HYPERLIPIDEMIA, ASTHMA AND CHRONIC DIASTOLIC HEART FAILURE. - Vital Signs Temperature: 97.8 F Respiratory Rate: 20 Pulse Ox: 95 Blood Pressure: 120/70 Nailbeds:: N/A NAILS ARE PAINTED - Pulse Pulse Rate: 76 Pulse Rhythm: Regular - Hypertension Blood Pressure Sitting - Right Arm: 120/70 - Blood Cholesterol/Lipids Total Cholesterol (mg/dL) Goal = less than 200 mg/dL: 103 - 07/03/2019 HDL Cholesterol (mg/dL) Goal = less than 40 mg/dL: 42 LDL Cholesterol (mg/dL) Goal = less than 70 mg/dL: 26 Triglycerides (mg/dL) Goal = less than 150 mg/dL: 173 - Diabetes Diabetic History: Type II, Medication Dependent Nutrition Referral for Diabetes: Yes - Obesity Height: 5 ft 4 in Weight:: 325 lb Weight in Pounds: 325.0 lbs Weight Source: Standing Scale Body Mass Index (BMI): 55.7 Desired Body Weight: 301 Nutritional Referral for Obesity: Yes - Physical Inactivity Physical Inactivity: Recreational activity - PHYSICALLY ACTIVE W/WALKER BUT NO REGULAR EXERCISE. - Risk Stratification Risk Guidelines: Lowest Risk: Risk Factor for Smoking, Risk Factor for Hypertension, Risk Factor for Depression, Moderate Risk: Risk Factor for Dyslipidemia, Risk Factor for Diabetes - GLUCOSE 158 0N 07/03/2019, Risk Factor for Sedentary Lifestyle, Highest Risk: Risk Factor for Obesity - For Smoking Smoking Risk Guidelines: Smoking Low Risk: None or quit greater than 6 months ago. Smoking Moderate Risk: Smoker or quit 6 months or less ago. Smoking High Risk: Smoker - For Dyslipidemia Dyslipidemia Risk Guidelines: Low Risk: Moderate Risk: High Risk: 15-25% fat 25.1-29% fat >/= 30% fat. <7% sat fat 7-9% sat fat >9% sat fat. <150 mg chol 150-299 mg chol >/= 300 mg chol. LDL <100 LDL 100-129 LDL >/= 130. Chol/HDL ratio <5.0 Chol/HDL ratio 5.0-6.0 Chol/HDL ratio >6.0. Triglycerides <100 Triglycerides 100- 149 Triglycerides >/= 150 - For Diabetes Mellitus Diabetes Risk Guidelines: Diabetes Low Risk: HgA1c <6.5% and/or FBG <120. Diabetes Moderate Risk: HgA1c 6.6-7.9% and/or FBG 120-180. Diabetes High Risk: HgA1c >/= 8% and/or FBG >180 - For Obesity/Overweight Obesity/Overweight Risk Guidelines: Obesity Low Risk: BMI <25.0. Obesity Moderate Risk: BMI 25-29.9. Obesity High Risk: BMI >/= 30.0 - For Hypertension Hypertension Risk Guidelines: Hypertension Low Risk: Systolic <120 and Diastolic <80. Hypertension Moderate Risk: Systolic 120-139 and Diastolic 80-89. Hypertension High Risk: Systolic >/= 140 and Diastolic >/= 90 - For Sedentary Lifestyle Sedentary Lifestyle Risk Guidelines: Sedentary Lifestyle Low Risk: >/= 1,500 kcal/week. Sedentary Lifestyle Moderate Risk: 700-1,499 kcal/week. Sedentary Lifestyle High Risk: < 700 kcal/week - For Depression Depression Risk Guidelines: Depression Low Risk: Not clinically depressed. Depression Moderate Risk: Mildly depressed. Depression High Risk: Clinically depressed - Family History Family History: Family History (Last Reviewed 06/30/19 @ 08:35 by Andree Edmondson) Father Myocardial infarction Mother CVA (cerebral vascular accident) Hypertension Motivation - Motivation to Participate On a scale of 1 to 10, how prepared are you to commit to attending program?: 10 - WILL TRY ANYTHING What do you see as barriers to successfully being able to complete the program?: BODY PAIN, LOSS OF MOBILITY. What do you see as the benefits of succesfully completing the program? In other words, what do you hope to get out of participating in the program?: GETTING SOME MOBILITY BACK, STRENGTHENING MY LEGS. Do you have a spouse or signficant other, family or friends who will help supp ort you to complete the program?: YES.
--- NOTE | 2019-07-15 12:08 | PCM.CR.ITP ---
General Information - General Information Admitting Diagnosis: PCI W/CORONARY STENT PLACEMENT Special Needs: USES 3 WHEEL WALKER - Education/Goals Barriers to Learning: Vision Impairment Individual Counseling: Initial Assessment: Abnormal Cholesterol Levels, High Blood Pressure, Overweight/Obesity, Diabetes, Metabolic Syndrome (as evidenced by 3 of 5 A-E below), A. Fasting Blood Sugar >100, B. Waist Circumference >35/Females >40/Males, C. High Triglycerides >150, Hypertension, Low HDL <40/Males or <50/Females Cardiac Rehabilitation Goals: 1. Maintain the individual as the primary focus of care. 2. To improve the patient's quality of life. 3. Identification of cardiac risk factors and provide cardiac risk factor management. 4. Enhance the psychosocial status of the patient. 5. Reconditioning enough to allow the patient to resume customary activities. 6. Control symptoms of cardiac disease Scale for measuring improvement of personal goals: Enter appropriate number in Comments. 2 = Unchanged. 3 = Slightly Better. 4 = Moderate Improvement. 5 = Met my Goal Personal Goals: Initial Assessment: Improve management of stress and emotions, Improve energy level, Participate in home exercise program, Improve knowledge of cardiac disease, Improve muscle strength and endurance, Improve diet and eating habits (eat healthier), Control risk factors (learn risk factor modification) Exercise - Initial Assessment - Visit Date of Eval: 07/15/19 Session #:: 0 - START CR ON - Stages of Change Stages of Change:: Action - Physician Prescribed Exercise Modalities: Treadmill, NuStep, SciFit Frequency (days/week): 3x/week for 12 weeks [36 sessions] Intensity: 60-80% age predicted maximum heart rate reserve METs - Progression: 0.5-1.0 MET, RPE 11-14 WEEK: 2.0 Target Heart Rate:: 96-125 - Hypertension Do any of the following apply?: Yes, Medication Resting Blood Pressure:: 120/70 - Intervention Home Exercise/Activity Goal:: Sitting Time <3 hrs/day - Education Goals:: Warm-up, RPE LIZZETTE Scale, S/S, Safe Exercise, Self-Monitoring - Exercise Program Goals Exercise Program Goals: Aerobic Activity >30 min, B/P <130/80 Nutrition - Initial Assessment - Program Goals Nutrition Program Goals: LDL <70. Total Cholesterol <200. HDL >45. Triglycerides <150. HgbA1C <7%. BMI <25 - Visit Date of Assessment:: 07/15/19 - Lipids Total Cholesterol (mg/dL) Goal = less than 200 mg/dL: 103 - 07/03/2019 HDL Cholesterol (mg/dL) Goal = less than 45 mg/dL: 42 LDL Cholesterol (mg/dL) Goal = less than 70 mg/dL: 26 Triglycerides (mg/dL) Goal = less than 150 mg/dL: 173 - Diabetes Diabetes:: Yes Fasting blood glucose:: 158 - 07/03/2019 Insulin: No Non-Insulin Dependent?: Yes Do you monitor your blood sugar at home?: Yes - Weight Management Height: 5 ft 4 in Weight:: 325 lb Weight Goal (kg):: 301 lb Body Fat %:: 55.7 - SEVERE OBESITY - Intervention Referral to dietitian:: Yes Referral to Diabetic Clinic:: Yes Will attend diet classes:: Yes - Education Gave educational materials for:: Signs & symptoms of hypoglycemia, Signs & symptoms of hyperglycemia, Relate diabetes to coronary artery disease, Healthy eating Tobacco - Initial Assessment - Program Goals Tobacco Program Goals: Complete smoking cessation. Attend education classes. Improve Knowledge Test score - Stage of Change Stages of Change:: Action - Learning Barriers Learning Barriers: Vision, Ready to Learn - Family Support Do you have family support?: Yes - Tobacco Use Tobacco Use: Non-smoker Do you use smokeless tobacco?: No - Intervention Smoking Cessation Referral:: No Individual Education/Counseling:: No Education Schedule Given:: Yes - Education Attended class for:: Treating Heart Disease, How The Heart Works, What it means to have Heart Disease, How Coronary Artery Disease is Diagnosed, Heart Procedures, What Heart Medications Do, Risk Factors & Modifications, Living an Active Life, Nutrition, Emotions & Heart Disease, Stress Management & Relaxation, Sleep Disorders & Heart Disease Psychosocial - Initial Assess - Target Goals Target Goals: Assess presence or absence of depression. Using a valid screening tool, maximizes coping skills. Positive support system - Stages of Change Stages of Change:: Action - Psychosocial Test Tool Used:: HANDS Depression Questionnaire - Intervention PS - Interventions: Yes Attend Stress Management Classes, No Referral to Mental Health, No Referral to [facility] Case Management, No Referral to Physician, No Uses Stress Management Skills - Education Gave educational materials for:: Coping techniques, Signs & symptoms of depression, Stress management, Relaxation techniques - Patient/Program Goal Preventative Medication(s):: Aspirin, VICKY inhibitor, Clopidogrel, Beta anurag, Statin/lipid - Assistive Devices Assistive Devices:: Walker Fall Risk Assessed:: Yes Patient Health Questionnaire Initial Assessment 1. Little interest or pleasure in doing things: More than half the days 2. Feeling down, depressed, or hopeless: More than half the days 3. Trouble falling or staying asleep, or sleeping too much: Several days - TAKE MEDICATIONS 4. Feeling tired or having little energy: Nearly every day 5. Poor appetite or overeating: Nearly every day 6. Feeling bad about yourself -- or that you are a failure or have let yourself or your family down: Several days 7. Trouble concentrating on things, such as reading the newspaper or watching television: Several days 8. Moving or speaking so slowly that other people could have noticed. Or the opposite - being so fidgety or restless that you have been moving around a lot more than usual: Several days 9. Thoughts that you would be better off , or of hurting yourself in some way: Several days How difficult have these problems made it for you to do your work, take care of things at home, or get along with other people?: Somewhat difficult Total Score: 15 KERRI-Q SV Test - Statements CAD is a disease of the arteries in the heart: False Examples of risk factors for heart disease: True Angina is chest pain or discomfort: True The benefits of resistance training include: True Eating more meat and dairy products: False Anti-platelet medications such as aspirin are important: True The only effective way to manage stress: True An exercise warm-up slowly increases heart rate: I Don't Know Prepared, processed foods usually have high sodium: True Depression is common after a heart attack: I Don't Know The statin medications lower cholesterol: True To control blood pressure, lower the amount of sodium: True If someone gets chest discomfort during walking: False Transfats are partially hydrogenated vegetable oils: True Sleep apnea that is not treated increases the risk: I Don't Know To control cholesterol, one should become a vegetarian: False Someone knows if he/she is exercising at the right level: True Diabetes cannot be prevented with exercise & health eating: False Stress is a large risk for heart attack: True A diet that can help lower blood pressure is rich in: True - Total Score Total Correct Responses: 16 Self-Efficacy Initial Assessment We would like to know how confident you are in doing certain activities. Please select your confidence level for:: Select your confidence level for the following using the scale 1-10 where 1 is not at all confident and 10 is totally confident. Your score is the average of all 6 responses. Fatigue: How confident are you that you can keep the fatigue caused by your disease from interfering with the things you want to do? Select Number: 1 Physical Discomfort or Pain: How confident are you that you can keep the physical discomfort or pain of your disease from interfering with the things you want to do? Select Number: 3 Emotional Distress: How confident are you that you can keep the emotional distress caused by your disease from interfering with the things you want to do? Select Number: 3 Other Symptoms or Health Problems: How confident are you that you can keep other symptoms or health problems from interfering with the things you want to do? Select Number: 3 Different Tasks and Activities: How confident are you that you can do the different tasks and activities needed to manage your health condition so as to reduce your need to see a doctor? Select Number: 5 Medication: How confident are you that you can do things other than just taking medication to reduce how much your illness affects your everyday life? Select Number: 5 Total Score:: 3 Nutrition Survey - Nutrition Survey Instructions Scoring Instructions: Scoring is as follows: Yes = 1 points. No = 0 point. Patient score that is >/=12 is considered to be at potential nutritional risk and could benefit from a referral to a registered dietitian. - Nutrition Survey Initial Have you lost >10 lbs over the past 2 months without trying?: No Are you following a special diet at home for diabetes, low fat, or low salt?: Yes Are you interested in meeting with a dietitian for help understanding your diet?: Yes Do you eat less than 3 meals a day?: No Do you eat fatty meats (haro, sausage, ribs, etc), fried foods, desserts, large amounts of salad dressings, margarine, butter, or cheese most days?: Yes - OCCASIONALLY BUT NOT EVERYDAY HABIT Do you have food allergies? [Enter types in comment field]: No Do you eat in restaurants more than 3 times a week?: No Do you season food with salt, seasoning salt, or garlic salt?: Yes - MINIMALLY Do you used canned, boxed, frozen meals, or soups, seasoning packets?: Yes Total Score:: 5
[2019-07-15 12:29] VITALS: BP 120/70
[2019-07-15 12:42] VITALS: BP 120/70; PULSE 76; RESP 20; TEMP 36.6; O2SAT 95; BMI 55.7
== END ==
PROVIDERS: Family Provider Family Medicine Geriatric Medicine; PCP Family Medicine Geriatric Medicine; Referring Provider Internal Medicine Cardiovascular Disease; Visit Provider Internal Medicine Cardiovascular Disease
DX: E78.5 Hyperlipidemia, unspecified (principal); E66.01 Morbid (severe) obesity due to excess calories; Z68.43 Body mass index [BMI] 50.0-59.9, adult; I50.32 Chronic diastolic (congestive) heart failure; L03.115 Cellulitis of right lower limb; E11.9 Type 2 diabetes mellitus without complications; Z98.61 Coronary angioplasty status

== ENCOUNTER 2019-08-11 11:31 | Outpatient (RCR) | payer MEDICARE, OTHER, SELFPAY ==
[2019-07-02 14:29] VITALS: BMI 53.8
[2019-07-22 11:16] VITALS: BMI 55.4
== END 2019-08-11 23:59 | disposition home or self-care (01) ==
LOC: DC 11:31
PROVIDERS: Family Provider Family Medicine Geriatric Medicine; PCP Family Medicine Geriatric Medicine; Visit Provider Internal Medicine Cardiovascular Disease
DX: E78.5 Hyperlipidemia, unspecified (principal); E66.01 Morbid (severe) obesity due to excess calories; I50.32 Chronic diastolic (congestive) heart failure; E11.9 Type 2 diabetes mellitus without complications; I25.10 Atherosclerotic heart disease of native coronary artery without angina pectoris; K21.9 Gastro-esophageal reflux disease without esophagitis; G47.33 Obstructive sleep apnea (adult) (pediatric); Z68.43 Body mass index [BMI] 50.0-59.9, adult; Z71.3 Dietary counseling and surveillance
CPT/HCPCS: 97803

== ENCOUNTER 2019-08-11 14:15 | Outpatient (RCR) | payer MEDICARE, OTHER, SELFPAY ==
[2019-07-02 14:29] VITALS: BMI 53.8
[2019-07-15 12:42] VITALS: BMI 55.7
--- NOTE | 2019-08-04 14:28 | EKG12_ITS ---
Test Reason : ECG RHYTHM CHANGES Blood Pressure : / mmHG Vent. Rate : 103 BPM Atrial Rate : 105 BPM P-R Int : 000 ms QRS Dur : 084 ms QT Int : 346 ms P-R-T Axes : 000 -06 104 degrees QTc Int : 453 ms Atrial fibrillation Nonspecific ST and T wave abnormality Abnormal ECG Confirmed by VALERIE GONZALES ([id number]), publication editor HE GRACE ([id number]) on 08/06/2019 3:48:43 PM Referred By: Valerie Gonzales Confirmed By:VALERIE GONZALES
== END 2019-08-11 23:59 ==
LOC: CR 14:15
PROVIDERS: Family Provider Family Medicine Geriatric Medicine; PCP Family Medicine Geriatric Medicine; Referring Provider Internal Medicine Cardiovascular Disease; Visit Provider Internal Medicine Cardiovascular Disease
DX: I25.10 Atherosclerotic heart disease of native coronary artery without angina pectoris (principal); Z95.820 Peripheral vascular angioplasty status with implants and grafts
CPT/HCPCS: 93005; 93798

== ENCOUNTER → 2019-08-12 16:14 | Outpatient (CLI) | payer MEDICARE, OTHER, SELFPAY ==
[2019-07-02 14:29] VITALS: BMI 53.8
[2019-08-12 15:01] VITALS: BMI 54.3
--- NOTE | 2019-08-12 16:16 | EKG12_ITS ---
Test Reason : Blood Pressure : / mmHG Vent. Rate : 069 BPM Atrial Rate : 069 BPM P-R Int : 192 ms QRS Dur : 084 ms QT Int : 410 ms P-R-T Axes : 056 -09 032 degrees QTc Int : 439 ms Normal sinus rhythm Nonspecific ST abnormality Abnormal ECG Confirmed by VALERIE GONZALES ([id number]), visual effects editor MARYAN TOVAR ([id number]) on 08/18/2019 12:07:37 PM Referred By: Valerie Gonzales Confirmed By:VALERIE GONZALES
== END ==
PROVIDERS: Family Provider Family Medicine Geriatric Medicine; PCP Family Medicine Geriatric Medicine; Referring Provider Internal Medicine Cardiovascular Disease; Visit Provider Internal Medicine Cardiovascular Disease
DX: I48.91 Unspecified atrial fibrillation (principal); Z95.5 Presence of coronary angioplasty implant and graft
CPT/HCPCS: 93005

== ENCOUNTER → 2019-08-28 13:04 | Outpatient (CLI) | payer MEDICARE, OTHER, SELFPAY ==
[2019-07-02 14:29] VITALS: BMI 53.8
[2019-08-12 15:01] VITALS: BMI 54.3
--- NOTE | 2019-08-28 13:06 | VDLE_ITS ---
Reason For Study: Edema RIGHT LEFT GSV is normal. GSV is normal. CFV is compressible, spontaneous, phasic, CFV is compressible, spontaneous, phasic, competent and demonstrates normal competent, and demonstrates normal augmentation. augmentation. FV is compressible, spontaneous, phasic, FV is compressible, spontaneous, phasic, competent and demonstrates normal competent and demonstrates normal augmentation. augmentation. POP V is compressible, spontaneous, phasic, POP V is compressible, spontaneous, phasic, competent and demonstrates normal competent and demonstrates normal augmentation. augmentation. T/P Trunk is compressible. T/P Trunk is compressible. PTV is compressible. PTV is compressible. RT PerV is compressible. LT PerV is compressible. Procedure Exam performed in department. A preliminary report was called and/or faxed to [facility]. Interpretation Summary Deep veins of the lower extremities are bilaterally patent and compressible segmentally. There is no evidence of deep vein thrombosis on either side. Valvular competence appears intact within the proximal deep venous systems bilaterally. The great saphenous veins appear bilaterally patent and compressible segmentally. Ordering Physician: Jim Hester Referring Physician: Jim Hester Chi Performed By: Yamilex Huang RVT
== END ==
PROVIDERS: Family Provider Family Medicine Geriatric Medicine; PCP Family Medicine Geriatric Medicine; Referring Provider Family Medicine Geriatric Medicine; Visit Provider Family Medicine Geriatric Medicine
DX: R60.0 Localized edema (principal)
CPT/HCPCS: 93970

== ENCOUNTER → 2019-09-01 11:43 | Outpatient (CLI) | payer MEDICARE, OTHER, SELFPAY ==
[2019-07-02 14:29] VITALS: BMI 53.8
[2019-09-01 11:27] VITALS: BMI 54.3
--- NOTE | 2019-09-01 11:46 | RAD_ITS ---
STUDY: X-RAY - RIGHT SHOULDER REASON FOR EXAM: Female, 74 years old. Pain. TECHNIQUE: 4 view(s) of the shoulder. COMPARISON: None. FINDINGS: There is mild degenerative arthrosis of the glenohumeral articulation. Normal acromioclavicular joint. Normal acromion. Normal humeral head and visualized proximal humerus. The soft tissue structures are unremarkable. There is no demonstrated fracture. Normal visualized pulmonary apex. RAD/Shoulder min 2 Views IMPRESSION: No acute abnormality. Mild glenohumeral osteoarthritis. Electronically Signed: Navjot Benson MD at 23:54 EDT , Service support ,
== END ==
PROVIDERS: Family Provider Family Medicine Geriatric Medicine; PCP Family Medicine Geriatric Medicine; Referring Provider Physician Assistant; Visit Provider Physician Assistant
DX: M19.011 Primary osteoarthritis, right shoulder (principal)
CPT/HCPCS: 73030

== ENCOUNTER → 2019-09-08 | Outpatient (CLI) | payer MEDICARE, OTHER, SELFPAY ==
[2019-07-02 14:29] VITALS: BMI 53.8
[2019-09-01 11:27] VITALS: BMI 54.3
[2019-09-08 17:36] LABS: Anion Gap 10 (5-15); BUN 23 mg/dL (7-18); Calcium,Total 8.7 mg/dL (8.5-10.1); Chloride 99 mmol/L (98-107); Creatinine, Serum 1.21 mg/dL (0.55-1.02); EST Glomerular Filtration Rate 46 mL/min (>60); Est Glom Filt Rate - Afr Amer 56 mL/min (>60); Glucose 152 mg/dL (74-106); Potassium 3.8 mmol/L (3.5-5.1); Sodium Level 137 mmol/L (136-145)
== END | disposition home or self-care (01) ==
LOC: POLAB3 15:31
PROVIDERS: Family Provider Family Medicine Geriatric Medicine; PCP Family Medicine Geriatric Medicine; Visit Provider Family Medicine Geriatric Medicine
DX: I10 Essential (primary) hypertension (principal)
CPT/HCPCS: 36415; 80048

== ENCOUNTER 2019-09-10 11:30 | Outpatient (RCR) | payer MEDICARE, OTHER, SELFPAY ==
[2019-07-02 14:29] VITALS: BMI 53.8
[2019-07-22 11:16] VITALS: BMI 55.4
[2019-08-12 15:01] VITALS: BMI 54.3
== END 2019-09-11 23:59 ==
LOC: DC 11:30
PROVIDERS: Family Provider Family Medicine Geriatric Medicine; PCP Family Medicine Geriatric Medicine; Visit Provider Internal Medicine Cardiovascular Disease
DX: E11.9 Type 2 diabetes mellitus without complications (principal); E66.01 Morbid (severe) obesity due to excess calories; E78.5 Hyperlipidemia, unspecified; I50.23 Acute on chronic systolic (congestive) heart failure; I25.10 Atherosclerotic heart disease of native coronary artery without angina pectoris; K21.9 Gastro-esophageal reflux disease without esophagitis; G47.33 Obstructive sleep apnea (adult) (pediatric); Z68.43 Body mass index [BMI] 50.0-59.9, adult
CPT/HCPCS: 97803; G0108

== ENCOUNTER 2019-09-10 14:15 | Outpatient (RCR) | payer MEDICARE, OTHER, SELFPAY ==
[2019-07-02 14:29] VITALS: BMI 53.8
[2019-07-22 11:16] VITALS: BMI 55.4
[2019-08-12 15:01] VITALS: BMI 54.3
--- NOTE | 2019-08-13 13:39 | PCM.CR.ITP ---
Exercise - 30-day Assessment - Visit Date of Eval: 08/13/19 Session #:: 11 - Stages of Change Stages of Change:: Action - Physician Prescribed Exercise Modalities: NuStep, SciFit Frequency (days/week): 3 Duration (Minutes):: 30-45 Intensity: 60-80% age predicted maximum heart rate reserve METs - Progression: 0.5-1.0 MET, RPE 11-14 WEEK: 2.5 limited by knees Target Heart Rate:: 96-125 w/max HR 90 - Hypertension Resting Blood Pressure:: 132/78 Peak Exercise Blood Pressure:: 160/82 Medication Changes:: No - Intervention Home Exercise/Activity Goal:: Sitting Time <3 hrs/day - Education Goals:: Warm-up, RPE LIZZETTE Scale, S/S, Safe Exercise, Self-Monitoring - Exercise Program Goals Exercise Program Goals: Aerobic Activity >30 min, B/P <130/80 Nutrition - Initial Assessment - Program Goals Nutrition Program Goals: LDL <70. Total Cholesterol <200. HDL >45. Triglycerides <150. HgbA1C <7%. BMI <25 - Diabetes Do you monitor your blood sugar at home?: Yes Nutrition - 30-Day Assessment - Program Goals Nutrition Program Goals: LDL <70. Total Cholesterol <200. HDL >45. Triglycerides <150. HgbA1C <7%. BMI <25 - Visit Date of Eval: 08/13/19 - Stages of Change Stages of Change:: Action - Lipids Has the patient seen the dietitian?: Yes - 08/11/2019 11:30 - Diabetes Diabetes:: Yes Non-Insulin Dependent?: Yes - Weight Management Weight:: 326 lb 8 oz - Intervention Referral to dietitian:: Yes Referral to Diabetic Clinic:: Yes Will attend diet classes:: Yes - Education Attended class for:: Signs & symptoms of hypoglycemia, Signs & symptoms of hyperglycemia, Relate diabetes to coronary artery disease, Healthy eating Tobacco - Initial Assessment - Program Goals Tobacco Program Goals: Complete smoking cessation. Attend education classes. Improve Knowledge Test score - Learning Barriers Learning Barriers: Vision, Ready to Learn Tobacco - 30-Day Assessment - Program Goals Tobacco Program Goals: Complete smoking cessation. Attend education classes. Improve Knowledge Test score - Stage of Change Stages of Change:: Action - Learning Barriers Learning Barriers: Participates in education, Change in behavior - Family Support Do you have family support?: Yes - Tobacco Use Tobacco Use: Non-smoker Do you use smokeless tobacco?: No - Intervention Smoking Cessation Referral:: No Individual Education/Counseling:: No Education Schedule Given:: Yes - Education Attended class for:: How Coronary Artery Disease is Diagnosed, Heart Procedures, What Heart Medications Do, Risk Factors & Modifications, Living an Active Life Psychosocial - Initial Assess - Target Goals Target Goals: Assess presence or absence of depression. Using a valid screening tool, maximizes coping skills. Positive support system - Psychosocial Test Tool Used:: HANDS Depression Questionnaire - Assistive Devices Fall Risk Assessed:: Yes Psychosocial - 30-Day Assess - Target Goals Target Goals: Assess presence or absence of depression. Using a valid screening tool, maximizes coping skills. Positive support system - Stages of Change Stages of Change:: Action - Psychosocial Test Tool Used:: HANDS Depression Questionnaire - Intervention PS - Interventions: Yes Attend Stress Management Classes, No Referral to Mental Health, No Referral to [facility] Case Management, No Referral to Physician, No Uses Stress Management Skills - Education Attended classes for:: Coping techniques, Signs & symptoms of depression, Stress management, Relaxation techniques - Patient/Program Goal Preventative Medication(s):: Aspirin, VICKY inhibitor, Clopidogrel, Beta anurag, Statin/lipid - Assistive Devices Assistive Devices:: Cane, Walker Fall Risk Assessed:: Yes Patient Health Questionnaire 30-Day Re-eval Assessment 1. Little interest or pleasure in doing things: Several days 2. Feeling down, depressed, or hopeless: Several days 3. Trouble falling or staying asleep, or sleeping too much: Several days 4. Feeling tired or having little energy: More than half the days 5. Poor appetite or overeating: More than half the days 6. Feeling bad about yourself -- or that you are a failure or have let yourself or your family down: Several days 7. Trouble concentrating on things, such as reading the newspaper or watching television: Several days 8. Moving or speaking so slowly that other people could have noticed. Or the opposite - being so fidgety or restless that you have been moving around a lot more than usual: Several days 9. Thoughts that you would be better off , or of hurting yourself in some way: Several days How difficult have these problems made it for you to do your work, take care of things at home, or get along with other people?: Somewhat difficult Total Score: 11 Self-Efficacy 30-Day Re-eval Assessment We would like to know how confident you are in doing certain activities. Please select your confidence level for:: Select your confidence level for the following using the scale 1-10 where 1 is not at all confident and 10 is totally confident. Your score is the average of all 6 responses. Fatigue: How confident are you that you can keep the fatigue caused by your disease from interfering with the things you want to do? Select Number: 3 Physical Discomfort or Pain: How confident are you that you can keep the physical discomfort or pain of your disease from interfering with the things you want to do? Select Number: 4 Emotional Distress: How confident are you that you can keep the emotional distress caused by your disease from interfering with the things you want to do? Select Number: 4 Other Symptoms or Health Problems: How confident are you that you can keep other symptoms or health problems from interfering with the things you want to do? Select Number: 4 Different Tasks and Activities: How confident are you that you can do the different tasks and activities needed to manage your health condition so as to reduce your need to see a doctor? Select Number: 6 Medication: How confident are you that you can do things other than just taking medication to reduce how much your illness affects your everyday life? Select Number: 6 Total Score:: 4
[2019-08-13 13:44] VITALS: BP 132/78; BP 160/82
== END 2019-09-11 23:59 ==
LOC: CR 14:15
PROVIDERS: Family Provider Family Medicine Geriatric Medicine; PCP Family Medicine Geriatric Medicine; Referring Provider Internal Medicine Cardiovascular Disease; Visit Provider Internal Medicine Cardiovascular Disease
DX: I25.10 Atherosclerotic heart disease of native coronary artery without angina pectoris (principal); Z95.820 Peripheral vascular angioplasty status with implants and grafts
CPT/HCPCS: 93798

== ENCOUNTER 2019-10-08 14:15 | Outpatient (RCR) | payer MEDICARE, OTHER, SELFPAY ==
[2019-07-02 14:29] VITALS: BMI 53.8
[2019-09-01 11:27] VITALS: BMI 54.3
[2019-09-12 01:06] VITALS: BP 132/78; BP 160/82
--- NOTE | 2019-09-19 11:47 | CR.ITP_ITS ---
Exercise - 60-Day Assessment - Visit Date of Eval: 09/19/19 Session #:: 26 - 100% compliant to date. - Stages of Change Stages of Change:: Action - Physician Prescribed Exercise Modalities: NuStep - limited due to bad knees hips. Frequency (days/week): 3 Duration (Minutes):: 30-45 Intensity: 60-80% age predicted maximum heart rate reserve METs - Progression: 0.5-1.0 MET, RPE 11-14 WEEK: 11 Target Heart Rate:: 96-125 w/max HR 101 - Hypertension Resting Blood Pressure:: 126/70 Peak Exercise Blood Pressure:: 152/60 Medication Changes:: Yes - 08/27 lisinopril increased/ - Intervention Home Exercise/Activity Goal:: Sitting Time <3 hrs/day - Education Goals:: Warm-up, RPE LIZZETTE Scale, S/S, Safe Exercise, Self-Monitoring - Exercise Program Goals Exercise Program Goals: Aerobic Activity >30 min Nutrition - Initial Assessment - Program Goals Nutrition Program Goals: LDL <70. Total Cholesterol <200. HDL >45. Triglycerides <150. HgbA1C <7%. BMI <25 - Diabetes Do you monitor your blood sugar at home?: Yes Nutrition - 60-Day Assessment - Program Goals Nutrition Program Goals: LDL <70. Total Cholesterol <200. HDL >45. Triglycerides <150. HgbA1C <7%. BMI <25 - Visit Date of Eval: 09/19/19 - Stages of Change Stages of Change:: Action - Lipids Has the patient seen the dietitian?: Yes - 08/11/2019 - Diabetes Diabetes:: No Insulin: No Non-Insulin Dependent?: No - Weight Management Weight:: 322 lb 8 oz - loss of 4 pounds this 30 days - Intervention Referral to dietitian:: No Referral to Diabetic Clinic:: No Will attend diet classes:: Yes - Education Attended class for:: Healthy eating Tobacco - Initial Assessment - Program Goals Tobacco Program Goals: Complete smoking cessation. Attend education classes. Improve Knowledge Test score - Learning Barriers Learning Barriers: Vision, Ready to Learn Tobacco - 60-Day Assessment - Program Goals Tobacco Program Goals: Complete smoking cessation. Attend education classes. Improve Knowledge Test score - Stage of Change Stages of Change:: Action - Learning Barriers Learning Barriers: Participates in education, Change in behavior - Family Support Do you have family support?: Yes - Tobacco Use Tobacco Use: Non-smoker Do you use smokeless tobacco?: No - Intervention Smoking Cessation Referral:: No Individual Education/Counseling:: No Education Schedule Given:: Yes - Education Attended class for:: Treating Heart Disease, How The Heart Works, Risk Factors & Modifications, Living an Active Life, Nutrition, Emotions & Heart Disease, Stress Management & Relaxation, Sleep Disorders & Heart Disease Psychosocial - Initial Assess - Target Goals Target Goals: Assess presence or absence of depression. Using a valid screening tool, maximizes coping skills. Positive support system - Psychosocial Test Tool Used:: HANDS Depression Questionnaire - Assistive Devices Fall Risk Assessed:: Yes Psychosocial - 60-Day Assess - Target Goals Target Goals: Assess presence or absence of depression. Using a valid screening tool, maximizes coping skills. Positive support system - Stages of Change Stages of Change:: Action - Psychosocial Test Tool Used:: HANDS Depression Questionnaire - Intervention PS - Interventions: Yes Attend Stress Management Classes, Yes Uses Stress Management Skills, No Referral to Mental Health, No Referral to [facility] Case Management, No Referral to Physician - Education Attended classes for:: Coping techniques, Signs & symptoms of depression, Stress management, Relaxation techniques - Patient/Program Goal Preventative Medication(s):: Aspirin - patient compliant with daily medications, VICKY inhibitor, Clopidogrel, Beta anurag, Statin/lipid - Assistive Devices Assistive Devices:: Walker - 3-wheeled walker Fall Risk Assessed:: Yes Patient Health Questionnaire 60-Day Re-eval Assessment 1. Little interest or pleasure in doing things: Not at all 2. Feeling down, depressed, or hopeless: Several days 3. Trouble falling or staying asleep, or sleeping too much: Several days 4. Feeling tired or having little energy: More than half the days 5. Poor appetite or overeating: More than half the days 6. Feeling bad about yourself -- or that you are a failure or have let yourself or your family down: Several days 7. Trouble concentrating on things, such as reading the newspaper or watching television: Not at all 8. Moving or speaking so slowly that other people could have noticed. Or the opposite - being so fidgety or restless that you have been moving around a lot more than usual: Not at all 9. Thoughts that you would be better off , or of hurting yourself in some way: Not at all Total Score: 7 Self-Efficacy 60-Day Re-eval Assessment We would like to know how confident you are in doing certain activities. Please select your confidence level for:: Select your confidence level for the following using the scale 1-10 where 1 is not at all confident and 10 is totally confident. Your score is the average of all 6 responses. Fatigue: How confident are you that you can keep the fatigue caused by your disease from interfering with the things you want to do? Select Number: 6 Physical Discomfort or Pain: How confident are you that you can keep the physical discomfort or pain of your disease from interfering with the things you want to do? Select Number: 6 Emotional Distress: How confident are you that you can keep the emotional distress caused by your disease from interfering with the things you want to do? Select Number: 7 Other Symptoms or Health Problems: How confident are you that you can keep other symptoms or health problems from interfering with the things you want to do? Select Number: 7 Different Tasks and Activities: How confident are you that you can do the different tasks and activities needed to manage your health condition so as to reduce your need to see a doctor? Select Number: 7 Medication: How confident are you that you can do things other than just taking medication to reduce how much your illness affects your everyday life? Select Number: 7 Total Score:: 6
[2019-09-19 11:51] VITALS: BP 126/70; BP 152/60
[2019-10-01 17:05] LABS: Absolute Lymphocyte Count 1.74 X10^3/uL (0.83-4.51); Absolute Neutrophil Count 5.2 X10^3/uL (2.0-7.7); Basophil# 0.02 X10^3/uL; Basophil% 0.3 % (0-1); Eosinophil# 0.24 X10^3/uL; Eosinophils% 3.1 % (0-5); Hematocrit 38.1 % (37-47); Hemoglobin 11.8 g/dL (12.0-15.0); Lymphocyte # 1.74 X10^3/ul (4.0); Lymphocyte % 22.2 % (19-41); Mean Corpuscular Hgb 26.4 pg (27.0-32.0); Mean Corpuscular Volume 85.2 fL (81-99); Mean Platelet Vol. 9.6 fl (6.2-12.0); Monocyte# 0.55 X10^3/uL; NRBC Flagged by Analyzer 0 % (0-5); Neutrophil # 5.23 X10^3/uL (2.7-7.7); Neutrophil % 66.8 % (47-70); Platelet Count 232 K/mm3 (150-450); RBC Distribution Width CV 16.4 % (11.6-14.6); RBC Distribution Width SD 50.8 fl (35.1-43.9); Red Blood Count 4.47 M/mm3 (4.2-5.4); White Blood Count 7.8 K/mm3 (4.4-11.0)
[2019-10-01 17:22] LABS: Vitamin D,25 Hydroxy 55.3 ng/mL (29.95-100.01)
[2019-10-01 17:25] LABS: ALB/GLOB Ratio 0.9 RATIO (0.9-2.4); AST(SGOT) 24 U/L (15-37); Alanine Aminotransfer ALT/SGPT 37 U/L (13-56); Albumin, Serum 3.5 g/dL (3.2-5.0); Alkaline Phosphatase 85 U/L (45-117); Anion Gap 9 (5-15); BUN 19 mg/dL (7-18); BUN/Creat Ratio 17.4 RATIO (10-20); Calcium,Total 8.9 mg/dL (8.5-10.1); Chloride 103 mmol/L (98-107); Creatinine, Serum 1.09 mg/dL (0.55-1.02); EST Glomerular Filtration Rate 52 mL/min (>60); Est Glom Filt Rate - Afr Amer 63 mL/min (>60); Globulin 4.1 g/dL (2.2-4.2); Glucose 140 mg/dL (74-106); Potassium 4.4 mmol/L (3.5-5.1); Protein, Total 7.6 g/dL (6.4-8.2); Sodium Level 138 mmol/L (136-145); Thyroid Stim Hormone (TSH) 1.44 uIU/mL (0.358-3.74)
== END 2019-10-11 23:59 ==
LOC: CR 14:15
PROVIDERS: Family Provider Family Medicine Geriatric Medicine; PCP Family Medicine Geriatric Medicine; Referring Provider Internal Medicine Cardiovascular Disease; Visit Provider Internal Medicine Cardiovascular Disease
DX: I25.10 Atherosclerotic heart disease of native coronary artery without angina pectoris (principal); Z95.820 Peripheral vascular angioplasty status with implants and grafts; E11.9 Type 2 diabetes mellitus without complications; E55.9 Vitamin D deficiency, unspecified; I10 Essential (primary) hypertension
CPT/HCPCS: 36415; 80053; 82306; 84443; 85025; 93798

== ENCOUNTER 2019-10-08 15:40 | Outpatient (RCR) | payer MEDICARE, OTHER, SELFPAY ==
[2019-07-02 14:29] VITALS: BMI 53.8
[2019-09-01 11:27] VITALS: BMI 54.3
[2019-09-29 15:21] VITALS: BMI 55.0
== END 2019-10-11 23:59 ==
LOC: DC 15:40
PROVIDERS: Family Provider Family Medicine Geriatric Medicine; PCP Family Medicine Geriatric Medicine; Visit Provider Internal Medicine Cardiovascular Disease
DX: E78.5 Hyperlipidemia, unspecified (principal); E11.9 Type 2 diabetes mellitus without complications; E66.01 Morbid (severe) obesity due to excess calories; Z68.43 Body mass index [BMI] 50.0-59.9, adult; G47.33 Obstructive sleep apnea (adult) (pediatric); I50.32 Chronic diastolic (congestive) heart failure; I25.10 Atherosclerotic heart disease of native coronary artery without angina pectoris; K21.9 Gastro-esophageal reflux disease without esophagitis
CPT/HCPCS: G0108

== ENCOUNTER 2019-10-13 10:23 | Outpatient (RCR) | payer MEDICARE, OTHER, SELFPAY ==
[2019-07-02 14:29] VITALS: BMI 53.8
[2019-09-29 15:21] VITALS: BMI 55.0
== END 2019-11-11 23:59 ==
LOC: CR 10:23
PROVIDERS: Family Provider Family Medicine Geriatric Medicine; PCP Family Medicine Geriatric Medicine; Visit Provider Internal Medicine Cardiovascular Disease
DX: I25.10 Atherosclerotic heart disease of native coronary artery without angina pectoris (principal); Z95.820 Peripheral vascular angioplasty status with implants and grafts
CPT/HCPCS: 93798

== ENCOUNTER → 2019-12-10 16:25 | Outpatient (CLI) | payer MEDICARE, OTHER, SELFPAY ==
[2019-07-02 14:29] VITALS: BMI 53.8
[2019-11-24 08:14] VITALS: BMI 54.2
--- NOTE | 2019-12-10 16:37 | RAD_ITS ---
STUDY: X-RAY CHEST REASON FOR EXAM: Female, 74 years old. Shortness of breath. History of atrial fibrillation and cardiac stent TECHNIQUE: PA and lateral views of the chest. COMPARISON: June 30, 2019. FINDINGS: The lungs are clear and expanded. There is no demonstrated pleural abnormality. Normal size heart. Normal mediastinum and harmony. Normal visualized pulmonary arteries. Normal visualized aortic arch and descending thoracic aorta. There are diffuse degenerative changes of the visualized thoracic spine. There is degenerative osteoarthritis of the bilateral shoulders. There is no demonstrated abnormality of the visualized soft tissue structures of the upper abdomen. RAD/Chest PA and Lateral IMPRESSION: No acute cardiopulmonary disease or major interval change. Electronically Signed: Otto Sarkar DO at 23:08 EST Tel [phone], Service support ,
[2019-12-10 17:07] LABS: Absolute Lymphocyte Count 1.95 X10^3/uL (0.83-4.51); Absolute Neutrophil Count 5.4 X10^3/uL (2.0-7.7); Basophil# 0.02 X10^3/uL; Basophil% 0.2 % (0-1); Eosinophil# 0.17 X10^3/uL; Eosinophils% 2.1 % (0-5); Hemoglobin 11.9 g/dL (12.0-15.0); Lymphocyte # 1.95 X10^3/ul (4.0); Lymphocyte % 23.7 % (19-41); Mean Corp Hgb Conc 30.5 g/dL (32-36); Mean Corpuscular Hgb 25.4 pg (27.0-32.0); Mean Corpuscular Volume 83.3 fL (81-99); Mean Platelet Vol. 9.8 fl (6.2-12.0); Monocyte# 0.61 X10^3/uL; Monocyte% 7.4 % (0-10); NRBC Flagged by Analyzer 0 % (0-5); Neutrophil # 5.41 X10^3/uL (2.7-7.7); Neutrophil % 65.9 % (47-70); Platelet Count 249 K/mm3 (150-450); RBC Distribution Width CV 16.3 % (11.6-14.6); RBC Distribution Width SD 49.5 fl (35.1-43.9); Red Blood Count 4.68 M/mm3 (4.2-5.4); White Blood Count 8.2 K/mm3 (4.4-11.0)
[2019-12-10 17:22] LABS: Anion Gap 5 (5-15); BUN 23 mg/dL (7-18); BUN/Creat Ratio 19.5 RATIO (10-20); Calcium,Total 9.3 mg/dL (8.5-10.1); Chloride 106 mmol/L (98-107); Creatinine, Serum 1.18 mg/dL (0.55-1.02); EST Glomerular Filtration Rate 48 mL/min (>60); Est Glom Filt Rate - Afr Amer 58 mL/min (>60); Glucose 120 mg/dL (74-106); Potassium 4.8 mmol/L (3.5-5.1); Sodium Level 139 mmol/L (136-145)
[2019-12-10 17:45] LABS: BNP,B-Type NATRIURETIC PEPTIDE 57.9 pg/mL (0-100)
== END ==
PROVIDERS: PCP Family Medicine Geriatric Medicine; Referring Provider Family Medicine Geriatric Medicine; Visit Provider Family Medicine Geriatric Medicine
DX: R06.89 Other abnormalities of breathing (principal); R06.09 Other forms of dyspnea
CPT/HCPCS: 36415; 71046; 80048; 83880; 85025

== ENCOUNTER → 2019-12-13 11:43 | Outpatient (CLI) | payer MEDICARE, OTHER, SELFPAY ==
[2019-07-02 14:29] VITALS: BMI 53.8
[2019-11-24 08:14] VITALS: BMI 54.2
[2019-12-13 12:26] LABS: Anion Gap 8 (5-15); BUN 21 mg/dL (7-18); BUN/Creat Ratio 16.8 RATIO (10-20); Calcium,Total 9.4 mg/dL (8.5-10.1); Chloride 103 mmol/L (98-107); Creatinine, Serum 1.25 mg/dL (0.55-1.02); EST Glomerular Filtration Rate 45 mL/min (>60); Est Glom Filt Rate - Afr Amer 54 mL/min (>60); Glucose 179 mg/dL (74-106); Potassium 4.3 mmol/L (3.5-5.1); Sodium Level 137 mmol/L (136-145)
== END ==
PROVIDERS: PCP Family Medicine Geriatric Medicine; Referring Provider Family Medicine Geriatric Medicine; Visit Provider Family Medicine Geriatric Medicine
DX: R60.9 Edema, unspecified (principal)
CPT/HCPCS: 36415; 80048

== ENCOUNTER → 2019-12-23 13:13 | Outpatient (CLI) | payer MEDICARE, OTHER, SELFPAY ==
[2019-07-02 14:29] VITALS: BMI 53.8
[2019-11-24 08:14] VITALS: BMI 54.2
--- NOTE | 2019-12-23 13:16 | ECHOCS_ITS ---
Reason For Study: Edema Procedure This was a 2D Doppler, Color Flow transthoracic echocardiogram. The study was technically difficult. Contrast injection was performed. Exam performed in department. Left Ventricle Normal size and thickness. The estimated ejection fraction is 65 %. Stage 2 diastolic dysfunction. No regional wall motion abnormalities noted. Right Ventricle Normal size and thickness. Normal systolic function. Atria Normal left atrium. Normal right atrium. Normal atrial septum. Mitral Valve The mitral valve is structurally normal. No prolapse or stenosis seen. Tricuspid Valve Normal tricuspid valve. Unable to estimate RV systolic pressure due to insufficient tricuspid regurgitant envelope. Aortic Valve Normal aortic valve. Trisinus/trileaflet aortic valve. Pulmonic Valve Normal pulmonic valve. Great Vessels Normal aortic root. Normal arch. Normal inferior vena cava. Inferior vena cava collapse with sniff. Pericardium/Pleural No pericardial effusion. Medication 22 gauge I.V. with prn adaptor inserted into right arm. Diluted definity 3ml given slow IV push to enhance endocardial definition. MMode/2D Measurements & Calculations LVIDd: 4.4 cm IVSd: 0.97 cm Ao root diam: 3.8 cm LVIDs: 2.8 cm LVPWd: 1.2 cm FS: 37.6 % LAV(MOD-sp4): 74.4 ml LA A4 area: 23.9 cm2 Time Measurements MV dec time: 0.22 sec Doppler Measurements & Calculations MV E max yomi: 64.5 cm/sec Lat Peak E' Yomi: 7.4 cm/sec Med Peak E' Yomi: 9.9 cm/sec MV A max yomi: 77.3 cm/sec E/E' lat: 8.7 E/E' med: 6.5 MV E/A: 0.83 MV V2 max: 80.0 cm/sec MV P1/2t max yomi: 80.0 cm/sec Ao V2 max: 144.6 cm/sec MV max P.6 mmHg MV P1/2t: 73.2 msec Ao max P.4 mmHg MV V2 mean: 43.9 cm/sec MV dec slope: 320.1 cm/sec2 Ao V2 mean: 89.2 cm/sec MV mean P.90 mmHg Ao mean P.8 mmHg MV V2 VTI: 26.4 cm MVA(P1/2t): 3.0 cm2 Ao V2 VTI: 26.3 cm LV V1 max: 108.7 cm/sec PA V2 max: 87.6 cm/sec LV V1 max P.7 mmHg LV V1 mean P.7 mmHg LV V1 mean: 77.2 cm/sec LV V1 VTI: 24.4 cm Interpretation Summary The estimated ejection fraction is 65 %. Stage 2 diastolic dysfunction. Unable to estimate RV systolic pressure due to insufficient tricuspid regurgitant envelope. Compared to echo report dated 01/30/2018, no appreciable changes noted. The study was technically difficult. Contrast injection was performed. Ordering Physician: Jim Hester Referring Physician: Jim Hester Chi Performed By: Alex Aguilar RCS
== END ==
LOC: CVS 13:14
PROVIDERS: PCP Family Medicine Geriatric Medicine; Referring Provider Family Medicine Geriatric Medicine; Visit Provider Family Medicine Geriatric Medicine
DX: R06.02 Shortness of breath (principal); R06.09 Other forms of dyspnea; R60.9 Edema, unspecified
CPT/HCPCS: 93306; Q9957; A4216; C8929

== ENCOUNTER → 2019-12-24 16:34 | Outpatient (CLI) | payer MEDICARE, OTHER, SELFPAY ==
[2019-07-02 14:29] VITALS: BMI 53.8
[2019-11-24 08:14] VITALS: BMI 54.2
[2019-12-24 18:12] LABS: Anion Gap 5 (5-15); BUN 26 mg/dL (7-18); BUN/Creat Ratio 19.8 RATIO (10-20); Calcium,Total 9.1 mg/dL (8.5-10.1); Chloride 104 mmol/L (98-107); Creatinine, Serum 1.31 mg/dL (0.55-1.02); EST Glomerular Filtration Rate 42 mL/min (>60); Est Glom Filt Rate - Afr Amer 51 mL/min (>60); Glucose 146 mg/dL (74-106); Potassium 4.3 mmol/L (3.5-5.1); Sodium Level 137 mmol/L (136-145)
== END ==
PROVIDERS: PCP Family Medicine Geriatric Medicine; Visit Provider Family Medicine Geriatric Medicine
DX: R94.4 Abnormal results of kidney function studies (principal)
CPT/HCPCS: 36415; 80048

== ENCOUNTER → 2020-01-07 15:36 | Outpatient (CLI) | payer MEDICARE, OTHER, SELFPAY ==
[2019-07-02 14:29] VITALS: BMI 53.8
[2019-11-24 08:14] VITALS: BMI 54.2
[2020-01-07 16:58] LABS: Absolute Lymphocyte Count 1.92 X10^3/uL (0.83-4.51); Absolute Neutrophil Count 5.6 X10^3/uL (2.0-7.7); Basophil# 0.03 X10^3/uL; Basophil% 0.4 % (0-1); Eosinophil# 0.19 X10^3/uL; Eosinophils% 2.3 % (0-5); Hematocrit 37.9 % (37-47); Lymphocyte # 1.92 X10^3/ul (4.0); Mean Corp Hgb Conc 31.7 g/dL (32-36); Mean Corpuscular Hgb 26.4 pg (27.0-32.0); Mean Corpuscular Volume 83.3 fL (81-99); Monocyte# 0.51 X10^3/uL; Monocyte% 6.1 % (0-10); NRBC Flagged by Analyzer 0 % (0-5); Neutrophil # 5.64 X10^3/uL (2.7-7.7); Neutrophil % 67.6 % (47-70); Platelet Count 273 K/mm3 (150-450); RBC Distribution Width CV 16.3 % (11.6-14.6); RBC Distribution Width SD 49.1 fl (35.1-43.9); Red Blood Count 4.55 M/mm3 (4.2-5.4); White Blood Count 8.3 K/mm3 (4.4-11.0)
[2020-01-07 17:03] LABS: Anion Gap 8 (5-15); BUN 49 mg/dL (7-18); Calcium,Total 9.2 mg/dL (8.5-10.1); Chloride 98 mmol/L (98-107); Creatinine, Serum 1.53 mg/dL (0.55-1.02); EST Glomerular Filtration Rate 35 mL/min (>60); Est Glom Filt Rate - Afr Amer 43 mL/min (>60); Glucose 205 mg/dL (74-106); Potassium 3.7 mmol/L (3.5-5.1); Sodium Level 133 mmol/L (136-145)
== END ==
PROVIDERS: PCP Family Medicine Geriatric Medicine; Visit Provider Family Medicine Geriatric Medicine
DX: N17.9 Acute kidney failure, unspecified (principal)
CPT/HCPCS: 36415; 80048; 85025

== ENCOUNTER → 2020-01-13 10:34 | Outpatient (REF) | payer MEDICARE, OTHER, SELFPAY ==
[2019-07-02 14:29] VITALS: BMI 53.8
[2020-01-08 16:12] VITALS: BMI 56.2
[2020-01-13 14:53] LABS: Hematocrit 38.3 % (37-47); Hemoglobin 11.7 g/dL (12.0-15.0); Mean Corp Hgb Conc 30.5 g/dL (32-36); Mean Corpuscular Hgb 25.8 pg (27.0-32.0); Mean Corpuscular Volume 84.4 fL (81-99); Platelet Count 260 K/mm3 (150-450); RBC Distribution Width CV 16.7 % (11.6-14.6); Red Blood Count 4.54 M/mm3 (4.2-5.4); White Blood Count 7.8 K/mm3 (4.4-11.0)
[2020-01-13 15:01] LABS: Protein, Urine (Random) 12.6 mg/dL (<11.9); Protein:Creat Ratio 158 mg/g CRE (0-200)
[2020-01-13 15:08] LABS: Albumin, Serum 3.3 g/dL (3.2-5.0); BUN 23 mg/dL (7-18); BUN/Creat Ratio 21.7 RATIO (10-20); Chloride 103 mmol/L (98-107); Creatinine, Serum 1.06 mg/dL (0.55-1.02); EST Glomerular Filtration Rate 54 mL/min (>60); Est Glom Filt Rate - Afr Amer 65 mL/min (>60); Glucose 183 mg/dL (74-106); Phosphorus 3.1 mg/dL (2.5-4.9); Potassium 4.8 mmol/L (3.5-5.1); Sodium Level 138 mmol/L (136-145)
[2020-01-13 17:18] LABS: International Normalized Ratio 1.2; Prothrombin Time (Protime)PT. 15.2 SECONDS (11.7-14.9)
[2020-01-13 17:19] LABS: Partial Thromboplast Time 29.7 Seconds (24.1-36.2)
== END ==
LOC: CVS 10:34
PROVIDERS: Internal Medicine Cardiovascular Disease; Internal Medicine Nephrology; PCP Family Medicine Geriatric Medicine; Referring Provider Nurse Practitioner Family; Visit Provider Nurse Practitioner Family
DX: I48.91 Unspecified atrial fibrillation (principal); R00.2 Palpitations; N17.9 Acute kidney failure, unspecified; E11.22 Type 2 diabetes mellitus with diabetic chronic kidney disease
CPT/HCPCS: 36415; 80069; 82570; 84156; 85027; 85610; 85730; 93271

== ENCOUNTER → 2020-01-15 16:41 | Outpatient (CLI) | payer MEDICARE, OTHER, SELFPAY ==
[2019-07-02 14:29] VITALS: BMI 53.8
[2020-01-08 16:12] VITALS: BMI 56.2
--- NOTE | 2020-01-15 16:47 | RAD_ITS ---
STUDY: X-RAY CHEST REASON FOR EXAM: Female, 74 years old. COUGH, PT HAS HEART MONITOR CURRENTLY TECHNIQUE: PA and lateral views of the chest. COMPARISON: December 10, 2019 FINDINGS: There is a battery operated monitor device overlying the gina external to the patient. The lungs are clear and expanded. There is no demonstrated pleural abnormality. There is borderline cardiomegaly. Normal mediastinum and harmony. Normal visualized pulmonary arteries. Normal visualized aortic arch and descending thoracic aorta. There are diffuse degenerative changes of the visualized thoracic spine. Normal visualized ribs, clavicles, and shoulders. There is no demonstrated abnormality of the visualized soft tissue structures of the upper abdomen. RAD/Chest PA and Lateral IMPRESSION: No demonstrated acute cardiopulmonary process. Electronically Signed: Beatris Colon MD at 12:32 EST Tel , Service support ,
== END ==
PROVIDERS: PCP Family Medicine Geriatric Medicine; Referring Provider Family Medicine Geriatric Medicine; Visit Provider Family Medicine Geriatric Medicine
DX: J41.0 Simple chronic bronchitis (principal); R68.83 Chills (without fever)
CPT/HCPCS: 71046; 87633

== ENCOUNTER → 2020-02-12 14:15 | Outpatient (CLI) | payer MEDICARE, OTHER, SELFPAY ==
[2019-07-02 14:29] VITALS: BMI 53.8
[2020-01-08 16:12] VITALS: BMI 56.2
[2020-02-12 15:07] LABS: Protein, Urine (Random) 10.3 mg/dL (<11.9); Protein:Creat Ratio 106 mg/g CRE (0-200)
[2020-02-12 15:18] LABS: Albumin, Serum 3.4 g/dL (3.2-5.0); BUN 30 mg/dL (7-18); BUN/Creat Ratio 25.2 RATIO (10-20); Calcium,Total 8.8 mg/dL (8.5-10.1); Chloride 103 mmol/L (98-107); Creatinine, Serum 1.19 mg/dL (0.55-1.02); EST Glomerular Filtration Rate 47 mL/min (>60); Est Glom Filt Rate - Afr Amer 57 mL/min (>60); Glucose 185 mg/dL (74-106); Phosphorus 3.7 mg/dL (2.5-4.9); Potassium 4.3 mmol/L (3.5-5.1); Sodium Level 138 mmol/L (136-145)
== END ==
PROVIDERS: PCP Family Medicine Geriatric Medicine; Referring Provider Internal Medicine Nephrology; Visit Provider Internal Medicine Nephrology
DX: N18.3 Chronic kidney disease, stage 3 (moderate) (principal); E11.22 Type 2 diabetes mellitus with diabetic chronic kidney disease
CPT/HCPCS: 36415; 80069; 82570; 84156

== ENCOUNTER 2020-02-25 14:30 | Outpatient (RCR) | payer MEDICARE, OTHER, SELFPAY ==
[2019-07-02 14:29] VITALS: BMI 53.8
[2019-09-29 15:21] VITALS: BMI 55.0
[2020-01-08 16:12] VITALS: BMI 56.2
== END 2020-02-25 23:59 | disposition home or self-care (01) ==
LOC: DC 14:30
PROVIDERS: Family Provider Family Medicine Geriatric Medicine; PCP Family Medicine Geriatric Medicine; Visit Provider Internal Medicine Cardiovascular Disease
DX: Z71.3 Dietary counseling and surveillance (principal); E66.01 Morbid (severe) obesity due to excess calories; Z68.43 Body mass index [BMI] 50.0-59.9, adult; I50.32 Chronic diastolic (congestive) heart failure; E11.9 Type 2 diabetes mellitus without complications; I25.10 Atherosclerotic heart disease of native coronary artery without angina pectoris; K21.9 Gastro-esophageal reflux disease without esophagitis; G47.33 Obstructive sleep apnea (adult) (pediatric); E78.5 Hyperlipidemia, unspecified
CPT/HCPCS: G0108

== ENCOUNTER → 2020-04-08 14:44 | Outpatient (CLI) | payer MEDICARE, OTHER, SELFPAY ==
[2019-07-02 14:29] VITALS: BMI 53.8
[2020-01-08 16:12] VITALS: BMI 56.2
[2020-04-08 16:49] LABS: Absolute Neutrophil Count 5.5 X10^3/uL (2.0-7.7); Basophil# 0.03 X10^3/uL; Basophil% 0.4 % (0-1); Eosinophil# 0.13 X10^3/uL; Eosinophils% 1.6 % (0-5); Hematocrit 40.5 % (37-47); Hemoglobin 12.5 g/dL (12.0-15.0); Lymphocyte % 23.7 % (19-41); Mean Corp Hgb Conc 30.9 g/dL (32-36); Mean Corpuscular Hgb 26.4 pg (27.0-32.0); Mean Corpuscular Volume 85.6 fL (81-99); Mean Platelet Vol. 9.7 fl (6.2-12.0); NRBC Flagged by Analyzer 0 % (0-5); Neutrophil # 5.51 X10^3/uL (2.7-7.7); Neutrophil % 68.8 % (47-70); Platelet Count 319 K/mm3 (150-450); RBC Distribution Width CV 16.9 % (11.6-14.6); Red Blood Count 4.73 M/mm3 (4.2-5.4)
[2020-04-08 17:03] LABS: Vitamin D,25 Hydroxy 45.3 ng/mL
[2020-04-08 17:21] LABS: ALB/GLOB Ratio 0.7 RATIO (0.9-2.4); AST(SGOT) 13 U/L (15-37); Alanine Aminotransfer ALT/SGPT 28 U/L (13-56); Albumin, Serum 3.3 g/dL (3.2-5.0); Alkaline Phosphatase 97 U/L (45-117); Anion Gap 9 (5-15); BUN 37 mg/dL (7-18); BUN/Creat Ratio 26.2 RATIO (10-20); Chloride 102 mmol/L (98-107); Creatinine, Serum 1.41 mg/dL (0.55-1.02); EST Glomerular Filtration Rate 39 mL/min (>60); Est Glom Filt Rate - Afr Amer 47 mL/min (>60); Globulin 4.6 g/dL (2.2-4.2); Glucose 179 mg/dL (74-106); Protein, Total 7.9 g/dL (6.4-8.2); Sodium Level 134 mmol/L (136-145); Thyroid Stim Hormone (TSH) 1.94 uIU/mL (0.358-3.74)
== END ==
PROVIDERS: PCP Family Medicine Geriatric Medicine; Visit Provider Family Medicine Geriatric Medicine
DX: E11.9 Type 2 diabetes mellitus without complications (principal); E55.9 Vitamin D deficiency, unspecified; I10 Essential (primary) hypertension
CPT/HCPCS: 36415; 80053; 82306; 84443; 85025

== ENCOUNTER → 2020-05-04 13:25 | Outpatient (CLI) | payer MEDICARE, OTHER, SELFPAY ==
[2019-07-02 14:29] VITALS: BMI 53.8
[2020-04-20 09:20] VITALS: BMI 56.8
--- NOTE | 2020-05-04 13:26 | STEWCON_ITS ---
Reason For Study: DYSPNEA, SOB Stress Results Protocol: Dobutatmine Stress Echo Maximum Predicted HR: 147 bpm Target HR: 125 bpm % Maximum Predicted HR: 101 % DurationHeart Rate Stage (mm:ss) (bpm) BP Dose Comment BASELINE 82 107/75 AFIB. DILUTED DEFINITY 6 CC USED DURING STRESS DSE- 10 MCG 4:44 97 141/6910.00SL SOB, AFIB DSE- 20 MCG 1:22 148 107/6520.00AFIB, SL SOB, NO CP RECOVERY 96 128/71 DENIES COMPLAINT Stress Duration: 6:06 mm:ss Maximum Stress HR: 148 bpm Baseline Echocardiogram Findings The estimated ejection fraction is 65 %. Stress Echo Wall motion Data Resting WM Intermediate WM Stress WM Wall Motion Stress No regional wall motion abnormalities noted. EKG Data Afib with CVR. The patient was titrated from 10 mcg to a maximum of 20 mcg of dobutamine during the stress. The maximum heart rate attained was 148 beats per minute. This was 100% of maximum predicted heart rate. During dobutamine infusion, there were no ST or T wave changes noted to suggest ischemia. No clinical angina was noted. Interpretation Summary The estimated ejection fraction is 65 %. Normal, adequate, dobutamine echocardiogram. Negative for ischemia by EKG and echocardiographic criteria. No anginal symptoms noted. Baseline atrial fibrillation which persisted throughout the exam. Rare PVCs noted. Test terminated due to the attainment of target heart rate. Final LVEF is 75%. Appropriate blood pressure response to dobutamine. Decreased sensitivity due to poor echo windows requiring Definity agent. No complications. The study was technically difficult. Contrast injection was performed. Ordering Physician: Barak Gonzales Referring Physician: Barak Gonzales Performed By: Mary Montalvo RDCS
== END ==
PROVIDERS: PCP Family Medicine Geriatric Medicine; Referring Provider Internal Medicine Cardiovascular Disease; Visit Provider Internal Medicine Cardiovascular Disease
DX: R06.09 Other forms of dyspnea (principal); G47.33 Obstructive sleep apnea (adult) (pediatric); I25.10 Atherosclerotic heart disease of native coronary artery without angina pectoris
CPT/HCPCS: 93017; 93350; J7040; Q9957; A4216; C8928

== ENCOUNTER → 2020-05-25 15:35 | Outpatient (CLI) | payer MEDICARE, SELFPAY ==
[2019-07-02 14:29] VITALS: BMI 53.8
[2020-05-25 13:52] VITALS: BMI 59.7
--- NOTE | 2020-05-25 15:50 | RAD_ITS ---
STUDY: X-RAY CHEST REASON FOR EXAM: Female, 75 years old. Shortness of breath. TECHNIQUE: PA and lateral views of the chest. COMPARISON: January 15, 2020. FINDINGS: The lungs are clear and expanded. There is no demonstrated pleural abnormality. There is borderline cardiomegaly. Normal mediastinum and harmony. Normal visualized pulmonary arteries. Normal visualized aortic arch and descending thoracic aorta. There are diffuse degenerative changes of the visualized thoracic spine. There is degenerative osteoarthritis of the bilateral shoulders. There is no demonstrated abnormality of the visualized soft tissue structures of the upper abdomen. RAD/Chest PA and Lateral IMPRESSION: Borderline cardiomegaly without acute pulmonary disease or interval change. Electronically Signed: Otto Sarkar DO at 22:45 EDT Tel [phone], Service support ,
[2020-05-25 17:08] LABS: Anion Gap 7 (5-15); BNP,B-Type NATRIURETIC PEPTIDE 107.7 pg/mL (0-100); BUN 24 mg/dL (7-18); BUN/Creat Ratio 21.1 RATIO (10-20); Chloride 103 mmol/L (98-107); Creatinine, Serum 1.14 mg/dL (0.55-1.02); EST Glomerular Filtration Rate 50 mL/min (>60); Est Glom Filt Rate - Afr Amer 60 mL/min (>60); Glucose 111 mg/dL (74-106); Potassium 5.1 mmol/L (3.5-5.1); Sodium Level 137 mmol/L (136-145)
== END ==
PROVIDERS: PCP Family Medicine Geriatric Medicine; Referring Provider Nurse Practitioner Acute Care; Visit Provider Nurse Practitioner Acute Care
DX: I50.32 Chronic diastolic (congestive) heart failure (principal); R06.02 Shortness of breath
CPT/HCPCS: 36415; 71046; 80048; 83880

== ENCOUNTER → 2020-05-31 09:35 | Outpatient (CLI) | payer MEDICARE, OTHER, SELFPAY ==
[2019-07-02 14:29] VITALS: BMI 53.8
[2020-05-25 13:52] VITALS: BMI 59.7
[2020-05-31 09:30] VITALS: PULSE 109; PULSE 118; PULSE 121; PULSE 122; PULSE 77; PULSE 92; PULSE 94; PULSE 98; O2SAT 94; O2SAT 95; O2SAT 96; O2SAT 97; O2SAT 98
--- NOTE | 2020-05-31 10:17 | CPS ---
Patient took breaks about every 30 seconds during 6 min walk test. Patient doesn't wear oxygen at home.
--- NOTE | 2020-05-31 12:35 | PCM.PSN.6M ---
PSN 6 Minute Walk Test - 6 Minute Walk Test 6 Minute Walk Test: 6 Minute Walk Test PSN:6-Minute Walk Test Start: 05/31/20 10:11 Freq: Status: Active Protocol: RESP.6MINW Document 05/31/20 09:30 HJ (Rec: 05/31/20 10:20 HJ [id number]) 6 Minute Walk Test Date Performed 05/31/20 Time Performed 09:30 Height 5 ft 4 in Weight: 157.397 kg Weight in Pounds 347.[address]: Teodora Gloria FIO2 (% Oxygen) 21 Assistive device used: Walker Pre-test Oxygen Delivery Method Room Air Pulse Ox (%) 97 Pulse Rate (60-100 beats/min) 98 Dyspnea Dominique Scale (0-10) 0 Exertion Dominique Scale (6-20) 6 Number of Rests Taken 1 1st minute Oxygen Delivery Method Room Air Pulse Ox (%) 96 Pulse Rate (60-100 beats/min) 92 Number of Rests Taken 3 2nd minute Oxygen Delivery Method Room Air Pulse Ox (%) 96 Pulse Rate (60-100 beats/min) 77 Number of Rests Taken 2 3rd minute Oxygen Delivery Method Room Air Pulse Ox (%) 94 Pulse Rate (60-100 beats/min) 121 H Number of Rests Taken 2 4th minute Oxygen Delivery Method Room Air Pulse Ox (%) 97 Pulse Rate (60-100 beats/min) 118 H Number of Rests Taken 2 5th minute Oxygen Delivery Method Room Air Pulse Ox (%) 98 Pulse Rate (60-100 beats/min) 94 Number of Rests Taken 2 6th minute Oxygen Delivery Method Room Air Pulse Ox (%) 95 Pulse Rate (60-100 beats/min) 122 H Post-test Oxygen Delivery Method Room Air Pulse Ox (%) 97 Pulse Rate (60-100 beats/min) 109 H Dyspnea Dominique Scale (0-10) 5 Exertion Dominique Scale (6-20) 14 Full Laps Walked 7 Partial Lap, Number of Tiles Walked 0 Total Distance Walked (ft) 413 05/31/20 10:17 Cardiopulmonary Services by Candy Wan Patient took breaks about every 30 seconds during 6 min walk test. Patient doesn't wear oxygen at home. Initialized on 05/31/20 10:17 - END OF NOTE - Interpretation Interpretation: The patient was able to ambulate 413 feet over the course of 6 minutes on room air with the assistance of a walker and 9 breaks. The patient experienced no significant desaturation, but did have a peak heart rate as high as 122 bpm. These findings are consistent with a cardiovascular and musculoskeletal limitation exercise tolerance. - Recommendations Recommendations: No supplemental oxygen is indicated at this time.
== END ==
PROVIDERS: PCP Family Medicine Geriatric Medicine; Referring Provider Nurse Practitioner Acute Care; Visit Provider Nurse Practitioner Acute Care
DX: R06.02 Shortness of breath (principal)
CPT/HCPCS: 94618

== ENCOUNTER 2020-06-25 11:36 | Day surgery (SDC) | payer MEDICARE, OTHER, SELFPAY ==
[2019-07-02 14:29] VITALS: BMI 53.8
[2020-05-25 13:52] VITALS: BMI 59.7
--- NOTE | 2020-06-15 04:41 | HP_ITS ---
HPI HPI History of Present Illness Surgical H&P: Yes Details: This is a 75-year-old female that presents here today for a cardiovascular follow-up. She has a history of coronary artery disease with recent stenting to her right PDA, negative FFR of her LAD. She also has a history of paroxysmal atrial fibrillation, hypertension, hyperlipidemia, chronic diastolic heart failure, and asthma. She denies chest, arm, jaw, or neck discomfort. Her exercise tolerance is stable. She denies symptoms of palpitations, lightheadedness, dizziness, near syncope, or syncopal episodes. She denies claudication issues. She denies orthopnea, PND, fever, chills, blood in urine, blood in stool, or myalgia. She does acknowledge shortness of breath with activity, fatigue, and chronic bilateral lower extremity edema. 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 Vendor Quality Required: No Accompanied by: Is patient in pain?: No Allergies No Known Allergies Allergy (Verified 05/25/20 14:22) Medications Acetaminophen [Tylenol] 1,000 mg PO Q8H PRN tab 02/12/18 [Rx Confirmed 06/15/20] calcium carbonate 600 mg (1,500 mg)-vitamin D3 400 unit tablet 1 tab PO BID 03/08/18 [History Confirmed 06/15/20] cholecalciferol (vitamin D3) 50 mcg (2,000 unit) capsule 2,000 unit PO QDAY 03/08/18 [History Confirmed 06/15/20] cyanocobalamin (vitamin B-12) 1,000 mcg tablet 1,000 mcg PO QDAY 03/08/18 [History Confirmed 06/15/20] metformin 500 mg tablet 500 mg PO BID 03/08/18 [History Confirmed 06/15/20] multivit with xrrszszz-awgf-PV-lutein 8 mg iron-400 mcg-300 mcg tablet 1 tab PO QDAY tab 03/08/18 [History Confirmed 06/15/20] atorvastatin 40 mg tablet 40 mg PO QDAY 03/19/18 [History Confirmed 06/15/20] Melatonin 10 mg PO QHS 07/26/18 [History Confirmed 06/15/20] traZODone [Desyrel] 100 mg PO QHS 07/26/18 [History Confirmed 06/15/20] nitroglycerin 0.4 mg sublingual tablet 0.4 mg SUBLINGUAL Q5-15M PRN #25 tab 12/05/18 [Rx Confirmed 06/15/20] omeprazole 40 mg capsule,delayed release 40 mg PO DAILY 12/05/18 [History Confirmed 06/15/20] apixaban 5 mg tablet 5 mg PO BID #60 tab 08/04/19 [Rx Confirmed 06/15/20] diclofenac sodium 1 % topical gel 2 g TOPICAL TID #100 g 09/04/19 [Rx Confirmed 06/15/20] pioglitazone 15 mg tablet 15 mg PO DAILY 09/29/19 [History Confirmed 06/15/20] furosemide 20 mg tablet 20 mg PO DAILY tab 01/08/20 [History Confirmed 06/15/20] lisinopril 20 mg tablet 20 mg PO DAILY 01/08/20 [History Confirmed 06/15/20] potassium chloride 20 mEq tablet,extended release(part/cryst) 20 meq PO DAILY tab 01/08/20 [History Confirmed 06/15/20] spironolactone 25 mg tablet 25 mg PO DAILY #30 tab 01/08/20 [Rx Confirmed 06/15/20] citalopram 20 mg tablet 20 mg PO DAILY 04/20/20 [History Confirmed 06/15/20] clopidogrel 75 mg tablet 75 mg PO DAILY #90 tab 05/03/20 [Rx Confirmed 06/15/20] diltiazem HCl 120 mg tablet,extended release 24 hr 120 mg PO DAILY #90 tab 05/19/20 [Rx Confirmed 06/15/20] [facility] Medical History H/O one miscarriage (Resolved) Traumatic brain injury (Chronic) Cellulitis of right lower extremity (Chronic) Atrial fibrillation (Chronic) Arteriosclerotic heart disease (ASHD) (Chronic) Chronic diastolic (congestive) heart failure (Chronic) HTN (hypertension) (Chronic) HLD (hyperlipidemia) (Chronic) Morbid obesity with BMI of 50.0-59.9, adult (Chronic) Diabetes mellitus, type II (Chronic) GERD (gastroesophageal reflux disease) (Chronic) Anxiety and depression (Chronic) KUMAR (obstructive sleep apnea) (Chronic) Cellulitis of right lower extremity (Resolved) Surgical History External hemorrhoids removed (Resolved) Complete hemorrhoidectomy (Resolved) H/O: hysterectomy (Resolved) History of bilateral carpal tunnel release (Resolved) Hx of cholecystectomy (Resolved) Breast reduction with liposuction and ABD wrap (Resolved) S/P nerve repair (Resolved) H/O spinal fusion (Resolved) H/O colonoscopy (Resolved) Upper GI scope (Resolved) removal of bilateral toenails (Resolved) Stented coronary artery (Chronic 07/02/19) Family History Father Myocardial infarction Mother CVA (cerebral vascular accident) Hypertension Social History (Updated 06/15/20 @ 16:41 by Elkin Leija DATA ENTRY TECHNICIAN-C) household members: spouse housing: house pets and animals: No Smoking Status: Never smoker second hand exposure: No alcohol intake: never substance use type: does not use ROS Const Const: Positive for fatigue and other (Has been feeling fatigued and sob, found out back in a-fib w/stress test); negative for weakness, body ache, fever(s), headache(s), chills, frequent falls, night sweats, daytime sleepiness, difficulty sleeping, excessive sweating, weight gain, weight loss, increased appetite, poor appetite or anorexia Eyes Eyes: Negative for blind spots, loss of peripheral vision, transient loss of vision, blurry vision, change in vision, double vision, floaters, tunnel vision or other ENT ENT: Negative for headache(s), dizziness, hearing loss, tinnitus, Nosebleed/epistaxis, balance problems, post nasal drip, lip swelling, tongue swelling, bleeding gums, hoarseness, neck pain, dry mouth or other Cardio Chest Pain: No Palpitations: Yes (sometimes) feels like its: fast, skipping Edema: Bilateral (chronic) Muscle aches with walking: None Resp Respiratory: Positive for SOB with activity; negative for SOB at rest, SOB orthopnea\SOB lying down, Cough, Coughing up blood/hemoptysis, chest congestion, pain on inspiration, snoring, stridor, wheezing, crackles, paroxysmal nocturnal dyspnea or other GI GI: Negative nausea, vomiting, heartburn, constipation, belching, bloating, cramping, vomiting blood/hematemesis, bright, red blood in stools, black,tarry stools, loose stools, Difficulty Swallowing or other : Negative for hematuria, frequent nighttime urination/ nocturia, erectile dysfunction or abnormal vaginal bleeding Musc Musc: Negative for muscle aches/ myalgia, muscle weakness, joint pain or balance problems Skin Skin: Negative redness, non-healing lesions, rash, unusual bruising, skin ulcer, wounds, jaundice or other Neuro Neuro: Negative for dizziness, lightheadedness, near syncope, syncope, orthostatic symptoms, frequent falls, headache(s), weakness, confusion, memory loss, restless legs, blurry vision, double vision, vertigo, seizures, lack of coordination or other Alli Hematologic/Lymphatic: Negative for easy bleeding, easy bruising, enlarged lymph nodes or other Endo Endo: Positive for fatigue; negative for cold intolerance, heat intolerance, excessive sweating, flushing, increased thirst/drinking, increased hunger, hair loss, hair growth or other Psych Psych: Negative for anxiety, depression, thoughts of harming anyone, thoughts of harming yourself, visual hallucinations, panic attacks or audible hallucinations Allergy Allergy/Immunology: Negative for throat swelling, Negative for tongue swelling, Negative for hives, Negative for rash, Negative for lip swelling Cardiology Exam Const Appearance: cooperative, healthy appearing, comfortable and no acute distress Nutritional Appearance: well nourished and obese Orientation: alert, awake and oriented x3 Head Head: normal to inspection Ears: hearing grossly normal bilaterally Nose: external nose normal Face and Sinus: face symmetric Mouth: oral mucosae normal Eyes General: appearance normal, both eyes and all related structures Eyelids: eyelids normal EOM: EOM intact bilaterally Neck Neck: normal visual inspection and no JVD Carotids: normal carotid upstroke Chest Chest inspection: normal inspection of the chest, symmetric chest movement and normal respiratory effort; negative cough Auscultation: Bilateral: Clear to Auscultation Cardio Palpation: normal PMI Rate: regular rate Rhythm: irregular rhythm Heart sounds: S1 normal and S2 normal; negative rub, gallop or murmur GI GI: normal to inspection and obese Neuro General: alert, awake, oriented x3 and CN's II-XI intact bilaterally Skin Skin: no rashes or lesions noted Extremities Pulses: Normal: Right Posterior Tibial Pulse, Left Posterior Tibial Pulse, Right Radial Pulse, Left Radial Pulse Lower Extremity Edema: +1: Bilateral Mason wrap noted to right knee region Psych Psychological: normal affect Assessment & Plan 1. Atrial fibrillation, unspecified type I48.91 Plan Her EKG today in office continues to show atrial fibrillation at a rate of 94 bpm QTC of 429. Her most recent echocardiogram from December 2019 revealed an ejection fraction of 65% and normal left and right atrial size. She has been on anticoagulation consistently without interruption. She will proceed with outpatient cardioversion. She will return to office on 07/02/2020 at 10:15 AM to evaluate rhythm with EKG. Orders Orders: 12 Lead EKG performed by [facility] Today 2. Arteriosclerotic heart disease (ASHD) I25.10 07/02/19:Successful PTCA/DAVID mid PDA with a 2.25 x 16 Promus Synergy, post dilated with a 2.25 x 12 NC balloon; 75%-->0%, no dissection. Plan Her most recent stress echocardiogram from April 2020 was negative for ischemia. Hopefully, with improvement of her rhythm, her shortness of breath improves. 3. Stented coronary artery Z95.5 07/02/19: Successful PTCA/DAVID mid PDA with a 2.25 x 16 Promus Synergy, post dilated with a 2.25 x 12 NC balloon; 75%-->0%, no dissection. Post FFR=0.96. Plan She will continue current medical therapy. She will continue risk factor and lifestyle modification. 4. Essential hypertension I10 Plan Patient's blood pressure is well-controlled. We will continue to monitor. We will not make any medication regimen changes. 5. Hyperlipidemia, unspecified hyperlipidemia type E78.5 Plan She will continue current statin medication. Plan Detail Additional Comments Thank you for allowing us to participate in the patients plan of care, if you have any questions please do not hesitate to call. This note was generated using a voice recognition system and there may be incorrect words, spelling or punctuation that were not noted when reviewing the office note prior to saving. Follow Up 4 Months (DATA ENTRY TECHNICIAN/PA) 12 Months (PFM) Coding Level of Care Code Off vis,est,level 3 Diagnoses Atrial fibrillation, unspecified type I48.91 ??Atrial fibrillation type: unspecified Arteriosclerotic heart disease (ASHD) I25.10 Stented coronary artery Z95.5 Essential hypertension I10 ??Hypertension type: essential hypertension Hyperlipidemia, unspecified hyperlipidemia type E78.5 ??Hyperlipidemia type: unspecified Coding Level of Care Code Off vis,est,level 3 Diagnoses Atrial fibrillation, unspecified type I48.91 ??Atrial fibrillation type: unspecified Arteriosclerotic heart disease (ASHD) I25.10 Stented coronary artery Z95.5 Essential hypertension I10 ??Hypertension type: essential hypertension Hyperlipidemia, unspecified hyperlipidemia type E78.5 ??Hyperlipidemia type: unspecified Supplemental Info Supplemental Information Diagnostics Electrocardiogram 06/15/20 Stress Echocardiogram 05/04/20 Chest X-Ray 05/25/20 Pulmonary Pulmonary Exercise Test 05/31/20 06/15/20 1641 <Electronically signed by Elkin Hunter> Date _ Elkin NIELSON
[2020-06-15 15:36] VITALS: BMI 59.5
[2020-06-15 18:00] LABS: Anion Gap 6 (5-15); BUN 25 mg/dL (7-18); BUN/Creat Ratio 22.1 RATIO (10-20); Calcium,Total 8.8 mg/dL (8.5-10.1); Chloride 106 mmol/L (98-107); Creatinine, Serum 1.13 mg/dL (0.55-1.02); EST Glomerular Filtration Rate 50 mL/min (>60); Est Glom Filt Rate - Afr Amer 61 mL/min (>60); Glucose 108 mg/dL (74-106); Potassium 4.8 mmol/L (3.5-5.1); Sodium Level 138 mmol/L (136-145)
[2020-06-24 08:37] VITALS: BMI 59.5
--- NOTE | 2020-06-25 12:16 | CARDIOVERS ---
Cardioversion Cardioversion: DC cardioversion summary: Patient is brought to the Sewing Inspector in the fasting state, the risk/benefits of the procedure were thoroughly explained to the patient and informed consent was obtained. She was brought to the Sewing Inspector holding area, where an IV was started, and the defibrillator pads were placed in the AP position. Confirmation EKG immediately prior to procedure demonstrated atrial fibrillation with controlled ventricular response. The patient noted she has been compliant with her Eliquis therapy for the past 3 weeks. With the assistance of Dr. Gian Daniels the patient received a total of 60 mg of IV propofol, at first with 40 mg and then 20 mg. Once adequate sedation was obtained, the patient received a single 200 J biphasic synchronized shock which unfortunately did not convert her to normal sinus rhythm. Patient then received a second 300 J biphasic synchronized shock which converted from atrial fibrillation to normal sinus rhythm. This rhythm remained durable, and documented by EKG. The patient spontaneously awoke, moves all 4 extremities and tolerated procedure well. Conclusions: Successful Eliquis assisted DC cardioversion with first 200 J, which was unsuccessful, and then a second 300 J biphasic synchronized shock which converted from atrial fibrillation to normal sinus rhythm. Patient spontaneously awoke, move all 4 extremities and tolerated procedure well. Patient will continue her Eliquis therapy, and report to the office in 1 week's time for an EKG. If her atrial fibrillation returns during that time or subsequent she will require amiodarone assisted DC cardioversion in the future. Patient tolerated procedure well. No complication.
--- NOTE | 2020-06-25 13:34 | PCM.OP.PRO ---
Procedure Report Date of Procedure: 06/25/20 CONSCIOUS SEDATION REPORT DATE OF SERVICE: June 25, 2020 BRIEF HISTORY OF PRESENT ILLNESS: The patient is a 75-year-old female who presented to [facility] for an elective outpatient cardioversion due to underlying atrial fibrillation. The patient has never previously undergone a prior cardioversion. She denies any known prior anesthetic complications. Her last surface echocardiogram revealed an ejection fraction of approximately 65%. The patient is currently anticoagulated on Eliquis. She does have a known history of obstructive sleep apnea, for which she regularly utilizes nocturnal CPAP therapy. PHYSICAL EXAMINATION: VITAL SIGNS: Reviewed and were acceptable. GENERAL: The patient is a morbidly obese female, in no apparent distress, speaking in full sentences. HEENT: Normocephalic, atraumatic. Mucous membranes are moist and pink. Good mouth opening noted. Trachea is midline. MP IV CHEST: S1, S2 irregularly irregular. No murmurs, rubs or gallops were noted. LUNGS: Clear to auscultation bilaterally without appreciable wheezes, rales or rhonchi. ABDOMEN: Soft, nontender, nondistended. Positive bowel sounds. EXTREMITIES: There is no clubbing, cyanosis or edema. ASA Class: II DESCRIPTION OF PROCEDURE: After confirmation of informed consent, the patient's anesthesia plan was reviewed in detail. Propofol was chosen. Risks and benefits were reviewed and the patient agreed to proceed. At 1204, the patient was given her first bolus of propofol. In total, the patient required 60 mg of propofol to facilitate two separate attempts at cardioversion, one at 200 J and a second at 300 J. This was successful in achieving normal sinus rhythm. The patient was monitored until 1215, at which time she reached her baseline mental status and function. The patient tolerated the procedure well. COMPLICATIONS: None ESTIMATED BLOOD LOSS: None RECOMMENDATIONS: Okay to recover in usual fashion. [id number]: Other Procedure See Report - [id number]
--- NOTE | 2020-06-27 10:15 | PCM.HP.BLA ---
Problem List (1) Atrial fibrillation with RVR Status: Chronic History and Physical Date of Admission: 06/25/20 [facility] Medical Records Department [address] [place] [address] History and Physical 06/15/20 0441 MR#: [id number] Acct: [id number] Name: VERONICA CRAIG Rep #: [id number] : 1945 75 From: Barak Gonzales MD PCP: Dr. Jim Hester MD Status: [facility] [place] HPI HPI History of Present Illness Surgical H&P: Yes Details: This is a 75-year-old female that presents here today for a cardiovascular follow-up. She has a history of coronary artery disease with recent stenting to her right PDA, negative FFR of her LAD. She also has a history of paroxysmal atrial fibrillation, hypertension, hyperlipidemia, chronic diastolic heart failure, and asthma. She denies chest, arm, jaw, or neck discomfort. Her exercise tolerance is stable. She denies symptoms of palpitations, lightheadedness, dizziness, near syncope, or syncopal episodes. She denies claudication issues. She denies orthopnea, PND, fever, chills, blood in urine, blood in stool, or myalgia. She does acknowledge shortness of breath with activity, fatigue, and chronic bilateral lower extremity edema. Intake Vital Signs 06/15/20 Height 5 ft 4 in 06/15/20 Weight: 347 lb 06/15/20 BP 100/60 06/15/20 Blood Pressure Location Rt brachial 06/15/20 Position Sitting 06/15/20 Respiration 24 H 06/15/20 Pulse 92 06/15/20 Pulse Source Auscultation Intake Visit Reasons: ekg for [facility] [employer] Required: No Accompanied by: Is patient in pain?: No Allergies No Known Allergies Allergy (Verified 05/25/20 14:22) Medications Acetaminophen [Tylenol] 1,000 mg PO Q8H PRN tab 02/12/18 [Rx Confirmed 06/15/20] calcium carbonate 600 mg (1,500 mg)-vitamin D3 400 unit tablet 1 tab PO BID 03/08/18 [History Confirmed 06/15/20] cholecalciferol (vitamin D3) 50 mcg (2,000 unit) capsule 2,000 unit PO QDAY 03/08/18 [History Confirmed 06/15/20] cyanocobalamin (vitamin B-12) 1,000 mcg tablet 1,000 mcg PO QDAY 03/08/18 [History Confirmed 06/15/20] metformin 500 mg tablet 500 mg PO BID 03/08/18 [History Confirmed 06/15/20] multivit with crpdueuk-bayu-GR-lutein 8 mg iron-400 mcg-300 mcg tablet 1 tab PO QDAY tab 03/08/18 [History Confirmed 06/15/20] atorvastatin 40 mg tablet 40 mg PO QDAY 03/19/18 [History Confirmed 06/15/20] Melatonin 10 mg PO QHS 07/26/18 [History Confirmed 06/15/20] traZODone [Desyrel] 100 mg PO QHS 07/26/18 [History Confirmed 06/15/20] nitroglycerin 0.4 mg sublingual tablet 0.4 mg SUBLINGUAL Q5-15M PRN #25 tab 12/05/18 [Rx Confirmed 06/15/20] omeprazole 40 mg capsule,delayed release 40 mg PO DAILY 12/05/18 [History Confirmed 06/15/20] apixaban 5 mg tablet 5 mg PO BID #60 tab 08/04/19 [Rx Confirmed 06/15/20] diclofenac sodium 1 % topical gel 2 g TOPICAL TID #100 g 09/04/19 [Rx Confirmed 06/15/20] pioglitazone 15 mg tablet 15 mg PO DAILY 09/29/19 [History Confirmed 06/15/20] furosemide 20 mg tablet 20 mg PO DAILY tab 01/08/20 [History Confirmed 06/15/20] lisinopril 20 mg tablet 20 mg PO DAILY 01/08/20 [History Confirmed 06/15/20] potassium chloride 20 mEq tablet,extended release(part/cryst) 20 meq PO DAILY tab 01/08/20 [History Confirmed 06/15/20] spironolactone 25 mg tablet 25 mg PO DAILY #30 tab 01/08/20 [Rx Confirmed 06/15/20] citalopram 20 mg tablet 20 mg PO DAILY 04/20/20 [History Confirmed 06/15/20] clopidogrel 75 mg tablet 75 mg PO DAILY #90 tab 05/03/20 [Rx Confirmed 06/15/20] diltiazem HCl 120 mg tablet,extended release 24 hr 120 mg PO DAILY #90 tab 05/19/20 [Rx Confirmed 06/15/20] [facility] Medical History H/O one miscarriage (Resolved) Traumatic brain injury (Chronic) Cellulitis of right lower extremity (Chronic) Atrial fibrillation (Chronic) Arteriosclerotic heart disease (ASHD) (Chronic) Chronic diastolic (congestive) heart failure (Chronic) HTN (hypertension) (Chronic) HLD (hyperlipidemia) (Chronic) Morbid obesity with BMI of 50.0-59.9, adult (Chronic) Diabetes mellitus, type II (Chronic) GERD (gastroesophageal reflux disease) (Chronic) Anxiety and depression (Chronic) KUMAR (obstructive sleep apnea) (Chronic) Cellulitis of right lower extremity (Resolved) Surgical History External hemorrhoids removed (Resolved) Complete hemorrhoidectomy (Resolved) H/O: hysterectomy (Resolved) History of bilateral carpal tunnel release (Resolved) Hx of cholecystectomy (Resolved) Breast reduction with liposuction and ABD wrap (Resolved) S/P nerve repair (Resolved) H/O spinal fusion (Resolved) H/O colonoscopy (Resolved) Upper GI scope (Resolved) removal of bilateral toenails (Resolved) Stented coronary artery (Chronic 07/02/19) Family History Father Myocardial infarction Mother CVA (cerebral vascular accident) Hypertension Social History (Updated 06/15/20 @ 16:41 by NAGA Bennett) household members: spouse housing: house pets and animals: No Smoking Status: Never smoker second hand exposure: No alcohol intake: never substance use type: does not use ROS Const Const: Positive for fatigue and other (Has been feeling fatigued and sob, found out back in a-fib w/stress test); negative for weakness, body ache, fever(s), headache(s), chills, frequent falls, night sweats, daytime sleepiness, difficulty sleeping, excessive sweating, weight gain, weight loss, increased appetite, poor appetite or anorexia Eyes Eyes: Negative for blind spots, loss of peripheral vision, transient loss of vision, blurry vision, change in vision, double vision, floaters, tunnel vision or other ENT ENT: Negative for headache(s), dizziness, hearing loss, tinnitus, Nosebleed/epistaxis, balance problems, post nasal drip, lip swelling, tongue swelling, bleeding gums, hoarseness, neck pain, dry mouth or other Cardio Chest Pain: No Palpitations: Yes (sometimes) feels like its: fast, skipping Edema: Bilateral (chronic) Muscle aches with walking: None Resp Respiratory: Positive for SOB with activity; negative for SOB at rest, SOB orthopnea\SOB lying down, Cough, Coughing up blood/hemoptysis, chest congestion, pain on inspiration, snoring, stridor, wheezing, crackles, paroxysmal nocturnal dyspnea or other GI GI: Negative nausea, vomiting, heartburn, constipation, belching, bloating, cramping, vomiting blood/hematemesis, bright, red blood in stools, black,tarry stools, loose stools, Difficulty Swallowing or other : Negative for hematuria, frequent nighttime urination/ nocturia, erectile dysfunction or abnormal vaginal bleeding Musc Musc: Negative for muscle aches/ myalgia, muscle weakness, joint pain or balance problems Skin Skin: Negative redness, non-healing lesions, rash, unusual bruising, skin ulcer, wounds, jaundice or other Neuro Neuro: Negative for dizziness, lightheadedness, near syncope, syncope, orthostatic symptoms, frequent falls, headache(s), weakness, confusion, memory loss, restless legs, blurry vision, double vision, vertigo, seizures, lack of coordination or other Alli Hematologic/Lymphatic: Negative for easy bleeding, easy bruising, enlarged lymph nodes or other Endo Endo: Positive for fatigue; negative for cold intolerance, heat intolerance, excessive sweating, flushing, increased thirst/drinking, increased hunger, hair loss, hair growth or other Psych Psych: Negative for anxiety, depression, thoughts of harming anyone, thoughts of harming yourself, visual hallucinations, panic attacks or audible hallucinations Allergy Allergy/Immunology: Negative for throat swelling, Negative for tongue swelling, Negative for hives, Negative for rash, Negative for lip swelling Cardiology Exam Const Appearance: cooperative, healthy appearing, comfortable and no acute distress Nutritional Appearance: well nourished and obese Orientation: alert, awake and oriented x3 Head Head: normal to inspection Ears: hearing grossly normal bilaterally Nose: external nose normal Face and Sinus: face symmetric Mouth: oral mucosae normal Eyes General: appearance normal, both eyes and all related structures Eyelids: eyelids normal EOM: EOM intact bilaterally Neck Neck: normal visual inspection and no JVD Carotids: normal carotid upstroke Chest Chest inspection: normal inspection of the chest, symmetric chest movement and normal respiratory effort; negative cough Auscultation: Bilateral: Clear to Auscultation Cardio Palpation: normal PMI Rate: regular rate Rhythm: irregular rhythm Heart sounds: S1 normal and S2 normal; negative rub, gallop or murmur GI GI: normal to inspection and obese Neuro General: alert, awake, oriented x3 and CN's II-XI intact bilaterally Skin Skin: no rashes or lesions noted Extremities Pulses: Normal: Right Posterior Tibial Pulse, Left Posterior Tibial Pulse, Right Radial Pulse, Left Radial Pulse Lower Extremity Edema: +1: Bilateral Mason wrap noted to right knee region Psych Psychological: normal affect Assessment & Plan 1. Atrial fibrillation, unspecified type I48.91 Plan Her EKG today in office continues to show atrial fibrillation at a rate of 94 bpm QTC of 429. Her most recent echocardiogram from December 2019 revealed an ejection fraction of 65% and normal left and right atrial size. She has been on anticoagulation consistently without interruption. She will proceed with outpatient cardioversion. She will return to office on 07/02/2020 at 10:15 AM to evaluate rhythm with EKG. Orders Orders: 12 Lead EKG performed by [facility] Today 2. Arteriosclerotic heart disease (ASHD) I25.10 07/02/19:Successful PTCA/DAVID mid PDA with a 2.25 x 16 Promus Synergy, post dilated with a 2.25 x 12 NC balloon; 75%-->0%, no dissection. Plan Her most recent stress echocardiogram from April 2020 was negative for ischemia. Hopefully, with improvement of her rhythm, her shortness of breath improves. 3. Stented coronary artery Z95.5 07/02/19: Successful PTCA/DAVID mid PDA with a 2.25 x 16 Promus Synergy, post dilated with a 2.25 x 12 NC balloon; 75%-->0%, no dissection. Post FFR=0.96. Plan She will continue current medical therapy. She will continue risk factor and lifestyle modification. 4. Essential hypertension I10 Plan Patient's blood pressure is well-controlled. We will continue to monitor. We will not make any medication regimen changes. 5. Hyperlipidemia, unspecified hyperlipidemia type E78.5 Plan She will continue current statin medication. Plan Detail Additional Comments Thank you for allowing us to participate in the patients plan of care, if you have any questions please do not hesitate to call. This note was generated using a voice recognition system and there may be incorrect words, spelling or punctuation that were not noted when reviewing the office note prior to saving. Follow Up 4 Months (MAINTENANCE SERVICE TECHNICIAN/PA) 12 Months (PFM) Coding Level of Care Code Off vis,est,level 3 Diagnoses Atrial fibrillation, unspecified type I48.91 ??Atrial fibrillation type: unspecified Arteriosclerotic heart disease (ASHD) I25.10 Stented coronary artery Z95.5 Essential hypertension I10 ??Hypertension type: essential hypertension Hyperlipidemia, unspecified hyperlipidemia type E78.5 ??Hyperlipidemia type: unspecified Coding Level of Care Code Off vis,est,level 3 Diagnoses Atrial fibrillation, unspecified type I48.91 ??Atrial fibrillation type: unspecified Arteriosclerotic heart disease (ASHD) I25.10 Stented coronary artery Z95.5 Essential hypertension I10 ??Hypertension type: essential hypertension Hyperlipidemia, unspecified hyperlipidemia type E78.5 ??Hyperlipidemia type: unspecified Supplemental Info Supplemental Information Diagnostics Electrocardiogram 06/15/20 Stress Echocardiogram 05/04/20 Chest X-Ray 05/25/20 Pulmonary Pulmonary Exercise Test 05/31/20 06/15/20 1641 <Electronically signed by Elkin NIELSON> Date Elkin Leija NP-C 06/21/20 0934 <Electronically signed by Barak Gonzales MD> Date: Time: Barak Gonzales MD CC: Dr. Barak Gonzales MD; Dr. Jim Hester MD ~ Date Dictated: 06/15/20 0441 Date Transcribed: 06/16/20 1251 Founder Chairman And Chief Creative Officer: NR Signed Interventional cardiology addendum: Patient seen and examined on the day of the procedure, no interim changes noted. Atrial fibrillation was confirmed on her admission to the [facility]. The risk/benefits of the procedure were thoroughly explained to the patient, and informed consent was obtained. We will proceed with DC cardioversion.
== END 2020-06-25 13:25 | disposition home or self-care (01) ==
LOC: CLSP 11:37
PROVIDERS: PCP Family Medicine Geriatric Medicine; Referring Provider Internal Medicine Cardiovascular Disease; Visit Provider Internal Medicine Cardiovascular Disease
DX: I48.0 Paroxysmal atrial fibrillation (principal); G47.33 Obstructive sleep apnea (adult) (pediatric); E66.01 Morbid (severe) obesity due to excess calories; Z68.43 Body mass index [BMI] 50.0-59.9, adult; J45.909 Unspecified asthma, uncomplicated; E78.5 Hyperlipidemia, unspecified; I11.0 Hypertensive heart disease with heart failure; I50.32 Chronic diastolic (congestive) heart failure; I25.10 Atherosclerotic heart disease of native coronary artery without angina pectoris; K21.9 Gastro-esophageal reflux disease without esophagitis; F41.9 Anxiety disorder, unspecified; F32.9 Major depressive disorder, single episode, unspecified; E11.9 Type 2 diabetes mellitus without complications; Z79.01 Long term (current) use of anticoagulants; Z79.899 Other long term (current) drug therapy; Z79.84 Long term (current) use of oral hypoglycemic drugs; Z79.02 Long term (current) use of antithrombotics/antiplatelets; Z95.5 Presence of coronary angioplasty implant and graft
CPT/HCPCS: 36415; 80048; 92960; 93005; J7040

== ENCOUNTER → 2020-07-02 12:41 | Outpatient (CLI) | payer MEDICARE, OTHER, SELFPAY ==
[2019-07-02 14:29] VITALS: BMI 53.8
[2020-06-24 08:37] VITALS: BMI 59.5
[2020-07-02 13:50] LABS: Anion Gap 6 (5-15); BUN 36 mg/dL (7-18); Calcium,Total 9.1 mg/dL (8.5-10.1); Chloride 104 mmol/L (98-107); Creatinine, Serum 1.44 mg/dL (0.55-1.02); EST Glomerular Filtration Rate 38 mL/min (>60); Est Glom Filt Rate - Afr Amer 46 mL/min (>60); Glucose 133 mg/dL (74-106); Potassium 4.5 mmol/L (3.5-5.1); Sodium Level 136 mmol/L (136-145)
[2020-07-02 13:53] LABS: BNP,B-Type NATRIURETIC PEPTIDE 63.1 pg/mL (0-100)
== END ==
PROVIDERS: PCP Family Medicine Geriatric Medicine; Referring Provider Nurse Practitioner Family; Visit Provider Nurse Practitioner Family
DX: E78.5 Hyperlipidemia, unspecified (principal); R06.09 Other forms of dyspnea; I10 Essential (primary) hypertension; Z98.890 Other specified postprocedural states
CPT/HCPCS: 36415; 80048; 83880

== ENCOUNTER → 2020-07-07 14:41 | Outpatient (CLI) | payer MEDICARE, OTHER, SELFPAY ==
[2019-07-02 14:29] VITALS: BMI 53.8
[2020-07-02 14:04] VITALS: BMI 59.5
[2020-07-07 15:05] LABS: Absolute Lymphocyte Count 1.52 X10^3/uL (0.83-4.51); Absolute Neutrophil Count 5.9 X10^3/uL (2.0-7.7); Basophil# 0.02 X10^3/uL; Basophil% 0.2 % (0-1); Eosinophil# 0.13 X10^3/uL; Eosinophils% 1.6 % (0-5); Hematocrit 37.8 % (37-47); Hemoglobin 11.4 g/dL (12.0-15.0); Lymphocyte # 1.52 X10^3/ul (4.0); Lymphocyte % 18.5 % (19-41); Mean Corp Hgb Conc 30.2 g/dL (32-36); Mean Corpuscular Hgb 25.9 pg (27.0-32.0); Mean Corpuscular Volume 85.9 fL (81-99); Mean Platelet Vol. 9.2 fl (6.2-12.0); Monocyte# 0.56 X10^3/uL; Monocyte% 6.8 % (0-10); NRBC Flagged by Analyzer 0 % (0-5); Neutrophil # 5.91 X10^3/uL (2.7-7.7); Platelet Count 275 K/mm3 (150-450); RBC Distribution Width CV 17.1 % (11.6-14.6); RBC Distribution Width SD 52.4 fl (35.1-43.9); White Blood Count 8.2 K/mm3 (4.4-11.0)
[2020-07-07 15:33] LABS: Vitamin D,25 Hydroxy 46.3 ng/mL
[2020-07-07 15:38] LABS: ALB/GLOB Ratio 0.8 RATIO (0.9-2.4); AST(SGOT) 11 U/L (15-37); Alanine Aminotransfer ALT/SGPT 19 U/L (13-56); Albumin, Serum 3.4 g/dL (3.2-5.0); Alkaline Phosphatase 96 U/L (45-117); Anion Gap 6 (5-15); BUN 26 mg/dL (7-18); BUN/Creat Ratio 21.8 RATIO (10-20); Calcium,Total 9.1 mg/dL (8.5-10.1); Chloride 104 mmol/L (98-107); Creatinine, Serum 1.19 mg/dL (0.55-1.02); EST Glomerular Filtration Rate 47 mL/min (>60); Est Glom Filt Rate - Afr Amer 57 mL/min (>60); Globulin 4.5 g/dL (2.2-4.2); Glucose 98 mg/dL (74-106); Potassium 4.7 mmol/L (3.5-5.1); Protein, Total 7.9 g/dL (6.4-8.2); Sodium Level 137 mmol/L (136-145); Thyroid Stim Hormone (TSH) 2.54 uIU/mL (0.358-3.74)
== END ==
PROVIDERS: PCP Family Medicine Geriatric Medicine; Referring Provider Family Medicine Geriatric Medicine; Visit Provider Family Medicine Geriatric Medicine
DX: E11.9 Type 2 diabetes mellitus without complications (principal); E55.9 Vitamin D deficiency, unspecified; I10 Essential (primary) hypertension
CPT/HCPCS: 36415; 80053; 82306; 84443; 85025

== ENCOUNTER → 2020-07-14 15:39 | Outpatient (CLI) | payer MEDICARE, OTHER, SELFPAY ==
[2019-07-02 14:29] VITALS: BMI 53.8
[2020-07-02 14:04] VITALS: BMI 59.5
[2020-07-14 16:42] LABS: Anion Gap 6 (5-15); BUN 80 mg/dL (7-18); BUN/Creat Ratio 30.5 RATIO (10-20); Calcium,Total 9.2 mg/dL (8.5-10.1); Chloride 101 mmol/L (98-107); Creatinine, Serum 2.62 mg/dL (0.55-1.02); EST Glomerular Filtration Rate 19 mL/min (>60); Est Glom Filt Rate - Afr Amer 23 mL/min (>60); Glucose 103 mg/dL (74-106); Sodium Level 132 mmol/L (136-145)
== END ==
PROVIDERS: PCP Family Medicine Geriatric Medicine; Visit Provider Family Medicine Geriatric Medicine
DX: N18.3 Chronic kidney disease, stage 3 (moderate) (principal)
CPT/HCPCS: 36415; 80048

== ENCOUNTER → 2020-07-15 17:16 | Outpatient (CLI) | payer MEDICARE, OTHER, SELFPAY ==
[2019-07-02 14:29] VITALS: BMI 53.8
[2020-07-02 14:04] VITALS: BMI 59.5
[2020-07-15 18:09] LABS: Anion Gap 8 (5-15); BUN 81 mg/dL (7-18); BUN/Creat Ratio 35.5 RATIO (10-20); Calcium,Total 8.7 mg/dL (8.5-10.1); Chloride 99 mmol/L (98-107); Creatinine, Serum 2.28 mg/dL (0.55-1.02); EST Glomerular Filtration Rate 22 mL/min (>60); Est Glom Filt Rate - Afr Amer 27 mL/min (>60); Glucose 146 mg/dL (74-106); Sodium Level 133 mmol/L (136-145)
== END ==
PROVIDERS: PCP Family Medicine Geriatric Medicine; Visit Provider Family Medicine Geriatric Medicine
DX: E87.5 Hyperkalemia (principal)
CPT/HCPCS: 36415; 80048

== ENCOUNTER → 2020-07-20 14:59 | Outpatient (CLI) | payer MEDICARE, OTHER, SELFPAY ==
[2019-07-02 14:29] VITALS: BMI 53.8
[2020-07-02 14:04] VITALS: BMI 59.5
--- NOTE | 2020-07-20 15:02 | RAD_ITS ---
STUDY: X-RAY - LUMBAR SPINE REASON FOR EXAM: Female, 75 years old. History of previous spine surgery. Lower back pain extending into the hips. TECHNIQUE: 3 view(s) of the lumbar spine were obtained. COMPARISON: CT of the lumbar spine, 05/25/2018. FINDINGS: Normal lumbar lordosis. There is no substantial scoliosis. There is a normal alignment of the vertebrae. There is stable posterior fusion of L4-5 with intact hardware and stable positioning of the disc spacer. Mild narrowing of the L5-S1 disc space. Otherwise disc height and endplate. There is no evidence of acute fracture or loss of vertebral axial height.. There is diffuse degenerative facet disease. The soft tissue structures are unremarkable. RAD/Lumbar Spine 2 or 3 Views IMPRESSION: L4-5 surgical changes. There is no acute abnormality or major change from 05/25/2018. Electronically Signed: Otto Sarkar DO at 16:08 EDT Tel [phone], Service support ,
== END ==
PROVIDERS: PCP Family Medicine Geriatric Medicine; Referring Provider Family Medicine Geriatric Medicine; Visit Provider Family Medicine Geriatric Medicine
DX: M54.5 Low back pain (principal); N17.9 Acute kidney failure, unspecified
CPT/HCPCS: 72100

== ENCOUNTER → 2020-07-20 16:32 | Outpatient (CLI) | payer MEDICARE, OTHER, SELFPAY ==
[2019-07-02 14:29] VITALS: BMI 53.8
[2020-07-02 14:04] VITALS: BMI 59.5
[2020-07-20 17:02] LABS: Anion Gap 9 (5-15); BUN 33 mg/dL (7-18); BUN/Creat Ratio 23.6 RATIO (10-20); Calcium,Total 8.9 mg/dL (8.5-10.1); Chloride 105 mmol/L (98-107); EST Glomerular Filtration Rate 39 mL/min (>60); Est Glom Filt Rate - Afr Amer 47 mL/min (>60); Glucose 139 mg/dL (74-106); Potassium 4.7 mmol/L (3.5-5.1); Sodium Level 138 mmol/L (136-145)
== END ==
PROVIDERS: PCP Family Medicine Geriatric Medicine; Visit Provider Family Medicine Geriatric Medicine
DX: N17.9 Acute kidney failure, unspecified (principal); M54.5 Low back pain
CPT/HCPCS: 36415; 72100; 80048

== ENCOUNTER → 2020-07-27 14:56 | Outpatient (CLI) | payer MEDICARE, OTHER, SELFPAY ==
[2019-07-02 14:29] VITALS: BMI 53.8
[2020-07-02 14:04] VITALS: BMI 59.5
[2020-07-27 16:03] LABS: Anion Gap 10 (5-15); BUN 19 mg/dL (7-18); BUN/Creat Ratio 18.4 RATIO (10-20); Calcium,Total 8.7 mg/dL (8.5-10.1); Chloride 110 mmol/L (98-107); Creatinine, Serum 1.03 mg/dL (0.55-1.02); EST Glomerular Filtration Rate 56 mL/min (>60); Est Glom Filt Rate - Afr Amer 68 mL/min (>60); Glucose 170 mg/dL (74-106); Potassium 3.9 mmol/L (3.5-5.1); Sodium Level 139 mmol/L (136-145)
== END ==
PROVIDERS: PCP Family Medicine Geriatric Medicine; Visit Provider Family Medicine Geriatric Medicine
DX: N17.9 Acute kidney failure, unspecified (principal)
CPT/HCPCS: 36415; 80048

== ENCOUNTER → 2020-08-03 15:57 | Outpatient (CLI) | payer MEDICARE, OTHER, SELFPAY ==
[2019-07-02 14:29] VITALS: BMI 53.8
[2020-07-02 14:04] VITALS: BMI 59.5
[2020-08-03 17:48] LABS: Anion Gap 6 (5-15); BUN 27 mg/dL (7-18); BUN/Creat Ratio 23.9 RATIO (10-20); Calcium,Total 8.9 mg/dL (8.5-10.1); Chloride 104 mmol/L (98-107); Creatinine, Serum 1.13 mg/dL (0.55-1.02); EST Glomerular Filtration Rate 50 mL/min (>60); Est Glom Filt Rate - Afr Amer 61 mL/min (>60); Glucose 124 mg/dL (74-106); Potassium 4.1 mmol/L (3.5-5.1); Sodium Level 136 mmol/L (136-145)
== END ==
PROVIDERS: PCP Family Medicine Geriatric Medicine; Visit Provider Family Medicine Geriatric Medicine
DX: N17.9 Acute kidney failure, unspecified (principal)
CPT/HCPCS: 36415; 80048

== ENCOUNTER → 2020-08-10 17:09 | Outpatient (CLI) | payer MEDICARE, OTHER, SELFPAY ==
[2019-07-02 14:29] VITALS: BMI 53.8
[2020-07-02 14:04] VITALS: BMI 59.5
[2020-08-10 19:01] LABS: Anion Gap 7 (5-15); BUN 30 mg/dL (7-18); BUN/Creat Ratio 24.6 RATIO (10-20); Calcium,Total 9.1 mg/dL (8.5-10.1); Chloride 104 mmol/L (98-107); Creatinine, Serum 1.22 mg/dL (0.55-1.02); EST Glomerular Filtration Rate 46 mL/min (>60); Est Glom Filt Rate - Afr Amer 56 mL/min (>60); Glucose 139 mg/dL (74-106); Potassium 3.8 mmol/L (3.5-5.1); Sodium Level 137 mmol/L (136-145)
== END ==
PROVIDERS: PCP Family Medicine Geriatric Medicine; Visit Provider Family Medicine Geriatric Medicine
DX: E87.6 Hypokalemia (principal)
CPT/HCPCS: 36415; 80048

== ENCOUNTER → 2020-08-17 16:43 | Outpatient (CLI) | payer MEDICARE, OTHER, SELFPAY ==
[2019-07-02 14:29] VITALS: BMI 53.8
[2020-08-12 15:36] VITALS: BMI 59.8
[2020-08-17 17:52] LABS: Anion Gap 9 (5-15); BUN 27 mg/dL (7-18); BUN/Creat Ratio 23.5 RATIO (10-20); Calcium,Total 8.7 mg/dL (8.5-10.1); Chloride 108 mmol/L (98-107); Creatinine, Serum 1.15 mg/dL (0.55-1.02); EST Glomerular Filtration Rate 49 mL/min (>60); Est Glom Filt Rate - Afr Amer 59 mL/min (>60); Glucose 148 mg/dL (74-106); Potassium 3.9 mmol/L (3.5-5.1); Sodium Level 139 mmol/L (136-145)
== END ==
PROVIDERS: PCP Family Medicine Geriatric Medicine; Visit Provider Family Medicine Geriatric Medicine
DX: N17.9 Acute kidney failure, unspecified (principal)
CPT/HCPCS: 36415; 80048

== ENCOUNTER → 2020-08-24 13:09 | Outpatient (CLI) | payer MEDICARE, OTHER, SELFPAY ==
[2019-07-02 14:29] VITALS: BMI 53.8
[2020-08-12 15:36] VITALS: BMI 59.8
--- NOTE | 2020-08-24 13:45 | MRI_ITS ---
STUDY: MRI LUMBAR SPINE WITHOUT CONTRAST REASON FOR EXAM: Female, 75 years old. spinal stenosis, c/o sharp stabbing back pain h/o L4/5 fusion TECHNIQUE: Standardized fat and water weighted pulse sequences were obtained in the sagittal and axial planes. COMPARISON: None FINDINGS: T12-L1: Minor chronic wedging of superior endplate of T12.. Normal disc height, hydration and morphology. Normal bilateral facet joints. Normal central canal and bilateral lateral recesses. Normal bilateral intervertebral neural foramina. Normal lumbar lordosis. There is no substantial scoliosis. Normal conus medullaris that terminates at the L1-2: Normal endplates. Normal disc height, hydration and morphology. Normal bilateral facet joints. Normal central canal and bilateral lateral recesses. Normal bilateral intervertebral neural foramina. L2-3: Normal endplates. Normal disc height, desiccation and normal morphology. Mild facet arthropathy and thickening of ligamenta flava.. Normal central canal and bilateral lateral recesses. Normal bilateral intervertebral neural foramina. L3-4: Normal endplates. Normal disc height, desiccation and normal morphology. Facet arthropathy and thickening of ligamenta flava.. Normal central canal and bilateral lateral recesses. Minor bilateral neuroforaminal encroachment. L4-5: Status post bilateral laminectomy and posterior fusion Normal endplates. Normal disc height, desiccation and small right foraminal disc protrusion.. Facet arthropathy and thickening of ligamenta flava.. Normal central canal and bilateral lateral recesses. Mild left neuroforaminal stenosis and moderate narrowing on the right. L5-S1: Normal endplates. Normal disc height, desiccation and normal morphology. Bilateral facet arthropathy.. Normal central canal and bilateral lateral recesses. Mild bilateral neuroforaminal encroachment.. Normal visualized sacral ala. Normal visualized paraspinous soft tissue structures. MRI/Spine Lumbar (Routine) IMPRESSION: Postop change status post bilateral laminectomy and posterior fusion at L4-5. Mild left neuroforaminal stenosis and moderate narrowing on the right at L4-5 secondary to small right foraminal disc protrusion facet arthropathy and thickening of ligamenta flava. Additional imaging with contrast would be helpful for further evaluation if clinically warranted Minor bilateral neuroforaminal encroachment at L3-4 secondary to facet arthropathy and thickening of ligamenta flava Electronically Signed: Dennis Abbott MD at 18:28 EDT , Service support ,
[2020-08-24 15:05] LABS: Hemoglobin 11.9 g/dL (12.0-15.0)
[2020-08-24 15:11] LABS: Protein, Urine (Random) 6.4 mg/dL (<11.9); Protein:Creat Ratio 95 mg/g CRE (0-200)
[2020-08-24 15:32] LABS: BUN 22 mg/dL (7-18); BUN/Creat Ratio 19.1 RATIO (10-20); Calcium,Total 8.7 mg/dL (8.5-10.1); Chloride 107 mmol/L (98-107); Creatinine, Serum 1.15 mg/dL (0.55-1.02); EST Glomerular Filtration Rate 49 mL/min (>60); Est Glom Filt Rate - Afr Amer 59 mL/min (>60); Glucose 175 mg/dL (74-106); Phosphorus 2.8 mg/dL (2.5-4.9); Potassium 3.5 mmol/L (3.5-5.1); Sodium Level 139 mmol/L (136-145)
== END ==
PROVIDERS: Internal Medicine Nephrology; PCP Family Medicine Geriatric Medicine; Referring Provider Family Medicine Geriatric Medicine; Visit Provider Family Medicine Geriatric Medicine
DX: M48.061 Spinal stenosis, lumbar region without neurogenic claudication (principal); N18.30 Chronic kidney disease, stage 3 unspecified; E11.22 Type 2 diabetes mellitus with diabetic chronic kidney disease
CPT/HCPCS: 36415; 72148; 80069; 82570; 84156; 85014; 85018

== ENCOUNTER → 2020-08-31 15:09 | Outpatient (CLI) | payer MEDICARE, OTHER, SELFPAY ==
[2019-07-02 14:29] VITALS: BMI 53.8
[2020-08-12 15:36] VITALS: BMI 59.8
[2020-08-31 17:28] LABS: Anion Gap 9 (5-15); BUN 20 mg/dL (7-18); BUN/Creat Ratio 18.9 RATIO (10-20); Calcium,Total 8.6 mg/dL (8.5-10.1); Chloride 104 mmol/L (98-107); Creatinine, Serum 1.06 mg/dL (0.55-1.02); EST Glomerular Filtration Rate 54 mL/min (>60); Est Glom Filt Rate - Afr Amer 65 mL/min (>60); Glucose 118 mg/dL (74-106); Potassium 3.7 mmol/L (3.5-5.1); Sodium Level 138 mmol/L (136-145)
== END ==
PROVIDERS: PCP Family Medicine Geriatric Medicine; Visit Provider Family Medicine Geriatric Medicine
DX: E87.6 Hypokalemia (principal)
CPT/HCPCS: 36415; 80048

== ENCOUNTER → 2020-10-14 14:49 | Outpatient (CLI) | payer MEDICARE, OTHER, SELFPAY ==
[2019-07-02 14:29] VITALS: BMI 53.8
[2020-09-14 13:53] VITALS: BMI 59.8
[2020-10-14 17:35] LABS: Absolute Lymphocyte Count 1.65 X10^3/uL (0.83-4.51); Absolute Neutrophil Count 5.7 X10^3/uL (2.0-7.7); Basophil# 0.02 X10^3/uL; Basophil% 0.2 % (0-1); Eosinophil# 0.11 X10^3/uL; Eosinophils% 1.4 % (0-5); Hematocrit 42.3 % (37-47); Hemoglobin 13.2 g/dL (12.0-15.0); Lymphocyte # 1.65 X10^3/ul (4.0); Lymphocyte % 20.5 % (19-41); Mean Corp Hgb Conc 31.2 g/dL (32-36); Mean Corpuscular Volume 83.3 fL (81-99); Mean Platelet Vol. 10.3 fl (6.2-12.0); Monocyte# 0.51 X10^3/uL; Monocyte% 6.3 % (0-10); NRBC Flagged by Analyzer 0.4 % (0-5); Neutrophil # 5.72 X10^3/uL (2.7-7.7); Platelet Count 322 K/mm3 (150-450); RBC Distribution Width CV 17.2 % (11.6-14.6); Red Blood Count 5.08 M/mm3 (4.2-5.4); White Blood Count 8.1 K/mm3 (4.4-11.0)
[2020-10-14 17:59] LABS: ALB/GLOB Ratio 0.7 RATIO (0.9-2.4); AST(SGOT) 18 U/L (15-37); Alanine Aminotransfer ALT/SGPT 29 U/L (13-56); Albumin, Serum 3.1 g/dL (3.2-5.0); Alkaline Phosphatase 113 U/L (45-117); Anion Gap 12 (5-15); BUN 21 mg/dL (7-18); BUN/Creat Ratio 16.5 RATIO (10-20); Calcium,Total 8.8 mg/dL (8.5-10.1); Chloride 104 mmol/L (98-107); Creatinine, Serum 1.27 mg/dL (0.55-1.02); EST Glomerular Filtration Rate 44 mL/min (>60); Est Glom Filt Rate - Afr Amer 53 mL/min (>60); Globulin 4.3 g/dL (2.2-4.2); Glucose 244 mg/dL (74-106); Potassium 3.6 mmol/L (3.5-5.1); Protein, Total 7.4 g/dL (6.4-8.2); Sodium Level 136 mmol/L (136-145); Thyroid Stim Hormone (TSH) 1.39 uIU/mL (0.358-3.74)
== END ==
PROVIDERS: PCP Family Medicine Geriatric Medicine; Visit Provider Family Medicine Geriatric Medicine
DX: E11.9 Type 2 diabetes mellitus without complications (principal); E55.9 Vitamin D deficiency, unspecified; I10 Essential (primary) hypertension
CPT/HCPCS: 36415; 80053; 82306; 84443; 85025

== ENCOUNTER → 2020-11-16 18:06 | Outpatient (CLI) | payer MEDICARE, OTHER, SELFPAY ==
[2019-07-02 14:29] VITALS: BMI 53.8
[2020-10-25 15:11] VITALS: BMI 60.4
== END ==
PROVIDERS: PCP Family Medicine Geriatric Medicine; Referring Provider Family Medicine Geriatric Medicine; Visit Provider Family Medicine Geriatric Medicine
DX: R06.89 Other abnormalities of breathing (principal)
CPT/HCPCS: 87633; 87635; C9803; U0005; U0003

== ENCOUNTER 2021-01-10 14:23 | Observation (INO) | payer MEDICARE, OTHER, SELFPAY ==
[2019-07-02 14:29] VITALS: BMI 53.8
[2020-10-25 15:11] VITALS: BMI 60.4
[2021-01-10] VITALS (10 sets, daily range): BP systolic 130–164; BP diastolic 78–100; PULSE 85–110; RESP 16–20; TEMP 35.7–36.6; O2SAT 94–99; BMI 61.2; BMI 60.5; BMI 60.6
--- NOTE | 2021-01-10 14:50 | CT_ITS ---
STUDY: CT BRAIN WITHOUT CONTRAST REASON FOR EXAM: Female, 75 years old. S/P FALL RADIATION DOSAGE (If Supplied By Facility): CTDIvol = ( 44.99 ) mGy, DLP = ( 863.60 ) mGycm TECHNIQUE: Transaxial CT imaging of the brain was performed without administration of intravenous contrast material. Individualized dose optimization techniques were used for this CT. COMPARISON: No relevant priors. FINDINGS: Normal soft tissue structures. Normal calvarium. Normal size ventricles and extra-axial spaces for the patient''s age. Bilateral white matter microangiopathic ischemic changes of the cerebral hemispheres. Normal basal ganglia and thalami. Normal brainstem. Normal cerebellum. There is no intracranial hemorrhage. There are no findings of an acute ischemic infarction. Probable left maxillary sinus retention cyst. CT/Brain/Head without Contrast IMPRESSION: Age-related and chronic changes of the brain. Electronically Signed: Karl Chester DO at 16:40 EST Tel [phone], Service support ,
--- NOTE | 2021-01-10 14:50 | EKG12_ITS ---
Test Reason : Blood Pressure : / mmHG Vent. Rate : 107 BPM Atrial Rate : 300 BPM P-R Int : 000 ms QRS Dur : 086 ms QT Int : 302 ms P-R-T Axes : 000 -06 120 degrees QTc Int : 403 ms Atrial flutter with variable A-V block Low voltage QRS Nonspecific ST and T wave abnormality Poor R wave progression Abnormal ECG Confirmed by RENEE ANTONIO, BRIDGET ([id number]), society editor PITA ZAVALA ([id number]) on 01/11/2021 10:46:22 AM Referred By: JACK Confirmed By:BRIDGET DURAN MD
--- NOTE | 2021-01-10 14:51 | CT_ITS ---
STUDY: CT CERVICAL SPINE WITHOUT CONTRAST REASON FOR EXAM: Female, 75 years old. Fall RADIATION DOSAGE (If Supplied By Facility): CTDIvol = ( 33.73 ) mGy, DLP = ( 739.23 ) mGycm TECHNIQUE: High resolution transaxial imaging was performed without contrast material. Sagittal and coronal images were reconstructed. Individualized dose optimization techniques were used for this CT. COMPARISON: None FINDINGS: Normal craniovertebral junction. Normal anterior atlantoaxial articulation. Normal odontoid process. Normal cervical lordosis. Normal vertebral bodies and posterior osseous elements. C2-3: Normal endplates. Normal disc height and morphology. Normal central canal and intervertebral neuroforamina. C3-4: Mild spurring at the endplates. Normal disc height and morphology. Normal central canal and intervertebral neuroforamina. C4-5: Mild spurring at the endplates. Normal disc height and morphology. Normal central canal. Mild uncovertebral spurring slightly narrowing the left intervertebral neural foramen. C5-6: Mild spurring at the endplates. Normal disc height and morphology. Posterior spurring protruding into the central canal. Uncovertebral spurring narrowing the left intervertebral neural foramen. C6-7: Degenerative spurring at the endplates. Slightly narrowed disc height. Normal central canal and intervertebral neuroforamina. C7-T1: Normal endplates. Normal disc height and morphology. Normal central canal and intervertebral neuroforamina. Normal visualized soft tissue structures. CT/Spine Cervical without Contras IMPRESSION: Degenerative changes of the cervical spine. Electronically Signed: Karl Chester DO at 17:03 EST Tel [phone], Service support ,
--- NOTE | 2021-01-10 14:51 | CT_ITS ---
STUDY: CT CHEST, ABDOMEN T PELVIS WITH CONTRAST REASON FOR EXAM: Female, 75 years old. Fall -- right posterior rib pain RADIATION DOSAGE (If Supplied By Facility): CTDIvol = ( 41.33 ) mGy, DLP = ( 5335.06 ) mGycm TECHNIQUE: Transaxial imaging was performed following intravenous administration of IV 100mL Isovue-370. Individualized dose optimization techniques were used for this CT. COMPARISON: No relevant priors. FINDINGS: CHEST The lungs are expanded. There is a left basilar millimeter nonspecific peripheral nodule. Normal heart and pericardium. Normal mediastinum. Normal hilar regions. Normal unenhanced pulmonary arteries. Normal aorta arch and descending thoracic aorta. Normal osseous structures. ABDOMEN Normal liver. Status post cholecystectomy. No significant dilatation of the extrahepatic biliary system. Normal spleen. Normal pancreas. Normal bilateral adrenal glands. Normal right kidney. Up to 8 mm stones in the left kidney. Normal visualized stomach. Normal small intestine. Mild diverticulosis of the colon. The appendix is visualized and appears normal. Normal abdominal aorta. Normal inferior vena cava. Normal retroperitoneum. Normal abdominal wall. Degenerative vertebral changes. Surgical fusion at L4-5 with disc spacer. PELVIS Normal urinary bladder. There is no pelvic fluid. There is no pelvic lymphadenopathy or mass lesion. Normal visualized pelvic arteries. CT/CT Chest, Abd, Pel w/Contrast IMPRESSION: Nonobstructive left renal calculi. Nonspecific peripheral left lung base nodule. Electronically Signed: Karl Chester DO at 16:56 EST Tel [phone], Service support ,
--- NOTE | 2021-01-10 14:54 | ED.DCSUM_ITS ---
- ER Visit Summary Date of Service: 01/10/21 Chief Complaint: Syncope History of Present Illness: The patient is a 75 F presenting after syncopal episode. Patient states she was starting to take a shower. She states she felt dizzy and then had a syncopal episode. Her found her wedged between the threshold of the shower and the stool in the shower. She states she has not felt well for several days. She denies chest pain or shortness of breath. She has chronic diarrhea. Denies recent fever or known exposure to Covid. She is on Eliquis for history of atrial fibrillation. Physical Examination: Vitals are stable. Patient is afebrile. Alert no acute distress. HEENT exam is unremarkable. Neck is nontender Lungs are clear and equal bilaterally. Right posterior rib tenderness with no crepitus Heart is regular rate and rhythm. Abdomen is soft nontender nondistended. Extremities are unremarkable. Skin is warm and dry. No focal neurologic deficit. Remainder of exam is unremarkable. Emergency Department Course and Treatment: Patient was given morphine, Zofran IV. EKG shows a flutter with variable AV block, rate 107. CBC, chemistries show glucose 303, creatinine 1.4. Troponin is negative. CT head, neck, chest, abdomen pelvis shows no acute findings, nonobstructive left renal calculi. nonspecific peripheral left lung base nodule. Covid is negative. Patient continues to have right rib pain and was given fentanyl with improvement. Discussed with hospitalist for observation. Disposition: Observation Impression: Syncope, chest wall pain This note was generated with [employer] dictation software. It may contain incorrect words, spelling, and punctuation that were not noted in review of the chart prior to signing ED Disposition - Plan for ED Patient: Referrals: Jim Hestre Chi, MD [Primary Care Provider] -
[2021-01-10 15:32] LABS: Absolute Lymphocyte Count 1.17 X10^3/uL (0.83-4.51); Absolute Neutrophil Count 8.5 X10^3/uL (2.0-7.7); Basophil# 0.02 X10^3/uL; Basophil% 0.2 % (0-1); Eosinophil# 0.06 X10^3/uL; Eosinophils% 0.6 % (0-5); Hematocrit 37.3 % (37-47); Hemoglobin 12.5 g/dL (12.0-15.0); Lymphocyte # 1.17 X10^3/ul (4.0); Lymphocyte % 11.2 % (19-41); Mean Corp Hgb Conc 33.5 g/dL (32-36); Mean Corpuscular Hgb 29.5 pg (27.0-32.0); Mean Platelet Vol. 9.6 fl (6.2-12.0); Monocyte# 0.56 X10^3/uL; Monocyte% 5.4 % (0-10); NRBC Flagged by Analyzer 0 % (0-5); Neutrophil # 8.53 X10^3/uL (2.7-7.7); Neutrophil % 81.8 % (47-70); Platelet Count 211 K/mm3 (150-450); RBC Distribution Width CV 19.9 % (11.6-14.6); RBC Distribution Width SD 55.3 fl (35.1-43.9); Red Blood Count 4.24 M/mm3 (4.2-5.4); White Blood Count 10.4 K/mm3 (4.4-11.0)
[2021-01-10] MEDS: Ondansetron 4 MG/2 ML Vial IV (15:39)
[2021-01-10] MEDS: Morphine 4 MG/ML Syringe IV (15:39)
[2021-01-10 15:48] LABS: Anion Gap 11 (5-15); BUN 17 mg/dL (7-18); BUN/Creat Ratio 12.1 RATIO (10-20); Chloride 99 mmol/L (98-107); EST Glomerular Filtration Rate 39 mL/min (>60); Est Glom Filt Rate - Afr Amer 47 mL/min (>60); Glucose 303 mg/dL (74-106); Potassium 4.3 mmol/L (3.5-5.1); Sodium Level 136 mmol/L (136-145)
[2021-01-10 17:38] LABS: Bacteria 0 SEEN /hpf (None Seen); Mucous, Urine 0 SEEN /hpf (<or=2+); Red Blood Cells-Urine 0 SEEN /hpf (0-5); White Blood Cells 0 SEEN /hpf (0-5)
[2021-01-10 17:42] LABS: Color, Urine Yellow (Yellow); Glucose, Dipstick Normal (Normal); Ketone-Dipstick Negative (Negative); Leukocyte Esterase-Dipstick Negative /ul (Negative); Nitrite-Dipstick Negative (Negative); Occult Blood-Urine Negative /ul (Negative); Protein-Dipstick 15 mg/dl (Negative); Urine Bilirubin Dipstick Negative (Negative); Urine Clarity Sl. Cloudy (Clear); Urine Urobilinogen Normal (Normal)
[2021-01-10] MEDS: fentaNYL 100 MCG/2 ML Ampul 50 MCG IV (17:42)
--- NOTE | 2021-01-10 17:55 | NURSING ---
MED SURG OBS SYNCOPE SIDNEY
[2021-01-10 18:11] LABS: Squamous Epithelial Cells - UA 0-5 SEEN /hpf (5-10)
--- NOTE | 2021-01-10 18:54 | PCM.HP.STD ---
Problem List (1) Syncope Status: Acute (2) Failure to thrive Status: Acute (3) History of cardioversion Status: Chronic (4) External hemorrhoids removed Status: Resolved Comment: 1969 & 1970 (5) Complete hemorrhoidectomy Status: Resolved Comment: 1972 (6) H/O one miscarriage Status: Resolved Comment: 1975 (7) H/O: hysterectomy Status: Resolved Comment: all but 1 ovary, 1977 (8) History of bilateral carpal tunnel release Status: Resolved Comment: and left tennis elbow, 1983 (9) Hx of cholecystectomy Status: Resolved Comment: 1988 (10) Breast reduction with liposuction and ABD wrap Status: Resolved Comment: 1989 (11) S/P nerve repair Status: Resolved Comment: Left hand (12) H/O spinal fusion Status: Resolved Comment: L4&5 Dr. Pena [facility] 04/2016 (13) H/O colonoscopy Status: Resolved Comment: 10/2017 (14) Upper GI scope Status: Resolved Comment: 10/2017 (15) removal of bilateral toenails Status: Resolved Comment: Dr. Humberto Quintanilla 12/2016 (16) Traumatic brain injury Status: Chronic (17) Cellulitis of right lower extremity Status: Chronic (18) Atrial fibrillation Status: Chronic Qualifiers: Comment: DCCV on 06/25/2020; (19) Atrial fibrillation with RVR Status: Chronic (20) Stented coronary artery Status: Chronic Comment: 07/02/19: Successful PTCA/DAVID mid PDA with a 2.25 x 16 Promus Synergy, post dilated with a 2.25 x 12 NC balloon; 75%-->0%, no dissection. Post FFR=0.96. (21) Arteriosclerotic heart disease (ASHD) Status: Chronic Comment: 07/02/19:Successful PTCA/DAVID mid PDA with a 2.25 x 16 Promus Synergy, post dilated with a 2.25 x 12 NC balloon; 75%-->0%, no dissection. (22) Degeneration of intervertebral disc of lumbosacral region Status: Chronic (23) Lumbosacral radiculopathy Status: Chronic (24) Seasonal allergic rhinitis Status: Acute Qualifiers: (25) Chronic diastolic (congestive) heart failure Status: Chronic (26) Bronchitis Status: Acute (27) Asthma Status: Chronic Qualifiers: (28) MARIANO (dyspnea on exertion) Status: Acute (29) HTN (hypertension) Status: Chronic Qualifiers: (30) HLD (hyperlipidemia) Status: Chronic Qualifiers: (31) Morbid obesity with BMI of 50.0-59.9, adult Status: Chronic (32) Diabetes mellitus, type II Status: Chronic (33) GERD (gastroesophageal reflux disease) Status: Chronic (34) Anxiety and depression Status: Chronic (35) Severe sepsis Status: Acute (36) Acute respiratory failure with hypoxia Status: Acute (37) KUMAR (obstructive sleep apnea) Status: Chronic Comment: currently on CPAP 15 cmH20 History of Present Illness Date of Admission: 01/10/21 Chief Complaint: syncope The patient is a 75 year old F was in the shower with her as he helps her. Patient previous to that was feeling nauseated and then while she was in the shower had syncopal episode landing on her right side. Patient caught the edge of her walk-in shower. Being that she had a syncopal episode she did not brace herself and fell directly on her right side and is having pain on that side. Is difficult getting her up so EMS was contacted and patient was brought to the hospital. Patient underwent an extensive work-up including CT abdomen pelvis, cervical spine CT and brain CT all of which were unremarkable. Given patient's profound weakness, patient is unable to be discharged home. Upon further conversation with the patient, when she is feeling well she is very debilitated and walking across her house to go to the bathroom she is very short of breath. She is very short of breath to standing at the sink or at the stove top and is unable to perform any of these IADLs. Patient uses a walker and primarily in the house when she was the house is premature wheelchair-bound. [] Past Medical History Past Medical History (Chronic Problems): Chronic Problems (Last Reviewed 09/14/20 @ 13:59 by Ann-Marie Yañez) History of cardioversion (Chronic 06/25/20) Traumatic brain injury (Chronic) Cellulitis of right lower extremity (Chronic) Atrial fibrillation (Chronic) DCCV on 06/25/2020; Atrial fibrillation with RVR (Chronic) Stented coronary artery (Chronic 07/02/19) 07/02/19: Successful PTCA/DAVID mid PDA with a 2.25 x 16 Promus Synergy, post dilated with a 2.25 x 12 NC balloon; 75%-->0%, no dissection. Post FFR=0.96. Arteriosclerotic heart disease (ASHD) (Chronic) 07/02/19:Successful PTCA/DAVID mid PDA with a 2.25 x 16 Promus Synergy, post dilated with a 2.25 x 12 NC balloon; 75%-->0%, no dissection. Degeneration of intervertebral disc of lumbosacral region (Chronic) Lumbosacral radiculopathy (Chronic) Chronic diastolic (congestive) heart failure (Chronic) Asthma (Chronic) HTN (hypertension) (Chronic) HLD (hyperlipidemia) (Chronic) Morbid obesity with BMI of 50.0-59.9, adult (Chronic) Diabetes mellitus, type II (Chronic) GERD (gastroesophageal reflux disease) (Chronic) Anxiety and depression (Chronic) KUMAR (obstructive sleep apnea) (Chronic) currently on CPAP 15 cmH20 Medical History: Medical History (Last Reviewed 01/10/21 @ 18:[address] Valentin Yeager, DO) H/O one miscarriage (Resolved) Z87.59 1976 Traumatic brain injury (Chronic) S06.9X9A Cellulitis of right lower extremity (Chronic) L03.115 Atrial fibrillation (Chronic) I48.91 DCCV on 06/25/2020; Arteriosclerotic heart disease (ASHD) (Chronic) I25.10 07/02/19:Successful PTCA/DAVID mid PDA with a 2.25 x 16 Promus Synergy, post dilated with a 2.25 x 12 NC balloon; 75%-->0%, no dissection. Chronic diastolic (congestive) heart failure (Chronic) I50.32 HTN (hypertension) (Chronic) I10 HLD (hyperlipidemia) (Chronic) E78.5 Morbid obesity with BMI of 50.0-59.9, adult (Chronic) E66.01, Z68.43 Diabetes mellitus, type II (Chronic) E11.9 GERD (gastroesophageal reflux disease) (Chronic) K21.9 Anxiety and depression (Chronic) F41.9, F32.9 KUMAR (obstructive sleep apnea) (Chronic) G47.33 currently on CPAP 15 cmH20 Cellulitis of right lower extremity (Resolved) L03.115 Allergies No Known Allergies Allergy (Verified 01/10/21 14:32) Home Medications: Ambulatory Orders Medication Instructions Recorded Acetaminophen [Tylenol] 1,000 mg PO Q8H PRN tab 02/12/18 metformin 500 mg tablet 500 mg PO BID 03/08/18 Melatonin 10 mg PO QHS 07/26/18 omeprazole 40 mg capsule,delayed 40 mg PO DAILY 12/05/18 release potassium chloride 20 mEq 20 meq PO DAILY tab 01/08/20 tablet,extended release(part/cryst) citalopram 20 mg tablet 20 mg PO DAILY 04/20/20 diltiazem HCl 120 mg 120 mg PO DAILY #90 tab 05/19/20 tablet,extended release 24 hr Albuterol Inhaler [Ventolin Hfa 1 - 2 puff INHALATION Q6H PRN PRN 01/10/21 (SP)] Apixaban [Eliquis] 5 mg PO BID 01/10/21 Atorvastatin Calcium 40 mg PO QHS 01/10/21 Clopidogrel Bisulfate [Clopidogrel] 75 mg PO DAILY 01/10/21 Furosemide 40 mg PO BID 01/10/21 Lorazepam [Ativan] 0.5 - 1 mg PO DAILY PRN PRN 01/10/21 Multivit-Min/FA/Lycopen/Lutein 1 ea PO DAILY 01/10/21 [Centrum Silver Tablet] Sacubitril/Valsartan 97-103 mg 1 ea PO BID 01/10/21 [Entresto 97 mg-103 mg Tablet] traZODone [Desyrel] 100 mg PO QHS 01/10/21 Surgical History: Surgical History (Last Reviewed 01/10/21 @ 18:[address] Valentin Yeager, DO) History of cardioversion (Chronic) Onset Date: 06/25/20 Z98.890 External hemorrhoids removed (Resolved) 1969 & 1970 Complete hemorrhoidectomy (Resolved) 1972 H/O: hysterectomy (Resolved) Z90.710 all but 1 ovary, 1977 History of bilateral carpal tunnel release (Resolved) Z98.890 and left tennis elbow, 1983 Hx of cholecystectomy (Resolved) Z90.49 1988 Breast reduction with liposuction and ABD wrap (Resolved) 1989 S/P nerve repair (Resolved) Z98.890 Left hand H/O spinal fusion (Resolved) Z98.1 L4&5 Dr. Pena [facility] 04/2016 H/O colonoscopy (Resolved) Z98.890 10/2017 Upper GI scope (Resolved) 10/2017 removal of bilateral toenails (Resolved) Dr. Humberto Quintanilla 12/2016 Stented coronary artery (Chronic) Onset Date: 07/02/19 Z95.5 07/02/19: Successful PTCA/DAVID mid PDA with a 2.25 x 16 Promus Synergy, post dilated with a 2.25 x 12 NC balloon; 75%-->0%, no dissection. Post FFR=0.96. Surgical History: hysterectomy, - - Hemorrhoidectomy, bilateral carpal tunnel release, abdominal surgery following possible liposuction/plastic surgery. 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 Valentin Yeager DO) Father Myocardial infarction Mother CVA (cerebral vascular accident) Hypertension History Items: - - Mother with a history of hypertension, heart disease, stroke at age 87. Paternal Family History: Family History (Last Reviewed 01/10/21 @ 18:[address] Valentin Yeager DO) Father Myocardial infarction Mother CVA (cerebral vascular accident) Hypertension History Items: - - There with a history of chronic lung disease with heavy tobacco use history. Review of Systems Constitutional: Denies: Anorexia, Fever, Night Sweats Eyes: Denies: Blurred vision, Double vision HEENT: Denies: Head Aches, Sinus Congestion, Sinus Drainage Cardiovascular: Denies: Chest Pain, Palpitations Respiratory: Reports: Shortness of Breath - Chronic. Denies: Cough, Shortness of breath at rest, Sputum production Gastrointestinal: Denies: Abdominal Pain, Nausea, Vomiting Genitourinary: Denies: Dysuria Musculoskeletal: Denies: Joint Pain, Joint Tenderness Skin: Denies: Rash, Wounds Neurological: Reports: Balance problems - At baseline Hematologic/ Lymphatic: Denies: Easy Bruising, Easy Bleeding, Hx of blood clot Comment: All review of systems were negative except as mentioned above in the history of present illness and the other review of systems. VTE Information - Inpt Only VTE Present on Admission: No VTE Mechan Device Prophylaxis: None VTE Pharm Prophylaxis ordered?: No Reason prophylaxis not ordered:: Treatment Not Indicated - Physical Exam Vitals/I&O's: Vital Signs Temp Pulse Resp BP Pulse Ox 36.0 C L 98 16 131/78 H 94 01/10/21 18:06 01/10/21 18:06 01/10/21 18:06 01/10/21 18:06 01/10/21 18:06 Oxygen Delivery Method Room Air Weight: 164.2 kg Body Mass Index (BMI) 61.2 General: Alert, No apparent distress HEENT: Atraumatic, Normocephalic Oral: Moist Mucosa, No Gingival or Mucosal Lesions/ Ulcerations Neck: No Nodes, Thyroid Normal Size and Texture Lungs: Clear to auscultation, Normal air movement, No rhonchi, No wheeze, No rales Cardiovascular: Regular rate, Regular Rhythm, Normal S1, Normal S2, No murmurs Abdomen: Bowel Sounds Present, Soft, Non Tender, Non-Distended, No Hepato-splenomegaly Extremities: No Calf Tenderness, Edema Musculoskeletal: - - Reproducible right-sided tenderness without any evidence of laceration or ecchymosis. Neurological: Cranial nerves II-XII grossly intact, Motor Exam 5/5 strength throughout - In upper extremities Psych/Mental Status: Normal Affect, Appropriate Microbiology Past 72 Hours 01/10/21 16:55 Mucosa - Nose SARS-CoV-2 Antigen (Rapid) - Final Laboratory Results 01/10/21 15:20: WBC 10.4, RBC 4.24, Hgb 12.5, Hct 37.3, MCV 88.0, MCH 29.5, MCHC 33.5, RDW Std Deviation 55.3 H, RDW Coeff of Deepak 19.9 H, Plt Count 211, MPV 9.6, Immature Gran % (Auto) 0.800, Neut % (Auto) 81.8 H, Lymph % (Auto) 11.2 L, [place] % (Auto) 5.4, Eos % (Auto) 0.6, Baso % (Auto) 0.2, Absolute Neuts (auto) 8.5 H, Absolute Lymphs (auto) 1.17, Nucleated RBC % 0 01/10/21 15:20: Sodium 136, Potassium 4.3, Chloride 99, Carbon Dioxide 26.0, Anion Gap 11, BUN 17, Creatinine 1.40 H, Estim Creat Clear Calc 30.90, Est GFR (MDRD) Af Amer 47 L, Est GFR (MDRD) Non-Af 39 L, BUN/Creatinine Ratio 12.1, Glucose 303 H, Calcium 9.0, Troponin I < 0.015 01/10/21 17:30: Urine Color Yellow, Urine Clarity Sl. Cloudy, Urine pH 5.0, Ur Specific [place] 1.010, Urine Protein 15 H, Urine Glucose (UA) Normal, Urine Ketones Negative, Urine Occult Blood Negative, Urine Nitrite Negative, Urine Bilirubin Negative, Urine Urobilinogen Normal, Ur Leukocyte Esterase Negative, Urine RBC 0 SEEN, Urine WBC 0 SEEN, Ur Squamous Epith Cells 0-5 SEEN, Urine Bacteria 0 SEEN, Urine Mucus 0 SEEN Clinical Impression(s) from Imaging Studies Brain CT 01/10/21 14:50 IMPRESSION: Age-related and chronic changes of the brain. Electronically Signed: Karl Chester DO at 16:40 EST Tel [phone], Service support , Cervical Spine CT 01/10/21 14:51 IMPRESSION: Degenerative changes of the cervical spine. Electronically Signed: Karl Chester DO at 17:03 EST Tel [phone], Service support , Chest/Abdomen/Pelvis CT 01/10/21 14:51 IMPRESSION: Nonobstructive left renal calculi. Nonspecific peripheral left lung base nodule. Electronically Signed: Karl Chester DO at 16:56 EST Tel [phone], Service support , Assessment/Plan All Active Problems (Last Reviewed 09/14/20 @ 13:59 by Ann-Marie Yañez) Syncope (Acute) Failure to thrive (Acute) External hemorrhoids removed (Resolved) Complete hemorrhoidectomy (Resolved) H/O one miscarriage (Resolved) H/O: hysterectomy (Resolved) History of bilateral carpal tunnel release (Resolved) Hx of cholecystectomy (Resolved) Breast reduction with liposuction and ABD wrap (Resolved) S/P nerve repair (Resolved) H/O spinal fusion (Resolved) H/O colonoscopy (Resolved) Upper GI scope (Resolved) removal of bilateral toenails (Resolved) Seasonal allergic rhinitis (Acute) Bronchitis (Acute) MARIANO (dyspnea on exertion) (Acute) Severe sepsis (Acute) Acute respiratory failure with hypoxia (Acute) Cellulitis of right lower extremity (Resolved) 1. Syncope Likely vasovagal as patient was not feeling well before the event EKG showed no acute process Plan: Supportive at this time. We will cycle troponins but if no other abnormalities on telemetry or troponins would not pursue any additional work-up. 2. Debility Patient had poor performance status at baseline. Patient's Karnofsky score is at the most of 50 but more likely a 40 This fall and injury is just letter of the point where she is not unable to do anything at home now Plan: PT OT evaluate and treat. Anticipate patient going to longterm facility. Patient expressing desire to go to the transitional care unit because Dr. Hester, her primary care doctor works there. 3. Fall Patient had numerous x-ray that showed no acute injury. Exam is consistent with more musculoskeletal injury without fracture Plan: Supportive management at this time. Patient asking about more fentanyl. She I told her I would not be giving her any IV narcotics but would focus on oral medications and reassurance provided that her injuries would get better with time. 4. Atrial fibrillation Currently in atrial fibrillation Plan: Continue with apixaban and diltiazem 5. VTE prophylaxis: Not indicated as patient is already anticoagulated 6. Advanced care planning: Discussed with patient. patient wishes to be DNR Comfort Care arrest. OBSV E&M: [id number] Initial observation care L2
[2021-01-10] MEDS: oxyCODONE 5 MG Tablet 10 MG PO (22:01)
[2021-01-10] MEDS: SACUBITRIL/VALSARTAN 97-103 MG TABLET 1 EACH PO (22:02)
[2021-01-10] MEDS: traZODone 100 MG Tablet PO (22:02)
[2021-01-10] MEDS: APIXABAN 5 MG TABLET PO (22:02)
[2021-01-10] MEDS: Atorvastatin Calcium 40 MG Tablet PO (22:03)
[2021-01-10] MEDS: MELATONIN 10 MG TABLET PO (22:03)
[2021-01-10] MEDS: metFORMIN HCl 500 MG Tablet PO (22:03)
[2021-01-10 22:10] LABS: Bedside Glucose 226 mg/dL (70-110)
[2021-01-10] MEDS: LORazepam 0.5 MG Tablet PO (23:30)
[2021-01-11] MEDS: 0.9% Saline Lock 10 ML Syringe IV (00:57)
[2021-01-11 01:57] VITALS: BP 139/69; PULSE 87; RESP 18; TEMP 36.6; O2SAT 98
[2021-01-11] MEDS: oxyCODONE 5 MG Tablet 10 MG PO ×3 (02:25→14:12)
[2021-01-11 03:00] VITALS: PULSE 86
[2021-01-11 06:06] LABS: Bedside Glucose 228 mg/dL (70-110)
[2021-01-11] MEDS: Multivitamins,Ther W-Minerals Tablet 1 TABLET PO (07:45)
[2021-01-11] MEDS: Potassium Chloride Oral Tablet 20 MEQ PO (07:45)
[2021-01-11 08:00] VITALS: BP 140/81; PULSE 98; RESP 18; TEMP 36.5; O2SAT 94
[2021-01-11] MEDS: metFORMIN HCl 500 MG Tablet PO ×2 (08:45→17:05)
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
[2021-01-11] MEDS: Clopidogrel Bisulfate 75 MG Tablet PO (10:33)
[2021-01-11] MEDS: Pantoprazole Sodium 40 MG Tablet PO (10:33)
[2021-01-11] MEDS: Furosemide 40 MG Tablet PO (10:33)
[2021-01-11] MEDS: Citalopram 20 MG Tablet PO (10:33)
[2021-01-11] MEDS: SACUBITRIL/VALSARTAN 97-103 MG TABLET 1 EACH PO (10:33)
[2021-01-11] MEDS: dilTIAZem CD 120 MG Capsule PO (10:33)
[2021-01-11] MEDS: APIXABAN 5 MG TABLET PO (10:33)
[2021-01-11] MEDS: Nystatin Powder 15gm Bottle 1 APPLIC TOPICAL (10:37)
[2021-01-11] MEDS: Menthol/Lanolin/Calamine/Znox 113 GM Tube 1 APPLIC TOPICAL (10:39)
[2021-01-11 10:41] VITALS: PULSE 100
--- NOTE | 2021-01-11 13:23 | PCM.PROGNOTE ---
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 Precious Mayes MD) Debility (Acute) Subjective: Patient seen and examined. Denies pain currently however states she has not yet been out of bed. Denies new symptoms or complaints. Patient states she is unable to care for herself at home and requesting SNF placement. - Physical Exam Vitals/I&O's: Vital Signs Temp Pulse Resp BP Pulse Ox 97.7 F L 100 18 140/81 H 94 01/11/21 08:00 01/11/21 10:41 01/11/21 08:00 01/11/21 08:00 01/11/21 08:00 Oxygen Flow Rate (L/min) 2 Oxygen Delivery Method Room Air Weight: 353 lb Body Mass Index (BMI) 60.5 Intake and Output for Last 24 Hours 01/09/21 01/10/21 01/11/21 23:59 23:59 23:59 Intake Total 600 / 600 490 / 490 Output Total 0 / 0 0 / 0 Balance 600 / 600 490 / 490 General: Alert, Oriented x3, Cooperative HEENT: Atraumatic, PERRLA, EOMI, Normocephalic Neck: Supple, No JVD, Negative Carotid Bruits Lungs: Clear to auscultation, Normal air movement Cardiovascular: Regular rate, No murmurs Abdomen: Bowel Sounds Present, Soft, Non Tender, Non-Distended, Obese Extremities: No clubbing, No cyanosis Skin: No rashes, No breakdown Musculoskeletal: No Tenderness to Palpation of Joints or Extremities Neurological: Cranial nerves II-XII grossly intact, Neuro grossly intact Psych/Mental Status: Normal Affect, Appropriate Microbiology Past 72 Hours 01/10/21 16:55 Mucosa - Nose SARS-CoV-2 Antigen (Rapid) - Final Laboratory Results 01/10/21 15:20: WBC 10.4, RBC 4.24, Hgb 12.5, Hct 37.3, MCV 88.0, MCH 29.5, MCHC 33.5, RDW Std Deviation 55.3 H, RDW Coeff of Deepak 19.9 H, Plt Count 211, MPV 9.6, Immature Gran % (Auto) 0.800, Neut % (Auto) 81.8 H, Lymph % (Auto) 11.2 L, Emanuel % (Auto) 5.4, Eos % (Auto) 0.6, Baso % (Auto) 0.2, Absolute Neuts (auto) 8.5 H, Absolute Lymphs (auto) 1.17, Nucleated RBC % 0 01/10/21 15:20: Sodium 136, Potassium 4.3, Chloride 99, Carbon Dioxide 26.0, Anion Gap 11, BUN 17, Creatinine 1.40 H, Estim Creat Clear Calc 30.90, Est GFR (MDRD) Af Amer 47 L, Est GFR (MDRD) Non-Af 39 L, BUN/Creatinine Ratio 12.1, Glucose 303 H, Calcium 9.0, Troponin I < 0.015 01/10/21 17:30: Urine Color Yellow, Urine Clarity Sl. Cloudy, Urine pH 5.0, Ur Specific Bowie 1.010, Urine Protein 15 H, Urine Glucose (UA) Normal, Urine Ketones Negative, Urine Occult Blood Negative, Urine Nitrite Negative, Urine Bilirubin Negative, Urine Urobilinogen Normal, Ur Leukocyte Esterase Negative, Urine RBC 0 SEEN, Urine WBC 0 SEEN, Ur Squamous Epith Cells 0-5 SEEN, Urine Bacteria 0 SEEN, Urine Mucus 0 SEEN 01/10/21 19:54: Troponin I < 0.015 01/10/21 22:00: POC Glucose 226 H 01/10/21 22:23: Troponin I < 0.015 01/11/21 05:56: POC Glucose 228 H Current Medications Acetaminophen (Acetaminophen 325 Mg Tablet) 650 mg PO Q6H PRN PRN PRN Reason: Pain Score 1-10/Temp > 100.7 F Albuterol Sulfate (Albuterol 2.5 Mg/3 Ml Vial.Neb.) 2.5 mg INHALATION Q4H PRN PRN PRN Reason: SOB &/OR WHEEZING Apixaban (Apixaban 5 Mg Tablet) 5 mg PO BID [facility] Last Admin: 01/11/21 10:33 Dose: 5 mg Documented by: Atorvastatin Calcium (Atorvastatin Calcium 40 Mg Tablet) 40 mg PO QHS [facility] Last Admin: 01/10/21 22:03 Dose: 40 mg Documented by: Calamine/Phenol (Menthol/Lanolin/Calamine/Znox 113 Gm Tube) 1 applic TOPICAL BID [facility]; Protocol Last Admin: 01/11/21 10:39 Dose: 1 each Documented by: Citalopram Hydrobromide (Citalopram 20 Mg Tablet) 20 mg PO DAILY [facility] Last Admin: 01/11/21 10:33 Dose: 20 mg Documented by: Clopidogrel Bisulfate (Clopidogrel Bisulfate 75 Mg Tablet) 75 mg PO DAILY [facility] Last Admin: 01/11/21 10:33 Dose: 75 mg Documented by: Diltiazem HCl (Diltiazem Cd 120 Mg Capsule) 120 mg PO DAILY [facility] Last Admin: 01/11/21 10:33 Dose: 120 mg Documented by: Furosemide (Furosemide 40 Mg Tablet) 40 mg PO BIDLX [facility] Last Admin: 01/11/21 10:33 Dose: 40 mg Documented by: Lorazepam (Lorazepam 0.5 Mg Tablet) 0.5 mg PO DAILY PRN PRN PRN Reason: ANXIETY Last Admin: 01/10/21 23:30 Dose: 0.5 mg Documented by: Melatonin (Melatonin 10 Mg Tablet) 10 mg PO QHS [facility] Last Admin: 01/10/21 22:03 Dose: 10 mg Documented by: Metformin HCl (Metformin Hcl 500 Mg Tablet) 500 mg PO BIDCM [facility] Last Admin: 01/11/21 08:45 Dose: 500 mg Documented by: Multivitamins/Minerals (Multivitamins,Ther W-Minerals Tablet) 1 tablet PO DAILY@0800 [facility] Last Admin: 01/11/21 07:45 Dose: 1 tablet Documented by: Nystatin (Nystatin Powder 15gm Bottle) 1 applic TOPICAL BID [facility]; Protocol Last Admin: 01/11/21 10:37 Dose: 1 ea Documented by: Ondansetron HCl (Ondansetron 4 Mg/2 Ml Vial) 4 mg IV Q8H PRN PRN PRN Reason: NAUSEA/VOMITING Oxycodone HCl (Oxycodone 5 Mg Tablet) 5 mg PO Q4H PRN PRN PRN Reason: Pain Score 4-5 Oxycodone HCl (Oxycodone 5 Mg Tablet) 10 mg PO Q4H PRN PRN PRN Reason: Pain Score 6-10 Last Admin: 01/11/21 07:44 Dose: 10 mg Documented by: Pantoprazole Sodium (Pantoprazole Sodium 40 Mg Tablet) 40 mg PO DAILY [facility] Last Admin: 01/11/21 10:33 Dose: 40 mg Documented by: Potassium Chloride (Potassium Chloride Oral Tablet 20 Meq) 20 meq PO DAILYCM [facility] Last Admin: 01/11/21 07:45 Dose: 20 meq Documented by: Sacubitril/Valsartan (Sacubitril/Valsartan 97-103 Mg Tablet) 1 each PO BID [facility] Last Admin: 01/11/21 10:33 Dose: 1 each Documented by: Sodium Chloride (0.9% Saline Lock 10 Ml Syringe) 10 - 40 ml IV UD PRN PRN Reason: SALINE FLUSH Last Admin: 01/11/21 00:57 Dose: 10 ml Documented by: Trazodone HCl (Trazodone 100 Mg Tablet) 100 mg PO QHS [facility] Last Admin: 01/10/21 22:02 Dose: 100 mg Documented by: Medical Necessity - Tobacco Use Smoking Status: Never smoker Assessment/Plan All Active Problems (Last Updated 01/11/21 @ 13:[address] Precious Mayes MD) Debility (Acute) 1. Syncope with fall-imaging on admission without acute fracture. EKG without ST-T changes. Patient reports event occurred while taking a hot shower and she states this is also happened in the past. Suspect vasovagal. Troponin negative. 2. Debility with recurrent falls-patient states due to her size and debility, is unable to care for patient at home. Requesting SNF. 3. Paroxysmal atrial fibrillation-on Alex Nagy. 4. CAD with history of stents-follows with cardiology as outpatient. Continue statin, Plavix, Entresto. 5. Hypertension-stable, continue current regimen. 6. Hyperlipidemia-continue statin. 7. Chronic diastolic CHF-continue home Lasix regimen. Echocardiogram December 2019 demonstrated an EF of 65%, stage II diastolic dysfunction. 8. KUMAR-on CPAP. 9. Chronic intermittent asthma-no exacerbation. 10. Morbid obesity-diet and lifestyle modifications encouraged. DVT prophylaxis-Eliquis Discharge planning: SNF pending acceptance. This patient was seen by NAGA Zamora under the supervision of Dr. Mayes. <Precious Mayes - Last Filed: 01/12/21 12:27> - Physical Exam Vitals/I&O's: Vital Signs Temp Pulse Resp BP Pulse Ox 97.7 F L 100 18 140/81 H 94 01/11/21 08:00 01/11/21 10:41 01/11/21 08:00 01/11/21 08:00 01/11/21 08:00 Oxygen Flow Rate (L/min) 2 Oxygen Delivery Method Room Air Weight: 353 lb Body Mass Index (BMI) 60.5 Intake and Output for Last 24 Hours 01/09/21 01/10/21 01/11/21 23:59 23:59 23:59 Intake Total 600 / 600 840 / 840 Output Total 0 / 0 0 / 0 Balance 600 / 600 840 / 840 Microbiology Past 72 Hours 01/10/21 16:55 Mucosa - Nose SARS-CoV-2 Antigen (Rapid) - Final Laboratory Results 01/10/21 15:20: WBC 10.4, RBC 4.24, Hgb 12.5, Hct 37.3, MCV 88.0, MCH 29.5, MCHC 33.5, RDW Std Deviation 55.3 H, RDW Coeff of Deepak 19.9 H, Plt Count 211, MPV 9.6, Immature Gran % (Auto) 0.800, Neut % (Auto) 81.8 H, Lymph % (Auto) 11.2 L, Emanuel % (Auto) 5.4, Eos % (Auto) 0.6, Baso % (Auto) 0.2, Absolute Neuts (auto) 8.5 H, Absolute Lymphs (auto) 1.17, Nucleated RBC % 0 01/10/21 15:20: Sodium 136, Potassium 4.3, Chloride 99, Carbon Dioxide 26.0, Anion Gap 11, BUN 17, Creatinine 1.40 H, Estim Creat Clear Calc 30.90, Est GFR (MDRD) Af Amer 47 L, Est GFR (MDRD) Non-Af 39 L, BUN/Creatinine Ratio 12.1, Glucose 303 H, Calcium 9.0, Troponin I < 0.015 01/10/21 17:30: Urine Color Yellow, Urine Clarity Sl. Cloudy, Urine pH 5.0, Ur Specific Bowie 1.010, Urine Protein 15 H, Urine Glucose (UA) Normal, Urine Ketones Negative, Urine Occult Blood Negative, Urine Nitrite Negative, Urine Bilirubin Negative, Urine Urobilinogen Normal, Ur Leukocyte Esterase Negative, Urine RBC 0 SEEN, Urine WBC 0 SEEN, Ur Squamous Epith Cells 0-5 SEEN, Urine Bacteria 0 SEEN, Urine Mucus 0 SEEN 03/01/21 19:54: Troponin I < 0.015 01/10/21 22:00: POC Glucose 226 H 01/10/21 22:23: Troponin I < 0.015 01/11/21 05:56: POC Glucose 228 H Current Medications Acetaminophen (Acetaminophen 325 Mg Tablet) 650 mg PO Q6H PRN PRN PRN Reason: Pain Score 1-10/Temp > 100.7 F Albuterol Sulfate (Albuterol 2.5 Mg/3 Ml Vial.Neb.) 2.5 mg INHALATION Q4H PRN PRN PRN Reason: SOB &/OR WHEEZING Apixaban (Apixaban 5 Mg Tablet) 5 mg PO BID [facility] Last Admin: 01/11/21 10:33 Dose: 5 mg Documented by: Atorvastatin Calcium (Atorvastatin Calcium 40 Mg Tablet) 40 mg PO QHS [facility] Last Admin: 01/10/21 22:03 Dose: 40 mg Documented by: Calamine/Phenol (Menthol/Lanolin/Calamine/Znox 113 Gm Tube) 1 applic TOPICAL BID [facility]; Protocol Last Admin: 01/11/21 10:39 Dose: 1 each Documented by: Citalopram Hydrobromide (Citalopram 20 Mg Tablet) 20 mg PO DAILY [facility] Last Admin: 01/11/21 10:33 Dose: 20 mg Documented by: Clopidogrel Bisulfate (Clopidogrel Bisulfate 75 Mg Tablet) 75 mg PO DAILY [facility] Last Admin: 01/11/21 10:33 Dose: 75 mg Documented by: Diltiazem HCl (Diltiazem Cd 120 Mg Capsule) 120 mg PO DAILY [facility] Last Admin: 01/11/21 10:33 Dose: 120 mg Documented by: Furosemide (Furosemide 40 Mg Tablet) 40 mg PO BIDLX [facility] Last Admin: 01/11/21 10:33 Dose: 40 mg Documented by: Lorazepam (Lorazepam 0.5 Mg Tablet) 0.5 mg PO DAILY PRN PRN PRN Reason: ANXIETY Last Admin: 01/10/21 23:30 Dose: 0.5 mg Documented by: Melatonin (Melatonin 10 Mg Tablet) 10 mg PO QHS [facility] Last Admin: 01/10/21 22:03 Dose: 10 mg Documented by: Metformin HCl (Metformin Hcl 500 Mg Tablet) 500 mg PO BIDCM [facility] Last Admin: 01/11/21 08:45 Dose: 500 mg Documented by: Multivitamins/Minerals (Multivitamins,Ther W-Minerals Tablet) 1 tablet PO DAILY@0800 [facility] Last Admin: 01/11/21 07:45 Dose: 1 tablet Documented by: Nystatin (Nystatin Powder 15gm Bottle) 1 applic TOPICAL BID [facility]; Protocol Last Admin: 01/11/21 10:37 Dose: 1 ea Documented by: Ondansetron HCl (Ondansetron 4 Mg/2 Ml Vial) 4 mg IV Q8H PRN PRN PRN Reason: NAUSEA/VOMITING Oxycodone HCl (Oxycodone 5 Mg Tablet) 5 mg PO Q4H PRN PRN PRN Reason: Pain Score 4-5 Oxycodone HCl (Oxycodone 5 Mg Tablet) 10 mg PO Q4H PRN PRN PRN Reason: Pain Score 6-10 Last Admin: 01/11/21 07:44 Dose: 10 mg Documented by: Pantoprazole Sodium (Pantoprazole Sodium 40 Mg Tablet) 40 mg PO DAILY [facility] Last Admin: 01/11/21 10:33 Dose: 40 mg Documented by: Potassium Chloride (Potassium Chloride Oral Tablet 20 Meq) [facility] Last Admin: 01/11/21 07:45 Dose: 20 meq Documented by: Sacubitril/Valsartan (Sacubitril/Valsartan 97-103 Mg Tablet) 1 each PO BID [facility] Last Admin: 01/11/21 10:33 Dose: 1 each Documented by: Sodium Chloride (0.9% Saline Lock 10 Ml Syringe) 10 - 40 ml IV UD PRN PRN Reason: SALINE FLUSH Last Admin: 01/11/21 00:57 Dose: 10 ml Documented by: Trazodone HCl (Trazodone 100 Mg Tablet) 100 mg PO QHS [facility] Last Admin: 01/10/21 22:02 Dose: 100 mg Documented by: Assessment/Plan Hospitalist note: I am seeing this patient in conjunction with Hannah Roque. I independently seen and examined the patient. Progress note above, laboratory data and imaging studies reviewed and I concur with above plan. Patient discharged to care home facility on the same day.
[2021-01-11 14:00] VITALS: BP 121/67; PULSE 105; PULSE 109; RESP 18; TEMP 36.6; O2SAT 97
[2021-01-11] MEDS: LORazepam 0.5 MG Tablet PO (14:40)
--- NOTE | 2021-01-11 16:08 | PCM.EXTCARCO ---
- Diet 01/10/21 19:40 Diet: Consistent Carb - Calorie Controlled Food consistency:: Regular Liquid Consistency:: Regular/Thin How many daily calories?: 1800 calorie - Routine Orders/Code Status Enema Type: Fleetz Enema Frequency: Daily PRN Suppository Type: Dulcolax 10mg Suppository Frequency: Daily PRN Routine Lab Work: - - Weekly CBC, BMP. Code Status: DNRCC-A - with intubation - Suggestions for Active Care Change Position every (hours): 2 Times a day to sit in chair: 3 - Therapies Physical Therapy: Eval and Treat Occupational Therapy: Eval and Treat - Problem/Diagnosis (1) Asthma Status: Chronic (2) Atrial fibrillation Status: Chronic Comment: DCCV on 06/25/2020; (3) Stented coronary artery Status: Chronic Comment: 07/02/19: Successful PTCA/DAVID mid PDA with a 2.25 x 16 Promus Synergy, post dilated with a 2.25 x 12 NC balloon; 75%-->0%, no dissection. Post FFR=0.96. (4) Chronic diastolic (congestive) heart failure Status: Chronic (5) HTN (hypertension) Status: Chronic (6) HLD (hyperlipidemia) Status: Chronic (7) Morbid obesity with BMI of 50.0-59.9, adult Status: Chronic (8) Diabetes mellitus, type II Status: Chronic (9) GERD (gastroesophageal reflux disease) Status: Chronic (10) Anxiety and depression Status: Chronic (11) KUMAR (obstructive sleep apnea) Status: Chronic Comment: currently on CPAP 15 cmH20 (12) Debility Status: Acute - Allergies/Procedures Done in Hospital Allergies/Adverse Reactions: Allergies No Known Allergies Allergy (Verified 01/10/21 14:32) Procedures: None - Type of Care/Length of Stay Estimated LOS: Convalescent Care Less Than 30 days Type of Care Needed: Skilled Rehab Potential: Fair Prognosis: Fair - Additional Orders/Day of Discharge H&P will serve as current which was dated: 01/10/21 Day of Discharge: 01/11/21 - Follow Up Care Primary Care Physician: Jim Hester Chi, MD [Primary Care Provider] - Please follow up with your Primary Care Physician in: 1 Week Please Follow Up With: Teodora Gloria NP, [employer] When: As scheduled Please Follow Up With: Joshua Rowe MD When: As scheduled
--- NOTE | 2021-01-11 16:20 | PCM.DC.SUM ---
<Hannah Roque [employer]LECT[employer]ICAL INSTRUMENT [employer]KER - Last Filed: 01/11/21 16:28> Discharge Date and Diagnosis - Problem List Patient Problems: Active and Suspected Problems (Last Updated 01/11/21 @ 13:[address] Precious Mayes MD) Debility (Acute) Date of Admission: 01/10/21 Date of Discharge: 01/11/21 - Primary Discharge Diagnosis Acute Problems: Active Problems (Last Updated 01/11/21 @ 13:[address] Precious Mayes MD) 1. Syncope with fall, suspect vasovagal 2. Debility with recurrent falls 3. Paroxysmal atrial fibrillation 4. CAD with history of stents 5. Hypertension 6. Hyperlipidemia 7. Chronic diastolic CHF 8. KUMAR 9. Chronic intermittent asthma 10. Morbid obesity - Secondary Discharge Diagnosis Chronic Problems: Chronic Problems (Last Updated 01/11/21 @ 13:[address] 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 Post FFR=0.96. Arteriosclerotic heart disease (ASHD) (Chronic) 07/02/19:Successful PTCA/DAVID mid PDA with a 2.25 x 16 Promus Synergy, post dilated with a 2.25 x 12 NC balloon; 75%-->0%, no dissection. Chronic diastolic (congestive) heart failure (Chronic) HTN (hypertension) (Chronic) HLD (hyperlipidemia) (Chronic) Morbid obesity with BMI of 50.0-59.9, adult (Chronic) Diabetes mellitus, type II (Chronic) GERD (gastroesophageal reflux disease) (Chronic) Anxiety and depression (Chronic) KUMAR (obstructive sleep apnea) (Chronic) currently on CPAP 15 cmH20 Hospital Course and Treatment Imaging Results: Diagnostic Data Brain CT 01/10/21 14:50 IMPRESSION: Age-related and chronic changes of the brain. Electronically Signed: Karl Chester DO at 16:40 EST Tel [phone], Service support , Cervical Spine CT 01/10/21 14:51 IMPRESSION: Degenerative changes of the cervical spine. Electronically Signed: Karl Chester DO at 17:03 EST Tel [phone], Service support , Chest/Abdomen/Pelvis CT 01/10/21 14:51 IMPRESSION: Nonobstructive left renal calculi. Nonspecific peripheral left lung base nodule. Electronically Signed: Karl Chester DO at 16:56 EST Tel [phone], Service support , Operations: None Procedures: None Summary of Care Provided: The patient is a 75 year old F admitted 01/10/2021 due to syncope. 1. Syncope with fall-imaging on admission without acute fracture. EKG without ST-T changes. Patient reports event occurred while taking a hot shower and she states this is also happened in the past. Suspect vasovagal. Troponin negative. Follow-up with PCP in 1 week. 2. Debility with recurrent falls-patient states due to her size and debility, is unable to care for patient at home. Requesting SNF. SNF at discharge. 3. Paroxysmal atrial fibrillation-on Cardizem, Eliquis. 4. CAD with history of stents-follows with cardiology as outpatient. Continue statin, Plavix, Entresto. 5. Hypertension-stable, continue current regimen. 6. Hyperlipidemia-continue statin. 7. Chronic diastolic CHF-continue home Lasix regimen. Echocardiogram December 2019 demonstrated an EF of 65%, stage II diastolic dysfunction. 8. KUMAR-on CPAP. 9. Chronic intermittent asthma-no exacerbation. 10. Morbid obesity-diet and lifestyle modifications encouraged. General: Alert, Oriented x3, Cooperative HEENT: Atraumatic, PERRLA, EOMI, Normocephalic Neck: Supple, No JVD, Negative Carotid Bruits Lungs: Clear to auscultation, Normal air movement Cardiovascular: Regular rate, No murmurs Abdomen: Bowel Sounds Present, Soft, Non Tender, Non-Distended, Obese Extremities: No clubbing, No cyanosis Skin: No rashes, No breakdown Musculoskeletal: No Tenderness to Palpation of Joints or Extremities Neurological: Cranial nerves II-XII grossly intact, Neuro grossly intact Psych/Mental Status: Normal Affect, Appropriate Patient seen and examined prior to discharge. Physical assessment as noted above. Patient is stable for discharge with follow up recommendations as noted above. This patient was seen by NAGA Zamora under the supervision of Dr. Mayes. Patient Problems: Active and Suspected Problems (Last Updated 01/11/21 @ 13:[address] Precious Mayes MD) Debility (Acute) - Physical Exam Vitals/I&O's: Vital Signs Temp Pulse Resp BP Pulse Ox 97.8 F 105 H 18 121/67 H 97 01/11/21 14:00 01/11/21 14:00 01/11/21 14:00 01/11/21 14:00 01/11/21 14:00 Oxygen Flow Rate (L/min) 2 Oxygen Delivery Method Room Air Weight: 353 lb Body Mass Index (BMI) 60.5 Intake and Output for Last 24 Hours 01/09/21 01/10/21 01/11/21 23:59 23:59 23:59 Intake Total 600 / 600 840 / 840 Output Total 0 / 0 0 / 0 Balance 600 / 600 840 / 840 Microbiology Past 72 Hours 01/10/21 16:55 Mucosa - Nose SARS-CoV-2 Antigen (Rapid) - Final Laboratory Results 01/10/21 17:30: Urine Color Yellow, Urine Clarity Sl. Cloudy, Urine pH 5.0, Ur Specific Kent 1.010, Urine Protein 15 H, Urine Glucose (UA) Normal, Urine Ketones Negative, Urine Occult Blood Negative, Urine Nitrite Negative, Urine Bilirubin Negative, Urine Urobilinogen Normal, Ur Leukocyte Esterase Negative, Urine RBC 0 SEEN, Urine WBC 0 SEEN, Ur Squamous Epith Cells 0-5 SEEN, Urine Bacteria 0 SEEN, Urine Mucus 0 SEEN 01/10/21 19:54: Troponin I < 0.015 01/10/21 22:00: POC Glucose 226 H 01/10/21 22:23: Troponin I < 0.015 01/11/21 05:56: POC Glucose 228 H Current Medications Acetaminophen (Acetaminophen 325 Mg Tablet) 650 mg PO Q6H PRN PRN PRN Reason: Pain Score 1-10/Temp > 100.7 F Albuterol Sulfate (Albuterol 2.5 Mg/3 Ml Vial.Neb.) 2.5 mg INHALATION Q4H PRN PRN PRN Reason: SOB &/OR WHEEZING Apixaban (Apixaban 5 Mg Tablet) 5 mg PO BID [facility] Last Admin: 01/11/21 10:33 Dose: 5 mg Documented by: Atorvastatin Calcium (Atorvastatin Calcium 40 Mg Tablet) 40 mg PO QHS [facility] Last Admin: 01/10/21 22:03 Dose: 40 mg Documented by: Calamine/Phenol (Menthol/Lanolin/Calamine/Znox 113 Gm Tube) 1 applic TOPICAL BID [facility]; Protocol Last Admin: 01/11/21 10:39 Dose: 1 each Documented by: Citalopram Hydrobromide (Citalopram 20 Mg Tablet) 20 mg PO DAILY [facility] Last Admin: 01/11/21 10:33 Dose: 20 mg Documented by: Clopidogrel Bisulfate (Clopidogrel Bisulfate 75 Mg Tablet) 75 mg PO DAILY [facility] Last Admin: 01/11/21 10:33 Dose: 75 mg Documented by: Diltiazem HCl (Diltiazem Cd 120 Mg Capsule) 120 mg PO DAILY [facility] Last Admin: 01/11/21 10:33 Dose: 120 mg Documented by: Furosemide (Furosemide 40 Mg Tablet) 40 mg PO BIDLX [facility] Last Admin: 01/11/21 10:33 Dose: 40 mg Documented by: Lorazepam (Lorazepam 0.5 Mg Tablet) 0.5 mg PO DAILY PRN PRN PRN Reason: ANXIETY Last Admin: 01/11/21 14:40 Dose: 0.5 mg Documented by: Melatonin (Melatonin 10 Mg Tablet) 10 mg PO QHS [facility] Last Admin: 01/10/21 22:03 Dose: 10 mg Documented by: Metformin HCl (Metformin Hcl 500 Mg Tablet) 500 mg PO BIDCM [facility] Last Admin: 01/11/21 08:45 Dose: 500 mg Documented by: Multivitamins/Minerals (Multivitamins,Ther W-Minerals Tablet) 1 tablet PO DAILY@0800 [facility] Last Admin: 01/11/21 07:45 Dose: 1 tablet Documented by: Nystatin (Nystatin Powder 15gm Bottle) 1 applic TOPICAL BID [facility]; Protocol Last Admin: 01/11/21 10:37 Dose: 1 ea Documented by: Ondansetron HCl (Ondansetron 4 Mg/2 Ml Vial) 4 mg IV Q8H PRN PRN PRN Reason: NAUSEA/VOMITING Oxycodone HCl (Oxycodone 5 Mg Tablet) 5 mg PO Q4H PRN PRN PRN Reason: Pain Score 4-5 Oxycodone HCl (Oxycodone 5 Mg Tablet) 10 mg PO Q4H PRN PRN PRN Reason: Pain Score 6-10 Last Admin: 01/11/21 14:12 Dose: 10 mg Documented by: Pantoprazole Sodium (Pantoprazole Sodium 40 Mg Tablet) 40 mg PO DAILY [facility] Last Admin: 01/11/21 10:33 Dose: 40 mg Documented by: Potassium Chloride (Potassium Chloride Oral Tablet 20 Meq) [facility] Last Admin: 01/11/21 07:45 Dose: 20 meq Documented by: Sacubitril/Valsartan (Sacubitril/Valsartan 97-103 Mg Tablet) 1 each PO BID [facility] Last Admin: 01/11/21 10:33 Dose: 1 each Documented by: Sodium Chloride (0.9% Saline Lock 10 Ml Syringe) 10 - 40 ml IV UD PRN PRN Reason: SALINE FLUSH Last Admin: 01/11/21 00:57 Dose: 10 ml Documented by: Trazodone HCl (Trazodone 100 Mg Tablet) 100 mg PO QHS [facility] Last Admin: 01/10/21 22:02 Dose: 100 mg Documented by: Home Medications: Medications to take at Discharge Acetaminophen [Tylenol] 1,000 mg PO Q8H PRN tab 02/12/18 metformin 500 mg tablet 500 mg PO BID 03/08/18 Melatonin 10 mg PO QHS 07/26/18 omeprazole 40 mg capsule,delayed release 40 mg PO DAILY 12/05/18 potassium chloride 20 mEq tablet,extended release(part/cryst) 20 meq PO DAILY tab 01/08/20 citalopram 20 mg tablet 20 mg PO DAILY 04/20/20 diltiazem HCl 120 mg tablet,extended release 24 hr 120 mg PO DAILY #90 tab 05/19/20 Albuterol Inhaler [Ventolin Hfa] 1 - 2 puff INHALATION Q6H PRN PRN 01/10/21 Apixaban [Eliquis] 5 mg PO BID 01/10/21 Atorvastatin Calcium 40 mg PO QHS 01/10/21 Clopidogrel Bisulfate [Clopidogrel] 75 mg PO DAILY 01/10/21 Furosemide 40 mg PO BID 01/10/21 Lorazepam [Ativan] 0.5 - 1 mg PO DAILY PRN PRN 01/10/21 Multivit-Min/FA/Lycopen/Lutein [Centrum Silver Tablet] 1 ea PO DAILY 01/10/21 Sacubitril/Valsartan 97-103 mg [Entresto 97 mg-103 mg Tablet] 1 ea PO BID 01/10/21 traZODone [Desyrel] 100 mg PO QHS 01/10/21 Primary Care Physician: Jim Hester Chi, MD [Primary Care Provider] - Please follow up with your Primary Care Physician in: 1 Week Please Follow Up With: Teodora Gloria NP, [employer]-C When: As scheduled Please Follow Up With: Joshua Rowe MD When: As scheduled [facility]position[facility] facility Minutes spent on discharge:: 35 Patient Condition:: Stable Medical Necessity - Tobacco Use Smoking Status: Never smoker Meaningful Use Info Meaningful Use Diagnoses (Choose all that apply): None applicable <Precious Mayes - Last Filed: 01/12/21 12:23> Discharge Date and Diagnosis - Primary Discharge Diagnosis Acute Problems: Active Problems (Last Updated 01/11/21 @ 13:[address] Precious Mayes MD) Debility (Acute) - Secondary Discharge Diagnosis Chronic Problems: Chronic Problems (Last Updated 01/11/21 @ 13:[address] Precious Mayes MD) Asthma (Chronic) Degeneration of intervertebral disc of lumbosacral region (Chronic) Lumbosacral radiculopathy (Chronic) History of cardioversion (Chronic 06/25/20) Traumatic brain injury (Chronic) Atrial fibrillation (Chronic) DCCV on 06/25/2020; Stented coronary artery (Chronic 07/02/19) 07/02/19: Successful PTCA/DAVID mid PDA with a 2.25 x 16 Promus Synergy, post dilated with a 2.25 x 12 NC balloon; 75%-->0%, no dissection. Post FFR=0.96. Arteriosclerotic heart disease (ASHD) (Chronic) 07/02/19:Successful PTCA/DAVID mid PDA with a 2.25 x 16 Promus Synergy, post dilated with a 2.25 x 12 NC balloon; 75%-->0%, no dissection. Chronic diastolic (congestive) heart failure (Chronic) HTN (hypertension) (Chronic) HLD (hyperlipidemia) (Chronic) Morbid obesity with BMI of 50.0-59.9, adult (Chronic) Diabetes mellitus, type II (Chronic) GERD (gastroesophageal reflux disease) (Chronic) Anxiety and depression (Chronic) KUMAR (obstructive sleep apnea) (Chronic) currently on CPAP 15 cmH20 Hospital Course and Treatment Summary of Care Provided: Hospitalist note: Discharge summary above reviewed and I concur with above discharge and treatment plan. Patient presented to the emergency room because of syncopal episode. This syncope attributed to vasovagal syncope. Her EKG showed normal sinus rhythm without evidence of acute ischemic changes. Her troponin was negative. Patient had recurrent falls at home and she has not been able to take care of herself. Her routine blood work was unremarkable. Urinalysis showed no evidence of infection. CT scan brain showed no acute infarct or hemorrhage. CT scan cervical spine showed no acute fractures or dislocations. She had CT scan abdomen and pelvis with contrast that showed nonobstructive left kidney stone, otherwise no acute intra-abdominal pathology. Her other chronic medical problems were stable during this hospital stay. Patient was evaluated by PT OT and recommended placement [facility]. Patient discharged to [facility] in a stable medical condition, discharged in her same previous home medications without any changes, recommended follow-up with PCP in 1 week, follow-up with cardiology as scheduled. - Physical Exam General: Alert, Oriented x3, Cooperative, No apparent distress. HEENT: Atraumatic, PERRLA, EOMI. Neck: Supple, No JVD, Negative Carotid Bruits, Trachea Midline, Thyroid Normal. Lungs: Clear to auscultation, Normal air movement, No rhonchi, No wheeze, No rales. Cardiovascular: Regular rate, Regular Rhythm, Normal S1, Normal S2, PMI Normal. Abdomen: Bowel Sounds Present, Soft, Non Tender, Non-Distended, No Hepato-splenomegaly. Extremities: No clubbing, No cyanosis, No edema Skin: No rashes, No breakdown Neurological: Neuro grossly intact Vital Signs are stable. This note was generated with [employer]loc[employer] software. It may contain incorrect words, spelling, and punctuation that were not noted in checking the note before signing. - Physical Exam Vitals/I&O's: Vital Signs Temp Pulse Resp BP Pulse Ox 97.8 F 105 H 18 121/67 H 97 01/11/21 14:00 01/11/21 14:00 01/11/21 14:00 01/11/21 14:00 01/11/21 14:00 Oxygen Flow Rate (L/min) 2 Oxygen Delivery Method Room Air Weight: 353 lb Body Mass Index (BMI) 60.5 Intake and Output for Last 24 Hours 01/09/21 01/10/21 01/11/21 23:59 23:59 23:59 Intake Total 600 / 600 840 / 840 Output Total 0 / 0 0 / 0 Balance 600 / 600 840 / 840 Microbiology Past 72 Hours 01/10/21 16:55 Mucosa - Nose SARS-CoV-2 Antigen (Rapid) - Final Laboratory Results 01/10/21 17:30: Urine Color Yellow, Urine Clarity Sl. Cloudy, Urine pH 5.0, Ur Specific [place] 1.010, Urine Protein 15 H, Urine Glucose (UA) Normal, Urine Ketones Negative, Urine Occult Blood Negative, Urine Nitrite Negative, Urine Bilirubin Negative, Urine Urobilinogen Normal, Ur Leukocyte Esterase Negative, Urine RBC 0 SEEN, Urine WBC 0 SEEN, Ur Squamous Epith Cells 0-5 SEEN, Urine Bacteria 0 SEEN, Urine Mucus 0 SEEN 01/10/21 19:54: Troponin I < 0.015 01/10/21 22:00: POC Glucose 226 H 01/10/21 22:23: Troponin I < 0.015 01/11/21 05:56: POC Glucose 228 H Current Medications Acetaminophen (Acetaminophen 325 Mg Tablet) 650 mg PO Q6H PRN PRN PRN Reason: Pain Score 1-10/Temp > 100.7 F Albuterol Sulfate (Albuterol 2.5 Mg/3 Ml Vial.Neb.) 2.5 mg INHALATION Q4H PRN PRN PRN Reason: SOB &/OR WHEEZING Apixaban (Apixaban 5 Mg Tablet) 5 mg PO BID [facility] Last Admin: 01/11/21 10:33 Dose: 5 mg Documented by: Atorvastatin Calcium (Atorvastatin Calcium 40 Mg Tablet) 40 mg PO QHS [facility] Last Admin: 01/10/21 22:03 Dose: 40 mg Documented by: Calamine/Phenol (Menthol/Lanolin/Calamine/Znox 113 Gm Tube) 1 applic TOPICAL BID [facility]; Protocol Last Admin: 01/11/21 10:39 Dose: 1 each Documented by: Citalopram Hydrobromide (Citalopram 20 Mg Tablet) 20 mg PO DAILY [facility] Last Admin: 01/11/21 10:33 Dose: 20 mg Documented by: Clopidogrel Bisulfate (Clopidogrel Bisulfate 75 Mg Tablet) 75 mg PO DAILY [facility] Last Admin: 01/11/21 10:33 Dose: 75 mg Documented by: Diltiazem HCl (Diltiazem Cd 120 Mg Capsule) 120 mg PO DAILY [facility] Last Admin: 01/11/21 10:33 Dose: 120 mg Documented by: Furosemide (Furosemide 40 Mg Tablet) 40 mg PO BIDLX [facility] Last Admin: 01/11/21 10:33 Dose: 40 mg Documented by: Lorazepam (Lorazepam 0.5 Mg Tablet) 0.5 mg PO DAILY PRN PRN PRN Reason: ANXIETY Last Admin: 01/11/21 14:40 Dose: 0.5 mg Documented by: Melatonin (Melatonin 10 Mg Tablet) 10 mg PO QHS [facility] Last Admin: 01/10/21 22:03 Dose: 10 mg Documented by: Metformin HCl (Metformin Hcl 500 Mg Tablet) 500 mg PO BIDCM [facility] Last Admin: 01/11/21 08:45 Dose: 500 mg Documented by: Multivitamins/Minerals (Multivitamins,Ther W-Minerals Tablet) 1 tablet PO DAILY@0800 [facility] Last Admin: 01/11/21 07:45 Dose: 1 tablet Documented by: Nystatin (Nystatin Powder 15gm Bottle) 1 applic TOPICAL BID [facility]; Protocol Last Admin: 01/11/21 10:37 Dose: 1 ea Documented by: Ondansetron HCl (Ondansetron 4 Mg/2 Ml Vial) 4 mg IV Q8H PRN PRN PRN Reason: NAUSEA/VOMITING Oxycodone HCl (Oxycodone 5 Mg Tablet) 5 mg PO Q4H PRN PRN PRN Reason: Pain Score 4-5 Oxycodone HCl (Oxycodone 5 Mg Tablet) 10 mg PO Q4H PRN PRN PRN Reason: Pain Score 6-10 Last Admin: 01/11/21 14:12 Dose: 10 mg Documented by: Pantoprazole Sodium (Pantoprazole Sodium 40 Mg Tablet) 40 mg PO DAILY [facility] Last Admin: 01/11/21 10:33 Dose: 40 mg Documented by: Potassium Chloride (Potassium Chloride Oral Tablet 20 Meq) 20 meq PO DAILYCM [facility] Last Admin: 01/11/21 07:45 Dose: 20 meq Documented by: Sacubitril/Valsartan (Sacubitril/Valsartan 97-103 Mg Tablet) 1 each PO BID [facility] Last Admin: 01/11/21 10:33 Dose: 1 each Documented by: Sodium Chloride (0.9% Saline Lock 10 Ml Syringe) 10 - 40 ml IV UD PRN PRN Reason: SALINE FLUSH Last Admin: 01/11/21 00:57 Dose: 10 ml Documented by: Trazodone HCl (Trazodone 100 Mg Tablet) 100 mg PO QHS [facility] Last Admin: 01/10/21 22:02 Dose: 100 mg Documented by: Disposition: [facility] facility Minutes spent on discharge:: 27 Patient Condition:: Stable Meaningful Use Info Meaningful Use Diagnoses (Choose all that apply): None applicable OBSV E&M: 27410 Observation care discharge
[2021-01-11 17:52] VITALS: BP 121/67; PULSE 105; RESP 18; TEMP 36.6; O2SAT 97
== END 2021-01-11 18:40 | disposition skilled nursing facility (03) ==
LOC: ED 15:12 → MS3 18:55
PROVIDERS: Emergency Provider Emergency Medicine; PCP Family Medicine Geriatric Medicine; Visit Provider Hospitalist
DX: R55 Syncope and collapse (principal); R29.6 Repeated falls; R53.81 Other malaise; R07.89 Other chest pain; K21.9 Gastro-esophageal reflux disease without esophagitis; E11.9 Type 2 diabetes mellitus without complications; F41.9 Anxiety disorder, unspecified; F32.9 Major depressive disorder, single episode, unspecified; I48.0 Paroxysmal atrial fibrillation; I25.10 Atherosclerotic heart disease of native coronary artery without angina pectoris; E78.5 Hyperlipidemia, unspecified; G47.33 Obstructive sleep apnea (adult) (pediatric); I11.0 Hypertensive heart disease with heart failure; I50.32 Chronic diastolic (congestive) heart failure; E66.01 Morbid (severe) obesity due to excess calories; J45.20 Mild intermittent asthma, uncomplicated; Z79.84 Long term (current) use of oral hypoglycemic drugs; Z79.02 Long term (current) use of antithrombotics/antiplatelets; Z79.01 Long term (current) use of anticoagulants; Z79.899 Other long term (current) drug therapy; Z99.3 Dependence on wheelchair; Z68.44 Body mass index [BMI] 60.0-69.9, adult
CPT/HCPCS: 36415; 70450; 71260; 72125; 74177; 80048; 81001; 82962; 84484; 85025; 87426; 93005; 96374; 96375; 97162; 97166; 99218; 99285; J7050; P9612; A4216; G0378; J2405

== ENCOUNTER → 2021-01-27 17:05 | Outpatient (CLI) | payer MEDICARE, OTHER, SELFPAY ==
[2019-07-02 14:29] VITALS: BMI 53.8
[2021-01-10 19:44] VITALS: BMI 60.5
[2021-01-27 18:00] LABS: Anion Gap 6 (5-15); BUN 10 mg/dL (7-18); BUN/Creat Ratio 10.2 RATIO (10-20); Calcium,Total 8.1 mg/dL (8.5-10.1); Chloride 107 mmol/L (98-107); Creatinine, Serum 0.98 mg/dL (0.55-1.02); EST Glomerular Filtration Rate 59 mL/min (>60); Est Glom Filt Rate - Afr Amer 71 mL/min (>60); Glucose 228 mg/dL (74-106); Potassium 3.8 mmol/L (3.5-5.1); Sodium Level 142 mmol/L (136-145)
== END ==
PROVIDERS: PCP Family Medicine Geriatric Medicine; Visit Provider Family Medicine Geriatric Medicine
DX: N17.9 Acute kidney failure, unspecified (principal)
CPT/HCPCS: 36415; 80048

== ENCOUNTER → 2021-02-03 16:01 | Outpatient (CLI) | payer MEDICARE, OTHER, SELFPAY ==
[2019-07-02 14:29] VITALS: BMI 53.8
[2021-01-10 19:44] VITALS: BMI 60.5
[2021-02-03 17:44] LABS: Anion Gap 10 (5-15); BUN 12 mg/dL (7-18); Calcium,Total 8.1 mg/dL (8.5-10.1); Chloride 99 mmol/L (98-107); EST Glomerular Filtration Rate 47 mL/min (>60); Est Glom Filt Rate - Afr Amer 57 mL/min (>60); Glucose 261 mg/dL (74-106); Potassium 3.6 mmol/L (3.5-5.1); Sodium Level 137 mmol/L (136-145)
== END ==
PROVIDERS: PCP Family Medicine Geriatric Medicine; Visit Provider Family Medicine Geriatric Medicine
DX: I10 Essential (primary) hypertension (principal)
CPT/HCPCS: 36415; 80048

== ENCOUNTER → 2021-02-11 14:30 | Outpatient (CLI) | payer MEDICARE, OTHER, SELFPAY ==
[2019-07-02 14:29] VITALS: BMI 53.8
[2021-01-10 19:44] VITALS: BMI 60.5
[2021-02-11 16:08] LABS: Anion Gap 9 (5-15); BUN 22 mg/dL (7-18); BUN/Creat Ratio 17.6 RATIO (10-20); Chloride 100 mmol/L (98-107); Creatinine, Serum 1.25 mg/dL (0.55-1.02); EST Glomerular Filtration Rate 45 mL/min (>60); Est Glom Filt Rate - Afr Amer 54 mL/min (>60); Glucose 302 mg/dL (74-106); Sodium Level 133 mmol/L (136-145)
== END ==
PROVIDERS: PCP Family Medicine Geriatric Medicine; Visit Provider Family Medicine Geriatric Medicine
DX: E87.6 Hypokalemia (principal)
CPT/HCPCS: 36415; 80048

== ENCOUNTER → 2021-02-18 11:13 | Outpatient (CLI) | payer MEDICARE, OTHER, SELFPAY ==
[2019-07-02 14:29] VITALS: BMI 53.8
[2021-01-10 19:44] VITALS: BMI 60.5
--- NOTE | 2021-02-18 12:10 | RAD_ITS ---
STUDY: X-RAY - ABDOMEN/PELVIS REASON FOR EXAM: Female, 76 years old. DIARRHEA TECHNIQUE: AP supine and upright views of the abdomen and pelvis. COMPARISON: None. FINDINGS: Normal visualized lung bases. There is an unremarkable bowel gas pattern. There is no demonstrated free abdominal air. The visualized liver, spleen and kidneys are grossly normal in size and morphology. Status post cholecystectomy. Status post discectomy and transpedicular fixation lower lumbar spine. RAD/Abd Inc Decub and/or Erect IMPRESSION: Normal x-ray examination of the abdomen and pelvis. Electronically Signed: Paul Rose MD at 12:41 EDT Tel , Service support ,
[2021-02-18 12:50] LABS: Absolute Lymphocyte Count 1.36 X10^3/uL (0.83-4.51); Absolute Neutrophil Count 5.1 X10^3/uL (2.0-7.7); Basophil# 0.03 X10^3/uL; Basophil% 0.4 % (0-1); Eosinophil# 0.13 X10^3/uL; Eosinophils% 1.8 % (0-5); Hematocrit 36.9 % (37-47); Hemoglobin 11.3 g/dL (12.0-15.0); Lymphocyte # 1.36 X10^3/ul (4.0); Lymphocyte % 19.3 % (19-41); Mean Corp Hgb Conc 30.6 g/dL (32-36); Mean Platelet Vol. 10.2 fl (6.2-12.0); Monocyte# 0.36 X10^3/uL; Monocyte% 5.1 % (0-10); NRBC Flagged by Analyzer 0 % (0-5); Neutrophil # 5.12 X10^3/uL (2.7-7.7); Neutrophil % 72.7 % (47-70); Platelet Count 294 K/mm3 (150-450); RBC Distribution Width CV 17.5 % (11.6-14.6); RBC Distribution Width SD 54.4 fl (35.1-43.9); Red Blood Count 4.34 M/mm3 (4.2-5.4); White Blood Count 7.1 K/mm3 (4.4-11.0)
[2021-02-18 13:15] LABS: Anion Gap 11 (5-15); BUN 19 mg/dL (7-18); Calcium,Total 8.7 mg/dL (8.5-10.1); Chloride 102 mmol/L (98-107); Creatinine, Serum 1.19 mg/dL (0.55-1.02); EST Glomerular Filtration Rate 47 mL/min (>60); Est Glom Filt Rate - Afr Amer 57 mL/min (>60); Glucose 310 mg/dL (74-106); Potassium 3.7 mmol/L (3.5-5.1); Sodium Level 134 mmol/L (136-145); Thyroid Stim Hormone (TSH) 2.24 uIU/mL (0.358-3.74)
== END ==
PROVIDERS: PCP Family Medicine Geriatric Medicine; Referring Provider Family Medicine Geriatric Medicine; Visit Provider Family Medicine Geriatric Medicine
DX: I10 Essential (primary) hypertension (principal); E87.1 Hypo-osmolality and hyponatremia; R19.7 Diarrhea, unspecified; R33.9 Retention of urine, unspecified
CPT/HCPCS: 36415; 74019; 80048; 84443; 85025; 87086; 87088; 87186

== ENCOUNTER → 2021-02-26 11:48 | Outpatient (CLI) | payer MEDICARE, OTHER, SELFPAY ==
[2019-07-02 14:29] VITALS: BMI 53.8
[2021-01-10 19:44] VITALS: BMI 60.5
[2021-02-26 12:49] LABS: Anion Gap 11 (5-15); BUN 17 mg/dL (7-18); BUN/Creat Ratio 13.9 RATIO (10-20); Calcium,Total 8.4 mg/dL (8.5-10.1); Chloride 103 mmol/L (98-107); Creatinine, Serum 1.22 mg/dL (0.55-1.02); EST Glomerular Filtration Rate 46 mL/min (>60); Est Glom Filt Rate - Afr Amer 55 mL/min (>60); Glucose 268 mg/dL (74-106); Potassium 3.6 mmol/L (3.5-5.1); Sodium Level 138 mmol/L (136-145)
== END ==
PROVIDERS: PCP Family Medicine Geriatric Medicine; Referring Provider Family Medicine Geriatric Medicine; Visit Provider Family Medicine Geriatric Medicine
DX: N17.9 Acute kidney failure, unspecified (principal)
CPT/HCPCS: 36415; 80048

== ENCOUNTER → 2021-03-21 15:36 | Outpatient (CLI) | payer MEDICARE, OTHER, SELFPAY ==
[2019-07-02 14:29] VITALS: BMI 53.8
[2021-03-15 13:43] VITALS: BMI 62.3
== END ==
LOC: POLAB3 15:41 → LABSPEC 15:42
PROVIDERS: PCP Family Medicine Geriatric Medicine; Visit Provider Family Medicine Geriatric Medicine
DX: N39.0 Urinary tract infection, site not specified (principal)
CPT/HCPCS: 87086; 87088

== ENCOUNTER → 2021-04-01 16:28 | Outpatient (CLI) | payer MEDICARE, OTHER, SELFPAY ==
[2019-07-02 14:29] VITALS: BMI 53.8
[2021-01-10 19:44] VITALS: BMI 60.5
[2021-03-15 13:43] VITALS: BMI 62.3
[2021-04-01 17:34] LABS: Anion Gap 7 (5-15); BUN 22 mg/dL (7-18); Calcium,Total 8.7 mg/dL (8.5-10.1); Chloride 102 mmol/L (98-107); Creatinine, Serum 1.22 mg/dL (0.55-1.02); EST Glomerular Filtration Rate 46 mL/min (>60); Est Glom Filt Rate - Afr Amer 55 mL/min (>60); Glucose 256 mg/dL (74-106); Potassium 3.8 mmol/L (3.5-5.1); Sodium Level 135 mmol/L (136-145)
== END ==
PROVIDERS: PCP Family Medicine Geriatric Medicine; Referring Provider Family Medicine Geriatric Medicine; Visit Provider Family Medicine Geriatric Medicine
DX: E87.6 Hypokalemia (principal)
CPT/HCPCS: 36415; 80048

== ENCOUNTER → 2021-04-21 15:11 | Outpatient (CLI) | payer MEDICARE, OTHER, SELFPAY ==
[2019-07-02 14:29] VITALS: BMI 53.8
[2021-03-15 13:43] VITALS: BMI 62.3
[2021-04-21 17:16] LABS: Absolute Lymphocyte Count 1.58 X10^3/uL (0.83-4.51); Basophil# 0.03 X10^3/uL; Basophil% 0.4 % (0-1); Eosinophil# 0.09 X10^3/uL; Eosinophils% 1.1 % (0-5); Hematocrit 36.3 % (37-47); Hemoglobin 11.2 g/dL (12.0-15.0); Lymphocyte # 1.58 X10^3/ul (0.83-4.51); Lymphocyte % 19.4 % (19-41); Mean Corp Hgb Conc 30.9 g/dL (32-36); Mean Corpuscular Hgb 25.7 pg (27.0-32.0); Mean Corpuscular Volume 83.3 fL (81-99); Mean Platelet Vol. 9.7 fl (6.2-12.0); Monocyte% 4.9 % (0-10); NRBC Flagged by Analyzer 0 % (0-5); Neutrophil % 73.7 % (47-70); Platelet Count 259 K/mm3 (150-450); RBC Distribution Width CV 17.3 % (11.6-14.6); RBC Distribution Width SD 52.2 fl (35.1-43.9); Red Blood Count 4.36 M/mm3 (4.2-5.4); White Blood Count 8.1 K/mm3 (4.4-11.0)
[2021-04-21 18:22] LABS: ALB/GLOB Ratio 0.7 RATIO (0.9-2.4); AST(SGOT) 20 U/L (15-37); Alanine Aminotransfer ALT/SGPT 26 U/L (13-56); Alkaline Phosphatase 112 U/L (45-117); Anion Gap 9 (5-15); BUN 13 mg/dL (7-18); BUN/Creat Ratio 12.3 RATIO (10-20); Calcium,Total 8.8 mg/dL (8.5-10.1); Chloride 105 mmol/L (98-107); Creatinine, Serum 1.06 mg/dL (0.55-1.02); EST Glomerular Filtration Rate 54 mL/min (>60); Est Glom Filt Rate - Afr Amer 65 mL/min (>60); Globulin 4.5 g/dL (2.2-4.2); Glucose 206 mg/dL (74-106); Potassium 3.3 mmol/L (3.5-5.1); Protein, Total 7.5 g/dL (6.4-8.2); Sodium Level 140 mmol/L (136-145)
== END ==
PROVIDERS: PCP Family Medicine Geriatric Medicine; Visit Provider Family Medicine Geriatric Medicine
DX: E11.9 Type 2 diabetes mellitus without complications (principal); E55.9 Vitamin D deficiency, unspecified; I10 Essential (primary) hypertension
CPT/HCPCS: 36415; 80053; 82306; 84443; 85025

== ENCOUNTER → 2021-05-11 10:54 | Outpatient (CLI) | payer MEDICARE, OTHER, SELFPAY ==
[2019-07-02 14:29] VITALS: BMI 53.8
[2021-03-15 13:43] VITALS: BMI 62.3
[2021-05-11 09:02] VITALS: BMI 60.0
[2021-05-11 12:49] LABS: Anion Gap 9 (5-15); BUN 20 mg/dL (7-18); BUN/Creat Ratio 17.7 RATIO (10-20); Calcium,Total 8.6 mg/dL (8.5-10.1); Chloride 102 mmol/L (98-107); Creatinine, Serum 1.13 mg/dL (0.55-1.02); EST Glomerular Filtration Rate 50 mL/min (>60); Est Glom Filt Rate - Afr Amer 61 mL/min (>60); Glucose 221 mg/dL (74-106); Potassium 4.1 mmol/L (3.5-5.1); Sodium Level 135 mmol/L (136-145)
== END ==
PROVIDERS: PCP Family Medicine Geriatric Medicine; Visit Provider Family Medicine Geriatric Medicine
DX: E87.6 Hypokalemia (principal)
CPT/HCPCS: 36415; 80048

== ENCOUNTER → 2021-07-13 06:55 | Outpatient (CLI) | payer MEDICARE, OTHER, SELFPAY ==
[2019-07-02 14:29] VITALS: BMI 53.8
[2021-06-27 15:31] VITALS: BMI 58.5
--- NOTE | 2021-07-13 12:59 | STRESSREP_ITS ---
Stress Test Report Date: 07-13-2021 Procedure: Pharmacologic stress nuclear imaging study Indications: Angina pectoris; CAD; PCI; CHF; atrial fibrillation Consent: Per the patient Procedure: The patient underwent pharmacologic (Regadenoson 0.4mg ) evaluation with a peak heart rate of 80 beats per minute (54%predicted maximal heart rate) and a peak blood pressure of 130/78 mmHg. The baseline ECG demonstrated sinus rhythm; nonspecific ST/T wave abnormality. The peak pharmacologic ECG demonstrated no obvious ECG changes. There were no cardiac dysrhythmias pretest, during pharmacologic infusion, or recovery. There was no complaint of chest discomfort during pharmacologic infusion or recovery. The examination was discontinued secondary to completion of protocol. Impression: 1. Pharmacologic (Regadenoson) evaluation 2. Peak pharmacologic ECG with no obvious ECG changes. 3. There were no cardiac dysrhythmias pretest, during pharmacologic infusion, or recovery. 4. Nuclear images pending Myocardial perfusion imaging study: Technique: The patient was injected with 14.7 millicuries of technetium 99m Cardiolite and subsequently rest SPECT Cardiolite nuclear imaging was obtained in the horizontal long, vertical long, and short axis views. The patient underwent pharmacologic (Regadenoson) evaluation with a peak heart rate of 80 beats per minute (54% percent predicted maximal heart rate) and a peak blood pressure of 130/78 mmHg. The patient was injected with 45.0 millicuries of technetium 99m Cardiolite and subsequently stress SPECT Cardiolite nuclear imaging was obtained in the horizontal long, vertical long, and short axis views. A gated Cardiolite study at peak stress was obtained. Interpretation: Rest and stress SPECT Cardiolite nuclear imaging status post realignment, normalization, and attenuation correction demonstrate the appearance of diminished absence of myocardial perfusion/tracer uptake near the apical segment s without significant change between rest and stress. There is end systolic thickening and brightening. The gated Cardiolite study demonstrates myocardial thickening and inward wall motion. The reported LVEF is 71%. Impression: 1. Rest and stress SPECT Cardiolite nuclear imaging demonstrate myocardial perfusion changes potentially compatible with physiologic apical thinning, however, an area of previous myocardial injury/infarction cannot necessarily be excluded. There are no myocardial perfusion changes considered diagnostic for associated stress-induced myocardial ischemia. 2. The gated Cardiolite study reports an LVEF of 71%. This note was generated with [employer] software. It may contain incorrect words, spelling, and punctuation that were not noted in checking the note before signing.
== END ==
PROVIDERS: PCP Family Medicine Geriatric Medicine; Referring Provider Internal Medicine Cardiovascular Disease; Visit Provider Internal Medicine Cardiovascular Disease
DX: Z95.5 Presence of coronary angioplasty implant and graft (principal); I25.10 Atherosclerotic heart disease of native coronary artery without angina pectoris; I48.91 Unspecified atrial fibrillation; I11.0 Hypertensive heart disease with heart failure; I50.32 Chronic diastolic (congestive) heart failure; E78.5 Hyperlipidemia, unspecified; E66.01 Morbid (severe) obesity due to excess calories; Z68.43 Body mass index [BMI] 50.0-59.9, adult
CPT/HCPCS: 78452; 93017; A9500; A4216; J2785

== ENCOUNTER → 2021-08-01 13:16 | Outpatient (CLI) | payer MEDICARE, OTHER, SELFPAY ==
[2019-07-02 14:29] VITALS: BMI 53.8
[2021-08-01 17:39] LABS: Absolute Lymphocyte Count 1.34 X10^3/uL (0.83-4.51); Absolute Neutrophil Count 5.2 X10^3/uL (2.0-7.7); Basophil# 0.02 X10^3/uL; Basophil% 0.3 % (0-1); Eosinophil# 0.08 X10^3/uL; Eosinophils% 1.1 % (0-5); Hematocrit 36.7 % (37-47); Hemoglobin 11.2 g/dL (12.0-15.0); Lymphocyte # 1.34 X10^3/ul (0.83-4.51); Lymphocyte % 18.9 % (19-41); Mean Corp Hgb Conc 30.5 g/dL (32-36); Mean Corpuscular Hgb 25.5 pg (27.0-32.0); Mean Corpuscular Volume 83.4 fL (81-99); Monocyte# 0.42 X10^3/uL; Monocyte% 5.9 % (0-10); NRBC Flagged by Analyzer 0 % (0-5); Neutrophil # 5.18 X10^3/uL (2.7-7.7); Neutrophil % 73.1 % (47-70); Platelet Count 269 K/mm3 (150-450); RBC Distribution Width CV 17.9 % (11.6-14.6); RBC Distribution Width SD 54.4 fl (35.1-43.9); White Blood Count 7.1 K/mm3 (4.4-11.0)
[2021-08-01 18:02] LABS: Vitamin D,25 Hydroxy 28.9 ng/mL
[2021-08-01 18:08] LABS: ALB/GLOB Ratio 0.6 RATIO (0.9-2.4); AST(SGOT) 24 U/L (15-37); Alanine Aminotransfer ALT/SGPT 32 U/L (13-56); Albumin, Serum 2.9 g/dL (3.2-5.0); Alkaline Phosphatase 106 U/L (45-117); Anion Gap 11 (5-15); BUN 15 mg/dL (7-18); BUN/Creat Ratio 12.9 RATIO (10-20); Calcium,Total 8.5 mg/dL (8.5-10.1); Chloride 101 mmol/L (98-107); Creatinine, Serum 1.16 mg/dL (0.55-1.02); EST Glomerular Filtration Rate 49 mL/min (>60); Est Glom Filt Rate - Afr Amer 59 mL/min (>60); Globulin 4.6 g/dL (2.2-4.2); Glucose 299 mg/dL (74-106); Protein, Total 7.5 g/dL (6.4-8.2); Sodium Level 134 mmol/L (136-145); Thyroid Stim Hormone (TSH) 2.05 uIU/mL (0.358-3.74)
== END ==
PROVIDERS: PCP Family Medicine Geriatric Medicine; Visit Provider Family Medicine Geriatric Medicine
DX: E11.9 Type 2 diabetes mellitus without complications (principal); E55.9 Vitamin D deficiency, unspecified; I10 Essential (primary) hypertension
CPT/HCPCS: 36415; 80053; 82306; 84443; 85025

== ENCOUNTER → 2021-08-24 07:37 | Outpatient (CLI) | payer MEDICARE, OTHER, SELFPAY ==
[2019-07-02 14:29] VITALS: BMI 53.8
== END ==
PROVIDERS: PCP Family Medicine Geriatric Medicine; Referring Provider Family Medicine Geriatric Medicine; Visit Provider Family Medicine Geriatric Medicine
DX: E24.9 Cushing's syndrome, unspecified (principal)
CPT/HCPCS: 36415; 82533

== ENCOUNTER → 2021-09-01 15:38 | Outpatient (CLI) | payer MEDICARE, OTHER, SELFPAY ==
[2019-07-02 14:29] VITALS: BMI 53.8
--- NOTE | 2021-09-01 15:47 | RAD_ITS ---
INDICATION: FECAL IMPACTION OF COLON EXAMINATION/TECHNIQUE: X-RAY - XR Abdomen 1 View COMPARISON: 02/18/2021 FINDINGS: BOWEL GAS PATTERN: Non-obstructive. Moderate amount retained stool in the colon. FREE AIR: Not assessed on a single supine view. ORGANOMEGALY: Not seen. CALCIFICATIONS: No abnormal calcifications observed. LOWER CHEST: No acute pathology. BONES AND SOFT TISSUES: No acute pathology. Degenerative changes of the hips and spine. Postsurgical changes of the lower lumbar spine. RAD/Abdomen Single View IMPRESSION: Non-obstructive bowel gas pattern. Moderate amount retained stool in colon. Electronically Signed: Tawanda Nieves MD at 16:20 EDT Tel , Service support ,
== END ==
PROVIDERS: PCP Family Medicine Geriatric Medicine; Referring Provider Family Medicine Geriatric Medicine; Visit Provider Family Medicine Geriatric Medicine
DX: K56.41 Fecal impaction (principal)
CPT/HCPCS: 74018

== ENCOUNTER → 2021-09-02 10:01 | Outpatient (CLI) | payer MEDICARE, OTHER, SELFPAY ==
[2019-07-02 14:29] VITALS: BMI 53.8
== END ==
LOC: POLAB3 10:04 → LABSPEC 10:04
PROVIDERS: PCP Family Medicine Geriatric Medicine; Visit Provider Family Medicine Geriatric Medicine
DX: N39.0 Urinary tract infection, site not specified (principal)
CPT/HCPCS: 87086; 87088

== ENCOUNTER → 2021-10-20 11:19 | Outpatient (CLI) | payer MEDICARE, OTHER, SELFPAY ==
[2019-07-02 14:29] VITALS: BMI 53.8
[2021-10-20 15:37] LABS: Absolute Neutrophil Count 5.3 X10^3/uL (2.0-7.7); Basophil# 0.02 X10^3/uL; Basophil% 0.3 % (0-1); Eosinophils% 1.4 % (0-5); Hematocrit 35.9 % (37-47); Hemoglobin 11.1 g/dL (12.0-15.0); Lymphocyte % 18.2 % (19-41); Mean Corp Hgb Conc 30.9 g/dL (32-36); Mean Corpuscular Hgb 26.1 pg (27.0-32.0); Mean Corpuscular Volume 84.3 fL (81-99); Mean Platelet Vol. 10.2 fl (6.2-12.0); Monocyte# 0.37 X10^3/uL; Monocyte% 5.2 % (0-10); NRBC Flagged by Analyzer 0 % (0-5); Neutrophil # 5.29 X10^3/uL (2.7-7.7); Neutrophil % 74.2 % (47-70); Platelet Count 229 K/mm3 (150-450); RBC Distribution Width CV 17.7 % (11.6-14.6); RBC Distribution Width SD 53.6 fl (35.1-43.9); Red Blood Count 4.26 M/mm3 (4.2-5.4); White Blood Count 7.1 K/mm3 (4.4-11.0)
[2021-10-20 15:53] LABS: Vitamin D,25 Hydroxy 33.1 ng/mL
[2021-10-20 16:01] LABS: ALB/GLOB Ratio 0.6 RATIO (0.9-2.4); AST(SGOT) 26 U/L (15-37); Alanine Aminotransfer ALT/SGPT 35 U/L (13-56); Albumin, Serum 2.8 g/dL (3.2-5.0); Alkaline Phosphatase 114 U/L (45-117); Anion Gap 12 (5-15); BUN 18 mg/dL (7-18); BUN/Creat Ratio 15.1 RATIO (10-20); Calcium,Total 8.8 mg/dL (8.5-10.1); Chloride 102 mmol/L (98-107); Creatinine, Serum 1.19 mg/dL (0.55-1.02); EST Glomerular Filtration Rate 47 mL/min (>60); Est Glom Filt Rate - Afr Amer 57 mL/min (>60); Globulin 4.5 g/dL (2.2-4.2); Glucose 321 mg/dL (74-106); Potassium 4.1 mmol/L (3.5-5.1); Protein, Total 7.3 g/dL (6.4-8.2); Sodium Level 137 mmol/L (136-145); Thyroid Stim Hormone (TSH) 3.46 uIU/mL (0.358-3.74)
== END ==
PROVIDERS: PCP Family Medicine Geriatric Medicine; Visit Provider Family Medicine Geriatric Medicine
DX: E11.9 Type 2 diabetes mellitus without complications (principal); E55.9 Vitamin D deficiency, unspecified; I10 Essential (primary) hypertension
CPT/HCPCS: 36415; 80053; 82306; 84443; 85025

== ENCOUNTER → 2021-10-24 08:56 | Outpatient (CLI) | payer MEDICARE, OTHER, SELFPAY ==
[2019-07-02 14:29] VITALS: BMI 53.8
== END ==
PROVIDERS: PCP Family Medicine Geriatric Medicine; Visit Provider Family Medicine Geriatric Medicine
DX: E11.9 Type 2 diabetes mellitus without complications (principal)
CPT/HCPCS: 36415; 82533

== ENCOUNTER → 2021-10-25 16:12 | Outpatient (CLI) | payer MEDICARE, OTHER, SELFPAY ==
[2019-07-02 14:29] VITALS: BMI 53.8
[2021-10-27 14:09] LABS: DHEA Sulfate 11.9 ug/dL (20.4-186.6)
[2021-10-27 21:37] LABS: Adrenocorticotropic Hormone 11.7 pg/mL (7.2-63.3)
== END ==
PROVIDERS: PCP Family Medicine Geriatric Medicine; Visit Provider Family Medicine Geriatric Medicine
DX: E24.9 Cushing's syndrome, unspecified (principal)
CPT/HCPCS: 36415; 82024; 82627; 82626

== ENCOUNTER 2021-11-18 16:17 | Outpatient (CLI) | payer MEDICARE, OTHER, SELFPAY ==
[2019-07-02 14:29] VITALS: BMI 53.8
--- NOTE | 2021-11-18 16:35 | MRI_ITS ---
STUDY: MRI ABDOMEN WITH AND WITHOUT CONTRAST REASON FOR EXAM: Female, 76 years old. CUSHINGS SYNDROME TECHNIQUE: Standardized fat and water weighted pulse sequences were obtained in all 3 orthogonal planes post contrast administration. IV 30ml Dotarem was administered for the contrast portion of the examination. Attention to the adrenal glands COMPARISON: CT chest, abdomen and pelvis dated 01/10/2021 FINDINGS: The visualized lung bases are unremarkable. The visualized portions of the heart are within normal limits. Mild hepatomegaly. Mild hepatic steatosis. Otherwise, liver is within normal limits. Status post cholecystectomy. Normal spleen. There is diffuse atrophy of the pancreas. Normal bilateral adrenal glands. Normal right kidney. Normal left kidney. Small nonenhancing left renal cysts. Normal visualized stomach. Normal appearance of the visualized small and large bowel. Normal abdominal aorta. Normal inferior vena cava. Normal retroperitoneum. Normal abdominal wall. Normal osseous structures. MRI/MRI Abd WITH and W/O Contrast IMPRESSION: Unremarkable adrenal glands. Mild hepatomegaly and mild hepatic steatosis. Otherwise, unremarkable exam Electronically Signed: Boris Art DO at 6:35 EST Tel , Service support ,
== END 2021-11-18 23:59 | disposition short-term general hospital (02) ==
LOC: MRI 16:19
PROVIDERS: PCP Family Medicine Geriatric Medicine; Referring Provider Family Medicine Geriatric Medicine; Visit Provider Family Medicine Geriatric Medicine
DX: E24.9 Cushing's syndrome, unspecified (principal)
CPT/HCPCS: 74183; A9575

== ENCOUNTER 2022-01-18 13:49 | Outpatient (CLI) | payer MEDICARE, OTHER, SELFPAY ==
[2019-07-02 14:29] VITALS: BMI 53.8
[2022-01-18 16:17] LABS: Absolute Neutrophil Count 6.9 X10^3/uL (2.0-7.7); Basophil# 0.03 X10^3/uL; Basophil% 0.3 % (0-1); Eosinophil# 0.14 X10^3/uL; Eosinophils% 1.5 % (0-5); Hematocrit 38.1 % (37-47); Hemoglobin 11.9 g/dL (12.0-15.0); Lymphocyte % 18.5 % (19-41); Mean Corp Hgb Conc 31.2 g/dL (32-36); Mean Corpuscular Volume 83.2 fL (81-99); Mean Platelet Vol. 10.1 fl (6.2-12.0); Monocyte# 0.39 X10^3/uL; Monocyte% 4.2 % (0-10); NRBC Flagged by Analyzer 0.3 % (0-5); Neutrophil # 6.88 X10^3/uL (2.7-7.7); Platelet Count 296 K/mm3 (150-450); RBC Distribution Width CV 17.4 % (11.6-14.6); RBC Distribution Width SD 52.5 fl (35.1-43.9); Red Blood Count 4.58 M/mm3 (4.2-5.4); White Blood Count 9.2 K/mm3 (4.4-11.0)
[2022-01-18 16:40] LABS: ALB/GLOB Ratio 0.7 RATIO (0.9-2.4); AST(SGOT) 24 U/L (15-37); Alanine Aminotransfer ALT/SGPT 33 U/L (13-56); Alkaline Phosphatase 108 U/L (45-117); Anion Gap 6 (5-15); BUN 18 mg/dL (7-18); BUN/Creat Ratio 13.1 RATIO (10-20); Calcium,Total 8.8 mg/dL (8.5-10.1); Chloride 106 mmol/L (98-107); Creatinine, Serum 1.37 mg/dL (0.55-1.02); EST Glomerular Filtration Rate 40 mL/min (>60); Est Glom Filt Rate - Afr Amer 48 mL/min (>60); Globulin 4.2 g/dL (2.2-4.2); Glucose 239 mg/dL (74-106); Potassium 4.5 mmol/L (3.5-5.1); Protein, Total 7.2 g/dL (6.4-8.2); Sodium Level 137 mmol/L (136-145); Thyroid Stim Hormone (TSH) 2.08 uIU/mL (0.358-3.74)
== END 2022-01-18 23:59 | disposition home or self-care (01) ==
LOC: POLAB3 13:51
PROVIDERS: PCP Family Medicine Geriatric Medicine; Visit Provider Family Medicine Geriatric Medicine
DX: E11.9 Type 2 diabetes mellitus without complications (principal); E55.9 Vitamin D deficiency, unspecified; I10 Essential (primary) hypertension
CPT/HCPCS: 36415; 80053; 82306; 84443; 85025

== ENCOUNTER 2022-02-01 17:10 | Outpatient (CLI) | payer MEDICARE, OTHER, SELFPAY ==
[2019-07-02 14:29] VITALS: BMI 53.8
[2022-02-01 17:44] LABS: Anion Gap 8 (5-15); BUN 14 mg/dL (7-18); BUN/Creat Ratio 13.3 RATIO (10-20); Calcium,Total 8.7 mg/dL (8.5-10.1); Chloride 102 mmol/L (98-107); Creatinine, Serum 1.05 mg/dL (0.55-1.02); EST Glomerular Filtration Rate 54 mL/min (>60); Est Glom Filt Rate - Afr Amer 66 mL/min (>60); Glucose 214 mg/dL (74-106); Potassium 4.1 mmol/L (3.5-5.1); Sodium Level 134 mmol/L (136-145)
== END 2022-02-01 23:59 | disposition home or self-care (01) ==
LOC: POLAB3 17:12
PROVIDERS: PCP Family Medicine Geriatric Medicine; Visit Provider Family Medicine Geriatric Medicine
DX: N18.30 Chronic kidney disease, stage 3 unspecified (principal)
CPT/HCPCS: 36415; 80048

== ENCOUNTER 2022-02-23 14:35 | Outpatient (CLI) | payer MEDICARE, OTHER, SELFPAY ==
[2019-07-02 14:29] VITALS: BMI 53.8
[2022-02-23 17:41] LABS: Anion Gap 7 (5-15); BUN 14 mg/dL (7-18); BUN/Creat Ratio 12.1 RATIO (10-20); Calcium,Total 8.2 mg/dL (8.5-10.1); Chloride 103 mmol/L (98-107); Creatinine, Serum 1.16 mg/dL (0.55-1.02); EST Glomerular Filtration Rate 48 mL/min (>60); Est Glom Filt Rate - Afr Amer 59 mL/min (>60); Glucose 230 mg/dL (74-106); Potassium 4.1 mmol/L (3.5-5.1); Sodium Level 136 mmol/L (136-145)
== END 2022-02-23 23:59 | disposition home or self-care (01) ==
LOC: POLAB3 14:37
PROVIDERS: PCP Family Medicine Geriatric Medicine; Visit Provider Family Medicine Geriatric Medicine
DX: N18.31 Chronic kidney disease, stage 3a (principal)
CPT/HCPCS: 36415; 80048

== ENCOUNTER → 2022-03-09 | Outpatient (CLI) | payer MEDICARE, OTHER, SELFPAY ==
[2019-07-02 14:29] VITALS: BMI 53.8
[2022-03-09 17:36] LABS: Anion Gap 9 (5-15); BUN 13 mg/dL (7-18); Calcium,Total 8.1 mg/dL (8.5-10.1); Chloride 101 mmol/L (98-107); Creatinine, Serum 1.18 mg/dL (0.55-1.02); EST Glomerular Filtration Rate 48 mL/min (>60); Est Glom Filt Rate - Afr Amer 57 mL/min (>60); Glucose 321 mg/dL (74-106); Potassium 3.7 mmol/L (3.5-5.1); Sodium Level 135 mmol/L (136-145)
== END | disposition home or self-care (01) ==
LOC: LAB.FUTURE 09:08 → LAB 15:55
PROVIDERS: PCP Family Medicine Geriatric Medicine; Visit Provider Family Medicine Geriatric Medicine
DX: E24.9 Cushing's syndrome, unspecified (principal)
CPT/HCPCS: 36415; 80048

== ENCOUNTER → 2022-03-22 | Outpatient (CLI) | payer MEDICARE, OTHER, SELFPAY ==
[2019-07-02 14:29] VITALS: BMI 53.8
[2022-03-22 17:27] LABS: Anion Gap 9 (5-15); BUN 18 mg/dL (7-18); BUN/Creat Ratio 13.2 RATIO (10-20); Calcium,Total 9.1 mg/dL (8.5-10.1); Chloride 100 mmol/L (98-107); Creatinine, Serum 1.36 mg/dL (0.55-1.02); EST Glomerular Filtration Rate 40 mL/min (>60); Est Glom Filt Rate - Afr Amer 49 mL/min (>60); Glucose 298 mg/dL (74-106); Potassium 4.6 mmol/L (3.5-5.1); Sodium Level 131 mmol/L (136-145)
== END | disposition home or self-care (01) ==
LOC: POLAB3 14:46
PROVIDERS: PCP Family Medicine Geriatric Medicine; Visit Provider Family Medicine Geriatric Medicine
DX: E87.6 Hypokalemia (principal)
CPT/HCPCS: 36415; 80048

== ENCOUNTER → 2022-05-04 | Outpatient (CLI) | payer MEDICARE, OTHER, SELFPAY ==
[2019-07-02 14:29] VITALS: BMI 53.8
[2022-05-04 16:16] LABS: Absolute Lymphocyte Count 1.99 X10^3/uL (0.83-4.51); Absolute Neutrophil Count 6.8 X10^3/uL (2.0-7.7); Basophil# 0.03 X10^3/uL; Basophil% 0.3 % (0-1); Eosinophil# 0.13 X10^3/uL; Eosinophils% 1.4 % (0-5); Hematocrit 40.9 % (37-47); Hemoglobin 12.7 g/dL (12.0-15.0); Lymphocyte # 1.99 X10^3/ul (0.83-4.51); Lymphocyte % 20.9 % (19-41); Mean Corp Hgb Conc 31.1 g/dL (32-36); Mean Corpuscular Hgb 25.6 pg (27.0-32.0); Mean Corpuscular Volume 82.3 fL (81-99); Mean Platelet Vol. 10.4 fl (6.2-12.0); Monocyte# 0.52 X10^3/uL; Monocyte% 5.5 % (0-10); NRBC Flagged by Analyzer 0 % (0-5); Neutrophil # 6.79 X10^3/uL (2.7-7.7); Neutrophil % 71.4 % (47-70); Platelet Count 331 K/mm3 (150-450); RBC Distribution Width CV 17.6 % (11.6-14.6); RBC Distribution Width SD 51.6 fl (35.1-43.9); Red Blood Count 4.97 M/mm3 (4.2-5.4); White Blood Count 9.5 K/mm3 (4.4-11.0)
[2022-05-04 16:30] LABS: Vitamin D,25 Hydroxy 33.8 ng/mL
[2022-05-04 16:33] LABS: ALB/GLOB Ratio 0.7 RATIO (0.9-2.4); AST(SGOT) 13 U/L (15-37); Alanine Aminotransfer ALT/SGPT 23 U/L (13-56); Albumin, Serum 3.2 g/dL (3.2-5.0); Alkaline Phosphatase 99 U/L (45-117); Anion Gap 9 (5-15); BUN 21 mg/dL (7-18); BUN/Creat Ratio 13.5 RATIO (10-20); Calcium,Total 9.3 mg/dL (8.5-10.1); Chloride 104 mmol/L (98-107); Creatinine, Serum 1.55 mg/dL (0.55-1.02); EST Glomerular Filtration Rate 35 mL/min (>60); Est Glom Filt Rate - Afr Amer 42 mL/min (>60); Globulin 4.5 g/dL (2.2-4.2); Glucose 198 mg/dL (74-106); Potassium 3.9 mmol/L (3.5-5.1); Protein, Total 7.7 g/dL (6.4-8.2); Sodium Level 135 mmol/L (136-145); Thyroid Stim Hormone (TSH) 5.21 uIU/mL (0.358-3.74)
== END | disposition home or self-care (01) ==
LOC: POLAB3 12:45
PROVIDERS: PCP Family Medicine Geriatric Medicine; Visit Provider Family Medicine Geriatric Medicine
DX: E11.9 Type 2 diabetes mellitus without complications (principal); E55.9 Vitamin D deficiency, unspecified; I10 Essential (primary) hypertension
CPT/HCPCS: 36415; 80053; 82306; 84443; 85025

== ENCOUNTER → 2022-06-15 | Outpatient (CLI) | payer MEDICARE, OTHER, SELFPAY ==
[2019-07-02 14:29] VITALS: BMI 53.8
--- NOTE | 2022-06-15 14:06 | ART_ITS ---
Reason For Study: PVD Procedure A bilateral lower extremity continuous wave Doppler with analog waveform analysis,segmental pressures,and ankle brachial indexes without exercise. Did not exercise pt. Pt uses a wheelchair and is unable to walk on a treadmill. Left Segmental Pressures Left brachial= 140mmHg. Left posterior tibial artery = 166mmHg. Left dorsalis pedis artery = 149mmHg. Left digit = 116 mmHg. The left dorsalis pedis waveforms are triphasic. The left posterior tibial artery waveforms are triphasic. Right Segmental Pressures Right brachial= 133mmHg. Right posterior tibial artery = 181mmHg. Right dorsalis pedis artery = 177mmHg. Right digit = 112 mmHg. The right dorsalis pedis waveforms are triphasic. The right posterior tibial artery waveforms are triphasic. Indices The right ankle brachial index by the posterior tibial artery is 1.29. The right ankle brachial index by the dorsalis pedis is 1.26. The right digital-brachial index is .8. The left ankle brachial index by the posterior tibial artery is 1.19. The left ankle brachial index by the dorsalis pedis is 1.06. The left digital-brachial index is .83. VL/Lower Ext Art Exam w/o Exercis Interpretation Summary Triphasic Doppler waveforms are noted at ankle level bilaterally. Pulse-volume recordings appear satisfactory at all levels bilaterally. Resting ankle-brachial indices are norm al bilaterally. Digital-brachial indices are normal bilaterally. There is no evidence of significant arterial occlusive disease in the lower ext remities bilaterally. Ordering Physician: Barak King Performed By: Kin Celestin RVT
== END | disposition home or self-care (01) ==
LOC: CVS 14:04
PROVIDERS: PCP Family Medicine Geriatric Medicine; Referring Provider Podiatrist; Visit Provider Podiatrist
DX: I73.9 Peripheral vascular disease, unspecified (principal)
CPT/HCPCS: 93923

== ENCOUNTER 2022-06-22 15:15 | Emergency (ER) | payer MEDICARE, OTHER, SELFPAY ==
[2019-07-02 14:29] VITALS: BMI 53.8
[2022-06-22 15:16] VITALS: BP 122/73; PULSE 104; RESP 18; TEMP 36.2; O2SAT 97; BMI 57.8
--- NOTE | 2022-06-22 15:29 | ED.VIS.LOWEX ---
HPI History of Present Illness Chief Complaint: Lower Extremity Injury Detail of Chief Complaint: Traumatic inferior right knee pain Occured/Mechanism Comment: Atraumatic, history of degenerative joint disease Onset/Context/Timing Onset: - (2.5 years) Context: Gradual Onset Timing: Continuous and Waxes and wanes Quality of Pain: Dull Location: Inferior the right patella Current Severity: Mild Maximum Severity: Severe Worsened by: Attempt at weightbearing Relieved by: Nothing Associated Symptoms Associated Symptoms: Positive for Loss of Funtion; Negative for Parasthesia or Weakness Narrative Narrative: Patient is a 77-year-old woman with history of paroxysmal atrial fibrillation, atherosclerotic heart disease, hyperlipidemia, congestive heart failure, type 2 diabetes, GERD, obstructive sleep apnea. She states she has not had x-rays in 3 years. She was seen by orthopedics at that time injected with steroid. She states she went back and the second time she was injected with a steroid there was no benefit. She has been going to a nurse practitioner who has been injecting a nonsteroidal into her right knee. She is has 5 injection fragoso. She states she has been injected 5 different times over the past month. 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 She denies fever, chills night sweats. She reports increased pain with weightbearing. Tetanus Immunization: 5-10 years Prior similar symptoms: Yes Recent Illness/Hospitalization: No PFSH PFSH Medical History Angina pectoris Anxiety and depression Atherosclerotic heart disease of [place] coronary artery without angina pectoris Atrial fibrillation Chronic diastolic (congestive) heart failure Diabetes mellitus, type II Essential hypertension GERD (gastroesophageal reflux disease) HLD (hyperlipidemia) Morbid obesity with BMI of 50.0-59.9, adult KUMAR (obstructive sleep apnea) Paroxysmal atrial fibrillation Stented coronary artery (07/02/19) Traumatic brain injury Home Medications acetaminophen 500 mg tablet 1,000 mg PO Q8H PRN Mild Pain (-01/19) 02/12/18 [Rx Last Taken 01/09/21] melatonin 10 mg sublingual tablet 10 mg PO QHS INSOMNIA 07/26/18 [History Last Taken 01/09/21] omeprazole 40 mg capsule,delayed release 40 mg PO DAILY GERD 12/05/18 [History Last Taken 01/10/21] citalopram 20 mg tablet 20 mg PO DAILY DEPRESSION 04/20/20 [History Last Taken 01/10/21] albuterol sulfate 90 mcg/actuation aerosol inhaler 1 - 2 puff inhalation Q6H PRN PRN Sob &/Or Wheezing 01/10/21 [History Last Taken 01/09/21] lorazepam 0.5 mg tablet 0.5 - 1 mg PO DAILY PRN PRN EPISODIC HEADACHE 01/10/21 [History Last Taken 1 Week Ago ~01/03/21] fktsolox-vwy-wypxj acid 0.4 mg-lycopene 300 mcg-lutein 250 mcg tablet 1 ea PO DAILY SUPPLEMENT 01/10/21 [History Last Taken 01/10/21] trazodone 100 mg tablet 100 mg PO QHS 01/10/21 [History Last Taken 01/09/21] atorvastatin 40 mg tablet 40 mg PO QHS 06/27/21 [History Last Taken Unknown] isosorbide mononitrate 30 mg tablet,extended release 24 hr 30 mg PO DAILY #90 tabs 06/27/21 [Rx Last Taken Unknown] potassium chloride 20 mEq tablet,extended release(part/cryst) 20 meq PO TID supplement 06/27/21 [History Last Taken Unknown] clopidogrel 75 mg tablet 75 mg PO DAILY BLOOD THINNER #90 tabs 08/12/21 [Rx Last Taken Unknown] diltiazem HCl 120 mg tablet,extended release 24 hr 120 mg PO DAILY #90 tabs 08/16/21 [Rx Last Taken Unknown] insulin degludec 200 unit/mL (3 mL) subcutaneous pen ml subcut 01/16/22 [History Last Taken Unknown] sacubitril 97 mg-valsartan 103 mg tablet (Entresto) 1 tab PO BID 01/16/22 [History Last Taken Unknown] apixaban 2.5 mg tablet (Eliquis) 2.5 mg PO BID Dose decreased d/t Korlym therapy by PCP #60 tabs 01/17/22 [Rx Last Taken Unknown] mifepristone 300 mg tablet (Korlym) 600 mg PO DAILY 03/16/22 [History Last Taken Unknown] furosemide 80 mg tablet 80 mg PO BID 06/22/22 [History Last Taken Unknown] levocetirizine 5 mg tablet 5 mg PO DAILY 06/22/22 [History Last Taken Unknown] levothyroxine 25 mcg tablet 25 mcg PO DAILY 06/22/22 [History Last Taken Unknown] oxycodone-acetaminophen 5 mg-325 mg tablet 1 tab PO Q6H PRN PRN Pain 3 days #12 TABLETS 06/22/22 [Rx Last Taken Unknown] primidone 50 mg tablet 50 mg PO BID 06/22/22 [History Last Taken Unknown] spironolactone 50 mg tablet 50 mg PO DAILY 06/22/22 [History Last Taken Unknown] Allergy/AdvReac Type Severity Reaction Status Date / Time No Known Allergies Allergy Verified 06/22/22 15:16 Family History Father Myocardial infarction Mother CVA (cerebral vascular accident) Hypertension Surgical History Breast reduction with liposuction and ABD wrap Complete hemorrhoidectomy External hemorrhoids removed H/O colonoscopy H/O spinal fusion H/O: hysterectomy History of bilateral carpal tunnel release History of cardioversion (06/25/20) Hx of cholecystectomy Presence of coronary angioplasty implant and graft (~07/02/19) Social History household members: spouse housing: house pets and animals: No Smoking Status: Never smoker alcohol intake: never substance use type: does not use ROS ROS ED Constitutional Constitutional ED: Reports other Details: Weight gain due to [place]'s ; Denies chills, fever(s), subjective, sweats or weight loss Eyes Eyes: Denies blurry vision, change in vision or diplopia ENT ENT ED: Denies ear pain, rhinorrhea or sore throat Cardiovascular Cardiovascular: Denies chest pain, palpitations or racing heartbeat Respiratory/Chest Respiratory/Chest: Denies cough, dyspnea or dyspnea on exertion Gastrointestinal Gastrointestinal: Denies diarrhea, nausea or vomiting Genitourinary Genitourinary ED: Denies dysuria, hematuria or urinary frequency Musculoskeletal Musculoskeletal: Reports back pain and other Details: Right knee pain ; Denies arthralgias, myalgias or neck pain Psychiatric Psychiatric: Denies anxiety or depression Endocrine Endocrinology: Denies polydipsia, polyphagia or polyuria Hematologic/Lymphatic Hematologic/Lymphatic: Denies easy bleeding or easy bruising EXAM Physical Exam Const Vital Signs: 06/22/22 15:16 Temperature 97.2 F L Temperature Source Temporal Pulse Rate 104 H Respiratory Rate 18 Blood Pressure 122/73 H Blood Pressure Mean 89 Pulse Ox 97 Oxygen Delivery Method Room Air Positive well nourished, well developed and obese General Appearance ED: well developed Nutritional Appearance: obese HEENT Reports moist mucous membranes normocephalic and atraumatic Neck full ROM Chest Wall inspection of chest normal and palpation of chest normal Resp normal respiratory effort, no retractions and clear to auscultation bilaterally Cardio regular rate, regular rhythm, S1 normal heart sound, S2 normal heart sound and no murmurs GI non-tender, non-distended and no masses Palpation: soft Extremity Negative for normal to inspection Extremity Narrative: Patient has 5 injection sites noted over the proximal tibia predominantly on the medial side. There is bruising noted. There is no warmth, induration or fluctuance. There is pain all patient over the medial collateral ligament. There is no pain ovation of the patella. The patella is not ballotable. There is no obvious effusion. There is no joint line pain. She has tenderness over the injection sites. There is no lymphangitis. There is no inguinal lymphadenopathy. Varus valgus stress testing causes pain over the medial collateral ligament. However, there is no laxity. Unable to perform Matias's test due to body habitus. Neuro oriented x3, CN's II-XII intact bilaterally and moves all extremities Sensorium / Orientation: alert Motor Exam: strength 5/5 throughout Psych mental status grossly normal Skin No no wounds Skin Narrative: Puncture sites noted with bruising without evidence of infection Trauma: puncture MDM MDM MDM Narrative Medical decision making narrative: Suspect patient has osteoarthritis. Since she has not had an x-ray in 3 years we will obtain an x-ray. Because there is tenderness along the injection sites suspect this is the cause. Clinically patient does not have crystal induced or pyogenic arthritis. There could be an early underlying infection. Lab Data Attestation: I reviewed the patient's lab results. Lab results narrative: Patient's ESR is elevated however when corrected for age its only mildly elevated. Creatinine slight elevated 1.39. Glucose elevated 215. Labs: Laboratory Results - last 24 hr 06/22/22 06/22/22 15:40 15:40 WBC 8.8 RBC 4.83 Hgb 13.1 Hct 39.7 MCV 82.2 MCH 27.1 MCHC 33.0 RDW Std Deviation 54.9 H RDW Coeff of Deepak 18.6 H Plt Count 332 MPV 9.6 Immature Gran % (Auto) 0.900 Neut % (Auto) 62.3 Lymph % (Auto) 27.4 [place] % (Auto) 7.2 Eos % (Auto) 1.7 Baso % (Auto) 0.5 Absolute Neuts (auto) 5.5 Absolute Lymphs (auto) 2.41 Nucleated RBC % 0 ESR 61 H Sodium 133 L Potassium 4.7 Chloride 101 Carbon Dioxide 26.0 Anion Gap 6 BUN 25 H Creatinine 1.39 H Estim Creat Clear Calc 30.20 Est GFR (MDRD) Af Amer 48 L Est GFR (MDRD) Non-Af 39 L BUN/Creatinine Ratio 18.0 Glucose 215 H Calcium 9.3 Radiography X-Ray: - (4 view x-ray of the right knee reveals mild degenerative changes with asymmetry of the joint. There is no effusion. There is no foreign body noted.) Diagnostic Testing: Clinical Impression(s) from Imaging Studies Knee X-Ray 06/22/22 15:45 IMPRESSION: Mild atherosclerotic change. No acute fracture or other significant bony pathology Electronically Signed: Dennis Abbott MD at 16:22 EDT Reading Location ID and State: [facility] / [place] , Service support , Discharge Plan Triage Chief Complaint: Lower Extremity Injury ED Provider: Flakito Fisher Dx/Rx/DC Orders Clinical Impression: Osteoarthritis of right knee, Chronic renal disease, stage 3, moderately decreased glomerular filtration rate (GFR) between 30-59 mL/min/1.73 square meter Instructions: ED Chronic Kidney Disease (CKD), ED Osteoarthritis Prescriptions: New oxycodone-acetaminophen [oxycodone-acetaminophen] 5-325 mg tablet 1 tab PO Q6H PRN PRN (Reason: Pain) 3 Days Qty: 12 0RF No Action omeprazole 40 mg capsule,delayed release(DR/EC) 40 mg PO DAILY citalopram 20 mg tablet 20 mg PO DAILY potassium chloride 20 mEq tablet,ER particles/crystals 20 meq PO TID atorvastatin 40 mg tablet 40 mg PO QHS isosorbide mononitrate 30 mg tablet extended release 24 hr 30 mg PO DAILY Qty: 90 3RF Korlym 300 mg tablet 600 mg PO DAILY Tresiba FlexTouch U-200 200 unit/mL (3 mL) insulin pen subcut Entresto 97-103 mg tablet 1 tab PO BID primidone 50 mg tablet 50 mg PO BID furosemide 80 mg tablet 80 mg PO BID Label Comments: TAKE 1 TABLET BY MOUTH TWICE DAILY spironolactone 50 mg tablet 50 mg PO DAILY Label Comments: Take 1 Tablet orally once per Day for 90 Days levocetirizine 5 mg tablet 5 mg PO DAILY Label Comments: TAKE 1 TABLET BY MOUTH ONCE DAILY AT BEDTIME FOR 90 DAYS levothyroxine 25 mcg tablet 25 mcg PO DAILY Label Comments: Take 1 Tablet orally once per Day for 90 Days acetaminophen 500 MG tablet 1,000 mg PO Q8H PRN (Reason: Mild Pain (-01/19)) 0RF melatonin 10 MG tablet 10 mg PO QHS Rx Instructions: extended release trazodone 100 MG tablet 100 mg PO QHS albuterol sulfate 1 INHALER inhaler 1 - 2 puff INHALATION Q6H PRN PRN (Reason: Sob &/Or Wheezing) pzfnrbwx-wjq-DK-lycopen-lutein 1 EACH tablet 1 ea PO DAILY lorazepam 0.5 MG tablet 0.5 - 1 mg PO DAILY PRN PRN (Reason: EPISODIC HEADACHE) clopidogrel 75 mg tablet 75 mg PO DAILY Qty: 90 3RF diltiazem HCl 120 mg tablet extended release 24 hr 120 mg PO DAILY Qty: 90 3RF Eliquis 2.5 mg tablet 2.5 mg PO BID Qty: 60 11RF Primary Care Provider: Jim Hester Chi Referrals: Jim Hester Chi, MD [Primary Care Provider] - 3-5 Days if not improving Disposition Disposition: Home, Self Care
--- NOTE | 2022-06-22 15:45 | RAD_ITS ---
STUDY: X-RAY - RIGHT KNEE REASON FOR EXAM: Female, 77 years old. Injury/Pain TECHNIQUE: 4 view(s) of the knee. COMPARISON: None. FINDINGS: Normal visualized distal femur. Normal visualized proximal tibia and fibula. Normal proximal tibiofibular articulation. Narrowed medial femorotibial compartment. Normal lateral femorotibial compartment. Normal patellofemoral articulation. Minor spurring of the upper pole of the patella. The soft tissue structures are unremarkable. RAD/Knee 4 or More Views IMPRESSION: Mild atherosclerotic change. No acute fracture or other significant bony pathology Electronically Signed: Dennis Abbott MD at 16:22 EDT ,
[2022-06-22 16:01] LABS: Anion Gap 6 (5-15); BUN 25 mg/dL (7-18); Calcium,Total 9.3 mg/dL (8.5-10.1); Chloride 101 mmol/L (98-107); Creatinine, Serum 1.39 mg/dL (0.55-1.02); EST Glomerular Filtration Rate 39 mL/min (>60); Erythrocyte Sedimentation Rate 61 mm/hr (0-30); Est Glom Filt Rate - Afr Amer 48 mL/min (>60); Glucose 215 mg/dL (74-106); Potassium 4.7 mmol/L (3.5-5.1); Sodium Level 133 mmol/L (136-145)
[2022-06-22 16:09] LABS: Absolute Lymphocyte Count 2.41 X10^3/uL (0.83-4.51); Absolute Neutrophil Count 5.5 X10^3/uL (2.0-7.7); Basophil# 0.04 X10^3/uL; Basophil% 0.5 % (0-1); Eosinophil# 0.15 X10^3/uL; Eosinophils% 1.7 % (0-5); Hematocrit 39.7 % (37-47); Hemoglobin 13.1 g/dL (12.0-15.0); Lymphocyte # 2.41 X10^3/ul (0.83-4.51); Lymphocyte % 27.4 % (19-41); Mean Corpuscular Hgb 27.1 pg (27.0-32.0); Mean Corpuscular Volume 82.2 fL (81-99); Mean Platelet Vol. 9.6 fl (6.2-12.0); Monocyte# 0.63 X10^3/uL; Monocyte% 7.2 % (0-10); NRBC Flagged by Analyzer 0 % (0-5); Neutrophil # 5.47 X10^3/uL (2.7-7.7); Neutrophil % 62.3 % (47-70); Platelet Count 332 K/mm3 (150-450); RBC Distribution Width CV 18.6 % (11.6-14.6); RBC Distribution Width SD 54.9 fl (35.1-43.9); Red Blood Count 4.83 M/mm3 (4.2-5.4); White Blood Count 8.8 K/mm3 (4.4-11.0)
[2022-06-22] MEDS: oxyCODONE 5 MG Tablet PO (17:07)
[2022-06-22 17:10] VITALS: RESP 18
== END 2022-06-22 17:15 | disposition home or self-care (01) ==
PROVIDERS: Emergency Provider Emergency Medicine; PCP Family Medicine Geriatric Medicine; Visit Provider Emergency Medicine
DX: M17.11 Unilateral primary osteoarthritis, right knee (principal); N18.30 Chronic kidney disease, stage 3 unspecified; I25.10 Atherosclerotic heart disease of native coronary artery without angina pectoris; G47.33 Obstructive sleep apnea (adult) (pediatric); E66.9 Obesity, unspecified; Z95.5 Presence of coronary angioplasty implant and graft
CPT/HCPCS: 73564; 80048; 85025; 85652; 99284; A4216

== ENCOUNTER → 2022-06-26 | Outpatient (CLI) | payer MEDICARE, OTHER, SELFPAY ==
[2019-07-02 14:29] VITALS: BMI 53.8
[2022-06-23 12:13] VITALS: BMI 53.8
[2022-06-26 16:24] LABS: Thyroid Stim Hormone (TSH) 4.88 uIU/mL (0.358-3.74)
== END | disposition home or self-care (01) ==
PROVIDERS: PCP Family Medicine Geriatric Medicine; Visit Provider Family Medicine Geriatric Medicine
DX: E03.9 Hypothyroidism, unspecified (principal)
CPT/HCPCS: 36415; 84443

== ENCOUNTER → 2022-06-28 | Outpatient (CLI) | payer MEDICARE, OTHER, SELFPAY ==
[2022-06-23 12:13] VITALS: BMI 53.8
[2022-06-28 17:35] LABS: Anion Gap 9 (5-15); BUN 43 mg/dL (7-18); BUN/Creat Ratio 19.5 RATIO (10-20); Calcium,Total 8.7 mg/dL (8.5-10.1); Chloride 102 mmol/L (98-107); EST Glomerular Filtration Rate 23 mL/min (>60); Est Glom Filt Rate - Afr Amer 28 mL/min (>60); Glucose 253 mg/dL (74-106); Potassium 5.6 mmol/L (3.5-5.1); Sodium Level 133 mmol/L (136-145)
[2022-06-28 17:47] LABS: Hemoglobin A1c 8.7 % (3.8-5.6)
== END | disposition home or self-care (01) ==
LOC: POLAB3 14:30
PROVIDERS: PCP Family Medicine Geriatric Medicine; Visit Provider Family Medicine Geriatric Medicine
DX: I50.32 Chronic diastolic (congestive) heart failure (principal); E11.9 Type 2 diabetes mellitus without complications
CPT/HCPCS: 36415; 80048; 83036

== ENCOUNTER → 2022-06-30 | Outpatient (CLI) | payer MEDICARE, OTHER, SELFPAY ==
[2022-06-23 12:13] VITALS: BMI 53.8
[2022-06-30 18:32] LABS: Anion Gap 7 (5-15); BUN 39 mg/dL (7-18); BUN/Creat Ratio 22.9 RATIO (10-20); Calcium,Total 9.1 mg/dL (8.5-10.1); Chloride 103 mmol/L (98-107); EST Glomerular Filtration Rate 31 mL/min (>60); Est Glom Filt Rate - Afr Amer 38 mL/min (>60); Glucose 211 mg/dL (74-106); Potassium 4.7 mmol/L (3.5-5.1); Sodium Level 134 mmol/L (136-145)
== END | disposition home or self-care (01) ==
LOC: LAB 17:37
PROVIDERS: PCP Family Medicine Geriatric Medicine; Referring Provider Family Medicine Geriatric Medicine; Visit Provider Family Medicine Geriatric Medicine
DX: E87.5 Hyperkalemia (principal)
CPT/HCPCS: 36415; 80048

== ENCOUNTER → 2022-07-01 | Outpatient (CLI) | payer MEDICARE, OTHER, SELFPAY ==
[2022-06-23 12:13] VITALS: BMI 53.8
--- NOTE | 2022-07-01 08:28 | MRI_ITS ---
STUDY: MRI RIGHT KNEE REASON FOR EXAM: Chronic medial right knee pain, unable to bear weight, instability. TECHNIQUE: Standardized fat and water weighted pulse sequences were obtained in all 3 orthogonal planes. COMPARISON: Radiographs 06/22/2022, MRI images 04/24/2019. FINDINGS: There is increased attrition of the free margin of the posterior horn of the medial meniscus since the prior study (proton-density sagittal images 25-30) secondary to free edge tear/degeneration and increased tear/degeneration of the body of the medial meniscus (T2 coronal images 20, 21). There is peripheral subluxation of the medial meniscus. There is arthrosis of the medial femorotibial compartment with small marginal osteophytes, chondral thinning (T2 sagittal image 16) and very mild subchondral cystic change of the medial tibial plateau. Normal medial collateral ligamentous complex (MCL). Normal distal semimembranosus, gracilis and semitendinosus tendons. There is a suspected very small horizontal tear of the inferior articular surface of the posterior horn of the lateral meniscus (proton-density sagittal image 9). Normal hyaline cartilage of the lateral femorotibial compartment. Normal lateral femoral condyle and tibial plateau. Normal proximal tibiofibular articulation. Normal lateral collateral (fibular) ligament. Normal popliteus tendon. Normal biceps femoris tendon. Normal anterior cruciate ligament (ACL). Normal posterior cruciate ligament (PCL). Normal congruent patellofemoral articulation. Normal hyaline cartilage of the patellofemoral compartment. Normal medial and lateral patellar retinaculum. Normal quadriceps tendon. There is mild chronic proximal patellar tendinosis (T2 sagittal image 11). Normal Hoffa''s fat pad. There is a small joint effusion. There is a thin medial patellar plica. There is a small ganglion cyst at the posterior joint capsule of the knee (T2 sagittal image 13) measuring 1.9 cm in length. There is atrophy with partial fat replacement of the distal semimembranosus muscle and proximal medial gastrocnemius muscle (proton-density coronal images 2-4). The otherwise visualized osseous structures are unremarkable. MRI/Lower Ext Joint Only (Routine) IMPRESSION: Tear/degeneration of the medial meniscus. Arthrosis of the medial femorotibial compartment. Suspected very small lateral meniscal tear. Mild chronic proximal patellar tendinosis. Small joint effusion. Atrophy of the distal semimembranosus and proximal medial gastrocnemius muscles. Small posterior ganglion cyst. Electronically Signed: Phillip Peters MD at 11:29 EDT ,
== END | disposition home or self-care (01) ==
LOC: MRI 08:24
PROVIDERS: PCP Family Medicine Geriatric Medicine; Referring Provider Orthopaedic Surgery; Visit Provider Orthopaedic Surgery
DX: M87.00 Idiopathic aseptic necrosis of unspecified bone (principal)
CPT/HCPCS: 73721

== ENCOUNTER → 2022-07-10 | Outpatient (CLI) | payer MEDICARE, OTHER, SELFPAY ==
[2019-07-02 14:29] VITALS: BMI 53.8
[2022-06-23 12:13] VITALS: BMI 53.8
== END | disposition home or self-care (01) ==
LOC: SL 19:57
PROVIDERS: PCP Family Medicine Geriatric Medicine; Referring Provider Nurse Practitioner Acute Care; Visit Provider Nurse Practitioner Acute Care
DX: G47.33 Obstructive sleep apnea (adult) (pediatric) (principal); E87.5 Hyperkalemia
CPT/HCPCS: 36415; 80048; 95811

== ENCOUNTER → 2022-07-10 | Outpatient (CLI) | payer MEDICARE, OTHER, SELFPAY ==
[2022-06-23 12:13] VITALS: BMI 53.8
[2022-07-10 17:51] LABS: Anion Gap 8 (5-15); BUN 25 mg/dL (7-18); Calcium,Total 8.5 mg/dL (8.5-10.1); Chloride 104 mmol/L (98-107); Creatinine, Serum 1.25 mg/dL (0.55-1.02); EST Glomerular Filtration Rate 44 mL/min (>60); Est Glom Filt Rate - Afr Amer 54 mL/min (>60); Glucose 148 mg/dL (74-106); Potassium 3.7 mmol/L (3.5-5.1); Sodium Level 137 mmol/L (136-145)
== END | disposition home or self-care (01) ==
LOC: LAB 16:57
PROVIDERS: PCP Family Medicine Geriatric Medicine; Visit Provider Family Medicine Geriatric Medicine
DX: E87.5 Hyperkalemia (principal)
CPT/HCPCS: 36415; 80048

== ENCOUNTER → 2022-08-02 | Outpatient (CLI) | payer MEDICARE, OTHER, SELFPAY ==
[2022-06-23 12:13] VITALS: BMI 53.8
[2022-08-02 16:55] LABS: Absolute Lymphocyte Count 1.83 X10^3/uL (0.83-4.51); Absolute Neutrophil Count 5.9 X10^3/uL (2.0-7.7); Basophil# 0.03 X10^3/uL; Basophil% 0.4 % (0-1); Eosinophil# 0.11 X10^3/uL; Eosinophils% 1.3 % (0-5); Hematocrit 37.7 % (37-47); Hemoglobin 12.1 g/dL (12.0-15.0); Lymphocyte # 1.83 X10^3/ul (0.83-4.51); Lymphocyte % 21.7 % (19-41); Mean Corp Hgb Conc 32.1 g/dL (32-36); Mean Corpuscular Hgb 27.9 pg (27.0-32.0); Mean Corpuscular Volume 87.1 fL (81-99); Mean Platelet Vol. 9.6 fl (6.2-12.0); Monocyte# 0.48 X10^3/uL; Monocyte% 5.7 % (0-10); NRBC Flagged by Analyzer 0 % (0-5); Neutrophil # 5.91 X10^3/uL (2.7-7.7); Neutrophil % 70.1 % (47-70); Platelet Count 284 K/mm3 (150-450); RBC Distribution Width CV 16.3 % (11.6-14.6); RBC Distribution Width SD 51.8 fl (35.1-43.9); Red Blood Count 4.33 M/mm3 (4.2-5.4); White Blood Count 8.4 K/mm3 (4.4-11.0)
[2022-08-02 17:10] LABS: Vitamin D,25 Hydroxy 35.6 ng/mL
[2022-08-02 17:23] LABS: ALB/GLOB Ratio 0.7 RATIO (0.9-2.4); AST(SGOT) 13 U/L (15-37); Alanine Aminotransfer ALT/SGPT 17 U/L (13-56); Albumin, Serum 2.8 g/dL (3.2-5.0); Alkaline Phosphatase 100 U/L (45-117); Anion Gap 8 (5-15); BUN 11 mg/dL (7-18); Calcium,Total 8.5 mg/dL (8.5-10.1); Chloride 101 mmol/L (98-107); EST Glomerular Filtration Rate 51 mL/min (>60); Est Glom Filt Rate - Afr Amer 62 mL/min (>60); Glucose 232 mg/dL (74-106); Potassium 3.4 mmol/L (3.5-5.1); Protein, Total 6.8 g/dL (6.4-8.2); Sodium Level 137 mmol/L (136-145); Thyroid Stim Hormone (TSH) 2.73 uIU/mL (0.358-3.74)
== END | disposition home or self-care (01) ==
LOC: POLAB3 15:01
PROVIDERS: PCP Family Medicine Geriatric Medicine; Visit Provider Family Medicine Geriatric Medicine
DX: E11.9 Type 2 diabetes mellitus without complications (principal); E55.9 Vitamin D deficiency, unspecified; I10 Essential (primary) hypertension
CPT/HCPCS: 36415; 80053; 82306; 84443; 85025

== ENCOUNTER → 2022-08-16 | Outpatient (CLI) | payer MEDICARE, OTHER, SELFPAY ==
[2022-06-23 12:13] VITALS: BMI 53.8
[2022-08-16 12:22] LABS: Thyroid Stim Hormone (TSH) 3.95 uIU/mL (0.358-3.74)
== END | disposition home or self-care (01) ==
LOC: LAB 11:31
PROVIDERS: PCP Family Medicine Geriatric Medicine; Visit Provider Family Medicine Geriatric Medicine
DX: E03.9 Hypothyroidism, unspecified (principal)
CPT/HCPCS: 36415; 84443

== ENCOUNTER → 2022-10-25 | Outpatient (CLI) | payer MEDICARE, MEDICAID, BC, OTHER, SELFPAY ==
[2022-06-23 12:13] VITALS: BMI 53.8
[2022-10-25 17:46] LABS: Thyroid Stim Hormone (TSH) 2.47 uIU/mL (0.358-3.74)
== END | disposition home or self-care (01) ==
PROVIDERS: PCP Family Medicine Geriatric Medicine; Visit Provider Family Medicine Geriatric Medicine
DX: E03.9 Hypothyroidism, unspecified (principal)
CPT/HCPCS: 36415; 84443

== ENCOUNTER → 2022-10-31 | Outpatient (CLI) | payer MEDICARE, MEDICAID, SELFPAY ==
[2022-06-23 12:13] VITALS: BMI 53.8
[2022-10-31 17:25] LABS: Absolute Lymphocyte Count 1.71 X10^3/uL (0.83-4.51); Absolute Neutrophil Count 6.1 X10^3/uL (2.0-7.7); Basophil# 0.03 X10^3/uL; Basophil% 0.4 % (0-1); Eosinophil# 0.13 X10^3/uL; Eosinophils% 1.5 % (0-5); Hematocrit 39.6 % (37-47); Hemoglobin 12.5 g/dL (12.0-15.0); Lymphocyte # 1.71 X10^3/ul (0.83-4.51); Lymphocyte % 20.2 % (19-41); Mean Corp Hgb Conc 31.6 g/dL (32-36); Mean Corpuscular Hgb 26.3 pg (27.0-32.0); Mean Corpuscular Volume 83.2 fL (81-99); Mean Platelet Vol. 10.6 fl (6.2-12.0); Monocyte# 0.47 X10^3/uL; Monocyte% 5.5 % (0-10); NRBC Flagged by Analyzer 0 % (0-5); Neutrophil # 6.08 X10^3/uL (2.7-7.7); Neutrophil % 71.8 % (47-70); Platelet Count 344 K/mm3 (150-450); RBC Distribution Width CV 16.2 % (11.6-14.6); RBC Distribution Width SD 49.2 fl (35.1-43.9); Red Blood Count 4.76 M/mm3 (4.2-5.4); White Blood Count 8.5 K/mm3 (4.4-11.0)
[2022-10-31 20:28] LABS: ALB/GLOB Ratio 0.9 RATIO (0.9-2.4); AST(SGOT) 16 U/L (15-37); Alanine Aminotransfer ALT/SGPT 19 U/L (13-56); Alkaline Phosphatase 92 U/L (45-117); Anion Gap 13 (5-15); BUN 9 mg/dL (7-18); BUN/Creat Ratio 7.6 RATIO (10-20); Calcium,Total 7.9 mg/dL (8.5-10.1); Chloride 101 mmol/L (98-107); Creatinine, Serum 1.18 mg/dL (0.55-1.02); EST Glomerular Filtration Rate 47 mL/min (>60); Est Glom Filt Rate - Afr Amer 57 mL/min (>60); Globulin 3.3 g/dL (2.2-4.2); Glucose 235 mg/dL (74-106); Protein, Total 6.3 g/dL (6.4-8.2); Sodium Level 141 mmol/L (136-145); Thyroid Stim Hormone (TSH) 2.77 uIU/mL (0.358-3.74)
== END | disposition home or self-care (01) ==
LOC: POLAB3 14:09
PROVIDERS: PCP Family Medicine Geriatric Medicine; Visit Provider Family Medicine Geriatric Medicine
DX: E55.9 Vitamin D deficiency, unspecified (principal); E11.9 Type 2 diabetes mellitus without complications; I10 Essential (primary) hypertension
CPT/HCPCS: 36415; 80053; 82306; 84443; 85025

== ENCOUNTER → 2022-11-02 | Outpatient (CLI) | payer MEDICARE, MEDICAID, SELFPAY ==
[2022-06-23 12:13] VITALS: BMI 53.8
== END | disposition home or self-care (01) ==
PROVIDERS: PCP Family Medicine Geriatric Medicine; Referring Provider Family Medicine Geriatric Medicine; Visit Provider Family Medicine Geriatric Medicine
DX: R68.83 Chills (without fever) (principal)
CPT/HCPCS: 87635; 87804; 87807; C9803; U0003; U0005

== ENCOUNTER → 2022-11-09 | Outpatient (CLI) | payer MEDICARE, MEDICAID, SELFPAY ==
[2022-06-23 12:13] VITALS: BMI 53.8
--- NOTE | 2022-11-09 13:11 | ECHOCS_ITS ---
Reason For Study: Afib/Flutter Procedure This was a 2D Doppler, Color Flow transthoracic echocardiogram. The study was technically difficult. Contrast injection was performed. Exam performed in department. Left Ventricle Based upon the 2D echocardiographic and contrast enhanced images there appears to be grossly normal left ventricular size, wall motion, and systolic function. The estimated ejection fraction is 55 %. Unable to assess diastolic dysfunction. Right Ventricle Based upon the 2D echocardiographic and contrast images obtained there appears to be grossly normal right ventricular size and systolic function. Atria The left atrium is not well visualized. The right atrium is not well visualized. No doppler evidence for ASD. Mitral Valve There is no mitral annular calcification. Normal mitral valve. Tricuspid Valve The tricuspid valve is not well visualized. Aortic Valve The aortic valve is not well visualized. Pulmonic Valve The pulmonic valve is not well visualized. Great Vessels Normal sized aortic root. Pericardium/Pleural No pericardial effusion. Medication 20 gauge I.V. with prn adaptor inserted into right arm. Diluted definity 6ml given slow IV push to enhance endocardial definition. MMode/2D Measurements & Calculations Ao root diam: 3.5 cm Doppler Measurements & Calculations MV E max domenic: 88.2 cm/sec MV V2 max: 100.7 cm/sec Ao V2 max: 102.2 cm/sec MV max P.1 mmHg Ao max P.2 mmHg MV V2 mean: 58.1 cm/sec MV mean P.7 mmHg MV V2 VTI: 16.2 cm LV V1 max: 84.5 cm/sec PA V2 max: 88.1 cm/sec LV V1 max P.9 mmHg ECHO/Echo Complete W/ Contrast Interpretation Summary The study was technically difficult. Contrast injection was performed. Based upon the 2D echocardiographic and contrast enhanced images there appears to be grossly normal left ventricular size, wall motion, and systolic function. The estimated ejection fraction is 55 %. Unable to assess diastolic dysfunction. Ordering Physician: Joshua Rowe Referring Physician: Jim Hester Chi Performed By: Alex Aguilar [facility]
== END | disposition home or self-care (01) ==
LOC: CVS 13:11
PROVIDERS: PCP Family Medicine Geriatric Medicine; Visit Provider Internal Medicine Cardiovascular Disease
DX: I50.32 Chronic diastolic (congestive) heart failure (principal); I48.0 Paroxysmal atrial fibrillation; E87.6 Hypokalemia; I10 Essential (primary) hypertension; I25.10 Atherosclerotic heart disease of native coronary artery without angina pectoris; Z95.5 Presence of coronary angioplasty implant and graft
CPT/HCPCS: 93306; Q9957; A4216; C8929

== ENCOUNTER 2023-01-02 15:00 | Outpatient (RCR) | payer MEDICARE, MEDICAID, SELFPAY ==
[2022-06-23 12:13] VITALS: BMI 53.8
--- NOTE | 2022-10-23 15:58 | HP.PTEVAL_ITS ---
Patient's Visit Information VERONICA CRAIG is a 77 year old F referred to Physical Therapy by Dr. Sammy España DO with a diagnosis of R triceps tendinitis. Date of Evaluation: 10/17/22 Physical Therapist: Sebastián Mosqueda DPT - Visit Plan Frequency: 2x /Week Duration: 4 Weeks Plan: Start with US to posterior aspect of subacromial space. Add in scapular strengthening and progressively add load to triceps and teres minor. - Subjective Pt. is here today for her initial evaluation with diagnosis of R triceps tendinitis. Pt. reports having increasing pain for the past few months. She reports no mech of injury. She reports pain at posterior and lateral aspects of her R shoulder. No N/T. Recent Xray showed degenerative arthritis, but no acute fractures noted. Pt. is sleeping okay. Increases pain: Lifting her arm, ADLs, donning/doffing clothing. Decreases pain: rest. Pt. is not walking much due to general issues, but has been using FWW, with increased R arm pain. She is hopeful to sleep better, but also get back to all of her cooking and cleaning without issues. - Pain R shoulder Pain Intensity (Out of 10): 3 Pain Intensity Range: 2, 7 - Objective POSTURE: Pt. has a general flexed posture, rounded B shoulders with increased FH posture. Difficult for patient to fully correct. PALPATION: Pt. has tenderness at posterior aspect of sub acromial space. NEURO: Normal throughout BUEs. Normal sensation and normal DTR. ROM: L shoulder: Flexion 160derg, abd 160deg, functional ER C3, functional IR L 3. R shoulder: flexion 110deg, abd 95deg, functional IR L4, functional ER C1. Pt. had increased pain with over pressures into all ranges of her motion on R side only. MMT: RUE: wrist and elbow 5/5 throughout, mild increase in soreness with elbow extension. shoulder: flexion 4/5, abd 4/5, Er 4/5, IR 4/5. Pt. had mild increase with ER motions. - Special Tests R Shoulder Drop Sign - IS Test: Negative R Shoulder Empty Can - SS: Positive R Shoulder Belly Press - SupScap: Negative R Shoulder Neer - Impingement: Positive R Shoulder [place] Chuck - Impingement: Negative - Balance/Special Test Scores Quick DASH Score: 70.4525 - Goals Goal 1:: LTG: Pt. to be I with HEP for R shoulder strengthening. Goal Time Frame: 4-6 Weeks Goal 2:: LTG: Pt. to have full ROM of R shoulder symmetrical to L side without increase in symptoms. Goal Time Frame: 4-6 Weeks Goal 3:: LTG: Pt. to have increased R shoulder strength symmetrical to L side. Goal Time Frame: 4-6 Weeks Goal 4:: STG: Pt. to be able to sleep without increase in symptoms. 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 Goal Time Frame: 4-6 Weeks - Rehabilitation Potential Physical Therapy Diagnosis: Pt. has signs and symptoms consistent with R triceps tendinitis, possibly teres minor pain as well. She has marked hypomobility and R sided weakness. She would benefit from PT to work on her shoulder ROM, progressing to strengthening exercises. She might need initial modalities to calm her symptoms. Rehabilitation Potential: Good - Anticipated Interventions Patient/Client Instruction: Educate patient on: Condition, Plan of Care, Risk F actors, Benefits of Fitness Program For the Purpose of:: To decrease pain, To increase ROM, To improve muscle performance and motor function, To improve ability to perform ADL's, To increase tolerance to activity/condition/position, To improve performance and independence with ADL's, To improve health of tissue, To decrease soft tissue restriction, To increase flexibility/ROM Therapeutic Exercise to Include: Strength training For the Purpose of:: To decrease pain, To decrease swelling/inflammation, To increase ROM, To improve nutrient delivery to tissue, To improve health of tissue, To decrease soft tissue restriction, To increase flexibility/ROM Manual Therapy Techniques to Include: Mobilization, Soft tissue mobilization For the Purpose of:: To decrease pain, To decrease swelling/inflammation, To increase ROM, To improve nutrient delivery to tissue, To increase oxygenation perfusion, To improve muscle performance and motor function, To improve health of tissue, To decrease soft tissue restriction IF ES: Yes Cryotherapy (ice pack, ice massage): Yes Ultrasound (thermal/non thermal): Yes For the Purpose of:: To decrease pain, To decrease swelling/inflammation, To increase ROM, To improve nutrient delivery to tissue Thank you for the opportunity to evaluate your patient. For Medicare and Medicare HMO plans, please review the plan of care and approve it. It will need to be FAXED BACK to us at [phone] for Medicare purposes. For Medicare only, by signing this I certify the plan of care. Please let me know if there are questions or concerns regarding this plan of care. Physician Signature: Date:
--- NOTE | 2023-01-02 16:39 | HP.PTDCSUM_ITS ---
It has been my pleasure to treat VERONICA CRAIG referred by Dr. Sammy España DO, with the diagnosis of R triceps tendinitis for a total of 11 visit(s). Discharge Date: 01/02/23 Please see the following information for a summary of their discharge status. Subjective: Pt. is here today for her re assessment. pt. reports overall being about the same. Pt. has increased R shoulder pain with most activities iwth her R arm. Pt. c/o increased pain with using computer, doing her hair, bathing, etc. Decreased pain: nothing. R shoulder Pain Intensity (Out of 10): 9 % Improvement: 0 Objective/Function: ROM: flexion 90deg, 80deg, functional ER external auditory meatus, functional IR: gluteal region. PROM: flexion 100deg, abd 100deg, ER at side 30deg, IR at side 90deg. MMT: L shoulder: flexion 13#, ER 14#, IR 23#, abd 15.5#. R shoulder: flexion 5.8 mild increase NW, abd 8.0#, 11.3# increase nW, 13.6#. Pt. is to continue to work on ROM with leonora and passive flexion and abd exercises to keep ROM. I want her to work on some strengthening. She was initially having some relief, but her progression has tailed off. I am going to DC her back to physician at this point in time. Goal 1:: LTG: Pt. to be I with HEP for R shoulder strengthening. Goal Progress: Progressing Goal 2:: LTG: Pt. to have full ROM of R shoulder symmetrical to L side without increase in symptoms. Goal Progress: Not Progressing Goal 3:: LTG: Pt. to have increased R shoulder strength symmetrical to L side. Goal Progress: Not Progressing Goal 4:: STG: Pt. to be able to sleep without increase in symptoms. 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 Goal Progress: Not Progressing Plan: At this point in time I am DCing patient back to physician. She continues to have increased symptoms. We did US, ROM and some strengthening. US seemed to have a short term effect, but she was not tolerating ROM and strengthening very well. Discharge Comments: Pt. will be DC to HEP at this point in time. She was treated with ROM, strengthening and US. She did okay, temporarily with the US, but had difficult with strengthening and ROM. At this point in time she has not had much improvement over the last 4 weeks and will be DC to HEP and physician at this point in time. She plans on using home TENS unit to manage her symptoms as well. If there are questions or concerns regarding this patient's physical therapy, please feel free to call me at [phone]. Thank you for the referral of this patient. Sincerely, Sebastián Mosqueda, DPT Balance/Gait/Functional tests - Balance/Special Test Scores Quick DASH Score: [phone]
== END 2023-01-02 19:00 | disposition home or self-care (01) ==
LOC: PT 15:00
PROVIDERS: PCP Family Medicine Geriatric Medicine; Referring Provider Orthopaedic Surgery; Visit Provider Orthopaedic Surgery
DX: M77.8 Other enthesopathies, not elsewhere classified (principal); M19.011 Primary osteoarthritis, right shoulder
CPT/HCPCS: 97035; 97110; 97161; 97164

== ENCOUNTER → 2023-01-30 | Outpatient (CLI) | payer MEDICARE, MEDICAID, SELFPAY ==
[2022-06-23 12:13] VITALS: BMI 53.8
[2023-01-30 17:26] LABS: Absolute Lymphocyte Count 1.98 X10^3/uL (0.83-4.51); Absolute Neutrophil Count 5.4 X10^3/uL (2.0-7.7); Basophil# 0.03 X10^3/uL; Basophil% 0.4 % (0-1); Eosinophil# 0.12 X10^3/uL; Eosinophils% 1.5 % (0-5); Hematocrit 40.9 % (37-47); Hemoglobin 12.6 g/dL (12.0-15.0); Lymphocyte # 1.98 X10^3/ul (0.83-4.51); Lymphocyte % 24.8 % (19-41); Mean Corp Hgb Conc 30.8 g/dL (32-36); Mean Corpuscular Volume 84.5 fL (81-99); Mean Platelet Vol. 10.4 fl (6.2-12.0); Monocyte# 0.43 X10^3/uL; Monocyte% 5.4 % (0-10); NRBC Flagged by Analyzer 0 % (0-5); Neutrophil # 5.37 X10^3/uL (2.7-7.7); Neutrophil % 67.3 % (47-70); Platelet Count 344 K/mm3 (150-450); RBC Distribution Width CV 16.3 % (11.6-14.6); RBC Distribution Width SD 50.3 fl (35.1-43.9); Red Blood Count 4.84 M/mm3 (4.2-5.4)
[2023-01-30 17:54] LABS: ALB/GLOB Ratio 0.7 RATIO (0.9-2.4); AST(SGOT) 14 U/L (15-37); Alanine Aminotransfer ALT/SGPT 17 U/L (13-56); Albumin, Serum 2.9 g/dL (3.2-5.0); Alkaline Phosphatase 97 U/L (45-117); Anion Gap 9 (5-15); BUN 14 mg/dL (7-18); BUN/Creat Ratio 12.8 RATIO (10-20); Calcium,Total 8.4 mg/dL (8.5-10.1); Chloride 99 mmol/L (98-107); Creatinine, Serum 1.09 mg/dL (0.55-1.02); EST Glomerular Filtration Rate 52 mL/min (>60); Est Glom Filt Rate - Afr Amer 63 mL/min (>60); Globulin 4.2 g/dL (2.2-4.2); Glucose 218 mg/dL (74-106); Potassium 3.5 mmol/L (3.5-5.1); Protein, Total 7.1 g/dL (6.4-8.2); Sodium Level 135 mmol/L (136-145); Thyroid Stim Hormone (TSH) 4.99 uIU/mL (0.358-3.74)
== END | disposition home or self-care (01) ==
LOC: POLAB3 14:20
PROVIDERS: PCP Family Medicine Geriatric Medicine; Visit Provider Family Medicine Geriatric Medicine
DX: E55.9 Vitamin D deficiency, unspecified (principal); E11.9 Type 2 diabetes mellitus without complications; I10 Essential (primary) hypertension
CPT/HCPCS: 36415; 80053; 82306; 84443; 85025

== ENCOUNTER → 2023-02-09 | Outpatient (CLI) | payer MEDICARE, MEDICAID, SELFPAY ==
[2022-06-23 12:13] VITALS: BMI 53.8
--- NOTE | 2023-02-12 16:52 | STRESSREP_ITS ---
Stress Test Report Date: 02/09/2023 Procedure: Pharmacologic stress nuclear imaging study Indications: Chest pain Consent: Per the patient Procedure: The patient underwent pharmacologic (Regadenoson) evaluation with a peak heart rate of 101 beats per minute (69%predicted maximal heart rate) and a peak blood pressure of 118/90 mmHg. The baseline ECG demonstrated atrial fibrillation with controlled ventricular response. EKG during lexiscan infusion revealed no significant ischemic changes. EKG post infusion revealed no significant ischemic changes [There were no cardiac dysrhythmias pretest, during pharmacologic infusion, or recovery]. [There was no complaint of chest discomfort during pharmacologic infusion or recovery]. The examination was discontinued secondary to completion of protocol. Impression: 1. Lexiscan stress test test is negative for Lexiscan infusion induced EKG changes of ischemia. 2. Lexiscan stress test test is negative for Lexiscan infusion induced chest pain. 3. Results of the nuclear portion of the test is as below Myocardial perfusion imaging study: Technique: The patient was injected with 14.9 millicuries of technetium 99m Cardiolite and subsequently rest SPECT Cardiolite nuclear imaging was obtained in the horizontal long, vertical long, and short axis views. The patient underwent pharmacologic [Regadenoson 0.4mg] evaluation. Please see above for details. The patient was injected with 44.7 millicuries of technetium 99m Cardiolite and subsequently stress SPECT Cardiolite nuclear imaging was obtained in the horizontal long, vertical long, and short axis views. A gated Cardiolite study at peak stress was obtained. Interpretation: Rest and stress SPECT Cardiolite nuclear imaging status post realignment, normalization, and attenuation correction demonstrate normal myocardial radioisotope uptake at rest. On the stress images there is mild decrease in the radioisotope uptake in the anterior wall and lateral wall suggestive of ischemia in this region. Gated images reveal no significant regional wall motion abnormalities. The reported LVEF is 63%. Impression: 1. Mild anterior and lateral myocardial ischemia cannot be excluded. 2. Estimated ejection fraction is 63%. This note was generated with [employer] software. It may contain incorrect words, spelling, and punctuation that were not noted in checking the note before signing.
== END | disposition home or self-care (01) ==
LOC: CVS 06:40
PROVIDERS: PCP Family Medicine Geriatric Medicine; Visit Provider Nurse Practitioner Family
DX: R07.9 Chest pain, unspecified (principal); I50.32 Chronic diastolic (congestive) heart failure; I48.0 Paroxysmal atrial fibrillation; Z68.43 Body mass index [BMI] 50.0-59.9, adult; E66.01 Morbid (severe) obesity due to excess calories; I20.9 Angina pectoris, unspecified; E78.5 Hyperlipidemia, unspecified; Z95.5 Presence of coronary angioplasty implant and graft
CPT/HCPCS: 78452; 93017; A9500; A4216; J2785

== ENCOUNTER → 2023-03-21 | Outpatient (CLI) | payer MEDICARE, MEDICAID, SELFPAY ==
[2022-06-23 12:13] VITALS: BMI 53.8
[2023-03-21 18:32] LABS: Thyroid Stim Hormone (TSH) 3.75 uIU/mL (0.358-3.74)
== END | disposition home or self-care (01) ==
PROVIDERS: PCP Family Medicine Geriatric Medicine; Referring Provider Family Medicine Geriatric Medicine; Visit Provider Family Medicine Geriatric Medicine
DX: E03.9 Hypothyroidism, unspecified (principal)
CPT/HCPCS: 36415; 84443

== ENCOUNTER → 2023-03-23 | Outpatient (CLI) | payer MEDICARE, MEDICAID, SELFPAY ==
[2022-06-23 12:13] VITALS: BMI 53.8
== END | disposition home or self-care (01) ==
LOC: POLAB3 13:08
PROVIDERS: PCP Family Medicine Geriatric Medicine; Visit Provider Family Medicine Geriatric Medicine
DX: N39.0 Urinary tract infection, site not specified (principal)
CPT/HCPCS: 87086; 87088

== ENCOUNTER 2023-04-23 06:58 | Day surgery (SDC) | payer MEDICARE, MEDICAID, SELFPAY ==
[2022-06-23 12:13] VITALS: BMI 53.8
[2023-04-11 17:14] LABS: Absolute Lymphocyte Count 1.91 X10^3/uL (0.83-4.51); Basophil# 0.02 X10^3/uL; Basophil% 0.2 % (0-1); Eosinophil# 0.11 X10^3/uL; Hematocrit 41.1 % (37-47); Hemoglobin 13.4 g/dL (12.0-15.0); Lymphocyte # 1.91 X10^3/ul (0.83-4.51); Mean Corp Hgb Conc 32.6 g/dL (32-36); Mean Corpuscular Hgb 26.7 pg (27.0-32.0); Mean Platelet Vol. 9.9 fl (6.2-12.0); Monocyte# 0.57 X10^3/uL; Monocyte% 5.4 % (0-10); NRBC Flagged by Analyzer 0 % (0-5); Neutrophil # 7.95 X10^3/uL (2.7-7.7); Neutrophil % 75.1 % (47-70); Platelet Count 300 K/mm3 (150-450); RBC Distribution Width CV 15.5 % (11.6-14.6); RBC Distribution Width SD 46.3 fl (35.1-43.9); Red Blood Count 5.01 M/mm3 (4.2-5.4); White Blood Count 10.6 K/mm3 (4.4-11.0)
[2023-04-11 17:42] LABS: Anion Gap 8 (5-15); BUN 11 mg/dL (7-18); BUN/Creat Ratio 9.6 RATIO (10-20); Calcium,Total 8.8 mg/dL (8.5-10.1); Chloride 102 mmol/L (98-107); Creatinine, Serum 1.14 mg/dL (0.55-1.02); EST Glomerular Filtration Rate 49 mL/min (>60); Est Glom Filt Rate - Afr Amer 60 mL/min (>60); Glucose 168 mg/dL (74-106); Sodium Level 139 mmol/L (136-145)
--- NOTE | 2023-04-17 16:50 | RAD_ITS ---
EXAM: XR CHEST, 2 VIEWS CLINICAL INDICATION: CHF, heart cath on 04/23/23 TECHNIQUE: Frontal and lateral views of the chest. COMPARISON: May 25, 2020. January 15, 2020. FINDINGS: LUNGS AND PLEURAL SPACES: Unremarkable. No consolidation or edema. No pneumothorax. No effusion. HEART: Left heart margin appears mildly more prominent and ill-defined on the frontal view and on the lateral view. Left hemidiaphragm remains well seen. MEDIASTINUM: Central airways and mediastinal contour are unremarkable. BONES/JOINTS: Spondylosis and ligamentous ossifications of the anterior thoracic spine again noted. SOFT TISSUES: Unremarkable. VASCULATURE: Stable bilateral vascular prominence. RAD/Chest PA and Lateral IMPRESSION: Mild increased cardiac size. Mild pulmonary vascular congestion. Electronically Signed: Domenica Lowery MD at 8:53 EDT ,
[2023-04-20 07:09] VITALS: BMI 56.5
[2023-04-23 07:33] LABS: Anion Gap 7 (5-15); BUN 11 mg/dL (7-18); BUN/Creat Ratio 9.4 RATIO (10-20); Calcium,Total 8.4 mg/dL (8.5-10.1); Chloride 105 mmol/L (98-107); Creatinine, Serum 1.17 mg/dL (0.55-1.02); EST Glomerular Filtration Rate 48 mL/min (>60); Est Glom Filt Rate - Afr Amer 58 mL/min (>60); Estimated Creatinine Clearance 35.32 ml/min; Glucose 147 mg/dL (74-106); Potassium 3.2 mmol/L (3.5-5.1); Sodium Level 140 mmol/L (136-145)
--- NOTE | 2023-04-23 09:50 | CL.D_ITS ---
Patient Name: VERONICA CRAIG Study Date: 04/23/2023 Performing: Raymon Alba MD Ht: 64 inches 162.56 cm : 1945 Wt: 329 lbs 149.23 kg Age: 78 Gender: female BSA: 2.42 PROCEDURE(S) PERFORMED DC01-([id number])LHC/COR/LV CLINICAL PROFILE AND INDICATIONS Indications: Suspected CAD Heart Failure: None Stress/Imaging Stress/Image Study Performed: No CAD Presentations: Symptom unlikely to be ischemic. CONCLUSIONS Non obstructive coronary arteries RECOMMENDATIONS Medical therapy DESCRIPTION OF PROCEDURE The patient arrived to the procedure lab. The risks and benefits of the procedure as well as a full description of our services here and current unavailability of surgical backup were fully explained to the patient and/or their significant other prior to the catheterization. The Timeout was completed, verifying the correct patient and procedure. The patient's procedural site was prepped and draped in the usual fashion. Local anesthetic was given subcutaneously to right radial region with Lidocaine 2%. Using a modified Seldinger technique, arterial access was obtained via the right radial artery, a 6Fr sheath was inserted. Left Coronary Artery selective angiography was performed in multiple views using a 5 Fr. 4.0 [place] catheter. Right Coronary Artery selective angiography was then performed in multiple views using a 5 Fr. 4.0 [place] catheter. Left Ventriculography was performed in NEWELL projection using a 5 Fr. Pig[place] catheter. LV to AO pullback pressures were then recorded.The arterial sheath was pulled and a TR Band was applied for hemostasis CORONARY ANGIOGRAPHY DOMINANCE: Right Dominant LEFT HEART ASSESSMENT Left Ventricular Ejection Fraction: by LV Gram 60 % Normal LV wall motion Normal Left Ventricular systolic function LEFT MAIN: Angiographically normal LEFT ANTERIOR DESCENDING ARTERY: Mild luminal irregularities less than 30% CIRCUMFLEX ARTERY: Mild luminal irregularities RAMUS: Mild luminal irregularities less than 30% RIGHT CORONARY ARTERY: Mild luminal irregularities COMPLICATIONS No Complications PROCEDURE MEDICATIONS Versed 1 mg IV Fentanyl 50 mcg IV Versed 1 mg IV Oxygen: 2 L/min via nasal cannula Aspirin (325mg) 1 Tabs PO @ 04/23/2023 07:35:39 Heparin given IA 04/23/2023 08:56:23 Plavix 75 mg PO 04/23/2023 07:35:54 Potassium Chloride 40 mEq PO 04/23/2023 08:08:26 Verapamil 2.5mg, Ntg 200mcgs, 2000 units of Heparin given IA 04/23/2023 08:56:23 SUMMARY OF HEMODYNAMIC DATA Time AIR REST ECG 07:32:52 AO 142/86 (112) SA 09:00:41 LV 144/7, 17 09:10:07 LV 146/7, 15 09:10:14 LV 148/9, 16 09:10:42 LV 143/9, 18 09:10:48 LVp 144/9, 15 09:10:59 AOp 150/84 (113) 09:11:04 Signed By Raymon Alba MD On 04/23/2023 09:49:30 Raymon Alba MD
== END 2023-04-23 11:27 | disposition home or self-care (01) ==
LOC: CLSP 07:00
PROVIDERS: PCP Family Medicine Geriatric Medicine; Referring Provider Internal Medicine Cardiovascular Disease; Visit Provider Internal Medicine Cardiovascular Disease
DX: I25.10 Atherosclerotic heart disease of native coronary artery without angina pectoris (principal); I50.32 Chronic diastolic (congestive) heart failure; I48.0 Paroxysmal atrial fibrillation; E66.01 Morbid (severe) obesity due to excess calories; Z79.4 Long term (current) use of insulin; E11.9 Type 2 diabetes mellitus without complications; G47.33 Obstructive sleep apnea (adult) (pediatric); K21.9 Gastro-esophageal reflux disease without esophagitis; E78.5 Hyperlipidemia, unspecified; F41.9 Anxiety disorder, unspecified; F32.A Depression, unspecified; Z95.5 Presence of coronary angioplasty implant and graft; Z79.899 Other long term (current) drug therapy; Z79.01 Long term (current) use of anticoagulants
CPT/HCPCS: 36415; 71046; 80048; 85025; 93458; 99152; 99153; J7040; Q9967; C1769; C1894

== ENCOUNTER → 2023-05-09 | Outpatient (CLI) | payer MEDICARE, MEDICAID, SELFPAY ==
[2022-06-23 12:13] VITALS: BMI 53.8
[2023-05-09 17:06] LABS: Absolute Lymphocyte Count 1.86 X10^3/uL (0.83-4.51); Absolute Neutrophil Count 7.3 X10^3/uL (2.0-7.7); Basophil# 0.03 X10^3/uL; Basophil% 0.3 % (0-1); Eosinophil# 0.14 X10^3/uL; Eosinophils% 1.4 % (0-5); Hematocrit 40.3 % (37-47); Hemoglobin 13.1 g/dL (12.0-15.0); Lymphocyte # 1.86 X10^3/ul (0.83-4.51); Lymphocyte % 18.7 % (19-41); Mean Corp Hgb Conc 32.5 g/dL (32-36); Mean Corpuscular Hgb 26.8 pg (27.0-32.0); Mean Corpuscular Volume 82.4 fL (81-99); Mean Platelet Vol. 9.8 fl (6.2-12.0); Monocyte# 0.56 X10^3/uL; Monocyte% 5.6 % (0-10); NRBC Flagged by Analyzer 0 % (0-5); Neutrophil # 7.32 X10^3/uL (2.7-7.7); Neutrophil % 73.6 % (47-70); Platelet Count 369 K/mm3 (150-450); RBC Distribution Width SD 47.8 fl (35.1-43.9); Red Blood Count 4.89 M/mm3 (4.2-5.4)
[2023-05-09 17:46] LABS: Vitamin D,25 Hydroxy 50.2 ng/mL
[2023-05-09 17:51] LABS: ALB/GLOB Ratio 0.7 RATIO (0.9-2.4); AST(SGOT) 12 U/L (15-37); Alanine Aminotransfer ALT/SGPT 12 U/L (13-56); Albumin, Serum 2.7 g/dL (3.2-5.0); Alkaline Phosphatase 103 U/L (45-117); Anion Gap 7 (5-15); BUN 12 mg/dL (7-18); BUN/Creat Ratio 10.6 RATIO (10-20); Calcium,Total 8.4 mg/dL (8.5-10.1); Chloride 101 mmol/L (98-107); Creatinine, Serum 1.13 mg/dL (0.55-1.02); EST Glomerular Filtration Rate 50 mL/min (>60); Est Glom Filt Rate - Afr Amer 60 mL/min (>60); Globulin 4.1 g/dL (2.2-4.2); Glucose 152 mg/dL (74-106); Protein, Total 6.8 g/dL (6.4-8.2); Sodium Level 135 mmol/L (136-145); Thyroid Stim Hormone (TSH) 3.53 uIU/mL (0.358-3.74)
== END | disposition home or self-care (01) ==
LOC: LAB 16:43
PROVIDERS: PCP Family Medicine Geriatric Medicine; Referring Provider Family Medicine Geriatric Medicine; Visit Provider Family Medicine Geriatric Medicine
DX: E11.65 Type 2 diabetes mellitus with hyperglycemia (principal); E55.9 Vitamin D deficiency, unspecified; I10 Essential (primary) hypertension
CPT/HCPCS: 36415; 80053; 82306; 84443; 85025

== ENCOUNTER → 2023-07-18 | Outpatient (CLI) | payer MEDICARE, MEDICAID, SELFPAY ==
[2022-06-23 12:13] VITALS: BMI 53.8
--- NOTE | 2023-07-18 10:06 | CDU_ITS ---
Reason For Study: Carotid artery disease Rt. Velocities/BP Lt. Velocities/BP Prox CCA 42.2/7.3 cm/sec. Prox CCA 52/13.5 cm/sec. Mid CCA 40.8/10.2 cm/sec. Mid CCA 52/12.4 cm/sec. Dist CCA 40.8/10.9 cm/sec. Dist CCA 42.1/11.3 cm/sec. Prox ICA 28/9.5 cm/sec. Prox ICA 31.5/12.6 cm/sec. Mid ICA 44.1/10.2 cm/sec. Mid ICA 58/17.4 cm/sec. Dist ICA 69.6/20.1 cm/sec. Dist ICA 84.9/21.2 cm/sec. Rt. ICA/CCA = 1.71. Lt. ICA/CCA = 1.63. Prox ECA 49.4/11.5 cm/sec. Prox ECA 52/11.3 cm/sec. Rt. Vert. 37.7/13.5 cm/sec. Lt. Vert. 20.8/5.2 cm/sec. Right Extracranial There is homogeneous, smooth atherosclerotic plaque noted in the right common carotid artery. There is heterogeneous, irregular atherosclerotic plaque noted in the right internal carotid artery. There is heterogeneous, irregular atherosclerotic plaque noted in the right external carotid artery. Antegrade flow is noted in the right vertebral artery. Left Extracranial There is homogeneous, smooth atherosclerotic plaque noted in the left common carotid artery. There is homogeneous, smooth atherosclerotic plaque noted in the left internal carotid artery. There is heterogeneous, irregular atherosclerotic plaque noted in the left external carotid artery. Antegrade flow is noted in the left vertebral artery. Procedure Carotid Duplex 71510. This is a Carotid Duplex examination using B-mode, color flow and specral Doppler. Exam performed in department. VL/Carotid Duplex Ultrasound Interpretation Summary Mild (<50%) stenosis right extracranial internal carotid. Mild (<50%) stenosis left extracranial internal carotid. Patent and antegrade vertebrals bilaterally. Ordering Physician: Elkin Leija Referring Physician: Jim Hester Chi Performed By: Yamilex Huang RVT
== END | disposition home or self-care (01) ==
LOC: CVS 10:06
PROVIDERS: PCP Family Medicine Geriatric Medicine; Referring Provider Nurse Practitioner Family; Visit Provider Nurse Practitioner Family
DX: I65.22 Occlusion and stenosis of left carotid artery (principal); I77.9 Disorder of arteries and arterioles, unspecified
CPT/HCPCS: 93880

== ENCOUNTER → 2023-08-01 | Outpatient (CLI) | payer MEDICARE, MEDICAID, SELFPAY ==
[2022-06-23 12:13] VITALS: BMI 53.8
--- NOTE | 2023-08-01 17:15 | RAD_ITS ---
INDICATION: PAIN fall 2 days ago. coccyx pain EXAMINATION/TECHNIQUE: X-RAY - XR Sacrum/Coccyx Min 2 Views COMPARISON: CT abdomen and pelvis 01/10/2021 FINDINGS: There is irregularity of the lower coccyx with slight anterior displacement suggesting fracture, uncertain age but is new compared to prior CT. No other fracture demonstrated. The sacroiliac joints are symmetric. Surgical hardware in the lower lumbar spine. RAD/Sacrum-Coccyx min 2 Views IMPRESSION: Lower coccygeal fracture possibly acute. Electronically Signed: Jen Moscoso MD at 5:36 EDT ,
--- NOTE | 2023-08-01 17:15 | RAD_ITS ---
INDICATION: PAIN fall 2 days ago. coccyx pain EXAMINATION/TECHNIQUE: X-RAY - XR Pelvis 1 or 2 Views COMPARISON: FINDINGS: No definite fracture demonstrated. The femoral heads are normal contour. No dislocation at the hips. Mild degenerative changes of both hips with joint space narrowing, subchondral sclerosis and osteophytes. Surgical hardware in the lower lumbar spine. RAD/Pelvis 1 or 2 Views IMPRESSION: No evidence of fracture. Electronically Signed: Jen Moscoso MD at 5:32 EDT ,
--- NOTE | 2023-08-01 17:20 | RAD_ITS ---
INDICATION: PAIN left hand pain due to fall 2 days ago. 5th digit pain and bruising. unable to remove ring. EXAMINATION/TECHNIQUE: X-RAY - LEFT XR Hand Min 3 Views 3 VIEWS COMPARISON: FINDINGS: BONES: The bones appear osteopenic. No fracture demonstrated. Metallic object ring obscures a portion of the fourth proximal phalanx, also obscures portion of the fifth digit on the lateral view, specifically about the PIP joint. Degenerative changes most pronounced at the first carpometacarpal joint, and in the digits and distal interphalangeal joints second through fifth digits, and the PIP joints especially third and fourth digits. JOINTS: No dislocation. SOFT TISSUES: Mild soft tissue swelling dorsally at the metacarpals. RAD/Hand Min 3 Views IMPRESSION: No evidence of fracture. If symptoms persist, consider follow-up radiographs in 5-7 days, given the imitations. Soft tissue swelling. Electronically Signed: Jen Moscoso MD at 23:04 EDT ,
== END | disposition home or self-care (01) ==
LOC: RAD 17:09
PROVIDERS: PCP Family Medicine Geriatric Medicine; Referring Provider Family Medicine Geriatric Medicine; Visit Provider Family Medicine Geriatric Medicine
DX: M79.642 Pain in left hand (principal); M53.3 Sacrococcygeal disorders, not elsewhere classified; R10.2 Pelvic and perineal pain
CPT/HCPCS: 72170; 72220; 73130

== ENCOUNTER → 2023-08-02 | Outpatient (CLI) | payer MEDICARE, MEDICAID, SELFPAY ==
[2022-06-23 12:13] VITALS: BMI 53.8
--- NOTE | 2023-08-02 14:07 | CT_ITS ---
INDICATION: CLOSED HEAD INJURY EXAMINATION: CT BRAIN - CT Head or Brain W/O Contrast Injection TECHNIQUE: Multiple axial images were obtained of the head without intravenous contrast. A radiation dose optimization technique was used for this scan. IV Contrast dosage and agent: None. RADIATION DOSAGE (If Supplied By Facility): CTDIvol = ( 44.99 ) mGy, DLP = ( 812.98 ) mGycm COMPARISON: Prior exam of 01/10/2021. FINDINGS: BRAIN PARENCHYMA: No intra- or extra-axial hemorrhage. No evidence of acute infarct. 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 Chronic periventricular deep white matter changes likely due to microvascular disease. There is preservation of the lim/white matter interface. Posterior fossa structures are unremarkable. Mild atherosclerotic calcifications of the cavernous internal carotid arteries. CSF SPACES: Appropriate for age. No hydrocephalus. Basal cisterns are patent. CALVARIUM, SKULL BASE, PARANASAL SINUSES AND MASTOID AIR CELLS: Retention cyst or polyp in the left maxillary sinus. No discrete lytic or blastic abnormalities. ORBITS: Bilateral cataract surgery. No acute process. CT/Brain/Head without Contrast IMPRESSION: 1. No acute intracranial process. 2. Old infarct in the right spear radiata. 3. Chronic involutional changes of the brain. Electronically Signed: Ryan Brunson MD at 15:40 EDT ,
== END | disposition home or self-care (01) ==
LOC: CT 14:02
PROVIDERS: PCP Family Medicine Geriatric Medicine; Referring Provider Family Medicine Geriatric Medicine; Visit Provider Family Medicine Geriatric Medicine
DX: S09.90XA Unspecified injury of head, initial encounter (principal)
CPT/HCPCS: 70450

== ENCOUNTER → 2023-08-07 | Outpatient (CLI) | payer MEDICARE, MEDICAID, SELFPAY ==
[2022-06-23 12:13] VITALS: BMI 53.8
[2023-08-07 15:15] LABS: Absolute Lymphocyte Count 1.99 X10^3/uL (0.83-4.51); Absolute Neutrophil Count 7.1 X10^3/uL (2.0-7.7); Basophil# 0.02 X10^3/uL; Basophil% 0.2 % (0-1); Eosinophil# 0.14 X10^3/uL; Eosinophils% 1.4 % (0-5); Hematocrit 41.9 % (37-47); Hemoglobin 13.2 g/dL (12.0-15.0); Lymphocyte # 1.99 X10^3/ul (0.83-4.51); Lymphocyte % 20.3 % (19-41); Mean Corp Hgb Conc 31.5 g/dL (32-36); Mean Corpuscular Hgb 26.9 pg (27.0-32.0); Mean Corpuscular Volume 85.5 fL (81-99); Monocyte# 0.56 X10^3/uL; Monocyte% 5.7 % (0-10); NRBC Flagged by Analyzer 0 % (0-5); Neutrophil # 7.06 X10^3/uL (2.7-7.7); Neutrophil % 71.9 % (47-70); Platelet Count 350 K/mm3 (150-450); RBC Distribution Width CV 17.3 % (11.6-14.6); RBC Distribution Width SD 53.8 fl (35.1-43.9); White Blood Count 9.8 K/mm3 (4.4-11.0)
[2023-08-07 15:30] LABS: Vitamin D,25 Hydroxy 38.3 ng/mL
[2023-08-07 15:40] LABS: ALB/GLOB Ratio 0.7 RATIO (0.9-2.4); AST(SGOT) 14 U/L (15-37); Alanine Aminotransfer ALT/SGPT 19 U/L (13-56); Albumin, Serum 2.9 g/dL (3.2-5.0); Alkaline Phosphatase 97 U/L (45-117); Anion Gap 7 (5-15); BUN 12 mg/dL (7-18); BUN/Creat Ratio 10.1 RATIO (10-20); Calcium,Total 8.4 mg/dL (8.5-10.1); Chloride 105 mmol/L (98-107); Creatinine, Serum 1.19 mg/dL (0.55-1.02); EST Glomerular Filtration Rate 47 mL/min (>60); Est Glom Filt Rate - Afr Amer 57 mL/min (>60); Globulin 4.1 g/dL (2.2-4.2); Glucose 135 mg/dL (74-106); Potassium 3.6 mmol/L (3.5-5.1); Sodium Level 138 mmol/L (136-145)
== END | disposition home or self-care (01) ==
LOC: POLAB3 14:10
PROVIDERS: PCP Family Medicine Geriatric Medicine; Visit Provider Family Medicine Geriatric Medicine
DX: E11.65 Type 2 diabetes mellitus with hyperglycemia (principal); I10 Essential (primary) hypertension; E55.9 Vitamin D deficiency, unspecified
CPT/HCPCS: 36415; 80053; 82306; 84443; 85025

== ENCOUNTER → 2023-09-26 | Outpatient (CLI) | payer MEDICARE, MEDICAID, SELFPAY ==
[2022-06-23 12:13] VITALS: BMI 53.8
[2023-09-26 17:17] LABS: Thyroid Stim Hormone (TSH) 4.95 uIU/mL (0.358-3.74)
== END | disposition home or self-care (01) ==
LOC: LAB 15:51
PROVIDERS: PCP Family Medicine Geriatric Medicine; Visit Provider Family Medicine Geriatric Medicine
DX: E03.9 Hypothyroidism, unspecified (principal)
CPT/HCPCS: 36415; 84443

== ENCOUNTER → 2023-10-25 | Outpatient (CLI) | payer MEDICARE, MEDICAID, SELFPAY ==
[2022-06-23 12:13] VITALS: BMI 53.8
[2023-10-25 17:44] LABS: Absolute Lymphocyte Count 1.79 X10^3/uL (0.83-4.51); Absolute Neutrophil Count 7.3 X10^3/uL (2.0-7.7); Basophil# 0.02 X10^3/uL; Basophil% 0.2 % (0-1); Hematocrit 44.2 % (37-47); Hemoglobin 14.2 g/dL (12.0-15.0); Lymphocyte # 1.79 X10^3/ul (0.83-4.51); Lymphocyte % 18.4 % (19-41); Mean Corp Hgb Conc 32.1 g/dL (32-36); Mean Corpuscular Hgb 28.2 pg (27.0-32.0); Mean Corpuscular Volume 87.7 fL (81-99); Mean Platelet Vol. 10.1 fl (6.2-12.0); Monocyte# 0.55 X10^3/uL; Monocyte% 5.6 % (0-10); NRBC Flagged by Analyzer 0 % (0-5); Neutrophil # 7.25 X10^3/uL (2.7-7.7); Neutrophil % 74.4 % (47-70); Platelet Count 346 K/mm3 (150-450); RBC Distribution Width CV 15.3 % (11.6-14.6); RBC Distribution Width SD 49.1 fl (35.1-43.9); Red Blood Count 5.04 M/mm3 (4.2-5.4); White Blood Count 9.8 K/mm3 (4.4-11.0)
[2023-10-25 18:13] LABS: Vitamin D,25 Hydroxy 34.7 ng/mL
[2023-10-25 18:20] LABS: ALB/GLOB Ratio 0.6 RATIO (0.9-2.4); AST(SGOT) 12 U/L (15-37); Alanine Aminotransfer ALT/SGPT 16 U/L (13-56); Albumin, Serum 2.8 g/dL (3.2-5.0); Alkaline Phosphatase 111 U/L (45-117); Anion Gap 6 (5-15); BUN 14 mg/dL (7-18); BUN/Creat Ratio 14.8 RATIO (10-20); Calcium,Total 8.5 mg/dL (8.5-10.1); Chloride 104 mmol/L (98-107); Creatinine, Serum 0.95 mg/dL (0.55-1.02); EST Glomerular Filtration Rate 61 mL/min (>60); Est Glom Filt Rate - Afr Amer 74 mL/min (>60); Globulin 4.4 g/dL (2.2-4.2); Glucose 84 mg/dL (74-106); Potassium 3.1 mmol/L (3.5-5.1); Protein, Total 7.2 g/dL (6.4-8.2); Sodium Level 138 mmol/L (136-145); Thyroid Stim Hormone (TSH) 3.89 uIU/mL (0.358-3.74)
== END | disposition home or self-care (01) ==
LOC: POLAB3 15:38
PROVIDERS: PCP Family Medicine Geriatric Medicine; Visit Provider Family Medicine Geriatric Medicine
DX: E11.65 Type 2 diabetes mellitus with hyperglycemia (principal); I10 Essential (primary) hypertension; E55.9 Vitamin D deficiency, unspecified
CPT/HCPCS: 36415; 80053; 82306; 84443; 85025

== ENCOUNTER → 2024-01-31 | Outpatient (CLI) | payer MEDICARE, MEDICAID, SELFPAY ==
[2022-06-23 12:13] VITALS: BMI 53.8
--- NOTE | 2024-01-30 | CYST_PTH ---
PATIENT: VERONICA CRAIG LOC: [facility] U#:[id number] AGE/SX: 78/F ROOM: RE01/31/[address]: Dr. Abisai Peraza MD : 1945 BED: DIS: 01/31/2024 SPEC #: [id number] RECD: 01/31/24 10:10 STATUS: AIMEE MAIKEL #: [id number] OVIDIO: 01/30/24 00:[address]: Abisai Peraza DEPT: SURGICAL PATHOLOGY RECD BY: Tomas Cervantes ENTERED: 01/31/24 10:10 SP TYPE: Cyst OTHR DR: Dr. Jim Hester MD Tissues: CYST Procedures: Surgery Specimen Level III HEADER OPERATION: Excision of cyst left shoulder PRE-OP DIAGNOSIS: Left shoulder cyst TISSUE SUBMITTED: Satya shoulder cyst MICROSCOPIC DIAGNOSIS Cyst of left shoulder, excision; Benign lymph node tissue. See comment. FRANDY/ 02/01/2024 COMMENT Immunohistochemistry ([id number]) supports the above diagnosis. Case has been reviewed in consultation with Dr. Russell who concurs with the above diagnosis. IDC:SJ MICROSCOPIC DESCRIPTION Slides are reviewed. GROSS DESCRIPTION Received in fixative is one container labeled with the patient's name and designated Left shoulder cyst. The specimen consists of three pieces of car soft tissue measuring and aggregate 2.0x2.5x1.2cm. The largest piece is serially sectioned and two smaller pieces are bisected. The entire specimen is submitted in two cassettes. MOISÉS/ 01/31/2024 TC: 5 CPT: 33721
--- NOTE | 2024-01-30 | IMM_PTH ---
PATIENT: VERONICA CRAIG LOC: [facility] U#:[id number] AGE/SX: 78/F ROOM: RE01/31/[address]: Dr. Abisai Peraza MD : 1945 BED: DIS: 01/31/2024 SPEC #: [id number] RECD: 02/01/24 13:32 STATUS: AIMEE REQ #: [id number] OVIDIO: 01/30/24 00:[address]: Abisai Peraza DEPT: IMMUNOHISTOCHEMISTRY RECD BY: Vick Simmons ENTERED: 02/01/24 13:37 SP TYPE: IMMUNO OTHR DR: Dr. Jim Hester MD Tissues: Shoulder, NOS Procedures: BCL-2 (add) BCL-6 (add) CD10 (add) CD138 (add) CD15 (add) CD20 (add) CD23 (add) CD3 (add) CD30 (add) CD43 (add) CD45 (add) CD5 (add) CD79A (add) CYCLIN (add) KAPPA (add) KI-67 (add) LAMBDA (add) P53 (add) MUM1 (add) Pankeratin (initial) PHYSICIAN & INSTITUTION [place] [id number] SPECIMEN INFORMATION: Tissue Source: Left shoulder cyst Clinical Info: Left shoulder cyst Specimen Number: [id number] CPT code: 77139 METHODOLOGY: Deparaffinized sections of prefer/formalin-fixed tissue or PAP/DQ stained slides are incubated with monoclonal/polyclonal antibodies/oligonucleotide probes. Localization is made via biotin free immunoperoxidase method. Appropriate controls are performed and reacted as expected. Results on target cell population are indicated in the following table: RESULTS: ANTIBODY / CLONE RESULT AE1-3 (AE1/AE3/PCK26) negative CD3 (PS1) positive CD5 (SP10) positive CD10 (56C6) negative CD15 (MMA) negative CD20 (L26) positive CD23 (1B12) negative CD30 ([place]-H2) negative CD43 (L60) positive CD45 (RP2/18) positive CD79a (11E3) positive CD138 (B-A38) negative BCL-2 (bcl-2/100/D5) negative BCL-6 (JU888J/A8) negative Cyclin D1/BCL-1 (SP4) negative MUM1 (MRQ-43) negative [place] (polyclonal) negative Lambda (polyclonal) negative P53 (DO-7) negative Ki-67 (30-9) positive, low These tests were developed and their performance characteristics determined by [facility]. They may not have been cleared or approved by the U.S. Food and Drug Administration. The FDA has determined that such clearance or approval is not necessary. The above immunohistochemical/dualISH markers are ordered and reviewed by the Pathologist. INTERPRETATION: Left shoulder cyst, excision; No evidence of lymphoproliferative disorder
== END | disposition home or self-care (01) ==
PROVIDERS: PCP Family Medicine Geriatric Medicine; Referring Provider Surgery; Visit Provider Surgery
DX: L72.9 Follicular cyst of the skin and subcutaneous tissue, unspecified (principal)
CPT/HCPCS: 88304; 88341; 88342

== ENCOUNTER → 2024-02-19 | Outpatient (CLI) | payer MEDICARE, MEDICAID, SELFPAY ==
[2022-06-23 12:13] VITALS: BMI 53.8
[2024-02-19 16:21] LABS: Absolute Lymphocyte Count 1.53 X10^3/uL (0.83-4.51); Absolute Neutrophil Count 7.5 X10^3/uL (2.0-7.7); Basophil# 0.03 X10^3/uL; Basophil% 0.3 % (0-1); Hematocrit 43.4 % (37-47); Hemoglobin 14.4 g/dL (12.0-15.0); Lymphocyte # 1.53 X10^3/ul (0.83-4.51); Lymphocyte % 15.5 % (19-41); Mean Corp Hgb Conc 33.2 g/dL (32-36); Mean Corpuscular Hgb 28.2 pg (27.0-32.0); Mean Corpuscular Volume 85.1 fL (81-99); Mean Platelet Vol. 9.9 fl (6.2-12.0); Monocyte# 0.59 X10^3/uL; NRBC Flagged by Analyzer 0 % (0-5); Neutrophil # 7.48 X10^3/uL (2.7-7.7); Neutrophil % 75.7 % (47-70); Platelet Count 309 K/mm3 (150-450); RBC Distribution Width CV 15.8 % (11.6-14.6); RBC Distribution Width SD 48.3 fl (35.1-43.9); White Blood Count 9.9 K/mm3 (4.4-11.0)
[2024-02-19 16:48] LABS: Hemoglobin A1c 6.1 % (3.8-5.6)
[2024-02-19 16:54] LABS: Vitamin D,25 Hydroxy 38.6 ng/mL
[2024-02-19 17:00] LABS: ALB/GLOB Ratio 0.6 RATIO (0.9-2.4); AST(SGOT) 15 U/L (15-37); Alanine Aminotransfer ALT/SGPT 14 U/L (13-56); Albumin, Serum 2.6 g/dL (3.2-5.0); Alkaline Phosphatase 114 U/L (45-117); Anion Gap 8 (5-15); BUN 11 mg/dL (7-18); BUN/Creat Ratio 9.8 RATIO (10-20); Calcium,Total 8.2 mg/dL (8.5-10.1); Chloride 101 mmol/L (98-107); Cholesterol 97 mg/dL (200); Creatinine, Serum 1.12 mg/dL (0.55-1.02); EST Glomerular Filtration Rate 50 mL/min (>60); Est Glom Filt Rate - Afr Amer 61 mL/min (>60); Globulin 4.1 g/dL (2.2-4.2); Glucose 113 mg/dL (74-106); High Density Lipoprotein 27 mg/dL; Potassium 2.9 mmol/L (3.5-5.1); Protein, Total 6.7 g/dL (6.4-8.2); Sodium Level 138 mmol/L (136-145); Thyroid Stim Hormone (TSH) 1.35 uIU/mL (0.358-3.74); Triglycerides 160 mg/dL; Very Low Density Lipoprotein 32 mg/dL (5-40)
== END | disposition home or self-care (01) ==
PROVIDERS: PCP Family Medicine Geriatric Medicine; Referring Provider Family Medicine Geriatric Medicine; Visit Provider Family Medicine Geriatric Medicine
DX: E11.65 Type 2 diabetes mellitus with hyperglycemia (principal); I10 Essential (primary) hypertension; E55.9 Vitamin D deficiency, unspecified; E78.5 Hyperlipidemia, unspecified
CPT/HCPCS: 36415; 80053; 80061; 82306; 83036; 84443; 85025

== ENCOUNTER → 2024-02-28 | Outpatient (CLI) | payer MEDICARE, MEDICAID, SELFPAY ==
[2022-06-23 12:13] VITALS: BMI 53.8
[2024-02-28 16:36] LABS: Anion Gap 7 (5-15); BUN 12 mg/dL (7-18); BUN/Creat Ratio 11.8 RATIO (10-20); Calcium,Total 8.5 mg/dL (8.5-10.1); Chloride 100 mmol/L (98-107); Creatinine, Serum 1.02 mg/dL (0.55-1.02); EST Glomerular Filtration Rate 56 mL/min (>60); Est Glom Filt Rate - Afr Amer 68 mL/min (>60); Glucose 158 mg/dL (74-106); Potassium 2.6 mmol/L (3.5-5.1); Sodium Level 139 mmol/L (136-145)
== END | disposition home or self-care (01) ==
LOC: LAB 14:22
PROVIDERS: PCP Family Medicine Geriatric Medicine; Referring Provider Family Medicine Geriatric Medicine; Visit Provider Family Medicine Geriatric Medicine
DX: E78.5 Hyperlipidemia, unspecified (principal)
CPT/HCPCS: 36415; 80048

== ENCOUNTER → 2024-03-03 | Outpatient (CLI) | payer MEDICARE, MEDICAID, SELFPAY ==
[2022-06-23 12:13] VITALS: BMI 53.8
[2024-03-03 18:02] LABS: Anion Gap 5 (5-15); BUN 10 mg/dL (7-18); BUN/Creat Ratio 9.4 RATIO (10-20); Calcium,Total 8.5 mg/dL (8.5-10.1); Chloride 101 mmol/L (98-107); Creatinine, Serum 1.06 mg/dL (0.55-1.02); EST Glomerular Filtration Rate 53 mL/min (>60); Est Glom Filt Rate - Afr Amer 65 mL/min (>60); Glucose 173 mg/dL (74-106); Potassium 3.1 mmol/L (3.5-5.1); Sodium Level 137 mmol/L (136-145)
== END | disposition home or self-care (01) ==
PROVIDERS: PCP Family Medicine Geriatric Medicine; Visit Provider Family Medicine Geriatric Medicine
DX: J32.9 Chronic sinusitis, unspecified (principal)
CPT/HCPCS: 36415; 80048

== ENCOUNTER → 2024-05-20 | Outpatient (CLI) | payer MEDICARE, MEDICAID, SELFPAY ==
[2022-06-23 12:13] VITALS: BMI 53.8
[2024-05-20 16:28] LABS: Absolute Lymphocyte Count 1.68 X10^3/uL (0.83-4.51); Absolute Neutrophil Count 6.8 X10^3/uL (2.0-7.7); Basophil# 0.04 X10^3/uL; Basophil% 0.4 % (0-1); Eosinophils% 1.1 % (0-5); Hematocrit 39.1 % (37-47); Hemoglobin 12.8 g/dL (12.0-15.0); Lymphocyte # 1.68 X10^3/ul (0.83-4.51); Lymphocyte % 18.2 % (19-41); Mean Corp Hgb Conc 32.7 g/dL (32-36); Mean Corpuscular Hgb 29.2 pg (27.0-32.0); Mean Corpuscular Volume 89.3 fL (81-99); Mean Platelet Vol. 9.9 fl (6.2-12.0); Monocyte# 0.53 X10^3/uL; Monocyte% 5.7 % (0-10); NRBC Flagged by Analyzer 0 % (0-5); Neutrophil # 6.81 X10^3/uL (2.7-7.7); Neutrophil % 73.9 % (47-70); Platelet Count 293 K/mm3 (150-450); RBC Distribution Width CV 16.1 % (11.6-14.6); RBC Distribution Width SD 52.5 fl (35.1-43.9); Red Blood Count 4.38 M/mm3 (4.2-5.4); White Blood Count 9.2 K/mm3 (4.4-11.0)
[2024-05-20 17:00] LABS: ALB/GLOB Ratio 0.8 RATIO (0.9-2.4); AST(SGOT) 13 U/L (15-37); Alanine Aminotransfer ALT/SGPT 15 U/L (13-56); Albumin, Serum 3.1 g/dL (3.2-5.0); Alkaline Phosphatase 109 U/L (45-117); Anion Gap 7 (5-15); BUN 25 mg/dL (7-18); BUN/Creat Ratio 20.2 RATIO (10-20); Calcium,Total 8.8 mg/dL (8.5-10.1); Chloride 101 mmol/L (98-107); Cholesterol 85 mg/dL (200); Creatinine, Serum 1.24 mg/dL (0.55-1.02); EST Glomerular Filtration Rate 45 mL/min (>60); Est Glom Filt Rate - Afr Amer 54 mL/min (>60); Glucose 103 mg/dL (74-106); High Density Lipoprotein 27 mg/dL; Potassium 3.6 mmol/L (3.5-5.1); Protein, Total 7.1 g/dL (6.4-8.2); Sodium Level 134 mmol/L (136-145); Thyroid Stim Hormone (TSH) 3.92 uIU/mL (0.358-3.74); Triglycerides 133 mg/dL; Very Low Density Lipoprotein 27 mg/dL (5-40)
[2024-05-20 17:01] LABS: Vitamin D,25 Hydroxy 43.9 ng/mL
[2024-05-20 17:29] LABS: Hemoglobin A1c 5.6 % (3.8-5.6)
== END | disposition home or self-care (01) ==
PROVIDERS: PCP Family Medicine Geriatric Medicine; Referring Provider Family Medicine Geriatric Medicine; Visit Provider Family Medicine Geriatric Medicine
DX: E11.65 Type 2 diabetes mellitus with hyperglycemia (principal); I10 Essential (primary) hypertension; E55.9 Vitamin D deficiency, unspecified; E78.5 Hyperlipidemia, unspecified
CPT/HCPCS: 36415; 80053; 80061; 82306; 83036; 84443; 85025

== ENCOUNTER → 2024-07-01 | Outpatient (CLI) | payer MEDICARE, MEDICAID, SELFPAY ==
[2022-06-23 12:13] VITALS: BMI 53.8
--- NOTE | 2024-07-01 16:37 | RAD_ITS ---
EXAM: XR RIGHT WRIST COMPLETE, 3 OR MORE VIEWS CLINICAL INDICATION: PAIN TECHNIQUE: Frontal, lateral and oblique views of the right wrist. COMPARISON: Hand on the same date. FINDINGS: BONES/JOINTS: Arthritic changes throughout the carpus and at the basal joint of the thumb. No sclerotic or destructive changes observed. No discrete evidence of an acute fracture or dislocation. SOFT TISSUES: Diffuse soft tissue swelling. No radiopaque foreign body. RAD/Wrist min 3 Views IMPRESSION: No discrete evidence of an acute fracture or dislocation. Degenerative changes and soft tissue swelling. Consider follow-up radiographs if symptoms persist. Electronically Signed: Eric Chapa DO at 23:57 EDT ,
--- NOTE | 2024-07-01 16:40 | RAD_ITS ---
EXAM: XR RIGHT HAND COMPLETE, 3 OR MORE VIEWS CLINICAL INDICATION: PAIN TECHNIQUE: Frontal, lateral and oblique views of the right hand. COMPARISON: Right wrist on the same date. FINDINGS: BONES/JOINTS: Arthritic changes throughout the interphalangeal joints of the hand, throughout the metacarpophalangeal joints, and at the basal joint of the thumb. Osteopenia. No sclerotic or destructive changes observed. No definite acute fracture or dislocation. SOFT TISSUES: Diffuse soft tissue swelling in the hand and wrist. No radiopaque foreign body. RAD/Hand Min 3 Views IMPRESSION: No definite acute fracture or dislocation. Diffuse soft tissue swelling and arthritic changes. Consider follow-up if symptoms persist. Electronically Signed: Eric Chapa DO at 23:56 EDT ,
[2024-07-01 17:34] LABS: Anion Gap 8 (5-15); BUN 21 mg/dL (7-18); BUN/Creat Ratio 15.7 RATIO (10-20); Calcium,Total 9.1 mg/dL (8.5-10.1); Chloride 103 mmol/L (98-107); Creatinine, Serum 1.34 mg/dL (0.55-1.02); EST Glomerular Filtration Rate 41 mL/min (>60); Est Glom Filt Rate - Afr Amer 49 mL/min (>60); Glucose 120 mg/dL (74-106); Potassium 4.2 mmol/L (3.5-5.1); Sodium Level 137 mmol/L (136-145)
[2024-07-01 17:47] LABS: Glucose, Dipstick Normal (Normal); Ketone-Dipstick Negative (Negative); Leukocyte Esterase-Dipstick 500 /ul (Negative); Nitrite-Dipstick Negative (Negative); Occult Blood-Urine 150 /ul (Negative); Protein-Dipstick 30 mg/dl (Negative); Urine Bilirubin Dipstick Negative (Negative); Urine Urobilinogen Normal (Normal)
[2024-07-01 17:51] LABS: Color, Urine Yellow (Yellow); Urine Clarity Cloudy (Clear)
== END | disposition home or self-care (01) ==
LOC: RAD 16:40 → LAB 16:50
PROVIDERS: PCP Family Medicine Geriatric Medicine; Referring Provider Family Medicine Geriatric Medicine; Visit Provider Family Medicine Geriatric Medicine
DX: N39.0 Urinary tract infection, site not specified (principal); K76.0 Fatty (change of) liver, not elsewhere classified; M79.641 Pain in right hand; M25.531 Pain in right wrist
CPT/HCPCS: 36415; 73110; 73130; 80048; 81002; 87086; 87088; 87186

== ENCOUNTER → 2024-07-07 | Outpatient (CLI) | payer MEDICARE, MEDICAID, SELFPAY ==
[2022-06-23 12:13] VITALS: BMI 53.8
--- NOTE | 2024-07-07 07:53 | US_ITS ---
STUDY: ABDOMINAL ULTRASOUND - RIGHT UPPER QUADRANT REASON FOR VISIT: Female, 79 years old FATTY LIVER TECHNIQUE: Ultrasound evaluation of the right upper quadrant was performed with real-time and static lim-scale imaging. TECHNICAL QUALITY: Limited. Examination limited due to obesity. COMPARISON: None. FINDINGS: Liver: The liver is enlarged and measures 20.6 cm. There is normal echogenicity of the liver. The bile ducts are within normal limits. There is hepatic color flow. The direction of portal flow is hepatopetal. There is no demonstrated mass lesion. Gallbladder: The patient is status post cholecystectomy. Common Bile Duct (C.B.D.): The common bile duct measures 4.6 mm. Pancreas: Normal size of the head, body and tail of the pancreas. There is increased echogenicity of the pancreas. There is no demonstrated pancreatic mass or cyst. Right Kidney: Normal size of the right kidney. The right kidney measures 12.5 cm x 5.3 cm x 5.7 cm. Normal renal cortex. The right cortex measures 1.3 cm. There is no demonstrated renal mass or cyst. There is no right hydronephrosis. US/Abdomen Limited IMPRESSION: Hepatomegaly. Electronically Signed: Weston Alicea MD at 14:43 EDT ,
== END | disposition home or self-care (01) ==
LOC: OPUS 07:51
PROVIDERS: PCP Family Medicine Geriatric Medicine; Referring Provider Family Medicine Geriatric Medicine; Visit Provider Family Medicine Geriatric Medicine
DX: K76.0 Fatty (change of) liver, not elsewhere classified (principal); M79.641 Pain in right hand; M25.531 Pain in right wrist
CPT/HCPCS: 76705

== ENCOUNTER → 2024-08-20 | Outpatient (CLI) | payer MEDICARE, MEDICAID, SELFPAY ==
[2022-06-23 12:13] VITALS: BMI 53.8
[2024-08-20 14:39] LABS: Mucous, Urine 0 SEEN /hpf (<or=2+); Red Blood Cells-Urine 0 SEEN /hpf (0-5)
[2024-08-20 15:24] LABS: Absolute Lymphocyte Count 1.66 X10^3/uL (0.83-4.51); Absolute Neutrophil Count 5.2 X10^3/uL (2.0-7.7); Basophil# 0.05 X10^3/uL; Basophil% 0.6 % (0-1); Eosinophil# 0.14 X10^3/uL; Eosinophils% 1.8 % (0-5); Hematocrit 45.5 % (37-47); Hemoglobin 14.8 g/dL (12.0-15.0); Lymphocyte # 1.66 X10^3/ul (0.83-4.51); Lymphocyte % 21.5 % (19-41); Mean Corp Hgb Conc 32.5 g/dL (32-36); Mean Corpuscular Hgb 30.1 pg (27.0-32.0); Mean Corpuscular Volume 92.7 fL (81-99); Mean Platelet Vol. 10.2 fl (6.2-12.0); Monocyte# 0.55 X10^3/uL; Monocyte% 7.1 % (0-10); NRBC Flagged by Analyzer 0 % (0-5); Neutrophil # 5.23 X10^3/uL (2.7-7.7); Neutrophil % 67.8 % (47-70); Platelet Count 331 K/mm3 (150-450); RBC Distribution Width CV 14.3 % (11.6-14.6); RBC Distribution Width SD 48.7 fl (35.1-43.9); Red Blood Count 4.91 M/mm3 (4.2-5.4); White Blood Count 7.7 K/mm3 (4.4-11.0)
[2024-08-20 15:25] LABS: Color, Urine Straw (Yellow); Glucose, Dipstick Normal (Normal); Ketone-Dipstick Negative (Negative); Leukocyte Esterase-Dipstick Negative /ul (Negative); Nitrite-Dipstick Negative (Negative); Occult Blood-Urine Negative /ul (Negative); Protein-Dipstick 30 mg/dl (Negative); Urine Bilirubin Dipstick Negative (Negative); Urine Clarity Clear (Clear); Urine Urobilinogen Normal (Normal)
[2024-08-20 16:13] LABS: Vitamin D,25 Hydroxy 37.3 ng/mL
[2024-08-20 16:34] LABS: ALB/GLOB Ratio 0.8 RATIO (0.9-2.4); AST(SGOT) 15 U/L (15-37); Alanine Aminotransfer ALT/SGPT 14 U/L (13-56); Albumin, Serum 3.3 g/dL (3.2-5.0); Alkaline Phosphatase 126 U/L (45-117); Anion Gap 8 (5-15); BUN 27 mg/dL (7-18); BUN/Creat Ratio 17.5 RATIO (10-20); Calcium,Total 9.3 mg/dL (8.5-10.1); Chloride 102 mmol/L (98-107); Cholesterol 112 mg/dL (200); Creatinine, Serum 1.54 mg/dL (0.55-1.02); EST Glomerular Filtration Rate 35 mL/min (>60); Est Glom Filt Rate - Afr Amer 42 mL/min (>60); Globulin 4.3 g/dL (2.2-4.2); Glucose 166 mg/dL (74-106); High Density Lipoprotein 28 mg/dL; Potassium 4.3 mmol/L (3.5-5.1); Protein, Total 7.6 g/dL (6.4-8.2); Sodium Level 137 mmol/L (136-145); Triglycerides 227 mg/dL; Very Low Density Lipoprotein 45 mg/dL (5-40)
[2024-08-20 16:34] LABS: Squamous Epithelial Cells - UA 5-10 SEEN /hpf (5-10); Transitional Epithelial - Ur 0-5 SEEN /hpf (0-5)
[2024-08-20 16:36] LABS: White Blood Cells 0-5 SEEN /hpf (0-5)
[2024-08-20 16:40] LABS: Bacteria 1+ /hpf (None Seen); Yeast-Urine 1+ /hpf (None Seen)
== END | disposition home or self-care (01) ==
LOC: POLAB3 14:20
PROVIDERS: PCP Family Medicine Geriatric Medicine; Visit Provider Family Medicine Geriatric Medicine
DX: N39.0 Urinary tract infection, site not specified (principal); E11.65 Type 2 diabetes mellitus with hyperglycemia; E55.9 Vitamin D deficiency, unspecified; E78.5 Hyperlipidemia, unspecified
CPT/HCPCS: 36415; 80053; 80061; 81001; 82306; 82570; 83036; 84443; 85025; 87086; 87088

== ENCOUNTER 2024-10-25 18:17 | Emergency (ER) | payer MEDICARE, MEDICAID, SELFPAY ==
[2022-06-23 12:13] VITALS: BMI 53.8
[2024-10-25 18:18] VITALS: BP 149/86; PULSE 81; RESP 16; TEMP 36.2; O2SAT 97; BMI 37.9
--- NOTE | 2024-10-25 18:33 | EDS_ITS ---
HPI History of Present Illness Chief Complaint: Itching Informant: patient and spouse/S.O. Narrative Narrative: 79-year-old male states she did have an itching that has gotten worse, started a month or so ago. She states it is on both of her arms, from her right axilla down to her right thigh and some on her buttocks. She denies any rash that you can see. She denies any systemic symptoms other than anxiety. states that she started scratching her arm and then she goes from there to her scalp and scratches that. She has had no recent medication changes. She was using antihistamines like Benadryl that were helping, however her doctor told her to discontinue that as so she has not taken any in a month and she states she does not know what to do. It is Sunday evening she states she has not slept in a week because of this itching and accidentally missed an appointment to an licensing engineer for this and now has to wait till next month. She has not taken any other medications. 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 She sleeps in the same bed as her and he does not have any pruritus or rashes. [facility] Medical History Angina pectoris Paroxysmal atrial fibrillation Essential hypertension Atherosclerotic heart disease of [place] coronary artery without angina pectoris Atrial fibrillation Stented coronary artery (07/02/19) Traumatic brain injury Chronic diastolic (congestive) heart failure KUMAR (obstructive sleep apnea) Anxiety and depression GERD (gastroesophageal reflux disease) Diabetes mellitus, type II Morbid obesity with BMI of 50.0-59.9, adult HLD (hyperlipidemia) Home Medications ?Medication ?Instructions ?Recorded ?Last Taken ?Type acetaminophen 500 mg tablet 1,000 mg (2 x 500 mg) PO Q8H PRN 02/12/18 01/09/21 Rx Mild Pain (-10) omeprazole 40 mg capsule,delayed 40 mg PO DAILY GERD 12/05/18 01/10/21 History release citalopram 20 mg tablet 20 mg PO DAILY DEPRESSION 04/20/20 01/10/21 History albuterol sulfate 90 mcg/actuation 1 - 2 puff inhalation Q6H PRN PRN 01/10/21 01/09/21 History aerosol inhaler Sob &/Or Wheezing lorazepam 0.5 mg tablet 0.5 - 1 mg PO DAILY PRN PRN 01/10/21 1 Week Ago History EPISODIC HEADACHE ~01/03/21 [id number] acid 0.4 1 ea PO DAILY SUPPLEMENT 01/10/21 01/10/21 History mg-lycopene 300 mcg-lutein 250 mcg tablet atorvastatin 40 mg tablet 40 mg PO QHS 06/27/21 Unknown History sacubitril 97 mg-valsartan 103 mg 1 tab PO BID 01/16/22 Unknown History tablet (Entresto) mifepristone 300 mg tablet (Korlym) 600 mg PO DAILY 03/16/22 Unknown History furosemide 80 mg tablet 80 mg PO BID 06/22/22 Unknown History primidone 50 mg tablet 50 mg PO QHS 10/25/22 Unknown History potassium chloride 20 mEq 20 meq PO BID supplement 04/11/23 Unknown History tablet,extended release(part/cryst) spironolactone 50 mg tablet 50 mg PO DAILY 04/11/23 Unknown History tolterodine 4 mg capsule,extended 4 mg PO DAILY 04/11/23 Unknown History release 24 hr melatonin 10 mg sublingual tablet 20 mg PO QHS INSOMNIA 01/04/24 Unknown History diltiazem HCl 240 mg capsule,24 240 mg PO DAILY #90 caps 04/22/24 Unknown Rx hr,extended release apixaban 2.5 mg tablet (Eliquis) 2.5 mg PO BID Dose decreased d/t 08/14/24 Unknown Rx Korlym therapy by PCP #60 tabs insulin degludec 200 unit/mL (3 30 unit subcut DAILY 08/15/24 Unknown History mL) subcutaneous pen levothyroxine 100 mcg tablet 125 mcg PO DAILY 08/15/24 Unknown History loratadine 10 mg tablet (Claritin) 20 mg PO BID 08/15/24 Unknown History semaglutide 1 mg/dose (4 mg/3 mL) 1 mg subcut QWEEK 08/15/24 Unknown History subcutaneous pen injector (Ozempic) triamcinolone acetonide 0.1 % 1 applic topical DAILY PRN 10/25/24 Unknown Rx topical cream pruritis #80 grams Allergy/AdvReac Type Severity Reaction Status Date / Time No Known Allergies Allergy Verified 10/25/24 18:20 Family History Father Myocardial infarction Mother CVA (cerebral vascular accident) Hypertension Surgical History Status post excision of skin lesion, follow-up exam Presence of coronary angioplasty implant and graft (~07/02/19) History of cardioversion (06/25/20) H/O colonoscopy H/O spinal fusion Breast reduction with liposuction and ABD wrap Hx of cholecystectomy History of bilateral carpal tunnel release H/O: hysterectomy Complete hemorrhoidectomy External hemorrhoids removed Social History household members: spouse housing: house pets and animals: No Smoking Status: Never smoker alcohol intake: never substance use type: does not use ROS ROS ED Constitutional Constitutional ED: Denies chills or fever(s) Cardiovascular Cardiovascular: Denies chest pain Respiratory/Chest Respiratory/Chest: Denies dyspnea Gastrointestinal Gastrointestinal: Denies abdominal pain Integumentary Reports pruritus; Denies rash Neurologic Neurologic: Denies headache(s), paresthesias or weakness Psychiatric Psychiatric: Reports anxiety; Denies suicidal ideation EXAM Physical Exam Const Vital Signs: 10/25/24 18:18 Temperature 97.1 F L Temperature Source Temporal Pulse Rate 81 Respiratory Rate 16 Blood Pressure 149/86 H Blood Pressure Mean 107 Pulse Ox 97 Oxygen Delivery Method Room Air Positive well nourished, well developed and obese General Appearance ED: well developed and NAD Nutritional Appearance: obese HEENT Reports moist mucous membranes HEENT Narrative: No intraoral mucosal lesions Eyes PERRL and EOMs intact bilaterally Eyes Narrative: Normal conjunctive Neck no lymphadenopathy and supple Chest Wall inspection of chest normal and palpation of chest normal Resp normal respiratory effort GI normal to inspection, nondistended, normoactive bowel sounds and non-tender Extremity normal to inspection General Extremety ED: Negative for edema or tenderness General Extremity: Negative for edema Neuro oriented x3, CN's II-XII intact bilaterally and no sensory deficits noted Motor Exam: strength 5/5 throughout Psych mental status grossly normal Skin Skin Narrative: There are no rashes. There is some erythema on her upper arms and forearms, some of it is linear consistent with excoriations, the patient states those are from me scratching. No other lesions anywhere where the patient is symptomatic or elsewhere. No purpura, petechia, bullae, urticaria. MDM MDM MDM Narrative Medical decision making narrative: Given the patient's medical history, do not think systemic steroids are the best idea here. I told her that she was probably advised to discontinue antihistamines because they could make her confused. However if it means getting to sleep at night I think it is reasonable for her to take 50 mg of Benadryl occasionally seen as a month ago she was taking that 6 times a day without confusion. I prescribed her triamcinolone cream to use topically in the affected areas until she can follow-up. Discharge Plan Triage Chief Complaint: Itching ED Provider: Gordon Serrano Dx/Rx/DC Orders Clinical Impression: Skin pruritus Instructions: ED General Allergic Reactions Prescriptions: New triamcinolone acetonide 0.1 % cream 1 applic topical DAILY PRN (Reason: pruritis) Qty: 80 0RF No Action omeprazole 40 mg capsule,delayed release(DR/EC) 40 mg PO DAILY citalopram 20 mg tablet 20 mg PO DAILY potassium chloride 20 mEq tablet,ER particles/crystals 20 meq PO BID atorvastatin 40 mg tablet 40 mg PO QHS Korlym 300 mg tablet 600 mg PO DAILY Entresto 97-103 mg tablet 1 tab PO BID primidone 50 mg tablet 50 mg PO QHS insulin degludec 200 unit/mL (3 mL) insulin pen 30 unit subcut DAILY furosemide 80 mg tablet 80 mg PO BID Patient Comments: TAKE 1 TABLET BY MOUTH TWICE DAILY tolterodine 4 mg capsule,extended release 24hr 4 mg PO DAILY spironolactone 50 mg tablet 50 mg PO DAILY levothyroxine 100 mcg tablet 125 mcg PO DAILY Ozempic 1 mg/dose (4 mg/3 mL) pen injector 1 mg subcut QWEEK Patient Comments: INJECT 1mg Subcutaneous every week loratadine [Claritin] 10 mg tablet 20 mg PO BID acetaminophen 500 MG tablet 1,000 mg PO Q8H PRN (Reason: Mild Pain (1-310)) 0RF melatonin 10 mg tablet, sublingual 20 mg PO QHS Rx Instructions: extended release albuterol sulfate 1 INHALER inhaler 1 - 2 puff INHALATION Q6H PRN PRN (Reason: Sob &/Or Wheezing) [id number]-lycopen-lutein 1 EACH tablet 1 ea PO DAILY lorazepam 0.5 MG tablet 0.5 - 1 mg PO DAILY PRN PRN (Reason: EPISODIC HEADACHE) diltiazem HCl 240 mg capsule,extended release 24 hr 240 mg PO DAILY Qty: 90 3RF Eliquis 2.5 mg tablet 2.5 mg PO BID Qty: 60 11RF Primary Care Provider: Jim Hester Chi Referrals: Jim Hester Chi, MD [Primary Care Provider] - As soon as possible (and/or licensing engineer) Print Language: Cypriot Disposition Disposition: Home, Self Care
== END 2024-10-25 18:49 | disposition home or self-care (01) ==
LOC: ED 18:36
PROVIDERS: Emergency Provider Emergency Medicine; PCP Family Medicine Geriatric Medicine; Visit Provider Emergency Medicine
DX: L29.9 Pruritus, unspecified (principal); I50.32 Chronic diastolic (congestive) heart failure; E11.9 Type 2 diabetes mellitus without complications; I25.10 Atherosclerotic heart disease of native coronary artery without angina pectoris; G47.33 Obstructive sleep apnea (adult) (pediatric); Z95.5 Presence of coronary angioplasty implant and graft
CPT/HCPCS: 99282

== ENCOUNTER → 2024-11-11 | Outpatient (CLI) | payer MEDICARE, MEDICAID, SELFPAY ==
[2022-06-23 12:13] VITALS: BMI 53.8
== END | disposition home or self-care (01) ==
LOC: POLAB3 15:54
PROVIDERS: PCP Family Medicine Geriatric Medicine; Visit Provider Family Medicine Geriatric Medicine
DX: R68.83 Chills (without fever) (principal)
CPT/HCPCS: 87631

== ENCOUNTER → 2024-11-19 | Outpatient (CLI) | payer MEDICARE, MEDICAID, SELFPAY ==
[2022-06-23 12:13] VITALS: BMI 53.8
[2024-11-19 15:58] LABS: Absolute Lymphocyte Count 1.49 X10^3/uL (0.83-4.51); Absolute Neutrophil Count 5.8 X10^3/uL (2.0-7.7); Basophil# 0.02 X10^3/uL; Basophil% 0.2 % (0-1); Eosinophil# 0.11 X10^3/uL; Eosinophils% 1.4 % (0-5); Hematocrit 44.7 % (37-47); Hemoglobin 14.8 g/dL (12.0-15.0); Lymphocyte # 1.49 X10^3/ul (0.83-4.51); Lymphocyte % 18.4 % (19-41); Mean Corp Hgb Conc 33.1 g/dL (32-36); Mean Corpuscular Hgb 30.3 pg (27.0-32.0); Mean Corpuscular Volume 91.4 fL (81-99); Mean Platelet Vol. 10.3 fl (6.2-12.0); Monocyte% 7.4 % (0-10); NRBC Flagged by Analyzer 0 % (0-5); Neutrophil # 5.82 X10^3/uL (2.7-7.7); Neutrophil % 71.9 % (47-70); Platelet Count 301 K/mm3 (150-450); RBC Distribution Width CV 15.1 % (11.6-14.6); RBC Distribution Width SD 50.4 fl (35.1-43.9); Red Blood Count 4.89 M/mm3 (4.2-5.4); White Blood Count 8.1 K/mm3 (4.4-11.0)
[2024-11-19 16:47] LABS: ALB/GLOB Ratio 0.8 RATIO (0.9-2.4); AST(SGOT) 13 U/L (15-37); Alanine Aminotransfer ALT/SGPT 17 U/L (13-56); Albumin, Serum 3.2 g/dL (3.2-5.0); Alkaline Phosphatase 100 U/L (45-117); Anion Gap 8 (5-15); BUN 33 mg/dL (7-18); Calcium,Total 9.2 mg/dL (8.5-10.1); Chloride 104 mmol/L (98-107); Cholesterol 94 mg/dL (200); Creatinine, Serum 1.57 mg/dL (0.55-1.02); EST Glomerular Filtration Rate 34 mL/min (>60); Est Glom Filt Rate - Afr Amer 41 mL/min (>60); Globulin 4.2 g/dL (2.2-4.2); Glucose 162 mg/dL (74-106); High Density Lipoprotein 32 mg/dL; Potassium 4.6 mmol/L (3.5-5.1); Protein, Total 7.4 g/dL (6.4-8.2); Sodium Level 135 mmol/L (136-145); Triglycerides 233 mg/dL; Very Low Density Lipoprotein 47 mg/dL (5-40)
[2024-11-19 16:57] LABS: Hemoglobin A1c 6.2 % (3.8-5.6)
[2024-11-19 17:57] LABS: Vitamin D,25 Hydroxy 45.9 ng/mL
== END | disposition home or self-care (01) ==
LOC: LAB 15:09
PROVIDERS: PCP Family Medicine Geriatric Medicine; Referring Provider Family Medicine Geriatric Medicine; Visit Provider Family Medicine Geriatric Medicine
DX: E11.65 Type 2 diabetes mellitus with hyperglycemia (principal); I10 Essential (primary) hypertension; E78.5 Hyperlipidemia, unspecified; E55.9 Vitamin D deficiency, unspecified
CPT/HCPCS: 36415; 80053; 80061; 82306; 83036; 84443; 85025

== ENCOUNTER → 2024-11-20 | Outpatient (CLI) | payer MEDICARE, MEDICAID, SELFPAY ==
[2022-06-23 12:13] VITALS: BMI 53.8
== END | disposition home or self-care (01) ==
LOC: PSN 13:26
PROVIDERS: PCP Family Medicine Geriatric Medicine; Referring Provider Family Medicine Geriatric Medicine; Visit Provider Family Medicine Geriatric Medicine
DX: R68.83 Chills (without fever) (principal)
CPT/HCPCS: 87631

== ENCOUNTER 2024-12-13 12:09 | Emergency (ER) | payer MEDICARE, MEDICAID, SELFPAY ==
[2022-06-23 12:13] VITALS: BMI 53.8
[2024-12-13 12:10] VITALS: BP 112/65; PULSE 72; RESP 18; TEMP 36.8; O2SAT 96; BMI 54.5
--- NOTE | 2024-12-13 12:47 | EX.ED.DYSGE1 ---
HPI <NAGA Esteban - Last Filed: 12/13/24 15:43> History of Present Illness Chief Complaint: Itching Narrative Narrative: Patient is a 79-year-old female with a extended medical history. Patient is severely obese, diabetic, hypertension hyperlipidemia CHF, on blood thinners for paroxysmal atrial fibrillation. Presenting to the emergency department for ongoing itching, pruritus. Patient states this has been going on for greater than 3 months. Patient was seen here on October 25, 2024. Patient was evaluated, there is no anaphylaxis at this time, as there is no anaphylaxis this time. Patient states that the itching is just getting worse, she did not see an food and nutrition services supervisor/windows vmware engineer until December 29, 2024. Patient is here because the itching is out of control. She denies any chest pain or shortness of breath. Denies any fever or chills. PFSH <NAGA Esteban - Last Filed: 12/13/24 15:43> [facility] Medical History Angina pectoris Paroxysmal atrial fibrillation Essential hypertension Atherosclerotic heart disease of [place] coronary artery without angina pectoris Atrial fibrillation Stented coronary artery (07/02/19) Traumatic brain injury Chronic diastolic (congestive) heart failure KUMAR (obstructive sleep apnea) Anxiety and depression GERD (gastroesophageal reflux disease) Diabetes mellitus, type II Morbid obesity with BMI of 50.0-59.9, adult HLD (hyperlipidemia) Home Medications ?Medication ?Instructions ?Recorded ?Last Taken ?Type acetaminophen 500 mg tablet 1,000 mg (2 x 500 mg) PO Q8H PRN 02/12/18 01/09/21 Rx Mild Pain (1-3/10) omeprazole 40 mg capsule,delayed 40 mg PO DAILY GERD 12/05/18 01/10/21 History release citalopram 20 mg tablet 20 mg PO DAILY DEPRESSION 04/20/20 01/10/21 History albuterol sulfate 90 mcg/actuation 1 - 2 puff inhalation Q6H PRN PRN 01/10/21 01/09/21 History aerosol inhaler Sob &/Or Wheezing lorazepam 0.5 mg tablet 0.5 - 1 mg PO DAILY PRN PRN 01/10/21 1 Week Ago History EPISODIC HEADACHE ~01/03/21 [id number]-[id number] acid 0.4 1 ea PO DAILY SUPPLEMENT 01/10/21 01/10/21 History mg-lycopene 300 mcg-lutein 250 mcg tablet atorvastatin 40 mg tablet 40 mg PO QHS 06/27/21 Unknown History sacubitril 97 mg-valsartan 103 mg 1 tab PO BID 01/16/22 Unknown History tablet (Entresto) mifepristone 300 mg tablet (Korlym) 600 mg PO DAILY 03/16/22 Unknown History furosemide 80 mg tablet 80 mg PO BID 06/22/22 Unknown History primidone 50 mg tablet 50 mg PO QHS 10/25/22 Unknown History potassium chloride 20 mEq 20 meq PO BID supplement 04/11/23 Unknown History tablet,extended release(part/cryst) spironolactone 50 mg tablet 50 mg PO DAILY 04/11/23 Unknown History tolterodine 4 mg capsule,extended 4 mg PO DAILY 04/11/23 Unknown History release 24 hr melatonin 10 mg sublingual tablet 20 mg PO QHS INSOMNIA 01/04/24 Unknown History diltiazem HCl 240 mg capsule,24 240 mg PO DAILY #90 caps 04/22/24 Unknown Rx hr,extended release apixaban 2.5 mg tablet (Eliquis) 2.5 mg PO BID Dose decreased d/t 08/14/24 Unknown Rx Korlym therapy by PCP #60 tabs insulin degludec 200 unit/mL (3 30 unit subcut DAILY 08/15/24 Unknown History mL) subcutaneous pen levothyroxine 100 mcg tablet 125 mcg PO DAILY 08/15/24 Unknown History loratadine 10 mg tablet (Claritin) 20 mg PO BID 08/15/24 Unknown History semaglutide 1 mg/dose (4 mg/3 mL) 1 mg subcut QWEEK 08/15/24 Unknown History subcutaneous pen injector (Ozempic) triamcinolone acetonide 0.1 % 1 applic topical DAILY PRN 10/25/24 Unknown Rx topical cream pruritis #80 grams famotidine 20 mg tablet (Pepcid) 20 mg PO BID 2 weeks #28 tabs 12/13/24 Unknown Rx hydroxyzine HCl 25 mg tablet 25 mg PO TID PRN itching #20 tabs 12/13/24 Unknown Rx Allergy/AdvReac Type Severity Reaction Status Date / Time No Known Allergies Allergy Verified 12/13/24 12:37 Family History Father Myocardial infarction Mother CVA (cerebral vascular accident) Hypertension Surgical History Status post excision of skin lesion, follow-up exam Presence of coronary angioplasty implant and graft (~07/02/19) History of cardioversion (06/25/20) H/O colonoscopy H/O spinal fusion Breast reduction with liposuction and ABD wrap Hx of cholecystectomy History of bilateral carpal tunnel release H/O: hysterectomy Complete hemorrhoidectomy External hemorrhoids removed Social History household members: spouse housing: house pets and animals: No Smoking Status: Never smoker alcohol intake: never substance use type: does not use ROS <NAGA Esteban - Last Filed: 12/13/24 15:43> ROS ED ROS Narrative Constitutional: Negative for fever, chills, weight loss, weakness Eyes: Negative for vision loss, vision change, double vision ENT: Negative for any sore throat, ear pain, congestion Cardiovascular: Negative for any chest pain, tightness, palpitations Respiratory: Negative for any cough, sputum production, hemoptysis, dyspnea, dyspnea on exertion, orthopnea Gastrointestinal: Negative for any abdominal pain, nausea, vomiting, diarrhea, constipation, blood in stool, blood in vomit : Negative for any urinary frequency, dysuria, retention, blood in urine Muscle skeletal: Negative for any neck pain, back pain Neurological: Negative for any headache, syncope, dizziness Skin: Negative for any rashes, abrasions, lacerations. Positive for itching, redness to the skin Psychiatric: Negative for any depression, anxiety, stress, suicidal ideation, homicidal ideation Hematologic: Negative for any excessive bruising, easy bleeding EXAM <NAGA Esteban - Last Filed: 12/13/24 15:43> Physical Exam Narrative Exam Narrative: Vital signs reviewed. Patient is in no obvious distress. Patient states she is irritated secondary to the constant itching. HEET: Head normocephalic atraumatic, TMs clear bilaterally. Posterior pharynx is clear, moist mucous membranes. Nares clear bilaterally. Negative for any angioedema, no stridor, patient speaking complete sentences. Neck: Supple with no lymphadenopathy or tenderness. No signs of meningismus. Cardiac: Regular rate and rhythm no murmurs gallops or rubs, equal peripheral pulses bilaterally. Respiratory: Lungs clear to auscultation bilaterally. No chest tenderness. Abdomen: Soft, nontender, nondistended. No abdominal bruit or pulsatile masses. No hepatosplenomegaly Extremities: No peripheral edema, no signs of gross trauma or deformity. Active full range of motion of all extremities. Neuro: Cranial nerves II through XII intact, no focal neurological deficits. Skin: Clean dry and intact with no rash, purpura, petechiae, vesicles or pustules. Patient does have some erythema to both thighs where she has been itching constantly. Patient states that it goes to the middle of her legs, she states most of it is from her head down just from her knees. I do not see any cellulitis, there is no, crusty rash, no evidence of any herpetic lesions, no urticaria. Backs/flank: No CVA tenderness, no midline spinal tenderness, no deformity. Psych: Normal mood and affect. No SI, HI or acute psychosis. Const Vital Signs: 12/13/24 12:10 Temperature 98.2 F Temperature Source Oral Pulse Rate 72 Respiratory Rate 18 Blood Pressure 112/65 Blood Pressure Mean 80 Pulse Ox 96 Oxygen Delivery Method Room Air <Dr. Barak Lancaster DO - Last Filed: 12/13/24 15:51> Physical Exam Const Vital Signs: 12/13/24 12:10 Temperature 98.2 F Temperature Source Oral Pulse Rate 72 Respiratory Rate 18 Blood Pressure 112/65 Blood Pressure Mean 80 Pulse Ox 96 Oxygen Delivery Method Room Air [facility] <NAGA Esteban - Last Filed: 12/13/24 15:43> [facility] Lab Data Labs: Laboratory Results - last 24 hr 12/13/24 12/13/24 12/13/24 12:52 12:54 13:19 WBC 9.3 RBC 5.03 Hgb 15.3 H Hct 45.7 MCV 90.9 MCH 30.4 MCHC 33.5 RDW Std Deviation 49.1 H RDW Coeff of Deepak 14.8 H Plt Count 322 MPV 9.5 Immature Gran % (Auto) 1.100 H Neut % (Auto) 78.4 H Lymph % (Auto) 14.3 L Frederick % (Auto) 4.9 Eos % (Auto) 1.0 Baso % (Auto) 0.3 Absolute Neuts (auto) 7.3 Absolute Lymphs (auto) 1.32 Nucleated RBC % 0 Sodium 135 L Potassium 4.4 Chloride 102 Carbon Dioxide 24.0 Anion Gap 10 BUN 23 H Creatinine 1.73 H Estim Creat Clear Calc 38.87 Est GFR (MDRD) Af Amer 37 L Est GFR (MDRD) Non-Af 30 L BUN/Creatinine Ratio 13.3 Glucose 135 H Calcium 9.3 Magnesium 2.1 Total Bilirubin 0.50 Direct Bilirubin 0.15 AST 17 ALT 18 Alkaline Phosphatase 126 H Total Protein 7.8 Albumin 3.3 Globulin 4.5 H Cortisol POC Glucose 117 H 12/13/24 14:00 WBC RBC Hgb Hct MCV MCH MCHC RDW Std Deviation RDW Coeff of Deepak Plt Count MPV Immature Gran % (Auto) Neut % (Auto) Lymph % (Auto) Frederick % (Auto) Eos % (Auto) Baso % (Auto) Absolute Neuts (auto) Absolute Lymphs (auto) Nucleated RBC % Sodium Potassium Chloride Carbon Dioxide Anion Gap BUN Creatinine Estim Creat Clear Calc Est GFR (MDRD) Af Amer Est GFR (MDRD) Non-Af BUN/Creatinine Ratio Glucose Calcium Magnesium Total Bilirubin Direct Bilirubin AST ALT Alkaline Phosphatase Total Protein Albumin Globulin Cortisol 53.70 H POC Glucose Treatment and Re-Evaluation :: Differential diagnosis includes however is not limited to: Allergic reaction, autoimmune, dry skin, cellulitis, angioedema, anxiety Patient appears generally well, vital signs are stable, patient is nontoxic-appearing. Presenting to the emergency department with complaints of generalized body itching from her head down to just above her knees for the last 3 months. Was seen here 6 months ago, was told to take Benadryl at night, as well as a steroid cream. She states it helped only slightly, however that seems that the itching is spreading. She did see her PCP who told her to stop taking the Benadryl. Patient will have an IV established, CBC, chemistries will be ordered. Patient be given IV Benadryl, IV Pepcid. On reevaluation, the patient was feeling slightly improved. Patient's laboratory values showed normal CBC, patient's chemistries were unremarkable, patient's creatinine was 1.73, looking over the past 6 months, she has been averaging between 1.54-1.57, she was made aware of this. Total bilirubin was normal. Patient's cortisol level was elevated 53.7. At this time, patient be given Atarax for home, as well as Pepcid twice a day for 14 days. She was instructed to also use a daily Claritin. She will continue to follow-up with her food and nutrition services supervisor. All questions were answered, given strict return precautions. <Dr. Barak Lancaster, DO - Last Filed: 12/13/24 15:51> [facility] History & Record Review Discussion w/independent historian: Patient and Family Lab Data Attestation: I reviewed the patient's lab results. Labs: Laboratory Results - last 24 hr 12/13/24 12/13/24 12/13/24 12:52 12:54 13:19 WBC 9.3 RBC 5.03 Hgb 15.3 H Hct 45.7 MCV 90.9 MCH 30.4 MCHC 33.5 RDW Std Deviation 49.1 H RDW Coeff of Deepak 14.8 H Plt Count 322 MPV 9.5 Immature Gran % (Auto) 1.100 H Neut % (Auto) 78.4 H Lymph % (Auto) 14.3 L Frederick % (Auto) 4.9 Eos % (Auto) 1.0 Baso % (Auto) 0.3 Absolute Neuts (auto) 7.3 Absolute Lymphs (auto) 1.32 Nucleated RBC % 0 Sodium 135 L Potassium 4.4 Chloride 102 Carbon Dioxide 24.0 Anion Gap 10 BUN 23 H Creatinine 1.73 H Estim Creat Clear Calc 38.87 Est GFR (MDRD) Af Amer 37 L Est GFR (MDRD) Non-Af 30 L BUN/Creatinine Ratio 13.3 Glucose 135 H Calcium 9.3 Magnesium 2.1 Total Bilirubin 0.50 Direct Bilirubin 0.15 AST 17 ALT 18 Alkaline Phosphatase 126 H Total Protein 7.8 Albumin 3.3 Globulin 4.5 H Cortisol POC Glucose 117 H 12/13/24 14:00 WBC RBC Hgb Hct MCV MCH MCHC RDW Std Deviation RDW Coeff of Deepak Plt Count MPV Immature Gran % (Auto) Neut % (Auto) Lymph % (Auto) Frederick % (Auto) Eos % (Auto) Baso % (Auto) Absolute Neuts (auto) Absolute Lymphs (auto) Nucleated RBC % Sodium Potassium Chloride Carbon Dioxide Anion Gap BUN Creatinine Estim Creat Clear Calc Est GFR (MDRD) Af Amer Est GFR (MDRD) Non-Af BUN/Creatinine Ratio Glucose Calcium Magnesium Total Bilirubin Direct Bilirubin AST ALT Alkaline Phosphatase Total Protein Albumin Globulin Cortisol 53.70 H POC Glucose Treatment and Re-Evaluation :: Differential diagnosis includes however is not limited to: Allergic reaction, autoimmune, dry skin, cellulitis, angioedema, anxiety Patient appears generally well, vital signs are stable, patient is nontoxic-appearing. Presenting to the emergency department with complaints of generalized body itching from her head down to just above her knees for the last 3 months. Was seen here 6 months ago, was told to take Benadryl at night, as well as a steroid cream. She states it helped only slightly, however that seems that the itching is spreading. She did see her PCP who told her to stop taking the Benadryl. Patient will have an IV established, CBC, chemistries will be ordered. Patient be given IV Benadryl, IV Pepcid. On reevaluation, the patient was feeling slightly improved. Patient's laboratory values showed normal CBC, patient's chemistries were unremarkable, patient's creatinine was 1.73, looking over the past 6 months, she has been averaging between 1.54-1.57, she was made aware of this. Total bilirubin was normal. Patient's cortisol level was elevated 53.7. At this time, patient be given Atarax for home, as well as Pepcid twice a day for 14 days. She was instructed to also use a daily Claritin. She will continue to follow-up with her food and nutrition services supervisor. All questions were answered, given strict return precautions. I have personally performed a face to face assessment of the patient and have reviewed the MICHAEL Note. I performed a substantive portion of the visit including all aspects of the following. My calixto findings include: History is 79-year-old female presenting to the emergency room with itching. Symptoms have been present intermittently for several months. She states that today she had an episode where it hit her more severely than normal. She did not have any urticaria. She felt it in the axillas and inguinal region starting from about the thighs upwards. She has a history of [place]'s disease. She has an appointment with allergy and February. Family states they wonder if this could be from medication or for magnesium issues. They also wonder what role Adrianne's may play with this. Exam is obese female lying comfortably in the bed. I do not appreciate any significant rash. She is not jaundiced. Neurovascular intact. Medical Decison Making basic blood work was obtained. It is noted cortisol to be 50. Total bilirubin 0.5 magnesium 2.1. Patient I think would be best to speak with her supervisor cook house regarding her Adrianne's questions. I do not see an emergent cause for the patient's symptoms and believe she can be discharged home with follow-up Discharge Plan Triage Chief Complaint: Itching ED Midlevel Provider: Joshua French ED Provider: Barak Lancaster Dx/Rx/DC Orders Clinical Impression: Pruritus Instructions: ED Contact Dermatitis Prescriptions: New famotidine [Pepcid] 20 mg tablet 20 mg PO BID 14 Days Qty: 28 0RF hydroxyzine HCl 25 mg tablet 25 mg PO TID PRN (Reason: itching) Qty: 20 0RF No Action omeprazole 40 mg capsule,delayed release(DR/EC) 40 mg PO DAILY citalopram 20 mg tablet 20 mg PO DAILY potassium chloride 20 mEq tablet,ER particles/crystals 20 meq PO BID atorvastatin 40 mg tablet 40 mg PO QHS Korlym 300 mg tablet 600 mg PO DAILY Entresto 97-103 mg tablet 1 tab PO BID primidone 50 mg tablet 50 mg PO QHS insulin degludec 200 unit/mL (3 mL) insulin pen 30 unit subcut DAILY furosemide 80 mg tablet 80 mg PO BID Patient Comments: TAKE 1 TABLET BY MOUTH TWICE DAILY tolterodine 4 mg capsule,extended release 24hr 4 mg PO DAILY spironolactone 50 mg tablet 50 mg PO DAILY levothyroxine 100 mcg tablet 125 mcg PO DAILY Ozempic 1 mg/dose (4 mg/3 mL) pen injector 1 mg subcut QWEEK Patient Comments: INJECT 1mg Subcutaneous every week loratadine [Claritin] 10 mg tablet 20 mg PO BID acetaminophen 500 MG tablet 1,000 mg PO Q8H PRN (Reason: Mild Pain (1-310)) 0RF melatonin 10 mg tablet, sublingual 20 mg PO QHS Rx Instructions: extended release albuterol sulfate 1 INHALER inhaler 1 - 2 puff INHALATION Q6H PRN PRN (Reason: Sob &/Or Wheezing) [id number]-npo-OK-lycopen-lutein 1 EACH tablet 1 ea PO DAILY lorazepam 0.5 MG tablet 0.5 - 1 mg PO DAILY PRN PRN (Reason: EPISODIC HEADACHE) triamcinolone acetonide 0.1 % cream 1 applic topical DAILY PRN (Reason: pruritis) Qty: 80 0RF diltiazem HCl 240 mg capsule,extended release 24 hr 240 mg PO DAILY Qty: 90 3RF Eliquis 2.5 mg tablet 2.5 mg PO BID Qty: 60 11RF Primary Care Provider: Jim Hester Chi Referrals: Jim Hester Chi, MD [Primary Care Provider] - Activity Restrictions/Additional Instructions: Take the hydroxyzine for itching, may also take the Pepcid twice a day Print Language: Divehi Disposition Disposition: Home, Self Care
[2024-12-13 12:57] LABS: Absolute Lymphocyte Count 1.32 X10^3/uL (0.83-4.51); Absolute Neutrophil Count 7.3 X10^3/uL (2.0-7.7); Basophil# 0.03 X10^3/uL; Basophil% 0.3 % (0-1); Eosinophil# 0.09 X10^3/uL; Hematocrit 45.7 % (37-47); Hemoglobin 15.3 g/dL (12.0-15.0); Lymphocyte # 1.32 X10^3/ul (0.83-4.51); Lymphocyte % 14.3 % (19-41); Mean Corp Hgb Conc 33.5 g/dL (32-36); Mean Corpuscular Hgb 30.4 pg (27.0-32.0); Mean Corpuscular Volume 90.9 fL (81-99); Mean Platelet Vol. 9.5 fl (6.2-12.0); Monocyte# 0.45 X10^3/uL; Monocyte% 4.9 % (0-10); NRBC Flagged by Analyzer 0 % (0-5); Neutrophil # 7.27 X10^3/uL (2.7-7.7); Neutrophil % 78.4 % (47-70); Platelet Count 322 K/mm3 (150-450); RBC Distribution Width CV 14.8 % (11.6-14.6); RBC Distribution Width SD 49.1 fl (35.1-43.9); Red Blood Count 5.03 M/mm3 (4.2-5.4); White Blood Count 9.3 K/mm3 (4.4-11.0)
[2024-12-13 13:10] LABS: Anion Gap 10 (5-15); BUN 23 mg/dL (7-18); BUN/Creat Ratio 13.3 RATIO (10-20); Calcium,Total 9.3 mg/dL (8.5-10.1); Chloride 102 mmol/L (98-107); Creatinine, Serum 1.73 mg/dL (0.55-1.02); EST Glomerular Filtration Rate 30 mL/min (>60); Est Glom Filt Rate - Afr Amer 37 mL/min (>60); Estimated Creatinine Clearance 38.87 ml/min; Glucose 135 mg/dL (74-106); Potassium 4.4 mmol/L (3.5-5.1); Sodium Level 135 mmol/L (136-145)
[2024-12-13] MEDS: DiphenhydrAMINE 50 MG/ML Syringe 25 MG IV (13:12)
[2024-12-13] MEDS: Famotidine 200 MG/20 ML MDV 20 MG in 0.9% Normal Saline (Pres. free 8 ML 300 MG IV (13:12)
[2024-12-13 13:40] LABS: Bedside Glucose 117 mg/dL (74-106)
[2024-12-13 13:45] LABS: AST(SGOT) 17 U/L (15-37); Alanine Aminotransfer ALT/SGPT 18 U/L (13-56); Albumin, Serum 3.3 g/dL (3.2-5.0); Alkaline Phosphatase 126 U/L (45-117); Bilirubin, Direct 0.15 mg/dL (0.00-0.30); Globulin 4.5 g/dL (2.2-4.2); Protein, Total 7.8 g/dL (6.4-8.2)
[2024-12-13 14:52] LABS: Magnesium 2.1 mg/dL (1.6-2.6)
[2024-12-13 16:14] VITALS: BP 112/78; PULSE 78; RESP 17; O2SAT 99
== END 2024-12-13 16:14 | disposition home or self-care (01) ==
PROVIDERS: Nurse Practitioner; Emergency Provider Emergency Medicine; PCP Family Medicine Geriatric Medicine; Visit Provider Emergency Medicine
DX: L29.9 Pruritus, unspecified (principal); I11.0 Hypertensive heart disease with heart failure; I50.32 Chronic diastolic (congestive) heart failure; I48.0 Paroxysmal atrial fibrillation; E11.9 Type 2 diabetes mellitus without complications; E66.9 Obesity, unspecified; I25.10 Atherosclerotic heart disease of native coronary artery without angina pectoris; Z95.5 Presence of coronary angioplasty implant and graft
CPT/HCPCS: 80048; 80076; 82533; 82962; 83735; 85025; 96374; 99285; A4216

== ENCOUNTER → 2025-02-19 | Outpatient (CLI) | payer MEDICARE, MEDICAID, SELFPAY ==
[2022-06-23 12:13] VITALS: BMI 53.8
[2025-02-19 15:05] LABS: Absolute Lymphocyte Count 1.46 X10^3/uL (0.83-4.51); Absolute Neutrophil Count 5.5 X10^3/uL (2.0-7.7); Basophil# 0.02 X10^3/uL; Basophil% 0.3 % (0-1); Eosinophil# 0.12 X10^3/uL; Eosinophils% 1.6 % (0-5); Hematocrit 42.5 % (37-47); Hemoglobin 13.7 g/dL (12.0-15.0); Lymphocyte # 1.46 X10^3/ul (0.83-4.51); Mean Corp Hgb Conc 32.2 g/dL (32-36); Mean Corpuscular Volume 93.2 fL (81-99); Mean Platelet Vol. 9.7 fl (6.2-12.0); Monocyte# 0.49 X10^3/uL; Monocyte% 6.4 % (0-10); NRBC Flagged by Analyzer 0 % (0-5); Neutrophil # 5.54 X10^3/uL (2.7-7.7); Neutrophil % 72.2 % (47-70); Platelet Count 292 K/mm3 (150-450); RBC Distribution Width CV 14.5 % (11.6-14.6); RBC Distribution Width SD 49.4 fl (35.1-43.9); Red Blood Count 4.56 M/mm3 (4.2-5.4); White Blood Count 7.7 K/mm3 (4.4-11.0)
[2025-02-19 16:04] LABS: Microalbumin,Random Urine 37.4 mg/L (NO RANGE EST.); Microalbumin:Creatinine Ratio 420.2 mg/g CRE
[2025-02-19 16:12] LABS: ALB/GLOB Ratio 1.2 RATIO (0.9-2.4); AST(SGOT) 16 U/L (<=31); Alanine Aminotransfer ALT/SGPT 9 U/L (<=34); Albumin, Serum 3.7 g/dL (3.4-4.8); Alkaline Phosphatase 120 U/L (35-104); Anion Gap 13 (5-15); BUN 22 mg/dL (4-19); BUN/Creat Ratio 15.4 RATIO (10-20); Calcium,Total 8.5 mg/dL (7.6-11.0); Carbon Dioxide 21.3 mmol/L (21.0-32.0); Chloride 104 mmol/L (98-108); Cholesterol 100 mg/dL (<=200); Creatinine, Serum 1.45 mg/dL (0.70-1.20); EST Glomerular Filtration Rate 37 (>60); Globulin 3.2 g/dL (2.2-4.2); Glucose 164 mg/dL (70-99); High Density Lipoprotein 27 mg/dL; Low Density Lipoprotein Calc. 39 mg/dL; Potassium 4.4 mmol/L (3.3-5.1); Protein, Total 6.9 g/dL (5.9-8.4); Sodium Level 137 mmol/L (133-145); Total Bilirubin 0.25 mg/dL (0.00-1.30); Triglycerides 168 mg/dL; Very Low Density Lipoprotein 34 mg/dL (5-40); cholesterol:hdl ratio screen 3.69
[2025-02-19 16:19] LABS: Vitamin D,25 Hydroxy 32.6 ng/mL (30-100)
[2025-02-19 16:54] LABS: Hemoglobin A1c 6.2 % (<=5.6)
== END | disposition home or self-care (01) ==
PROVIDERS: PCP Family Medicine Geriatric Medicine; Referring Provider Family Medicine Geriatric Medicine; Visit Provider Family Medicine Geriatric Medicine
DX: E11.65 Type 2 diabetes mellitus with hyperglycemia (principal); E55.9 Vitamin D deficiency, unspecified; E78.5 Hyperlipidemia, unspecified; I10 Essential (primary) hypertension
CPT/HCPCS: 36415; 80053; 80061; 82043; 82306; 82570; 83036; 84443; 85025

== ENCOUNTER → 2025-05-21 | Outpatient (CLI) | payer MEDICARE, MEDICAID, SELFPAY ==
[2022-06-23 12:13] VITALS: BMI 53.8
[2025-05-21 14:57] LABS: Hematocrit 43.2 % (37-47); Hemoglobin 14.3 g/dL (12.0-15.0); Immature Granulocytes Count 0.060 X10^3/uL (0.0-0.0); Mean Corp Hgb Conc 33.1 g/dL (32-36); Mean Corpuscular Volume 90.4 fL (81-99); Mean Platelet Vol. 9.8 fl (6.2-12.0); NRBC Flagged by Analyzer 0 % (0-5); Platelet Count 311 K/mm3 (150-450); RBC Distribution Width CV 14.0 % (11.6-14.6); RBC Distribution Width SD 46.4 fl (35.1-43.9); Red Blood Count 4.78 M/mm3 (4.2-5.4); White Blood Count 7.7 K/mm3 (4.4-11.0)
[2025-05-21 16:21] LABS: Vitamin D,25 Hydroxy 39.8 ng/mL (30-100)
[2025-05-21 18:27] LABS: Cholesterol 90 mg/dL (<=200); Low Density Lipoprotein Calc. 31 mg/dL; Triglycerides 182 mg/dL; Very Low Density Lipoprotein 36 mg/dL (5-40); cholesterol:hdl ratio screen 3.97
[2025-05-21 18:30] LABS: AST(SGOT) 19 U/L (<=31); Alanine Aminotransfer ALT/SGPT 10 U/L (<=34); Albumin, Serum 3.8 g/dL (3.4-4.8); Alkaline Phosphatase 129 U/L (35-104); Anion Gap 15 (5-15); BUN 22 mg/dL (4-19); BUN/Creat Ratio 13.7 RATIO (10-20); Calcium,Total 8.7 mg/dL (7.6-11.0); Carbon Dioxide 21.7 mmol/L (21.0-32.0); Chloride 100 mmol/L (98-108); Globulin 3.0 g/dL (2.2-4.2); Glucose 122 mg/dL (70-99); Potassium 4.4 mmol/L (3.3-5.1)
== END | disposition home or self-care (01) ==
LOC: POLAB3 14:21
PROVIDERS: PCP Family Medicine Geriatric Medicine; Visit Provider Family Medicine Geriatric Medicine
DX: E11.65 Type 2 diabetes mellitus with hyperglycemia (principal); E55.9 Vitamin D deficiency, unspecified; E78.5 Hyperlipidemia, unspecified; I10 Essential (primary) hypertension
CPT/HCPCS: 36415; 80053; 80061; 82306; 83036; 84443; 85025

== ENCOUNTER → 2025-09-10 | Outpatient (CLI) | payer MEDICARE, MEDICAID, SELFPAY ==
[2022-06-23 12:13] VITALS: BMI 53.8
[2025-09-10 15:42] LABS: Hematocrit 42.2 % (37-47); Hemoglobin 14.5 g/dL (12.0-15.0); Immature Granulocytes Count 0.040 X10^3/uL (0.0-0.0); Mean Corp Hgb Conc 34.4 g/dL (32-36); Mean Corpuscular Volume 89.0 fL (81-99); Mean Platelet Vol. 9.5 fl (6.2-12.0); NRBC Flagged by Analyzer 0 % (0-5); Platelet Count 273 K/mm3 (150-450); RBC Distribution Width CV 14.6 % (11.6-14.6); RBC Distribution Width SD 47.7 fl (35.1-43.9); Red Blood Count 4.74 M/mm3 (4.2-5.4); White Blood Count 6.7 K/mm3 (4.4-11.0)
[2025-09-10 16:35] LABS: AST(SGOT) 16 U/L (<=31); Alanine Aminotransfer ALT/SGPT 8 U/L (<=34); Albumin, Serum 3.6 g/dL (3.4-4.8); Alkaline Phosphatase 114 U/L (35-104); Anion Gap 13 (5-15); BUN 21 mg/dL (4-19); BUN/Creat Ratio 16.8 RATIO (10-20); Calcium,Total 8.6 mg/dL (7.6-11.0); Carbon Dioxide 20.2 mmol/L (21.0-32.0); Chloride 102 mmol/L (98-108); Cholesterol 79 mg/dL (<=200); Globulin 3.0 g/dL (2.2-4.2); Glucose 125 mg/dL (70-99); Low Density Lipoprotein Calc. 29 mg/dL; Potassium 4.3 mmol/L (3.3-5.1); Triglycerides 132 mg/dL; Very Low Density Lipoprotein 26 mg/dL (5-40); Vitamin D,25 Hydroxy 32.2 ng/mL (30-100); cholesterol:hdl ratio screen 2.98
== END | disposition home or self-care (01) ==
LOC: LAB 15:02
PROVIDERS: PCP Family Medicine Geriatric Medicine; Referring Provider Family Medicine Geriatric Medicine; Visit Provider Family Medicine Geriatric Medicine
DX: E78.5 Hyperlipidemia, unspecified (principal); E11.65 Type 2 diabetes mellitus with hyperglycemia; I10 Essential (primary) hypertension; E03.9 Hypothyroidism, unspecified; E55.9 Vitamin D deficiency, unspecified
CPT/HCPCS: 36415; 80053; 80061; 82306; 83036; 84443; 85025

== ENCOUNTER → 2025-09-24 | Outpatient (CLI) | payer MEDICARE, MEDICAID, SELFPAY ==
[2022-06-23 12:13] VITALS: BMI 53.8
--- NOTE | 2025-09-24 14:05 | ECHOCS_ITS ---
Reason For Study Reason For Study: SOB Procedure This was a 2D Doppler, Color Flow transthoracic echocardiogram. The study was technically difficult. Contrast injection was performed. Exam performed in department. Left Ventricle Normal LV size. The left ventricular ejection fraction is 55 %. No regional wall motion abnormalities noted. Right Ventricle Normal RV size. Normal systolic function. Atria The left atrium is not well visualized. The right atrium is not well visualized. Mitral Valve Mitral valve not well visualized. Tricuspid Valve Normal tricuspid valve. Great Vessels Normal aortic root. Pericardium/Pleural No pericardial effusion. Medication 22 gauge I.V. with prn adaptor inserted into right arm. Diluted definity 4ml given slow IV push to enhance endocardial definition. MMode/2D Measurements & Calculations Ao root diam: 3.6 cm LVAd ap4: 25.3 cm2 SV(MOD-sp4): 41.2 ml LVLd ap4: 6.8 cm SI(MOD-sp4): 17.2 ml/m2 EDV(MOD-sp4): 76.6 ml EDV(sp4-el): 80.1 ml LVAs ap4: 16.0 cm2 LVLs ap4: 6.0 cm ESV(MOD-sp4): 35.4 ml ESV(sp4-el): 36.1 ml EF(MOD-sp4): 53.8 % EF(sp4-el): 54.9 % SV(sp4-el): 44.0 ml LA dimension(2D): 4.8 cm Doppler Measurements & Calculations MV E max domenic: 95.1 cm/sec MV V2 max: 113.5 cm/sec Ao V2 max: 96.5 cm/sec MV max P.1 mmHg Ao max P.7 mmHg MV V2 mean: 43.6 cm/sec MV mean P.1 mmHg MV V2 VTI: 28.5 cm LV V1 max: 70.4 cm/sec LV V1 max P.0 mmHg LV V1 mean P.2 mmHg LV V1 mean: 51.6 cm/sec LV V1 VTI: 15.4 cm ECHO/Echo Complete W/ Contrast Interpretation Summary Normal LV size. The left ventricular ejection fraction is 55 %. No regional wall motion abnormalities noted. Contrast injection was performed. Ordering Physician: Tiff Reyes Referring Physician: Tiff Reyes Performed By: Alex Aguilar RCS
--- NOTE | 2025-09-24 14:05 | CDU_ITS ---
Reason For Study Reason For Study: [place] Rt. Velocities/BP Lt. Velocities/BP Prox CCA 48.5/6.9 cm/sec. Prox CCA 55.1/10.7 cm/sec. Mid CCA 48.5/11.6 cm/sec. Mid CCA 68.3/15.4 cm/sec. Dist CCA 57/11.6 cm/sec. Dist CCA 48.5/10.7 cm/sec. Prox ICA 52.2/15.4 cm/sec. Prox ICA 37.9/9.5 cm/sec. Mid ICA 45.8/12.1 cm/sec. Mid ICA 71.5/20.4 cm/sec. Dist ICA 58.9/14.5 cm/sec. Dist ICA 71.5/18.5 cm/sec. Rt. ICA/CCA = 1.21. Lt. ICA/CCA = 1.05. Prox ECA 61.5/8.9 cm/sec. Prox ECA 44.7/7.8 cm/sec. Rt. Vert. 36.2/9.7 cm/sec. Lt. Vert. 27.8/8 cm/sec. Right Extracranial There is homogeneous, smooth atherosclerotic plaque noted in the right common carotid artery. There is heterogeneous, irregular atherosclerotic plaque noted in the right internal carotid artery. There is heterogeneous, irregular atherosclerotic plaque noted in the right external carotid artery. Antegrade flow is noted in the right vertebral artery. Left Extracranial There is homogeneous, smooth atherosclerotic plaque noted in the left common carotid artery. There is heterogeneous, irregular atherosclerotic plaque noted in the left internal carotid artery. There is heterogeneous, irregular atherosclerotic plaque noted in the left external carotid artery. Antegrade flow is noted in the left vertebral artery. Procedure This is a Carotid Duplex examination using B-mode, color flow and specral Doppler. Carotid Duplex [id number]. Exam performed in department. VL/Carotid Duplex Ultrasound Interpretation Summary Mild (<50%) stenosis right extracranial internal carotid. Mild (<50%) stenosis left extracranial internal carotid. Patent and antegrade vertebrals bilaterally. Ordering Physician: Tiff Reyes Referring Physician: Jim Hester Chi Performed By: Yamilex Huang RVT
== END | disposition home or self-care (01) ==
LOC: CVS 14:04
PROVIDERS: PCP Family Medicine Geriatric Medicine; Referring Provider Nurse Practitioner Gerontology; Visit Provider Nurse Practitioner Gerontology
DX: R42 Dizziness and giddiness (principal); R06.02 Shortness of breath
CPT/HCPCS: 93306; 93880; Q9957; A4216; C8929

== ENCOUNTER → 2025-10-13 | Outpatient (CLI) | payer MEDICARE, MEDICAID, SELFPAY ==
[2022-06-23 12:13] VITALS: BMI 53.8
--- NOTE | 2025-10-13 17:28 | RAD_ITS ---
PROCEDURE: L/S SPINE MIN 4 VIEWS 10/13/2025 REASON FOR EXAM: LUMBAR DISC DISEASE TECHNIQUE: Procedure Code: RADSPLS Modality: DX Procedure: L/S SPINE MIN 4 VIEWS COMPARISON: No FINDINGS: There is posterior fusion hardware at L 4-5 which appears intact and aligned. There is a 50% anterior compression deformity at T12, age-indeterminate. Surgical clips are noted in the right upper quadrant. Osteopenia is noted. Vascular calcifications are visible. RAD/L/S Spine Min 4 Views IMPRESSION: There is posterior fusion hardware at L 4-5 which appears intact and aligned. There is a 50% anterior compression deformity at T12, age-indeterminate. Reading Location: [facility]
== END | disposition home or self-care (01) ==
LOC: RAD 17:18
PROVIDERS: PCP Family Medicine Geriatric Medicine; Referring Provider Family Medicine Geriatric Medicine; Visit Provider Family Medicine Geriatric Medicine
DX: L50.9 Urticaria, unspecified (principal); N39.0 Urinary tract infection, site not specified
CPT/HCPCS: 72110; 87086; 87088

== ENCOUNTER → 2025-10-27 | Outpatient (CLI) | payer MEDICARE, MEDICAID, SELFPAY ==
[2022-06-23 12:13] VITALS: BMI 53.8
== END | disposition home or self-care (01) ==
LOC: SL 20:00
PROVIDERS: PCP Family Medicine Geriatric Medicine; Referring Provider Nurse Practitioner Acute Care; Visit Provider Nurse Practitioner Acute Care
DX: G47.33 Obstructive sleep apnea (adult) (pediatric) (principal)
CPT/HCPCS: 95811

== ENCOUNTER → 2025-11-02 | Outpatient (CLI) | payer MEDICARE, MEDICAID, SELFPAY ==
[2022-06-23 12:13] VITALS: BMI 53.8
== END | disposition home or self-care (01) ==
LOC: POLAB3 16:51
PROVIDERS: PCP Family Medicine Geriatric Medicine; Visit Provider Family Medicine Geriatric Medicine
DX: R06.2 Wheezing (principal)
CPT/HCPCS: 87631